=== PATIENT | male | born 1950 | race Two or more races ===

== ENCOUNTER 2020-03-19 14:52 | Inpatient (IN) | payer MEDICARE, MEDICAID ==
[~2020-03-19] VITALS: Ht 182.9 cm; Wt 71.7 kg
--- NOTE | 2020-03-19 15:03 | Emergency Room Report ---
History of Present Illness General Chief Complaint: Vomiting Source: Medical Record, EMS Present Illness HPI Patient is a 69-year-old male sent in from nursing facility [place] for increased vomiting and generalized weakness. Multiple episodes of emesis today. Reportedly nonbloody. No diarrhea. Prior history of chronic debilitation chronically indwelling Argueta catheter. CVA, malnutrition, hypertension, diabetes type 2, chronic kidney disease. Allergies: Coded Allergies: No Known Allergies (Unverified , 03/19/20) COVID-19 Screening Contact w/high risk pt: No Experienced COVID-19 symptoms?: Yes COVID-19 Testing performed NIB ADJUSTER: Yes COVID-19 Screening: Negative COVID-19 COVID-19 Testing Source: 03/03/20 Patient History Past Medical History: see triage record Reviewed Nursing Documentation: PMH: Agreed; PSxH: Agreed Nursing Documentation-PMH Past Medical History: No History, Except For Hx Diabetes: Yes - with CKD Review of Systems All Other Systems: limited - Review of systems: Review systems is limited by patient's being a poor historian Physical Exam Vital Signs Date Time Temp Pulse Resp B/P (MAP) Pulse Ox O2 Delivery O2 Flow Rate FiO2 03/19/20 14:53 98.8 123 24 122/76 (91) 98 Room Air General Appearance: non-toxic, lethargic, Chronically Ill Eyes: bilateral eye PERRL ENT: hearing grossly normal Neck: limited range of motion Respiratory: no respiratory distress, wheezing Cardiovascular #1: normal peripheral pulses, regular rate, rhythm, no edema Gastrointestinal: normal inspection, normal bowel sounds, non tender, soft Genitourinary: other - Argueta catheter with dark urine Musculoskeletal: back normal, other - Muscular atrophy Neurologic: alert, motor weakness, responsive, aphasia Skin: no rash Medical Decision Making Diagnostic Impression: Primary Impression: Sepsis Additional Impressions: Urinary tract infection Argueta catheter problem Hydronephrosis Suspected 2019-nCoV infection ER Course Patient presented for vomiting. Differential diagnosis include was not limited to urinary tract infection, sepsis, coronavirus infection, pneumonia, bowel obstruction among others. Because of complexity of patient's case laboratory tests and imaging studies were ordered. Labs Test 03/19/20 15:21 03/19/20 15:48 03/19/20 16:44 White Blood Count 31.2 K/UL (4.8-10.8) Red Blood Count 6.72 M/UL (4.70-6.10) Hemoglobin 18.9 G/DL (14.2-18.0) Hematocrit 56.1 % (42.0-52.0) Mean Corpuscular Volume 84 FL (80-99) Mean Corpuscular Hemoglobin 28.1 PG (27.0-31.0) Mean Corpuscular Hemoglobin Concent 33.7 G/DL (32.0-36.0) Red Cell Distribution Width 14.4 % (11.6-14.8) Platelet Count 370 K/UL (150-450) Mean Platelet Volume 7.4 FL (6.5-10.1) Neutrophils (%) (Auto) % (45.0-75.0) Lymphocytes (%) (Auto) % (20.0-45.0) Monocytes (%) (Auto) % (1.0-10.0) Eosinophils (%) (Auto) % (0.0-3.0) Basophils (%) (Auto) % (0.0-2.0) Differential Total Cells Counted 100 Neutrophils % (Manual) 81 % (45-75) Lymphocytes % (Manual) 5 % (20-45) Monocytes % (Manual) 8 % (1-10) Eosinophils % (Manual) 0 % (0-3) Basophils % (Manual) 0 % (0-2) Band Neutrophils 6 % (0-8) Platelet Estimate Adequate Platelet Morphology Normal Polychromasia 1+ Prothrombin Time 15.1 SEC (9.30-11.50) Prothromb Time International Ratio 1.4 (0.9-1.1) Activated Partial Thromboplast Time 32 SEC (23-33) Sodium Level 137 MMOL/L (136-145) Potassium Level 4.0 MMOL/L (3.5-5.1) Chloride Level 103 MMOL/L (98-107) Carbon Dioxide Level 26 MMOL/L (21-32) Anion Gap 8 mmol/L (5-15) Blood Urea Nitrogen 10 mg/dL (7-18) Creatinine 1.2 MG/DL (0.55-1.30) Estimat Glomerular Filtration Rate > 60 mL/min (>60) Glucose Level 85 MG/DL (74-106) Calcium Level 9.0 MG/DL (8.5-10.1) Total Bilirubin 0.6 MG/DL (0.2-1.0) Aspartate Amino Transf (AST/SGOT) 26 U/L (15-37) Alanine Aminotransferase (ALT/SGPT) 26 U/L (12-78) Alkaline Phosphatase 64 U/L (46-116) Troponin I 0.000 ng/mL (0.000-0.056) Total Protein 7.9 G/DL (6.4-8.2) Albumin 3.9 G/DL (3.4-5.0) Globulin 4.0 g/dL Albumin/Globulin Ratio 1.0 (1.0-2.7) Lipase 146 U/L (73-393) Urine Color Yellow Urine Appearance Turbid Urine pH 8 (4.5-8.0) Urine Specific [place] 1.010 (1.005-1.035) Urine Protein 4+ (NEGATIVE) Urine Glucose (UA) Negative (NEGATIVE) Urine Ketones 1+ (NEGATIVE) Urine Blood Negative (NEGATIVE) Urine Nitrite Positive (NEGATIVE) Urine Bilirubin Negative (NEGATIVE) Urine Urobilinogen Normal MG/DL (0.0-1.0) Urine Leukocyte Esterase 3+ (NEGATIVE) Urine RBC 2-4 /HPF (0 - 0) Urine WBC 10-15 /HPF (0 - 0) Urine Squamous Epithelial Cells None /LPF (NONE/OCC) Urine Triple Phosphate Crystals Few /LPF (NONE) Urine Bacteria Many /HPF (NONE) EKG Diagnostic Results Rate: tachycardiac Rhythm: other - Tachycardia ST Segments: no acute changes Last Vital Signs Date Time Temp Pulse Resp B/P (MAP) Pulse Ox O2 Delivery O2 Flow Rate FiO2 03/19/20 14:53 98.8 123 24 122/76 (91) 98 Room Air Status: unchanged Disposition: ADMITTED INPATIENT Condition: Stable Venkat Rodriguez MD Mar 19, 2020 15:03
[2020-03-19] MEDS ORDERED: MIRALAX17 G2 ORAL (15:04)
[2020-03-19] MEDS ORDERED: NAMENDA5 MG ORAL (15:04)
[2020-03-19] MEDS ORDERED: FLOMAX0.4 MG ORAL (15:04)
[2020-03-19] MEDS ORDERED: LEVETIRACETAM500 M1 ORAL (15:04)
[2020-03-19] MEDS ORDERED: MULTIVITAMINS1 EAC2 ORAL (15:04)
[2020-03-19] MEDS ORDERED: MEGESTROL400 MG/11 PO (15:04)
[2020-03-19] MEDS ORDERED: COLACE100 MG ORAL (15:04)
[2020-03-19] MEDS ORDERED: PROSCAR5 MG ORAL (15:04)
[2020-03-19] MEDS ORDERED: ATIVAN1 MG ORAL (15:04)
[2020-03-19] MEDS ORDERED: ACETAMINOPHEN325 M1 ORAL (15:04)
[2020-03-19 15:30] VITALS: BP 129/72
--- NOTE | 2020-03-19 15:30 | NUR ---
ED Nurse Note: Pt BIBA from [facility] for N&V since last night. Pt is alert and ox0, bedrest. Pt has leon upon arrival, patent and draining. IV established, blood sent to lab. Set up on monitor. Tachypnea. Seen by CRUZ.
--- NOTE | 2020-03-19 15:50 | NUR ---
ED Nurse Note: Pt taken to CT.
[2020-03-19 15:56] LABS: HEMATOCRIT 56.1 % (42.0-52.0); MEAN CORPUSCULAR VOLUME 84 FL (80-99); PLATELET COUNT 370 K/UL (150-450); RED BLOOD COUNT 6.72 M/UL (4.70-6.10); RED CELL DISTRIBUTION WIDTH 14.4 % (11.6-14.8); WHITE BLOOD COUNT 31.2 K/UL (4.8-10.8)
[2020-03-19 15:58] LABS: HEMOGLOBIN 18.9 G/DL (14.2-18.0)
[2020-03-19] MEDS ORDERED: Cefepime HCl 2 GM in NS 110 ML IV ONE (16:00)
[2020-03-19 16:11] LABS: INR 1.4 (0.9-1.1)
[2020-03-19 16:26] LABS: APPEARANCE,URINE TURBID; BILIRUBIN, URINE NEGATIVE (NEGATIVE); GLUCOSE, URINE (UA) NEGATIVE (NEGATIVE); KETONES,URINE 1+ (NEGATIVE); LEUKOCYTE ESTERASE ,URINE 3+ (NEGATIVE); NITRITE,URINE POSITIVE (NEGATIVE); PH,URINE 8 (4.5-8.0); PROTEIN,URINE 4+ (NEGATIVE); UROBILINOGEN,URINE NORMAL MG/DL (0.0-1.0)
[2020-03-19 16:27] LABS: COLOR,URINE YELLOW
[2020-03-19 16:27] LABS: ANION GAP 8 mmol/L (5-15); BLOOD UREA NITROGEN 10 mg/dL (7-18); CARBON DIOXIDE 26 MMOL/L (21-32); CHLORIDE 103 MMOL/L (98-107); CREATININE 1.2 MG/DL (0.55-1.30); SODIUM 137 MMOL/L (136-145)
[2020-03-19 16:31] LABS: ALANINE AMINOTRANSFERASE 26 U/L (12-78); ALBUMIN 3.9 G/DL (3.4-5.0); ALKALINE PHOSPHATASE 64 U/L (46-116); ASPARTATE AMINO TRANSFERASE 26 U/L (15-37); BILIRUBIN,TOTAL 0.6 MG/DL (0.2-1.0)
--- NOTE | 2020-03-19 16:34 | Diagnostic Imaging Report ---
EXAM: XR Chest, 1 View CLINICAL HISTORY: SOB TECHNIQUE: Frontal view of the chest. COMPARISON: None FINDINGS: Hardware: None. Lungs/pleura: Right basilar opacity may represent atelectasis. No other focal consolidation. No pleural effusion or pneumothorax. Heart/mediastinum: Atherosclerotic calcifications of the aorta. No cardiomegaly. Soft tissues: Unremarkable. Bones: No acute fracture. Upper abdomen: Normal. IMPRESSION: Right basilar opacity may represent atelectasis. No other focal consolidation.
--- NOTE | 2020-03-19 16:44 | Diagnostic Imaging Report ---
EXAM: CT Abdomen and Pelvis Without Intravenous Contrast CLINICAL HISTORY: ABD PAIN TECHNIQUE: Axial computed tomography images of the abdomen and pelvis without intravenous contrast. CTDI is 6.2 mGy and DLP is 350.5 mGy-cm. One or more of the following dose reduction techniques were used: automated exposure control, adjustment of the mA and/or kV according to patient size, use of iterative reconstruction technique. COMPARISON: None FINDINGS: Lung bases: Ground-glass opacity in the dependent right lower lobe may represent atelectasis, but infectious/inflammatory process is not excluded. Mild dependent atelectasis on the left. ABDOMEN: Liver: Unremarkable. Gallbladder and bile ducts: Lobulated gallbladder with mildly calcified paredes versus cholelithiasis. Gallbladder is underdistended. No ductal dilation. Pancreas: Unremarkable. No ductal dilation. Spleen: Unremarkable. No splenomegaly. Adrenals: Unremarkable. No mass. Kidneys and ureters: Severe bilateral hydronephrosis and moderate hydroureters. No obstructing stone identified. Possible infection. Nonspecific, left greater than right perinephric fat stranding. Stomach and bowel: Moderate to large amount of stool in the rectum with mild prominence of the rectal wall. This may represent fecal impaction, and stercoral inflammation. Moderate to large amount of stool in the colon may represent constipation. No bowel obstruction. No mucosal thickening. PELVIS: Appendix: No findings to suggest acute appendicitis. Bladder: Distended bladder with prominent bladder wall thickening, concerning for cystitis. Trace surrounding fluid. Please correlate with urinalysis. Argueta catheter balloon is noted within the prostate. No stones. Reproductive: Right hydrocele partially visualized. Calcifications in the prostate. ABDOMEN and PELVIS: Intraperitoneal space: Unremarkable. No free air. No significant fluid collection. Bones/joints: Degenerative changes of the spine. No acute fracture. No dislocation. Soft tissues: Small fat-containing umbilical hernia. Vasculature: Mild ectasia of the ascending aorta, measuring 4.1 cm in diameter. Atherosclerotic changes of the vasculature. No aortic aneurysm. Lymph nodes: Unremarkable. No enlarged lymph nodes. IMPRESSION: 1. Severe bilateral hydronephrosis and moderate hydroureters. No obstructing stone identified. Possible infection. Nonspecific, left greater than right perinephric fat stranding. 2. Distended bladder with prominent bladder wall thickening, concerning for cystitis. Trace surrounding fluid. Please correlate with urinalysis. 3. Argueta catheter balloon is noted within the prostate. 4. Moderate to large amount of stool in the rectum with mild prominence of the rectal wall. This may represent fecal impaction, and stercoral inflammation. 5. Moderate to large amount of stool in the colon may represent constipation. No bowel obstruction. 6. Ground-glass opacity in the dependent right lower lobe may represent atelectasis, but infectious/inflammatory process is not excluded. 7. Lobulated gallbladder with mildly calcified paredes versus cholelithiasis. Gallbladder is underdistended. 8. Right hydrocele partially visualized.
--- NOTE | 2020-03-19 16:50 | NUR ---
ED Nurse Note: ERMD notified that pt leaking from f/c he arrived with. Per ERMD order, change f/c. New f/c 16F placed 1700.
[2020-03-19 17:38] LABS: CREATINE KINASE 1252 U/L (26-308)
[2020-03-19 18:45] VITALS: BP 135/83
--- NOTE | 2020-03-19 18:50 | NUR ---
ED Nurse Note: Lactic reflux sent.
--- NOTE | 2020-03-19 19:12 | NUR ---
ED Nurse Note: Report received from SANGEETHA ALDRICH Repeat lactic sent
[2020-03-19] MEDS ORDERED: Albuterol/Ipratropium 3ml neb HHN PRN (19:45)
[2020-03-19] MEDS ORDERED: Miralax 17gm pkt ORAL PRN (19:45)
[2020-03-19] MEDS: Heparin 5000 units/ml inj SUBQ SCH (21:00)
[2020-03-19 21:33] LABS: APPEARANCE,URINE TURBID; BILIRUBIN, URINE NEGATIVE (NEGATIVE); COLOR,URINE BROWN; GLUCOSE, URINE (UA) NEGATIVE (NEGATIVE); KETONES,URINE NEGATIVE (NEGATIVE); LEUKOCYTE ESTERASE ,URINE 3+ (NEGATIVE); NITRITE,URINE NEGATIVE (NEGATIVE); PH,URINE 8 (4.5-8.0); PROTEIN,URINE 4+ (NEGATIVE); UROBILINOGEN,URINE NORMAL MG/DL (0.0-1.0)
--- NOTE | 2020-03-19 23:17 | NUR ---
ED Nurse Note: Report given to LISA ALDRICH
--- NOTE | 2020-03-19 23:50 | NUR ---
TRANSFER TO FLOOR: [facility] accompanied by RN. Belongings checked and given to RN. Patient transferred safely to bed and endorsed to RN
--- NOTE | 2020-03-19 23:55 | NUR ---
NURSE NOTES: Patient received from ELINOR Langford. Patient transferred to ER with no issues. Patient is A/O x 1. Patient is noted a leon, patent and draining, noted to have hematuria in his leon. Patient is coughing and attempts to vomit when he arrived to the floor. Patient is on room air with no signs of acute respiratory distress noted. Patient's skin is noted to be intact. Patient has 20 gauge IV on his left hand and a 20 gauge IV on his wrist, patent and flushed. Bed is in the lowest position and locked, call light within reach. Will continue to monitor.
[2020-03-20] VITALS: BP 132/86
[2020-03-20] MEDS ORDERED: Vancomycin 1 GM in D5W 275 ML IV SCH (00:30)
[2020-03-20] MEDS ORDERED: Vancomycin 1.5gm/300ml Premix IVPB SCH (02:00)
[2020-03-20 04:00] VITALS: BP 134/89
--- NOTE | 2020-03-20 07:20 | NUR ---
NURSE HAND-OFF REPORT: Important Events on Shift:[Hematuria noted on patient's leon. Heparin not given. Patient vomited once during shift] Patient Status: [Stable] Diet: [Regular diet] Pending Orders: [] Pending Results/Labs:[] Pending MD notification:[] Latest Vital Signs: Temperature 97.2 , Pulse 101 , B/P 134 /89 , Respiratory Rate 20 , O2 SAT 96 , Room Air, O2 Flow Rate . Vital Sign Comment: [] EKG Rhythm: Sinus Rhythm Rhythm change?: Y MD Notified?: N - MD Response: Latest Wilkerson Fall Score: 70 Fall Risk: High Risk Safety Measures: Call light , Bed Alarm Zone 1, Side Rails Side Rails x2, Bed position Low and Locked. Fall Precautions: Yellow Socks Yellow Gown Patient Fall Education Report given to [ELINOR Castañeda].
--- NOTE | 2020-03-20 07:30 | NUR ---
NURSE NOTES: Received patient in bed. Awake, nonverbal, opens eyes to voice. On room air, respirations unlabored. No signs of pain noted at this time. F/c in place, hematuria noted. Side rails up x2, bed low and locked, bed alarm on, call light within reach - unable to return demonstration, yellow gown on, yellow socks on. IV in right forearm, site intact.
[2020-03-20 08:00] VITALS: BP 135/90
[2020-03-20] MEDS: Tamsulosin 0.4mg cap ORAL SCH (08:20)
[2020-03-20] MEDS: Memantine 10mg tab ORAL SCH ×2 (08:21→17:52)
[2020-03-20] MEDS: Heparin 5000 units/ml inj SUBQ SCH (09:00)
--- NOTE | 2020-03-20 09:00 | NUR ---
NURSE NOTES: Subcut heparin held d/t hematuria.
--- NOTE | 2020-03-20 09:30 | NUR ---
CASE MANAGEMENT:REVIEW [facility]IBA [facility]; N/V AND WEAKNESS SI: SEPSIS. UTI. HYDRONEPHROSIS 98.7 123 24 122/76 98% ON RA WBC+31.2 H/H+18.9/56.1 IS: IV ZOFRAN IV PEPCID 1L NS BOLUS IV VANCOMYCIN IV FLAGYL IV CEFEPIME CT ABD/PELVIS TYPE & SCREEN : TO TELEMETRY DCP: RETURN TO SNF
--- NOTE | 2020-03-20 10:15 | History and Physical Report ---
DATE OF ADMISSION: 03/19/2020 DATE AND TIME SEEN: On 03/20/2020 at 9 a.m. CONSULTANTS: 1. Juancarlos Heredia MD 2. Matias Albert MD 3. Rd Ernst MD 4. Courtney Dotson MD 5. Vee Truong MD CHIEF COMPLAINT: Dehydration, UTI, sepsis, and bilateral hydronephrosis. BRIEF HISTORY: This is a 69-year-old male from [facility], who presented with increased lethargy, was slightly tachycardic, looks dehydrated, sent to [place], and diagnosed of UTI, sepsis, bilateral hydronephrosis, fecal impaction, and then right lung opacity, possible pneumonia and admitted to telemetry. Currently sleeping in bed, slight shortness of breath, no complaint. REVIEW OF SYSTEMS: Unavailable. PAST MEDICAL HISTORY: Weakness, CVA, left hemiplegia, malnutrition, hypertension, and diabetes. PAST SURGICAL HISTORY: Unknown. ALLERGIES: Denies. MEDICATIONS: Include vancomycin, cefepime, tamsulosin, ranitidine, finasteride, heparin, Lipitor, , temazepam, Zofran, and Tylenol. SOCIAL HISTORY: Unable to obtain secondary to the patient's lethargy. PHYSICAL EXAMINATION: GENERAL: Lethargic, sleeping in bed, not talking. VITAL SIGNS: Temperature is 97, pulse 101, respirations 20, blood pressure 134/89. CARDIOVASCULAR: No murmur. LUNGS: Poor air exchange. ABDOMEN: Bowel sounds distant. EXTREMITIES: No cyanosis, clubbing, or edema. NEUROLOGIC: The patient moves all extremities, slightly weak. LABORATORY AND DIAGNOSTIC DATA: Labs at this time show white count 31, hemoglobin and hematocrit 18/56, and platelets 370,000. BMP shows lactic acid 4.6, CK 1250, otherwise BMP is normal. INR is 1.4. Urinalysis showed 3+ leukocyte esterase. ASSESSMENT: UTI, sepsis, dehydration, bilateral hydronephrosis, fecal impaction, right lung opacity, possible pneumonia, weakness, CVA with left hemiplegia, diabetes, hypertension, and malnutrition. PLAN: Resume home medications. O2 and pulmonary treatment as needed. Antibiotics per Infectious Disease. Blood pressure and blood sugar control. Dietary followup. PT and OT. CBC and BMP in the morning. Gibson Berry D.O. DR: Deven JOB#: [id number] CC:
[2020-03-20] MEDS: Cefepime HCl 2 GM in D5W 110 ML IV SCH ×2 (11:02→21:54)
--- NOTE | 2020-03-20 11:51 | NUR ---
NURSE NOTES: New order for CBI obtained from Dr Dotson.
[2020-03-20 12:00] VITALS: BP 128/82
--- NOTE | 2020-03-20 12:15 | Consultation ---
DATE OF CONSULTATION: 03/20/2020 CHIEF COMPLAINT: Fecal impaction. HISTORY OF PRESENT ILLNESS: Most of history per chart. The patient is a 69[facility] patient who came to the hospital with altered mental status, tachycardia, dehydrated. The patient was found to have urinary tract infection, bilateral hydronephrosis, hematuria, fecal impaction, altered mental status, possible pneumonia. GI consult requested for evaluation of constipation and fecal impaction. PAST MEDICAL HISTORY: 1. History of CVA with left hemiparesis. 2. Malnutrition. 3. Hypertension. 4. Diabetes. PAST SURGICAL HISTORY: Unknown. ALLERGIES: Denies any allergies. MEDICATIONS: Please see medication reconciliation list. SOCIAL HISTORY: [facility] in a [facility]. No recent history of tobacco, alcohol, or drug abuse. REVIEW OF SYSTEMS: Limited. PHYSICAL EXAMINATION: VITAL SIGNS: Temperature 97.2, pulse 119, respirations 20, blood pressure is 134/89. HEENT: Normocephalic and atraumatic. Sclerae anicteric. NECK: Supple. No evidence of obvious lymphadenopathy. CARDIOVASCULAR: Tachy, regular rate. Plus S1-S2. LUNGS: Decreased breath sounds bilaterally and diffusely based on the supine exam. ABDOMEN: Soft, nontender. No rebound. No guarding. No peritoneal sign. EXTREMITIES: No cyanosis, no clubbing, no edema. LABORATORY DATA: White count 31,000, hemoglobin is 18, hematocrit 56, platelet count is 370. ASSESSMENT: The patient is a 69-year-old male with most probably urosepsis, hydronephrosis, hematuria, fecal impaction. PLAN: We are going to give him a dose of mineral oil enema. We are going to put him on Colace, MiraLAX, and lactulose and consider adding Linzess tomorrow if still having no bowel movement. The patient to be seen by speech therapist for swallow evaluation. The patient needs extensive hydration because he is very dehydrated. The patient most probably also needs Urology evaluation. Rd Ernst M.D. DR: Renetta JOB#: [id number] CC:
--- NOTE | 2020-03-20 12:48 | Infectious Diseases Prog Note ---
Subjective Allergies: Coded Allergies: No Known Allergies (Unverified , 03/19/20) ID note was dictated # ? Objective Last 24 Hour Vital Signs Date Time Temp Pulse Resp B/P (MAP) Pulse Ox O2 Delivery O2 Flow Rate FiO2 03/20/20 09:00 Room Air 03/20/20 08:00 119 03/20/20 04:00 100 03/20/20 04:00 97.2 101 20 134/89 (104) 96 03/20/20 00:13 Room Air 03/20/20 00:00 106 03/20/20 00:00 97.5 106 20 132/86 (101) 99 03/19/20 23:17 98.8 98 21 118/64 97 Room Air 97 03/19/20 18:45 98.8 106 24 135/83 97 Room Air 03/19/20 15:30 98.8 120 26 129/72 98 Room Air 03/19/20 15:30 120 26 Room Air 97 03/19/20 14:53 98.8 123 24 122/76 (91) 98 Room Air Height (Feet): 6 Height (Inches): 0.00 Weight (Pounds): 158 Microbiology Date/Time Source Procedure Growth Status 03/19/20 21:00 Nasopharynx SARS-CoV-2 RdRp Gene Assay - Final Complete 03/19/20 16:44 Blood Blood Culture - Preliminary Resulted 03/19/20 16:29 Blood Blood Culture - Preliminary Resulted 03/19/20 16:00 Rectum Received 03/19/20 15:48 Urine,Clean Catch Urine Culture - Preliminary Gram Negative Keaton Resulted 03/19/20 15:48 Urine,Clean Catch Urine Culture - Preliminary Gram Negative Keaton Resulted Laboratory Tests Test 03/19/20 15:17 03/19/20 15:21 03/19/20 15:48 03/19/20 16:44 Total Creatine Kinase 1252 U/L (26-308) H White Blood Count 31.2 K/UL (4.8-10.8) *H Red Blood Count 6.72 M/UL (4.70-6.10) H Hemoglobin 18.9 G/DL (14.2-18.0) *H Hematocrit 56.1 % (42.0-52.0) H Mean Corpuscular Volume 84 FL (80-99) Mean Corpuscular Hemoglobin 28.1 PG (27.0-31.0) Mean Corpuscular Hemoglobin Concent 33.7 G/DL (32.0-36.0) Red Cell Distribution Width 14.4 % (11.6-14.8) Platelet Count 370 K/UL (150-450) Mean Platelet Volume 7.4 FL (6.5-10.1) Neutrophils (%) (Auto) % (45.0-75.0) Lymphocytes (%) (Auto) % (20.0-45.0) Monocytes (%) (Auto) % (1.0-10.0) Eosinophils (%) (Auto) % (0.0-3.0) Basophils (%) (Auto) % (0.0-2.0) Differential Total Cells Counted 100 Neutrophils % (Manual) 81 % (45-75) H Lymphocytes % (Manual) 5 % (20-45) L Monocytes % (Manual) 8 % (1-10) Eosinophils % (Manual) 0 % (0-3) Basophils % (Manual) 0 % (0-2) Band Neutrophils 6 % (0-8) Platelet Estimate Adequate Platelet Morphology Normal Polychromasia 1+ Prothrombin Time 15.1 SEC (9.30-11.50) H Prothromb Time International Ratio 1.4 (0.9-1.1) H Activated Partial Thromboplast Time 32 SEC (23-33) Sodium Level 137 MMOL/L (136-145) Potassium Level 4.0 MMOL/L (3.5-5.1) Chloride Level 103 MMOL/L (98-107) Carbon Dioxide Level 26 MMOL/L (21-32) Anion Gap 8 mmol/L (5-15) Blood Urea Nitrogen 10 mg/dL (7-18) Creatinine 1.2 MG/DL (0.55-1.30) Estimat Glomerular Filtration Rate > 60 mL/min (>60) Glucose Level 85 MG/DL (74-106) Calcium Level 9.0 MG/DL (8.5-10.1) Total Bilirubin 0.6 MG/DL (0.2-1.0) Aspartate Amino Transf (AST/SGOT) 26 U/L (15-37) Alanine Aminotransferase (ALT/SGPT) 26 U/L (12-78) Alkaline Phosphatase 64 U/L (46-116) Troponin I 0.000 ng/mL (0.000-0.056) Total Protein 7.9 G/DL (6.4-8.2) Albumin 3.9 G/DL (3.4-5.0) Globulin 4.0 g/dL Albumin/Globulin Ratio 1.0 (1.0-2.7) Lipase 146 U/L (73-393) Urine Color Brown Urine Appearance Turbid Urine pH 8 (4.5-8.0) Urine Specific [place] 1.010 (1.005-1.035) Urine Protein 4+ (NEGATIVE) H Urine Glucose (UA) Negative (NEGATIVE) Urine Ketones Negative (NEGATIVE) Urine Blood Negative (NEGATIVE) Urine Nitrite Negative (NEGATIVE) Urine Bilirubin Negative (NEGATIVE) Urine Urobilinogen Normal MG/DL (0.0-1.0) Urine Leukocyte Esterase 3+ (NEGATIVE) H Urine RBC 2-4 /HPF (0 - 0) H Urine WBC 15-20 /HPF (0 - 0) H Urine Squamous Epithelial Cells None /LPF (NONE/OCC) Urine Triple Phosphate Crystals Few /LPF (NONE) H Urine Amorphous Sediment Many /LPF (NONE) H Urine Bacteria Many /HPF (NONE) H Lactic Acid Level 4.60 mmol/L (0.4-2.0) H Test 03/19/20 19:08 Lactic Acid Level 5.10 mmol/L (0.66-2.22) H Current Medications Medications (Trade) Dose Ordered Sig/Martine Route PRN Reason Start Time Stop Time Status Last Admin Dose Admin Acetaminophen (Tylenol) 650 mg Q4H PRN ORAL Temp >100.5 03/19/20 19:45 04/18/20 19:44 Albuterol/ Ipratropium (Albuterol/ Ipratropium) 3 ml Q4H PRN HHN Shortness of Breath 03/19/20 19:45 03/24/20 19:44 Cefepime HCl 2 gm/ Dextrose 110 ml @ 220 mls/hr EVERY 12 HOURS IV 03/20/20 09:00 03/27/20 08:59 03/20/20 11:02 Dextrose/ Electrolytes 1,000 ml @ 75 mls/hr [id number] IV 03/20/20 13:00 04/19/20 12:59 Docusate Sodium (Colace) 100 mg TWICE A DAY ORAL 03/20/20 18:00 04/19/20 17:59 Finasteride (Proscar) 5 mg DAILY ORAL 03/20/20 09:00 06/18/20 08:59 03/20/20 08:20 Heparin Sodium (Porcine) (Heparin 5000 units/ml) 5,000 units EVERY 12 HOURS SUBQ 03/19/20 21:00 05/03/20 20:59 Lactulose (Cephulac) 20 gm THREE TIMES A DAY ORAL 03/20/20 13:00 04/19/20 12:59 Levetiracetam (Keppra) 500 mg Q12HR ORAL 03/19/20 21:00 04/18/20 20:59 03/20/20 08:20 Memantine (Namenda) 5 mg TWICE A DAY ORAL 03/20/20 09:00 04/19/20 08:59 03/20/20 08:21 Ondansetron HCl (Zofran) 4 mg Q6H PRN IVP Nausea & Vomiting 03/19/20 19:45 04/18/20 19:44 Polyethylene Glycol (Miralax) 17 gm DAILYPRN PRN ORAL Constipation 03/19/20 19:45 04/18/20 19:44 Tamsulosin HCl (Flomax) 0.4 mg DAILY ORAL 03/20/20 09:00 04/19/20 08:59 03/20/20 08:20 Temazepam (Restoril) 15 mg HSPRN PRN ORAL Insomnia 03/19/20 19:45 03/26/20 19:44 Vancomycin HCl ([facility] pharmacy to dose) 1 ea DAILY PRN [facility] pharmacy to dose 03/20/20 01:45 04/19/20 01:44 Vancomycin HCl 1 gm/Dextrose 275 ml @ 183.708 mls/hr Q12H IVPB 03/20/20 14:00 03/25/20 13:59 Juancarlos Heredia MD Mar 20, 2020 12:48
[2020-03-20] MEDS ORDERED: D5 1/2NS w/KCL 10meq 1,000 ML IV SCH (13:00)
--- NOTE | 2020-03-20 13:00 | NUR ---
NURSE NOTES: Mineral oil enema given.
--- NOTE | 2020-03-20 13:00 | NUR ---
NURSE NOTES: CBI started, urine is bright red with small streaks.
[2020-03-20] MEDS: Lactulose 20gm/30ml UDC ORAL SCH ×2 (13:12→17:52)
[2020-03-20] MEDS ORDERED: Vancomycin 1gm in D5W 275ml IVPB SCH (14:00)
--- NOTE | 2020-03-20 14:00 | Consultation ---
History of Present Illness General Date patient seen: Mar 20, 2020 Chief Complaint: Vomiting Present Illness HPI 69-year-old male with hx of chronic debilitation chronically indwelling Argueta catheter., CVA, malnutrition, hypertension, diabetes type 2, chronic kidney disease, alf resident sent by ambulance with CC of vomiting and generalized weakness. Multiple episodes of emesis today. Initial evaluation revealed that Pt has urosepsis and bilateral hydronephrosis. He is admitted fo further management. Allergies: Coded Allergies: No Known Allergies (Unverified , 03/19/20) Medication History Scheduled Docusate Sodium* (Colace*), 100 MG ORAL DAILY, (Reported) Finasteride* (Proscar*), 5 MG ORAL DAILY, (Reported) Levetiracetam (Levetiracetam), 500 MG ORAL DAILY, (Reported) Lorazepam* (Ativan*), 1 MG ORAL THREE TIMES A DAY, (Reported) Memantine Hcl* (Namenda*), 5 MG ORAL TWICE A DAY, (Reported) Multivitamins* (Multivitamins*), 1 TAB ORAL DAILY, (Reported) Polyethylene Glycol 3350* (Miralax*), 17 GM ORAL DAILY, (Reported) Tamsulosin HCl (Flomax), 0.4 MG ORAL DAILY, (Reported) Scheduled PRN Acetaminophen* (Acetaminophen 325MG Tablet*), 650 MG ORAL Q4H PRN for Pain Scale (3-5), (Reported) Miscellaneous Medications Megestrol Acetate (Megestrol Acetate), 400 MG PO, (Reported) Patient History Healthcare decision maker Resuscitation status Advanced Directive on File Past Medical/Surgical History Past Medical/Surgical History: (1) BPH (benign prostatic hyperplasia) (2) Alzheimer's dementia (3) Seizure disorder Review of Systems All Other Systems: negative except mentioned in HPI Physical Exam General Appearance: cachetic, thin Lines, tubes and drains: peripheral HEENT: normocephalic, atraumatic Neck: non-tender, normal alignment Respiratory/Chest: chest wall non-tender, lungs clear, normal breath sounds Last 24 Hour Vital Signs Date Time Temp Pulse Resp B/P (MAP) Pulse Ox O2 Delivery O2 Flow Rate FiO2 03/20/20 12:00 97.9 106 18 128/82 (97) 96 03/20/20 09:00 Room Air 03/20/20 08:00 119 12/13/20 08:00 97.7 96 20 135/90 (105) 97 03/20/20 04:00 100 03/20/20 04:00 97.2 101 20 134/89 (104) 96 03/20/20 00:13 Room Air 03/20/20 00:00 106 03/20/20 00:00 97.5 106 20 132/86 (101) 99 03/19/20 23:17 98.8 98 21 118/64 97 Room Air 97 03/19/20 18:45 98.8 106 24 135/83 97 Room Air 03/19/20 15:30 98.8 120 26 129/72 98 Room Air 03/19/20 15:30 120 26 Room Air 97 03/19/20 14:53 98.8 123 24 122/76 (91) 98 Room Air Intake and Output 03/19/20 03/20/20 19:00 07:00 Output Total 50 ml 500 ml Balance -50 ml -500 ml Output Urine Total 50 ml 500 ml # Bowel Movements 2 Laboratory Tests Test 03/19/20 15:17 03/19/20 15:21 03/19/20 15:48 03/19/20 16:44 Total Creatine Kinase 1252 U/L (26-308) H White Blood Count 31.2 K/UL (4.8-10.8) *H Red Blood Count 6.72 M/UL (4.70-6.10) H Hemoglobin 18.9 G/DL (14.2-18.0) *H Hematocrit 56.1 % (42.0-52.0) H Mean Corpuscular Volume 84 FL (80-99) Mean Corpuscular Hemoglobin 28.1 PG (27.0-31.0) Mean Corpuscular Hemoglobin Concent 33.7 G/DL (32.0-36.0) Red Cell Distribution Width 14.4 % (11.6-14.8) Platelet Count 370 K/UL (150-450) Mean Platelet Volume 7.4 FL (6.5-10.1) Neutrophils (%) (Auto) % (45.0-75.0) Lymphocytes (%) (Auto) % (20.0-45.0) Monocytes (%) (Auto) % (1.0-10.0) Eosinophils (%) (Auto) % (0.0-3.0) Basophils (%) (Auto) % (0.0-2.0) Differential Total Cells Counted 100 Neutrophils % (Manual) 81 % (45-75) H Lymphocytes % (Manual) 5 % (20-45) L Monocytes % (Manual) 8 % (1-10) Eosinophils % (Manual) 0 % (0-3) Basophils % (Manual) 0 % (0-2) Band Neutrophils 6 % (0-8) Platelet Estimate Adequate Platelet Morphology Normal Polychromasia 1+ Prothrombin Time 15.1 SEC (9.30-11.50) H Prothromb Time International Ratio 1.4 (0.9-1.1) H Activated Partial Thromboplast Time 32 SEC (23-33) Sodium Level 137 MMOL/L (136-145) Potassium Level 4.0 MMOL/L (3.5-5.1) Chloride Level 103 MMOL/L (98-107) Carbon Dioxide Level 26 MMOL/L (21-32) Anion Gap 8 mmol/L (5-15) Blood Urea Nitrogen 10 mg/dL (7-18) Creatinine 1.2 MG/DL (0.55-1.30) Estimat Glomerular Filtration Rate > 60 mL/min (>60) Glucose Level 85 MG/DL (74-106) Calcium Level 9.0 MG/DL (8.5-10.1) Total Bilirubin 0.6 MG/DL (0.2-1.0) Aspartate Amino Transf (AST/SGOT) 26 U/L (15-37) Alanine Aminotransferase (ALT/SGPT) 26 U/L (12-78) Alkaline Phosphatase 64 U/L (46-116) Troponin I 0.000 ng/mL (0.000-0.056) Total Protein 7.9 G/DL (6.4-8.2) Albumin 3.9 G/DL (3.4-5.0) Globulin 4.0 g/dL Albumin/Globulin Ratio 1.0 (1.0-2.7) Lipase 146 U/L (73-393) Urine Color Brown Urine Appearance Turbid Urine pH 8 (4.5-8.0) Urine Specific [place] 1.010 (1.005-1.035) Urine Protein 4+ (NEGATIVE) H Urine Glucose (UA) Negative (NEGATIVE) Urine Ketones Negative (NEGATIVE) Urine Blood Negative (NEGATIVE) Urine Nitrite Negative (NEGATIVE) Urine Bilirubin Negative (NEGATIVE) Urine Urobilinogen Normal MG/DL (0.0-1.0) Urine Leukocyte Esterase 3+ (NEGATIVE) H Urine RBC 2-4 /HPF (0 - 0) H Urine WBC 15-20 /HPF (0 - 0) H Urine Squamous Epithelial Cells None /LPF (NONE/OCC) Urine Triple Phosphate Crystals Few /LPF (NONE) H Urine Amorphous Sediment Many /LPF (NONE) H Urine Bacteria Many /HPF (NONE) H Lactic Acid Level 4.60 mmol/L (0.4-2.0) H Test 03/19/20 19:08 Lactic Acid Level 5.10 mmol/L (0.66-2.22) H Microbiology Date/Time Source Procedure Growth Status 03/19/20 21:00 Nasopharynx SARS-CoV-2 RdRp Gene Assay - Final Complete 03/19/20 16:44 Blood Blood Culture - Preliminary Resulted 03/19/20 16:29 Blood Blood Culture - Preliminary Resulted 03/19/20 16:00 Rectum Received 03/19/20 15:48 Urine,Clean Catch Urine Culture - Preliminary Gram Negative Keaton Resulted 03/19/20 15:48 Urine,Clean Catch Urine Culture - Preliminary Gram Negative Keaton Resulted Height (Feet): 6 Height (Inches): 0.00 Weight (Pounds): 158 Medications Current Medications Medications (Trade) Dose Ordered Sig/Martine Route PRN Reason Start Time Stop Time Status Last Admin Dose Admin Acetaminophen (Tylenol) 650 mg Q4H PRN ORAL Temp >100.5 03/19/20 19:45 04/18/20 19:44 Albuterol/ Ipratropium (Albuterol/ Ipratropium) 3 ml Q4H PRN HHN Shortness of Breath 03/19/20 19:45 03/24/20 19:44 Cefepime HCl 2 gm/ Dextrose 110 ml @ 220 mls/hr EVERY 12 HOURS IV 03/20/20 09:00 03/27/20 08:59 03/20/20 11:02 Dextrose/ Electrolytes 1,000 ml @ 75 mls/hr [id number] IV 03/20/20 13:00 04/19/20 12:59 Docusate Sodium (Colace) 100 mg TWICE A DAY ORAL 03/20/20 18:00 04/19/20 17:59 Finasteride (Proscar) 5 mg DAILY ORAL 03/20/20 09:00 06/18/20 08:59 03/20/20 08:20 Heparin Sodium (Porcine) (Heparin 5000 units/ml) 5,000 units EVERY 12 HOURS SUBQ 03/19/20 21:00 05/03/20 20:59 Lactulose (Cephulac) 20 gm THREE TIMES A DAY ORAL 03/20/20 13:00 04/19/20 12:59 03/20/20 13:12 Levetiracetam (Keppra) 500 mg Q12HR ORAL 03/19/20 21:00 04/18/20 20:59 03/20/20 08:20 Memantine (Namenda) 5 mg TWICE A DAY ORAL 03/20/20 09:00 04/19/20 08:59 03/20/20 08:21 Ondansetron HCl (Zofran) 4 mg Q6H PRN IVP Nausea & Vomiting 03/19/20 19:45 04/18/20 19:44 Polyethylene Glycol (Miralax) 17 gm DAILYPRN PRN ORAL Constipation 03/19/20 19:45 04/18/20 19:44 Tamsulosin HCl (Flomax) 0.4 mg DAILY ORAL 03/20/20 09:00 04/19/20 08:59 03/20/20 08:20 Temazepam (Restoril) 15 mg HSPRN PRN ORAL Insomnia 03/19/20 19:45 03/26/20 19:44 Assessment/Plan Problem List: (1) Sepsis ICD Codes: A41.9 - Sepsis, unspecified organism SNOMED: 85525070 (2) Hydronephrosis ICD Codes: N13.30 - Unspecified hydronephrosis SNOMED: 10370886 (3) Suspected 2019-nCoV infection ICD Codes: Z20.828 - Contact with and (suspected) exposure to other viral communicable diseases SNOMED: 984730165 (4) BPH (benign prostatic hyperplasia) ICD Codes: N40.0 - Benign prostatic hyperplasia without lower urinary tract symptoms SNOMED: 308525907 (5) Alzheimer's dementia ICD Codes: G30.9 - Alzheimer's disease, unspecified; F02.80 - Dementia in other diseases classified elsewhere without behavioral disturbance SNOMED: 57922139 (6) Seizure disorder ICD Codes: G40.909 - Epilepsy, unspecified, not intractable, without status epilepticus SNOMED: 152244681 Assessment/Plan: iv fluids iv abx domingo culture Urology evaluation Irrigation of the Argueta resume alf meds dvt prophylaxis. Courtney Dotson MD Mar 20, 2020 14:00
--- NOTE | 2020-03-20 15:00 | Consultation ---
DATE OF CONSULTATION: 03/20/2020 INFECTIOUS DISEASES CONSULTATION CONSULTING PHYSICIAN: Juancarlos Heredia MD REFERRING PHYSICIAN: Gibson Berry DO REASON FOR CONSULTATION: Evaluation of the patient for UTI, sepsis, and antibiotic management. HISTORY OF PRESENT ILLNESS: The patient is a 69-year-old male from [facility], who was brought to this medical center for lethargy. The patient was admitted with the impression of UTI, sepsis, and bilateral hydronephrosis. The patient's blood and urine cultures are growing gram-negative rods. An Infectious Disease consultation has been requested for further evaluation of the patient's antibiotic management. REVIEW OF SYSTEMS: The patient is a poor historian. PAST MEDICAL HISTORY: 1. CVA with left hemiplegia. 2. Malnutrition. 3. Hypertension. 4. Diabetes. 5. History of seizure disorder. 6. History of BPH. ALLERGIES: No known drug allergies. SOCIAL HISTORY: The patient lives in a prison. FAMILY HISTORY: Not contributing. MEDICATIONS: On IV vancomycin and cefepime. PHYSICAL EXAMINATION: VITAL SIGNS: Temperature 97.5, blood pressure 134/89, pulse 100, and respiratory rate 18. HEENT: Mild pale conjunctivae. No icterus. NECK: No lymphadenopathy. CHEST: Bilateral expansion. ABDOMEN: Soft, nontender. GENITOURINARY: Argueta catheter in place. EXTREMITIES: Muscle wasting. No edema. NEUROLOGIC: Awake, nonverbal. LABORATORY AND DIAGNOSTIC DATA: White blood cells 31, hemoglobin 18, platelets 370,000. UA, 15-20 white blood cells. BUN 10, creatinine 1.2. ALT, AST, and alkaline phosphatase unremarkable. CK total 1252. SARS rapid screening test is negative. Blood culture, 2 out of 2 sets growing gram-negative rods. Urine culture is growing gram-negative rods. CT of the abdomen, severe bilateral hydronephrosis, moderate hydroureter, distended bladder suggestive of cystitis, and ground-glass opacity in the right lower lobe. ASSESSMENT: The patient is a 69-year-old male with multiple medical problems as listed above, who has. 1. Sepsis. 2. Leukocytosis. 3. Afebrile. 4. Gram-negative rods bacteremia. 5. UTI/pyelonephritis in the setting of obstruction - CT showed evidence of bilateral hydronephrosis. PLAN: 1. We will start the patient on IV cefepime day 1. 2. Discontinue IV vancomycin. 3. Monitor CBC. 4. BMP. 5. Monitor cultures. 6. Recommend Urology evaluation. 7. Based on the patient's clinical course and laboratories, we will do further recommendations. Thank you for this consultation. We will follow the patient with you. Juancarlos Heredia M.D. DR: MARQUES JOB#: [id number] CC:
[2020-03-20 16:00] VITALS: BP 130/85
--- NOTE | 2020-03-20 16:22 | NUR ---
PT Note PT eval completed. Patient was lethargic and non-verbal during eval, had difficulty following instructions. Patient has muscle weakness; unable to sit or stand. Patient would benefit from Pt services to increase his muscle strength to improve his functional mobility to [facility]. Addendum: 03/20/20 at 1623 by WINNIE COREA PT Amended: Links added.
[2020-03-20] MEDS ORDERED: Varibar Honey 250ml MC PRN (17:15)
[2020-03-20] MEDS ORDERED: Varibar Pudding 230ml MC PRN (17:15)
[2020-03-20] MEDS ORDERED: Varibar Nectar 240ml MC PRN (17:15)
[2020-03-20] MEDS ORDERED: Varibar Thin Liquid powder 148gm MC PRN (17:15)
[2020-03-20] MEDS: Docusate 100mg cap ORAL SCH (17:52)
--- NOTE | 2020-03-20 18:21 | Consultation ---
Consult Note Consult Note I am asked to evaluate the patient at the request of Dr. Berry for fluid and electrolyte management Patient is a 69-year-old male sent in from nursing facility [place] [facility] for increased vomiting and generalized weakness. Multiple episodes of emesis today. Reportedly nonbloody. No diarrhea. Prior history of chronic debilitation chronically indwelling Argueta catheter. CVA, malnutrition, hypertension, diabetes type 2, chronic kidney disease. Allergies: No Known Allergies (Unverified , 03/19/20) COVID-19 Screening Contact w/high risk pt: No Experienced COVID-19 symptoms?: Yes COVID-19 Testing performed [employer] USED [employer] LOT: Yes COVID-19 Screening: Negative COVID-19 COVID-19 Testing Source: 03/03/20 Patient History Past Medical History: see triage record Reviewed Nursing Documentation: PMH: Agreed; PSxH: Agreed Past Medical History: No History, Except For Hx Diabetes: Yes - with CKD Vital Signs Date Time Temp Pulse Resp B/P (MAP) Pulse Ox O2 Delivery O2 Flow Rate FiO2 03/19/20 14:53 98.8 123 24 122/76 (91) 98 Room Air PHYSICAL EXAMINATION: VITAL SIGNS: Temperature 97.5, blood pressure 134/89, pulse 100, and respiratory rate 18. HEENT: Mild pale conjunctivae. No icterus. NECK: No lymphadenopathy. CHEST: Bilateral expansion. ABDOMEN: Soft, nontender. GENITOURINARY: Argueta catheter in place. EXTREMITIES: Muscle wasting. No edema. NEUROLOGIC: Awake, nonverbal. LABORATORY AND DIAGNOSTIC DATA: White blood cells 31, hemoglobin 18, platelets 370,000. UA, 15-20 white blood cells. BUN 10, creatinine 1.2. ALT, AST, and alkaline phosphatase unremarkable. CK total 1252. SARS rapid screening test is negative. Blood culture, 2 out of 2 sets growing gram-negative rods. Urine culture is growing gram-negative rods. CT of the abdomen, severe bilateral hydronephrosis, moderate hydroureter, distended bladder suggestive of cystitis, and ground-glass opacity in the right lower lobe. . Assessment/Plan Impression: Sepsis Rhabdo, high CPK UTI Hydronephrosis/Argueta catheter problem Suspected Covid 19 infection Plan: Hydrate Antibiotics Monitor CPK Monitor electrolytes and monitor renal parameters Avoid nephrotoxic's Per orders Matias Albert MD Mar 20, 2020 18:21
[2020-03-20] MEDS: D5NS 1,000 ML IV SCH (18:43)
--- NOTE | 2020-03-20 19:04 | NUR ---
NURSE HAND-OFF REPORT: Important Events on Shift:[CBI, 3way f/c, enema, lactulose, IVF] Patient Status: [FULL CODE] Diet: [MS chopped] Pending Orders: [] Pending Results/Labs:[] Pending MD notification:[] Latest Vital Signs: Temperature 97.5 , Pulse 109 , B/P 130 /85 , Respiratory Rate 20 , O2 SAT 97 , Room Air, O2 Flow Rate . Vital Sign Comment: [] EKG Rhythm: Sinus Tachycardia Rhythm change?: N MD Notified?: N - MD Response: Latest Wilkerson Fall Score: 50 Fall Risk: High Risk Safety Measures: Call light Within Reach, Bed Alarm Zone 1, Side Rails Side Rails x2, Bed position Low and Locked. Fall Precautions: Yellow Socks Yellow Gown Report given to [Chandler RN].
--- NOTE | 2020-03-20 19:25 | NUR ---
NURSE NOTES: Patient report given by Garry ALDRICH. Patient in bed alert and oriented x0 asleep. No SOB or distress. Call light in reach. Bed at lowest position locked with side rails up. Bed alarm activated. Patient has blood in leon catheter drainage bag and connected to continuous bladder irrigation. Heparin stopped per protocol for active bleeding. Will continue with plan of care.
[2020-03-20 20:00] VITALS: BP 150/90
[2020-03-21] VITALS: BP 146/88
[2020-03-21 04:00] VITALS: BP 150/85
--- NOTE | 2020-03-21 07:20 | NUR ---
NURSE HAND-OFF REPORT: Important Events on Shift:Heparin Stopped due to hematuria. Bladder irrigation done. Patient Status: Stable alert oriented x0 Diet: Regular Pending Orders: [] Pending Results/Labs:[] Pending MD notification:[] Latest Vital Signs: Temperature 98.5 , Pulse 113 , B/P 150 /85 , Respiratory Rate 22 , O2 SAT 93 , Room Air, O2 Flow Rate . Vital Sign Comment: [] EKG Rhythm: Sinus Tachycardia Rhythm change?: N MD Notified?: N - MD Response: Latest Wilkerson Fall Score: 50 Fall Risk: High Risk Safety Measures: Call light Within Reach, Bed Alarm Zone 1, Side Rails Side Rails x2, Bed position Low and Locked. Fall Precautions: Yellow Socks Yellow Gown Report given to
--- NOTE | 2020-03-21 07:22 | NUR ---
NURSE NOTES: pt is asleep and arousable to touch. respiration is even and unlabored with O2 @2l/min via NC. HOB elevated. no facial grimacing for pain noted. no episodes of coughing noted at this time. call light is within reach.
--- NOTE | 2020-03-21 07:54 | Infectious Diseases Prog Note ---
Assessment/Plan 69yo M with: Afebrile Sepsis Leukocytosis GNR bacteremia UTI/pyelo in setting of obstruction - CT w/ BL hydronephrosis 03/19 BCx +GNR UCx +P.mirabilis (S-CTX) CT A/P: 1. Severe bilateral hydronephrosis and moderate hydroureters. No obstructing stone identified. Possible infection. Nonspecific, left greater than right perinephric fat stranding. 2. Distended bladder with prominent bladder wall thickening, concerning for cystitis. Trace surrounding fluid. Please correlate with urinalysis. 3. Argueta catheter balloon is noted within the prostate. 4. Moderate to large amount of stool in the rectum with mild prominence of the rectal wall. This may represent fecal impaction, and stercoral inflammation. 5. Moderate to large amount of stool in the colon may represent constipation. No bowel obstruction. 6. Ground-glass opacity in the dependent right lower lobe may represent atelectasis, but infectious/inflammatory process is not excluded. 7. Lobulated gallbladder with mildly calcified paredes versus cholelithiasis. Gallbladder is underdistended. 8. Right hydrocele partially visualized. Cr 1.2 --> 1.7 COVID rapid test neg 03/19 MRSA nares neg Plan: Cont cefepime #2 F/u BCx +GNRs, narrow abx as able Appreciate Urology input on BL hydro Trend WBC, Cr Monitor CBC/CMP Monitor temp curve, hemodynamics Monitor resp status D/w RN Thank you for this consult. [facility] will continue to follow. Subjective Allergies: Coded Allergies: No Known Allergies (Unverified , 03/19/20) AF NAD WBC improved to 20 Cr up to 1.7 Satting 90% on 1L NC Objective Last 24 Hour Vital Signs Date Time Temp Pulse Resp B/P (MAP) Pulse Ox O2 Delivery O2 Flow Rate FiO2 03/21/20 04:00 98.5 115 22 150/85 (106) 93 03/21/20 04:00 113 03/21/20 00:00 115 03/21/20 00:00 98.3 107 19 146/88 (107) 93 03/20/20 21:00 Room Air 03/20/20 20:00 98.1 111 18 150/90 (110) 97 03/20/20 20:00 109 03/20/20 16:00 97.5 110 20 130/85 (100) 97 03/20/20 16:00 109 03/20/20 12:00 97.9 106 18 128/82 (97) 96 03/20/20 12:00 107 03/20/20 09:00 Room Air 03/20/20 08:00 119 03/20/20 08:00 97.7 96 20 135/90 (105) 97 Height (Feet): 6 Height (Inches): 0.00 Weight (Pounds): 158 Gen: NAD in bed HEENT: NCAT CV: RRR Pulm: CTAB Abd: Soft, NTND Ext: No c/c/e Neuro: Awake Microbiology Date/Time Source Procedure Growth Status 03/19/20 21:00 Nasopharynx SARS-CoV-2 RdRp Gene Assay - Final Complete 03/19/20 16:44 Blood Blood Culture - Preliminary Gram Negative Keaton Resulted 03/19/20 16:29 Blood Blood Culture - Preliminary Gram Negative Keaton Resulted 03/19/20 16:00 Rectum Received 03/19/20 16:00 Nasal Nares MRSA Culture - Final NO METHICILLIN RESISTANT STAPH AUREUS... Complete 03/19/20 15:48 Urine,Clean Catch Urine Culture - Final Proteus Mirabilis Complete 03/19/20 15:48 Urine,Clean Catch Urine Culture - Final Proteus Mirabilis Complete Current Medications Medications (Trade) Dose Ordered Sig/Martine Route PRN Reason Start Time Stop Time Status Last Admin Dose Admin Acetaminophen (Tylenol) 650 mg Q4H PRN ORAL Temp >100.5 03/19/20 19:45 04/18/20 19:44 Albuterol/ Ipratropium (Albuterol/ Ipratropium) 3 ml Q4H PRN HHN Shortness of Breath 03/19/20 19:45 03/24/20 19:44 Barium Sulfate (Varibar Honey) 250 ml NOW PRN MC RAD 03/20/20 17:15 03/23/20 17:04 Barium Sulfate (Varibar Ronda) 240 ml NOW PRN MC RAD 03/20/20 17:15 03/23/20 17:04 Barium Sulfate (Varibar Pudding) 230 ml NOW PRN MC RAD 03/20/20 17:15 03/23/20 17:04 Barium Sulfate (Varibar Thin Liquid powder) 148 gm NOW PRN MC RAD 03/20/20 17:15 03/23/20 17:04 Cefepime HCl 2 gm/ Dextrose 110 ml @ 220 mls/hr EVERY 12 HOURS IV 03/20/20 09:00 03/27/20 08:59 03/20/20 21:54 Dextrose/Sodium Chloride 1,000 ml @ 75 mls/hr [id number] IV 03/20/20 18:30 04/19/20 18:29 03/20/20 18:43 Docusate Sodium (Colace) 100 mg TWICE A DAY ORAL 03/20/20 18:00 04/19/20 17:59 03/20/20 17:52 Finasteride (Proscar) 5 mg DAILY ORAL 03/20/20 09:00 06/18/20 08:59 03/20/20 08:20 Lactulose (Cephulac) 20 gm THREE TIMES A DAY ORAL 03/20/20 13:00 04/19/20 12:59 03/20/20 17:52 Levetiracetam (Keppra) 500 mg Q12HR ORAL 03/19/20 21:00 04/18/20 20:59 03/20/20 21:53 Memantine (Namenda) 5 mg TWICE A DAY ORAL 03/20/20 09:00 04/19/20 08:59 03/20/20 17:52 Ondansetron HCl (Zofran) 4 mg Q6H PRN IVP Nausea & Vomiting 03/19/20 19:45 04/18/20 19:44 Polyethylene Glycol (Miralax) 17 gm DAILYPRN PRN ORAL Constipation 03/19/20 19:45 04/18/20 19:44 Tamsulosin HCl (Flomax) 0.4 mg DAILY ORAL 03/20/20 09:00 04/19/20 08:59 03/20/20 08:20 Temazepam (Restoril) 15 mg HSPRN PRN ORAL Insomnia 03/19/20 19:45 03/26/20 19:44 Edwina Romero M.D. Mar 21, 2020 07:54
[2020-03-21 08:00] VITALS: BP 156/96
[2020-03-21 08:29] LABS: HEMOGLOBIN 14.9 G/DL (14.2-18.0); MEAN CORPUSCULAR VOLUME 80 FL (80-99); PLATELET COUNT 261 K/UL (150-450); RED BLOOD COUNT 5.25 M/UL (4.70-6.10); RED CELL DISTRIBUTION WIDTH 15.4 % (11.6-14.8); WHITE BLOOD COUNT 20.7 K/UL (4.8-10.8)
--- NOTE | 2020-03-21 08:35 | General Progress Note ---
Subjective ROS Limited/Unobtainable: Yes Allergies: Coded Allergies: No Known Allergies (Unverified , 03/19/20) Objective Last 24 Hour Vital Signs Date Time Temp Pulse Resp B/P (MAP) Pulse Ox O2 Delivery O2 Flow Rate FiO2 03/21/20 04:00 98.5 115 22 150/85 (106) 93 03/21/20 04:00 113 03/21/20 00:00 115 03/21/20 00:00 98.3 107 19 146/88 (107) 93 03/20/20 21:00 Room Air 03/20/20 20:00 98.1 111 18 150/90 (110) 97 03/20/20 20:00 109 03/20/20 16:00 97.5 110 20 130/85 (100) 97 03/20/20 16:00 109 03/20/20 12:00 97.9 106 18 128/82 (97) 96 03/20/20 12:00 107 03/20/20 09:00 Room Air Intake and Output 03/20/20 03/21/20 19:00 07:00 Intake Total 300 ml Output Total 1200 ml 3000 ml Balance -900 ml -3000 ml Intake IV Total 300 ml Output Urine Total 1200 ml 3000 ml # Bowel Movements 2 1 Laboratory Tests 03/21/20 05:47: White Blood Count 20.7H, Red Blood Count 5.25, Hemoglobin 14.9, Hematocrit 42.0, Mean Corpuscular Volume 80, Mean Corpuscular Hemoglobin 28.3, Mean Corpuscular Hemoglobin Concent 35.4, Red Cell Distribution Width 15.4H, Platelet Count 261, Mean Platelet Volume 8.2, Neutrophils (%) (Auto) , Lymphocytes (%) (Auto) , Monocytes (%) (Auto) , Eosinophils (%) (Auto) , Basophils (%) (Auto) , Sodium Level [Pending], Potassium Level [Pending], Chloride Level [Pending], Carbon Dioxide Level [Pending], Blood Urea Nitrogen [Pending], Creatinine [Pending], Estimat Glomerular Filtration Rate [Pending], Glucose Level [Pending], Hemoglobin A1c [Pending], Lactic Acid Level [Pending], Uric Acid [Pending], Calcium Level [Pending], Phosphorus Level [Pending], Magnesium Level [Pending], Total Bilirubin [Pending], Gamma Glutamyl Transpeptidase [Pending], Aspartate Amino Transf (AST/SGOT) [Pending], Alanine Aminotransferase (ALT/SGPT) [Pen ding], Alkaline Phosphatase [Pending], Total Creatine Kinase [Pending], C- Reactive Protein, Quantitative [Pending], Pro-B-Type Natriuretic Peptide [Pending], Total Protein [Pending], Albumin [Pending], Globulin [Pending], Carcinoembryonic Antigen [Pending], Free Thyroxine [Pending] Height (Feet): 6 Height (Inches): 0.00 Weight (Pounds): 158 General Appearance: no apparent distress EENT: normal ENT inspection Neck: supple Cardiovascular: normal rate Respiratory/Chest: decreased breath sounds Abdomen: normal bowel sounds, non tender, soft Extremities: non-tender Assessment/Plan Assessment/Plan: 1. History of CVA with left hemiparesis. 2. Malnutrition. 3. Hypertension. 4. Diabetes. 5. stool impaction on bowel regimen few BMS fu labs abx per ID will fu Rd Ernst MD Mar 21, 2020 08:35
--- NOTE | 2020-03-21 08:58 | NUR ---
CASE MANAGEMENT:REVIEW 03/21/20 SI: SEPSIS. UTI 98.5 115 22 150/85 93% ON RA WBC+20.7 IS: IV CEFEPIME Q12 IVF@75/HR : TELEMETRY STATUS DCP: RETURN TO [facility]
[2020-03-21 09:07] LABS: ALBUMIN 2.3 G/DL (3.4-5.0); ALBUMIN/GLOBULIN RATIO 0.5 (1.0-2.7); BILIRUBIN,TOTAL 0.5 MG/DL (0.2-1.0); CREATININE 1.7 MG/DL (0.55-1.30); POTASSIUM 3.7 MMOL/L (3.5-5.1)
[2020-03-21 09:11] LABS: CREATINE KINASE 115 U/L (26-308)
--- NOTE | 2020-03-21 09:16 | General Progress Note ---
Subjective Constitutional: Reports: weakness Allergies: Coded Allergies: No Known Allergies (Unverified , 03/19/20) All Systems: reviewed and negative except above Subjective o2nc sleepy in bed Objective Last 24 Hour Vital Signs Date Time Temp Pulse Resp B/P (MAP) Pulse Ox O2 Delivery O2 Flow Rate FiO2 03/21/20 04:00 98.5 115 22 150/85 (106) 93 03/21/20 04:00 113 03/21/20 00:00 115 03/21/20 00:00 98.3 107 19 146/88 (107) 93 03/20/20 21:00 Room Air 03/20/20 20:00 98.1 111 18 150/90 (110) 97 03/20/20 20:00 109 03/20/20 16:00 97.5 110 20 130/85 (100) 97 03/20/20 16:00 109 03/20/20 12:00 97.9 106 18 128/82 (97) 96 03/20/20 12:00 107 Intake and Output 03/20/20 03/21/20 19:02 07:02 Intake Total 300 ml Output Total 1200 ml 3000 ml Balance -900 ml -3000 ml Intake IV Total 300 ml Output Urine Total 1200 ml 3000 ml # Bowel Movements 2 1 Laboratory Tests 03/21/20 05:47: White Blood Count 20.7H, Red Blood Count 5.25, Hemoglobin 14.9, Hematocrit 42.0, Mean Corpuscular Volume 80, Mean Corpuscular Hemoglobin 28.3, Mean Corpuscular Hemoglobin Concent 35.4, Red Cell Distribution Width 15.4H, Platelet Count 261, Mean Platelet Volume 8.2, Neutrophils (%) (Auto) , Lymphocytes (%) (Auto) , Monocytes (%) (Auto) , Eosinophils (%) (Auto) , Basophils (%) (Auto) , Neutrophils % (Manual) [Pending], Lymphocytes % (Manual) [Pending], Platelet Estimate [Pending], Platelet Morphology [Pending], Sodium Level [Pending], Potassium Level [Pending], Chloride Level [Pending], Carbon Dioxide Level [Pending], Blood Urea Nitrogen [Pending], Creatinine [Pending], Estimat Glomerular Filtration Rate [Pending], Glucose Level [Pending], Hemoglobin A1c 5.4, Lactic Acid Level [Pending], Uric Acid [Pending], Calcium Level [Pending], Phosphorus Level [Pending], Magnesium Level [Pending], Total Bilirubin [Pending], Gamma Glutamyl Transpeptidase [Pending], Aspartate Amino Transf (AST/SGOT) [Pending], Alanine Aminotransferase (ALT/SGPT) [Pending], Alkaline Phosphatase [Pending], Total Creatine Kinase [Pending], C-Reactive Protein, Quantitative [Pending], Pro-B-Type Natriuretic Peptide [Pending], Total Protein [Pending], Albumin [Pending], Globulin [Pending], Carcinoembryonic Antigen [Pending], Free Thyroxine [Pending] Height (Feet): 6 Height (Inches): 0.00 Weight (Pounds): 158 General Appearance: lethargic EENT: normal ENT inspection Neck: normal alignment Cardiovascular: normal peripheral pulses, normal rate, regular rhythm Respiratory/Chest: chest wall non-tender, lungs clear, normal breath sounds Abdomen: normal bowel sounds, non tender, soft Extremities: normal inspection Edema: no edema noted Arm (L), no edema noted Arm (R), no edema noted Leg (L), no edema noted Leg (R), no edema noted Pedal (L), no edema noted Pedal (R), no edema noted Generalized Neurologic: motor weakness Skin: normal pigmentation, warm/dry Assessment/Plan Problem List: (1) CVA (cerebral vascular accident) ICD Codes: I63.9 - Cerebral infarction, unspecified SNOMED: 359357982 (2) HTN (hypertension) ICD Codes: I10 - Essential (primary) hypertension SNOMED: 34617943 (3) Diabetes ICD Codes: E11.9 - Type 2 diabetes mellitus without complications SNOMED: 89938169 (4) Malnutrition ICD Codes: E46 - Unspecified protein-calorie malnutrition SNOMED: 46617359 (5) Urinary tract infection ICD Codes: N39.0 - Urinary tract infection, site not specified SNOMED: 13513832 (6) Hydronephrosis ICD Codes: N13.30 - Unspecified hydronephrosis SNOMED: 73221879 (7) Sepsis ICD Codes: A41.9 - Sepsis, unspecified organism SNOMED: 56987799 (8) Argueta catheter problem ICD Codes: T83.9XXA - Unspecified complication of genitourinary prosthetic device, implant and graft, initial encounter SNOMED: 377706024 Status: unchanged Assessment/Plan: o2 pulm tx abx pt diet cbc bmp am Gibson Berry DO Mar 21, 2020 09:16
[2020-03-21] MEDS: Lactulose 20gm/30ml UDC ORAL SCH ×3 (10:27→18:00)
[2020-03-21] MEDS: Tamsulosin 0.4mg cap ORAL SCH (10:27)
[2020-03-21] MEDS: Memantine 10mg tab ORAL SCH ×2 (10:28→18:00)
[2020-03-21] MEDS: Cefepime HCl 2 GM in D5W 110 ML IV SCH ×2 (10:28→21:14)
[2020-03-21] MEDS: Docusate 100mg cap ORAL SCH ×2 (10:28→18:00)
[2020-03-21] MEDS: D5NS 1,000 ML IV SCH (10:30)
[2020-03-21 12:00] VITALS: BP 150/96
[2020-03-21 16:00] VITALS: BP 155/85
--- NOTE | 2020-03-21 17:25 | Pulmonology Progress Note ---
Subjective ROS Limited/Unobtainable: Yes Constitutional: Reports: no symptoms HEENT: Repors: no symptoms Allergies: Coded Allergies: No Known Allergies (Unverified , 03/19/20) All Systems: reviewed and negative except above Objective Last 24 Hour Vital Signs Date Time Temp Pulse Resp B/P (MAP) Pulse Ox O2 Delivery O2 Flow Rate FiO2 03/21/20 16:00 98.9 113 20 155/85 (108) 92 03/21/20 12:00 98.1 115 20 150/96 (114) 92 03/21/20 12:00 113 03/21/20 09:00 Room Air 03/21/20 08:00 117 03/21/20 08:00 98.8 114 20 156/96 (116) 93 03/21/20 04:00 98.5 115 22 150/85 (106) 93 03/21/20 04:00 113 03/21/20 00:00 115 03/21/20 00:00 98.3 107 19 146/88 (107) 93 03/20/20 21:00 Room Air 03/20/20 20:00 98.1 111 18 150/90 (110) 97 03/20/20 20:00 109 Intake and Output 03/20/20 03/21/20 19:00 07:00 Intake Total 300 ml Output Total 1200 ml 3000 ml Balance -900 ml -3000 ml Intake IV Total 300 ml Output Urine Total 1200 ml 3000 ml # Bowel Movements 2 1 General Appearance: cachetic HEENT: normocephalic, atraumatic Respiratory: chest wall non-tender, lungs clear Cardiovascular: normal peripheral pulses, normal rate Abdomen: normal bowel sounds, soft, non tender Genitourinary: normal external genitalia Extremities: no cyanosis Skin: no rash Neurologic: 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 Complete 03/19/20 16:00 Nasal Nares MRSA Culture - Final NO METHICILLIN RESISTANT STAPH AUREUS... Complete 03/19/20 15:48 Urine,Clean Catch Urine Culture - Final Proteus Mirabilis Complete 03/19/20 15:48 Urine,Clean Catch Urine Culture - Final Proteus Mirabilis Complete Laboratory Tests 03/21/20 05:47: White Blood Count 20.7H, Red Blood Count 5.25, Hemoglobin 14.9, Hematocrit 42.0, Mean Corpuscular Volume 80, Mean Corpuscular Hemoglobin 28.3, Mean Corpuscular Hemoglobin Concent 35.4, Red Cell Distribution Width 15.4H, Platelet Count 261, Mean Platelet Volume 8.2, Neutrophils (%) (Auto) , Lymphocytes (%) (Auto) , Monocytes (%) (Auto) , Eosinophils (%) (Auto) , Basophils (%) (Auto) , Diff erential Total Cells Counted 100, Neutrophils % (Manual) 91H, Lymphocytes % (Manual) 2L, Monocytes % (Manual) 2, Eosinophils % (Manual) 0, Basophils % (Manual) 0, Band Neutrophils 5, Platelet Estimate Adequate, Platelet Morphology Normal, Anisocytosis 1+, Sodium Level 150H, Potassium Level 3.7, Chloride Level 115H, Carbon Dioxide Level 22, Anion Gap 13, Blood Urea Nitrogen 41H, Creatinine 1.7H, Estimat Glomerular Filtration Rate 40.4, Glucose Level 122H, Hemoglobin A1c 5.4, Lactic Acid Level 1.30, Uric Acid 5.0, Calcium Level 9.0, Phosphorus Level 3.0, Magnesium Level 2.3, Total Bilirubin 0.5, Gamma Glutamyl Trans peptidase 34, Aspartate Amino Transf (AST/SGOT) 12L, Alanine Aminotransferase (ALT/SGPT) 17, Alkaline Phosphatase 75, Total Creatine Kinase 115, C-Reactive Protein, Quantitative 44.8H, Pro-B-Type Natriuretic Peptide [Pending], Total Protein 6.8, Albumin 2.3L, Globulin 4.5, Albumin/Globulin Ratio 0.5L, Carcinoembryonic Antigen [Pending], Free Thyroxine 1.39 Current Medications Medications (Trade) Dose Ordered Sig/Martine Route PRN Reason Start Time Stop Time Status Last Admin Dose Admin Acetaminophen (Tylenol) 650 mg Q4H PRN ORAL Temp >100.5 03/19/20 19:45 04/18/20 19:44 Albuterol/ Ipratropium (Albuterol/ Ipratropium) 3 ml Q4H PRN HHN Shortness of Breath 03/19/20 19:45 03/24/20 19:44 Barium Sulfate (Varibar Honey) 250 ml NOW PRN RAD 03/20/20 17:15 03/23/20 17:04 Barium Sulfate (Varibar [place]) 240 ml NOW PRN RAD 03/20/20 17:15 03/23/20 17:04 Barium Sulfate (Varibar Pudding) 230 ml NOW PRN RAD 03/20/20 17:15 03/23/20 17:04 Barium Sulfate (Varibar Thin Liquid powder) 148 gm NOW PRN RAD 03/20/20 17:15 03/23/20 17:04 Cefepime HCl 2 gm/ Dextrose 110 ml @ 220 mls/hr EVERY 12 HOURS IV 03/20/20 09:00 03/27/20 08:59 03/21/20 10:28 Dextrose 1,000 ml @ 75 mls/hr [id number] IV 03/21/20 11:45 04/20/20 11:44 03/21/20 14:51 Docusate Sodium (Colace) 100 mg TWICE A DAY ORAL 03/20/20 18:00 04/19/20 17:59 03/21/20 10:28 Finasteride (Proscar) 5 mg DAILY ORAL 03/20/20 09:00 06/18/20 08:59 03/21/20 10:28 Lactulose (Cephulac) 20 gm THREE TIMES A DAY ORAL 03/20/20 13:00 04/19/20 12:59 03/21/20 15:09 Levetiracetam (Keppra) 500 mg Q12HR ORAL 03/19/20 21:00 04/18/20 20:59 03/21/20 10:28 Memantine (Namenda) 5 mg TWICE A DAY ORAL 03/20/20 09:00 04/19/20 08:59 03/21/20 10:28 Ondansetron HCl (Zofran) 4 mg Q6H PRN IVP Nausea & Vomiting 03/19/20 19:45 04/18/20 19:44 Polyethylene Glycol (Miralax) 17 gm DAILYPRN PRN ORAL Constipation 03/19/20 19:45 04/18/20 19:44 Tamsulosin HCl (Flomax) 0.4 mg DAILY ORAL 03/20/20 09:00 04/19/20 08:59 03/21/20 10:27 Temazepam (Restoril) 15 mg HSPRN PRN ORAL Insomnia 03/19/20 19:45 03/26/20 19:44 Assessment/Plan Problems: (1) Sepsis (2) Hydronephrosis (3) Suspected 2019-nCoV infection (4) BPH (benign prostatic hyperplasia) (5) Alzheimer's dementia (6) Seizure disorder Assessment/Plan wbc lower renal f/u iv fluids iv abx domingo culture Urology evaluation Irrigation of the Argueta resume mcfp meds dvt prophylaxis. Courtney Dotson MD Mar 21, 2020 17:25
--- NOTE | 2020-03-21 17:35 | Nephrology Progress Note ---
Assessment/Plan Problem List: (1) URIEL (acute kidney injury) (2) Hydronephrosis (3) Sepsis Assessment Sepsis Rhabdo UTI Hydronephrosis/Argueta catheter problem Suspected Covid 19 infection Plan Recheck labs in a.m. Argueta catheter already ordered Hydrate Antibiotics Monitor CPK Avoid nephrotoxic's Per orders Subjective ROS Limited/Unobtainable: No Objective Objective Last 24 Hour Vital Signs Date Time Temp Pulse Resp B/P (MAP) Pulse Ox O2 Delivery O2 Flow Rate FiO2 03/21/20 16:00 98.9 113 20 155/85 (108) 92 03/21/20 12:00 98.1 115 20 150/96 (114) 92 03/21/20 12:00 113 03/21/20 09:00 Room Air 03/21/20 08:00 117 03/21/20 08:00 98.8 114 20 156/96 (116) 93 03/21/20 04:00 98.5 115 22 150/85 (106) 93 03/21/20 04:00 113 03/21/20 00:00 115 03/21/20 00:00 98.3 107 19 146/88 (107) 93 03/20/20 21:00 Room Air 03/20/20 20:00 98.1 111 18 150/90 (110) 97 03/20/20 20:00 109 Intake and Output 03/20/20 03/21/20 18:59 06:59 Intake Total 300 ml Output Total 1200 ml 3000 ml Balance -900 ml -3000 ml Intake IV Total 300 ml Output Urine Total 1200 ml 3000 ml # Bowel Movements 2 1 Laboratory Tests 03/21/20 05:47: White Blood Count 20.7H, Red Blood Count 5.25, Hemoglobin 14.9, Hematocrit 42.0, Mean Corpuscular Volume 80, Mean Corpuscular Hemoglobin 28.3, Mean Corpuscular Hemoglobin Concent 35.4, Red Cell Distribution Width 15.4H, Platelet Count 261, Mean Platelet Volume 8.2, Neutrophils (%) (Auto) , Lymphocytes (%) (Auto) , Mon ocytes (%) (Auto) , Eosinophils (%) (Auto) , Basophils (%) (Auto) , Differential Total Cells Counted 100, Neutrophils % (Manual) 91H, Lymphocytes % (Manual) 2L, Monocytes % (Manual) 2, Eosinophils % (Manual) 0, Basophils % (Manual) 0, Band Neutrophils 5, Platelet Estimate Adequate, Platelet Morphology Normal, Anisocytosis 1+, Sodium Level 150H, Potassium Level 3.7, Chloride Level 115H, Carbon Dioxide Level 22, Anion Gap 13, Blood Urea Nitrogen 41H, Creatinine 1.7H, Estimat Glomerular Filtration Rate 40.4, Glucose Level 122H, Hemoglobin A1c 5.4, Lactic Acid Level 1.30, Uric Acid 5.0, Calcium Level 9.0, Phosphorus Level 3.0, Magnesium Level 2.3, Total Bilirubin 0.5, Gamma Glutamyl Transpeptidase 34, Aspartate Amino Transf (AST/SGOT) 12L, Alanine Aminotransferase (ALT/SGPT) 17, Alkaline Phosphatase 75, Total Creatine Kinase 115, C-Reactive Protein, Quantitative 44.8H, Pro-B-Type Natriuretic Peptide [Pending], Total Protein 6.8, Albumin 2.3L, Globulin 4.5, Albumin/Globulin Ratio 0.5L, Carcinoembryonic Antigen [Pending], Free Thyroxine 1.39 Height (Feet): 6 Height (Inches): 0.00 Weight (Pounds): 158 Cardiovascular: tachycardia Respiratory/Chest: decreased breath sounds Abdomen: soft Matias Albert MD Mar 21, 2020 17:34
--- NOTE | 2020-03-21 18:23 | NUR ---
NURSE NOTES: All evening medications held. noted pt very sleepy and coughing up phlegm.
--- NOTE | 2020-03-21 19:06 | NUR ---
NURSE NOTES: Received report from ELINOR De Leon. Pt is A/O x o and obtunded. On room air, respirations unlabored. No SOB or acute distress noted. No signs of pain noted at this time. Argueta catheter in place with flushing occurring and hematuria noted. Side rails up x2, bed low and locked, bed alarm on, call light within reach yet unable to understand how to educate. Will continue plan of care.
--- NOTE | 2020-03-21 19:10 | NUR ---
Speech Pathology Note (Bedside Dysphagia Evaluation) Brief note: Mr. Aguilar is a 69year old male admitted from SNF on 03/19/2020 for chief complaint of Nausea and vomiting. He was fond to be leukocytosis 31.2k, CT A/P was remarkable for bilateral hydronephrosis with bladder wall thickening consistent with possible UTI. The right lower lobe of lung is concerning for aspiration pneumonia. Digestive tract is concerning for stool and fecal impaction without obstruction. Remarkable labs: creatine 1.7 from 1.2, Leukocytosis 20.7k from 31.2, Findings: I went bedside around 18:55. He was noted to be obtunded. His way was congested. His HR was 125, SPO2 is 84~86 on 3 liter. I suctioned via right nostril to the level of likely proximal trachea. Secretion was removed his air way became more clear. SPo2 improved 90%, Tachycardia remained 130's. NO PO was given at this time. Interpretation: 1. Aspiration of his own secretion 2. Obtunded 3. Hypoxemia likely due to aspiration Plan: 1.2. NPO for now may need NG for suction 3. Suction a needed. Sharif Mohamud
--- NOTE | 2020-03-21 19:23 | NUR ---
HAND-OFF: Report given to HA.
[2020-03-21 20:00] VITALS: BP 159/78
[2020-03-21] MEDS ORDERED: LORazepam 1mg tab ORAL PRN (23:00)
[2020-03-22] VITALS: BP 135/74
--- NOTE | 2020-03-22 02:15 | Consultation ---
DATE OF CONSULTATION: 03/21/2020 CONSULTING PHYSICIAN: Vee Truong MD HISTORY OF PRESENT ILLNESS: This is a 69-year-old male patient. This is a patient who came into [facility] with multiple medical problems including diabetes, malnutrition, hypertension, CVA, urinary tract infection, hydronephrosis. The main reason why he came in was dehydration, UTI, bilateral hydronephrosis, but psychiatric consultation requested because the patient is lethargic, confused. Cognition has declined below his baseline and he seems to have altered mental status. The patient appears to be very confused, disorganized, making nonsensical statements. PAST MEDICAL HISTORY: He has CVA, left-sided hemiplegia, hypertension, diabetes, urinary tract infection, sepsis. ALLERGIES: No known drug allergies. PSYCHOTROPIC MEDICATIONS ON ADMISSION: Patient is on a psychotropic medication regimen consisting of Namenda 5 mg twice a day. PAIN ASSESSMENT: 06/15 pain. DEVELOPMENTAL PROBLEMS: Denies. FAMILY PSYCHIATRIC HISTORY: Denies. SOCIAL HISTORY: Patient is currently living in [facility]. Financially supported by [facility] and Medicare. No known legal problems. FAMILY INTERACTIONS AND RELATIONSHIPS: Poor. Appears he does not talk with family. PSYCHIATRIC HISTORY: Major depressive disorder, severe recurrent with psychotic features. STRENGTHS: He has a place to live and has friends who . WEAKNESSES: Impulsive, minimal support system. MENTAL STATUS EXAMINATION: A 69-year-old male. Appearance is disheveled. Attitude . Affect guarded and restricted. Intellect poor because he does not know current events, does not know last four presidents. Mood, depressed. Motor activity, psychomotor agitation. Attention span is poor because he cannot do serial sevens or spell world backwards. Orientation x2. He is oriented to person and place, not to time or situation. Speech is pressured, nonsensical. Thought process, disorganized and illogical. Thought content, no auditory hallucinations and paranoid delusions. Perception is poor because he does not understand proverbs and only has concrete thinking. Insight is poor because he does not recognize having a psych disorder. Judgment is poor because he cannot make his own medical decisions. DIAGNOSES: 1. Major depressive disorder, severe, recurrent with psychotic features. 2. There is no secondary. 3. Medical weakness, status post CVA, left-sided hemiplegia, malnutrition, hypertension, diabetes, hydronephrosis. 4. Psychosocial stressors, financial. 5. Functional impairment, severe. PLAN: Treat the patient with Namenda 5 mg twice a day. Twenty minutes of insight-oriented psychotherapy provided to the patient to help him understand physical and psychiatric condition, so that he has better impulse control, less anxiety, depression. Patient will continue to be followed by Psychiatry throughout hospital course. Chart is reviewed. Discussed with staff. The patient is seen and assessed at bedside. Vee Truong M.D. DR: JOHN JOB#: [id number] CC:
--- NOTE | 2020-03-22 02:30 | Consultation ---
DATE OF CONSULTATION: 03/21/2020 PSYCHOTHERAPY CONSULTATION AND PROGRESS NOTE CONSULTING PHYSICIAN: Alexis Lozoya PsyD. TREATING ATTENDING: Gibson Berry DO HISTORY OF PRESENT ILLNESS: The patient is a 69-year-old male patient. The patient is from [facility], brought into the hospital as he was tachycardic, dehydration, possible sepsis. Patient has been confused, disorganized, and psychotherapeutic services. I assessed this patient. Patient has been lethargic. Patient has been confused, disorganized. Patient denies any suicidal or homicidal thoughts of ideation. No auditory or visual hallucinations. Also, poor historian as he is confused, disorganized, mental status. Also with nursing staff. The patient has been lethargic as well since his admission. PAST MEDICAL HISTORY: Includes a history of weakness, CVA, malnutrition, hypertension, diabetes. ALLERGIES: He has no known drug allergies. SUBSTANCE ABUSE HISTORY: There is no indication of alcohol use, illicit substance use. PSYCHIATRIC HISTORY: Patient has no significant psychiatric history listed at this time. SOCIAL HISTORY: Patient is a 69-year-old male patient from [facility]. Financially sustained by [employer]. MENTAL STATUS EXAMINATION: Alert, oriented to person. Mood is dysphoric. Affect blunted. Thought process is disorganized. Thought content, confused. The patient has poor attention and concentration. Poor insight, judgment, impulse control. I ASSESSED THE PATIENT AND PROVIDED THE PATIENT WITH: 1. Reality orientation. Orientation of patient to person, place, time, and situation. 2. Review of records as patient is a poor historian at this time. Attempted to provide the patient with supportive psychotherapy encouraging positive thought process and depression with positive communication skills, confused, disorganized, and helpless. STRENGTHS: . WEAKNESS: The patient remains confused, disorganized, altered mental status. DIAGNOSES: 1. Rule out major depressive disorder, single episode, without psychotic features. 2. Malnutrition, weakness, CVA, hypertension, diabetes. 3. Psychosocial stressors, moderate. PLAN OF TREATMENT: To maintain medication compliance, positive coping skills when possible. This clinician has reviewed the patient's chart. Discussed treatment with treatment team. Psychotherapy service 45 minutes. . Alexis Lozoya PsyD. DR: MARIANA JOB#: [id number] CC:
[2020-03-22 04:00] VITALS: BP 152/91
[2020-03-22 06:49] LABS: HEMATOCRIT 45.5 % (42.0-52.0); HEMOGLOBIN 15.6 G/DL (14.2-18.0); MEAN CORPUSCULAR VOLUME 82 FL (80-99); PLATELET COUNT 238 K/UL (150-450); RED BLOOD COUNT 5.55 M/UL (4.70-6.10); WHITE BLOOD COUNT 14.1 K/UL (4.8-10.8)
--- NOTE | 2020-03-22 07:09 | Psychiatry Consultation ---
Psychiatry Consultation Psychiatry Consultation Chief Complaint: Vomiting History of Present Illness: 69-year-old male patient with dehydration sepsis and tachycardia is got altered mental status confusion is got declining cognition below his baseline as well as attending is requested daily psychiatric consultation to try to clear up some of his confusion and altered mental status Mental status examination: 69-year-old male who is appearance disheveled his attitude irritable agitated affect guarded restricted intellect poor mood depressed anxious motor activity psychomotor retardation attention span is poor because he cannot do serial sevens is poor backwards orientation x2 Orientation x1 to person but not time place situation speech nonsensical thought process disorganized and logical and insight is poor because of his recognize having a psych disorder judgment is poor because he cannot make his own medical decisions Allergies: Coded Allergies: No Known Allergies (Unverified , 03/19/20) Medication History Scheduled Docusate Sodium* (Colace*), 100 MG ORAL DAILY, (Reported) Finasteride* (Proscar*), 5 MG ORAL DAILY, (Reported) Levetiracetam (Levetiracetam), 500 MG ORAL DAILY, (Reported) Lorazepam* (Ativan*), 1 MG ORAL THREE TIMES A DAY, (Reported) Memantine Hcl* (Namenda*), 5 MG ORAL TWICE A DAY, (Reported) Multivitamins* (Multivitamins*), 1 TAB ORAL DAILY, (Reported) Polyethylene Glycol 3350* (Miralax*), 17 GM ORAL DAILY, (Reported) Tamsulosin HCl (Flomax), 0.4 MG ORAL DAILY, (Reported) Scheduled PRN Acetaminophen* (Acetaminophen 325MG Tablet*), 650 MG ORAL Q4H PRN for Pain Scale (3-5), (Reported) Miscellaneous Medications Megestrol Acetate (Megestrol Acetate), 400 MG PO, (Reported) Objective Data Height (Feet): 6 Height (Inches): 0.00 Weight (Pounds): 158 Assessment/Plan Assessment/Plan: Treat this patient with Namenda 5 mg twice a day and Ativan 1 every 6 hours as needed anxiety agitation 20 minutes of insight oriented psychotherapy will work with this patient to help him understand his physical and psychiatric condition so that he has less anxiety depression better impulse control Diagnosis Burson I: Major depressive disorder mild recurrent with psychotic features rule out dementia with psychosis Vee Truong MD Mar 22, 2020 07:09
--- NOTE | 2020-03-22 07:13 | Infectious Diseases Prog Note ---
Assessment/Plan 69yo M with: Afebrile Sepsis Leukocytosis GNR bacteremia UTI/pyelo in setting of obstruction - CT w/ BL hydronephrosis 03/19 BCx +P.mirabilis (domingo-S) UCx +P.mirabilis (S-CTX) CT A/P: 1. Severe bilateral hydronephrosis and moderate hydroureters. No obstructing stone identified. Possible infection. Nonspecific, left greater than right perinephric fat stranding. 2. Distended bladder with prominent bladder wall thickening, concerning for cystitis. Trace surrounding fluid. Please correlate with urinalysis. 3. Argueta catheter balloon is noted within the prostate. 4. Moderate to large amount of stool in the rectum with mild prominence of the rectal wall. This may represent fecal impaction, and stercoral inflammation. 5. Moderate to large amount of stool in the colon may represent constipation. No bowel obstruction. 6. Ground-glass opacity in the dependent right lower lobe may represent atelectasis, but infectious/inflammatory process is not excluded. 7. Lobulated gallbladder with mildly calcified paredes versus cholelithiasis. Gallbladder is underdistended. 8. Right hydrocele partially visualized. Cr 1.2 --> 1.7 COVID rapid test neg 03/19 MRSA nares neg Plan: Stop cefepime #2 Start CTX 2g IV daily for urosepsis, #1 Appreciate Urology input on BL hydro Repeat renal US to eval for interval change in hydro - if persistent could explain ongoing fevers Trend WBC, Cr Monitor CBC/CMP Monitor temp curve, hemodynamics Monitor resp status D/w RN Thank you for this consult. [facility] will continue to follow. Subjective Allergies: Coded Allergies: No Known Allergies (Unverified , 03/19/20) Tmax 100.7 NAD WBC improved to 14 Cr 1.4, improving on NC NGT in place Non-responsive Objective Last 24 Hour Vital Signs Date Time Temp Pulse Resp B/P (MAP) Pulse Ox O2 Delivery O2 Flow Rate FiO2 03/22/20 04:00 97.5 109 22 152/91 (111) 93 03/22/20 04:00 113 03/22/20 00:00 126 03/22/20 00:00 100.7 94 22 135/74 (94) 92 03/21/20 21:00 Room Air 03/21/20 20:00 99.3 124 24 159/78 (105) 92 03/21/20 20:00 133 03/21/20 16:00 119 03/21/20 16:00 98.9 113 20 155/85 (108) 92 03/21/20 12:00 98.1 115 20 150/96 (114) 92 03/21/20 12:00 113 03/21/20 09:00 Room Air 03/21/20 08:00 117 03/21/20 08:00 98.8 114 20 156/96 (116) 93 Height (Feet): 6 Height (Inches): 0.00 Weight (Pounds): 158 Gen: NAD in bed on NC, NGT in place HEENT: NCAT CV: RRR Pulm: CTAB Abd: Soft, NTND Ext: No c/c/e Neuro: Awake but not interactive Microbiology Date/Time Source Procedure Growth Status 03/19/20 21:00 Nasopharynx SARS-CoV-2 RdRp Gene Assay - Final Complete 03/19/20 16:44 Blood Blood Culture - Final Proteus Mirabilis Complete 03/19/20 16:29 Blood Blood Culture - Final Proteus Mirabilis Complete 03/19/20 16:00 Rectum VRE Culture - Final NO VANCOMYCIN RESISTANT ENTEROCOCCUS ... Complete 03/19/20 16:00 Nasal Nares MRSA Culture - Final NO METHICILLIN RESISTANT STAPH AUREUS... Complete 03/19/20 15:48 Urine,Clean Catch Urine Culture - Final Proteus Mirabilis Complete 03/19/20 15:48 Urine,Clean Catch Urine Culture - Final Proteus Mirabilis Complete Laboratory Tests Test 03/22/20 05:00 White Blood Count 14.1 K/UL (4.8-10.8) H Red Blood Count 5.55 M/UL (4.70-6.10) Hemoglobin 15.6 G/DL (14.2-18.0) Hematocrit 45.5 % (42.0-52.0) Mean Corpuscular Volume 82 FL (80-99) Mean Corpuscular Hemoglobin 28.2 PG (27.0-31.0) Mean Corpuscular Hemoglobin Concent 34.4 G/DL (32.0-36.0) Red Cell Distribution Width 15.0 % (11.6-14.8) H Platelet Count 238 K/UL (150-450) Mean Platelet Volume 8.2 FL (6.5-10.1) Neutrophils (%) (Auto) % (45.0-75.0) Lymphocytes (%) (Auto) % (20.0-45.0) Monocytes (%) (Auto) % (1.0-10.0) Eosinophils (%) (Auto) % (0.0-3.0) Basophils (%) (Auto) % (0.0-2.0) Neutrophils % (Manual) Pending Lymphocytes % (Manual) Pending Platelet Estimate Pending Platelet Morphology Pending Sodium Level Pending Potassium Level Pending Chloride Level Pending Carbon Dioxide Level Pending Blood Urea Nitrogen Pending Creatinine Pending Estimat Glomerular Filtration Rate Pending Glucose Level Pending Calcium Level Pending Phosphorus Level Pending Magnesium Level Pending Total Bilirubin Pending Aspartate Amino Transf (AST/SGOT) Pending Alanine Aminotransferase (ALT/SGPT) Pending Alkaline Phosphatase Pending Total Creatine Kinase Pending Total Protein Pending Albumin Pending Globulin Pending Current Medications Medications (Trade) Dose Ordered Sig/Martine Route PRN Reason Start Time Stop Time Status Last Admin Dose Admin Acetaminophen (Tylenol) 650 mg Q4H PRN ORAL Temp >100.5 03/19/20 19:45 04/18/20 19:44 Albuterol/ Ipratropium (Albuterol/ Ipratropium) 3 ml Q4H PRN HHN Shortness of Breath 03/19/20 19:45 03/24/20 19:44 Barium Sulfate (Varibar Honey) 250 ml NOW PRN RAD 03/20/20 17:15 03/23/20 17:04 Barium Sulfate (Varibar [place]) 240 ml NOW PRN RAD 03/20/20 17:15 03/23/20 17:04 Barium Sulfate (Varibar Pudding) 230 ml NOW PRN RAD 03/20/20 17:15 03/23/20 17:04 Barium Sulfate (Varibar Thin Liquid powder) 148 gm NOW PRN RAD 03/20/20 17:15 03/23/20 17:04 Cefepime HCl 2 gm/ Dextrose 110 ml @ 220 mls/hr EVERY 12 HOURS IV 03/20/20 09:00 03/27/20 08:59 12/14/20 21:14 Dextrose 1,000 ml @ 75 mls/hr [id number] IV 03/21/20 11:45 04/20/20 11:44 03/22/20 00:05 Docusate Sodium (Colace) 100 mg TWICE A DAY ORAL 03/20/20 18:00 04/19/20 17:59 03/21/20 10:28 Finasteride (Proscar) 5 mg DAILY ORAL 03/20/20 09:00 06/18/20 08:59 03/21/20 10:28 Lactulose (Cephulac) 20 gm THREE TIMES A DAY ORAL 03/20/20 13:00 04/19/20 12:59 03/21/20 15:09 Levetiracetam (Keppra) 500 mg Q12HR ORAL 03/19/20 21:00 04/18/20 20:59 03/21/20 21:14 Lorazepam (Ativan) 1 mg Q6H PRN ORAL For Anxiety 03/21/20 23:00 03/28/20 22:59 Memantine (Namenda) 5 mg TWICE A DAY ORAL 03/20/20 09:00 04/19/20 08:59 03/21/20 10:28 Ondansetron HCl (Zofran) 4 mg Q6H PRN IVP Nausea & Vomiting 03/19/20 19:45 04/18/20 19:44 Polyethylene Glycol (Miralax) 17 gm DAILYPRN PRN ORAL Constipation 03/19/20 19:45 04/18/20 19:44 Tamsulosin HCl (Flomax) 0.4 mg DAILY ORAL 03/20/20 09:00 04/19/20 08:59 03/21/20 10:27 Temazepam (Restoril) 15 mg HSPRN PRN ORAL Insomnia 03/19/20 19:45 03/26/20 19:44 Edwina Romero M.D. Mar 22, 2020 07:13
[2020-03-22 07:28] LABS: CREATINE KINASE 39 U/L (26-308); PHOSPHORUS 2.5 MG/DL (2.5-4.9)
[2020-03-22 07:36] LABS: ALBUMIN 2.2 G/DL (3.4-5.0); ALBUMIN/GLOBULIN RATIO 0.6 (1.0-2.7); BILIRUBIN,TOTAL 0.7 MG/DL (0.2-1.0); CALCIUM 8.4 MG/DL (8.5-10.1); CREATININE 1.4 MG/DL (0.55-1.30); POTASSIUM 3.7 MMOL/L (3.5-5.1)
--- NOTE | 2020-03-22 07:51 | NUR ---
NURSE NOTES: Received report from ELINOR Michael. Pt is A/O x 0 and obtunded. On room air, respirations even and unlabored. No s/s pf SOB or acute distress noted at this time. No s/s of pain noted at this time. [address] way le[address] catheter in place with flushing occurring and hematuria noted, light pink yellow. Side rails up x3, bed low and locked, bed alarm on, call light within reach. Pt unable to verbalize understanding. IV on L wrist 20g running fluids at 75, asymptomatic and intact. R Hand 20g SL, asymptomatic and intact. Endorsed that ST recommended Pt to be NPO, following up w/ Dr Berry. Will continue plan of care. Addendum: 03/22/20 at 0853 by Fernanda Olvera RN RN Recieved report from HA ALDRICH
[2020-03-22 08:00] VITALS: BP 153/100
[2020-03-22] MEDS: cefTRIAXone 2 GM in D5W 55 ML IVPB SCH (08:44)
--- NOTE | 2020-03-22 08:52 | NUR ---
NURSE NOTES: Dr Ernst bedside, notified of Pt new NPO order, pt unable to swallow per ST evaul and Pt small bowel movement. acknowledged. no new orders at this time.
[2020-03-22] MEDS: Tamsulosin 0.4mg cap ORAL SCH (09:00)
[2020-03-22] MEDS: Lactulose 20gm/30ml UDC ORAL SCH ×3 (09:00→18:15)
[2020-03-22] MEDS: Memantine 10mg tab ORAL SCH ×2 (09:00→18:15)
--- NOTE | 2020-03-22 09:10 | NUR ---
PT DISCHARGE NOTE Patient unable to participate with bed mobility tasks, unable to initiate movements or follow commands. Patient not appropriate candidate for skilled inpatient PT intervention. Patient to be discharged from PT; PT can be resumed per MD order if patient's cognitive status improves. Fernanda ALDRICH notified. Addendum: 03/22/20 at 1044 by NEHEMIAS SWARTZ PT Amended: Links added.
--- NOTE | 2020-03-22 09:18 | General Progress Note ---
Subjective ROS Limited/Unobtainable: No Allergies: Coded Allergies: No Known Allergies (Unverified , 03/19/20) Objective Last 24 Hour Vital Signs Date Time Temp Pulse Resp B/P (MAP) Pulse Ox O2 Delivery O2 Flow Rate FiO2 03/22/20 04:00 97.5 109 22 152/91 (111) 93 03/22/20 04:00 113 03/22/20 00:00 126 03/22/20 00:00 100.7 94 22 135/74 (94) 92 03/21/20 21:00 Room Air 03/21/20 20:00 99.3 124 24 159/78 (105) 92 03/21/20 20:00 133 03/21/20 16:00 119 03/21/20 16:00 98.9 113 20 155/85 (108) 92 03/21/20 12:00 98.1 115 20 150/96 (114) 92 03/21/20 12:00 113 Intake and Output 03/21/20 03/22/20 19:00 07:00 Output Total 1200 ml 800 ml Balance -1200 ml -800 ml Output Urine Total 1200 ml 800 ml # Bowel Movements 1 1 Laboratory Tests 03/22/20 05:00: White Blood Count 14.1H, Red Blood Count 5.55, Hemoglobin 15.6, Hematocrit 45.5, Mean Corpuscular Volume 82, Mean Corpuscular Hemoglobin 28.2, Mean Corpuscular Hemoglobin Concent 34.4, Red Cell Distribution Width 15.0H, Platelet Count 238, Mean Platelet Volume 8.2, Neutrophils (%) (Auto) , Lymphocytes (%) (Auto) , Monocytes (%) (Auto) , Eosinophils (%) (Auto) , Basophils (%) (Auto) , Differential Total Cells Counted 100, Neutrophils % (Manual) 90H, Lymphocytes % (Manual) 3L, Monocytes % (Manual) 7, Eosinophils % (Manual) 0, Basophils % (Manual) 0, Band Neutrophils 0, Platelet Estimate Adequate, Platelet Morphology Normal, Red Blood Cell Morphology Normal, Sodium Level 156H, Potassium Level 3.7, Chloride Level 121H, Carbon Dioxide Level 22, Anion Gap 13, Blood Urea Nitrogen 37H, Creatinine 1.4H, Estimat Glomerular Filtration Rate 50.5, Glucose Level 139H, Calcium Level 8.4L, Phosphorus Level 2.5, Magnesium Level 2.1, Total Bilirubin 0.7, Aspartate Amino Transf (AST/SGOT) 31, Alanine Aminotransferase (ALT/SGPT) 38, Alkaline Phosphatase 70, Total Creatine Kinase 39, Total Protein 6.0L, Albumin 2.2L, Globulin 3.8, Albumin/Globulin Ratio 0.6L Height (Feet): 6 Height (Inches): 0.00 Weight (Pounds): 158 General Appearance: lethargic EENT: normal ENT inspection Neck: supple Cardiovascular: tachycardia Respiratory/Chest: decreased breath sounds Abdomen: hypoactive bowel sounds Extremities: non-tender Assessment/Plan Status: unchanged Assessment/Plan: 1. History of CVA with left hemiparesis. 2. Malnutrition. 3. Hypertension. 4. Diabetes. 5. stool impaction 6. Covid + on bowel regimen few BMS fu labs abx per ID failed swallow fariba NGT and NGTF will fu Rd Ernst MD Mar 22, 2020 09:18
[2020-03-22] MEDS: Docusate 100mg cap ORAL SCH ×2 (09:38→18:00)
[2020-03-22] MEDS ORDERED: NOVOLIN R100 UNIT/1 SUBQ (11:12)
--- NOTE | 2020-03-22 11:13 | Pulmonology Progress Note ---
Subjective ROS Limited/Unobtainable: No Constitutional: Reports: no symptoms HEENT: Repors: no symptoms Allergies: Coded Allergies: No Known Allergies (Unverified , 03/19/20) All Systems: reviewed and negative except above Objective Last 24 Hour Vital Signs Date Time Temp Pulse Resp B/P (MAP) Pulse Ox O2 Delivery O2 Flow Rate FiO2 03/22/20 09:00 Room Air 03/22/20 08:00 97.5 109 22 153/100 (117) 97 03/22/20 08:00 106 03/22/20 04:00 97.5 109 22 152/91 (111) 93 03/22/20 04:00 113 03/22/20 00:00 126 03/22/20 00:00 100.7 94 22 135/74 (94) 92 03/21/20 21:00 Room Air 03/21/20 20:00 99.3 124 24 159/78 (105) 92 03/21/20 20:00 133 03/21/20 16:00 119 03/21/20 16:00 98.9 113 20 155/85 (108) 92 03/21/20 12:00 98.1 115 20 150/96 (114) 92 03/21/20 12:00 113 Intake and Output 03/21/20 03/22/20 19:00 07:00 Output Total 1200 ml 800 ml Balance -1200 ml -800 ml Output Urine Total 1200 ml 800 ml # Bowel Movements 1 1 General Appearance: cachetic HEENT: normocephalic, atraumatic Respiratory: chest wall non-tender, lungs clear Cardiovascular: normal peripheral pulses, normal rate Abdomen: normal bowel sounds, soft, non tender Genitourinary: normal external genitalia Extremities: no cyanosis Skin: no rash 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 Complete 03/19/20 16:00 Rectum VRE Culture - Final NO VANCOMYCIN RESISTANT ENTEROCOCCUS ... Complete 03/19/20 16:00 Nasal Nares MRSA Culture - Final NO METHICILLIN RESISTANT STAPH AUREUS... Complete 03/19/20 15:48 Urine,Clean Catch Urine Culture - Final Proteus Mirabilis Complete 03/19/20 15:48 Urine,Clean Catch Urine Culture - Final Proteus Mirabilis Complete 03/19/20 15:21 Nasopharynx Coronavirus COVID-19 PCR (AKIN) - Final Complete Laboratory Tests 03/22/20 05:00: White Blood Count 14.1H, Red Blood Count 5.55, Hemoglobin 15.6, Hematocrit 45.5, Mean Corpuscular Volume 82, Mean Corpuscular Hemoglobin 28.2, Mean Corpuscular Hemoglobin Concent 34.4, Red Cell Distribution Width 15.0H, Platelet Count 238, Mean Platelet Volume 8.2, Neutrophils (%) (Auto) , Lymphocytes (%) (Auto) , Monocytes (%) (Auto) , Eosinophils (%) (Auto) , Basophils (%) (Auto) , Differential Total Cells Counted 100, Neutrophils % (Manual) 90H, Lymphocytes % (Manual) 3L, Monocytes % (Manual) 7, Eosinophils % (Manual) 0, Basophils % (Manual) 0, Band Neutrophils 0, Platelet Estimate Adequate, Platelet Morphology Normal, Red Blood Cell Morphology Normal, Sodium Level 156H, Potassium Level 3.7, Chloride Level 121H, Carbon Dioxide Level 22, Anion Gap 13, Blood Urea Nitrogen 37H, Creatinine 1.4H, Estimat Glomerular Filtration Rate 50.5, Glucose Level 139H, Calcium Level 8.4L, Phosphorus Level 2.5, Magnesium Level 2.1, Total Bilirubin 0.7, Aspartate Amino Transf (AST/SGOT) 31, Alanine Aminotransferase (ALT/SGPT) 38, Alkaline Phosphatase 70, Total Creatine Kinase 39, Total Protein 6.0L, Albumin 2.2L, Globulin 3.8, Albumin/Globulin Ratio 0.6L Current Medications Medications (Trade) Dose Ordered Sig/Martine Route PRN Reason Start Time Stop Time Status Last Admin Dose Admin Acetaminophen (Tylenol) 650 mg Q4H PRN ORAL Temp >100.5 03/19/20 19:45 04/18/20 19:44 Albuterol/ Ipratropium (Albuterol/ Ipratropium) 3 ml Q4H PRN HHN Shortness of Breath 03/19/20 19:45 03/24/20 19:44 Barium Sulfate (Varibar Honey) 250 ml NOW PRN RAD 03/20/20 17:15 03/23/20 17:04 Barium Sulfate (Varibar [place]) 240 ml NOW PRN RAD 03/20/20 17:15 03/23/20 17:04 Barium Sulfate (Varibar Pudding) 230 ml NOW PRN RAD 03/20/20 17:15 03/23/20 17:04 Barium Sulfate (Varibar Thin Liquid powder) 148 gm NOW PRN RAD 03/20/20 17:15 03/23/20 17:04 Ceftriaxone Sodium 2 gm/ Dextrose 55 ml @ 110 mls/hr Q24H IVPB 03/22/20 09:00 03/29/20 08:59 03/22/20 08:44 Dextrose 1,000 ml @ 100 mls/hr Q10H IV 03/21/20 11:45 04/20/20 11:44 03/22/20 00:05 Docusate Sodium (Colace) 100 mg TWICE A DAY ORAL 03/20/20 18:00 04/19/20 17:59 03/21/20 10:28 Finasteride (Proscar) 5 mg DAILY ORAL 03/20/20 09:00 06/18/20 08:59 03/21/20 10:28 Lactulose (Cephulac) 20 gm THREE TIMES A DAY ORAL 03/20/20 13:00 04/19/20 12:59 03/21/20 15:09 Levetiracetam (Keppra) 500 mg Q12HR ORAL 03/19/20 21:00 04/18/20 20:59 03/21/20 21:14 Lorazepam (Ativan) 1 mg Q6H PRN ORAL For Anxiety 03/21/20 23:00 03/28/20 22:59 Memantine (Namenda) 5 mg TWICE A DAY ORAL 03/20/20 09:00 04/19/20 08:59 03/21/20 10:28 Ondansetron HCl (Zofran) 4 mg Q6H PRN IVP Nausea & Vomiting 03/19/20 19:45 04/18/20 19:44 Polyethylene Glycol (Miralax) 17 gm DAILYPRN PRN ORAL Constipation 03/19/20 19:45 04/18/20 19:44 Tamsulosin HCl (Flomax) 0.4 mg DAILY ORAL 03/20/20 09:00 04/19/20 08:59 03/21/20 10:27 Temazepam (Restoril) 15 mg HSPRN PRN ORAL Insomnia 03/19/20 19:45 03/26/20 19:44 Assessment/Plan Problems: (1) Sepsis (2) Hydronephrosis (3) Suspected 2019-nCoV infection (4) BPH (benign prostatic hyperplasia) (5) Alzheimer's dementia (6) Seizure disorder Assessment/Plan low grade fever wbc lower renal f/u, bun/creatinine less today iv fluids iv abx domingo culture hematuria resolved Irrigation of the Argueta resume senior care meds dvt prophylaxis. Courteny Dotson MD Mar 22, 2020 11:13
[2020-03-22 12:00] VITALS: BP 157/105
--- NOTE | 2020-03-22 12:55 | Nephrology Progress Note ---
Assessment/Plan Problem List: (1) URIEL (acute kidney injury) (2) Hydronephrosis (3) Sepsis (4) Alzheimer's dementia (5) Seizure disorder Assessment Sepsis Rhabdo UTI Hydronephrosis/Argueta catheter problem Suspected Covid 19 infection Plan March 22: Labs checked. Serum creatinine 1.4. Serum sodium 157. Continues to be on D5W. Continue to monitor renal parameters and electrolytes. Previously: Recheck labs in a.m. Argueta catheter already ordered Hydrate Antibiotics Monitor CPK Avoid nephrotoxic's Per orders Subjective ROS Limited/Unobtainable: No Constitutional: Reports: malaise Objective Objective Last 24 Hour Vital Signs Date Time Temp Pulse Resp B/P (MAP) Pulse Ox O2 Delivery O2 Flow Rate FiO2 03/22/20 09:00 Room Air 03/22/20 08:00 97.5 109 22 153/100 (117) 97 03/22/20 08:00 106 03/22/20 04:00 97.5 109 22 152/91 (111) 93 03/22/20 04:00 113 03/22/20 00:00 126 03/22/20 00:00 100.7 94 22 135/74 (94) 92 03/21/20 21:00 Room Air 03/21/20 20:00 99.3 124 24 159/78 (105) 92 03/21/20 20:00 133 03/21/20 16:00 119 03/21/20 16:00 98.9 113 20 155/85 (108) 92 Intake and Output 03/21/20 03/22/20 19:00 07:00 Output Total 1200 ml 800 ml Balance -1200 ml -800 ml Output Urine Total 1200 ml 800 ml # Bowel Movements 1 1 Laboratory Tests 03/22/20 05:00: White Blood Count 14.1H, Red Blood Count 5.55, Hemoglobin 15.6, Hematocrit 45.5, Mean Corpuscular Volume 82, Mean Corpuscular Hemoglobin 28.2, Mean Corpuscular Hemoglobin Concent 34.4, Red Cell Distribution Width 15.0H, Platelet Count 238, Mean Platelet Volume 8.2, Neutrophils (%) (Auto) , Lymphocytes (%) (Auto) , Monocytes (%) (Auto) , Eosinophils (%) (Auto) , Basophils (%) (Auto) , Differential Total Cells Counted 100, Neutrophils % (Manual) 90H, Lymphocytes % (Manual) 3L, Monocytes % (Manual) 7, Eosinophils % (Manual) 0, Basophils % (Manual) 0, Band Neutrophils 0, Platelet Estimate Adequate, Platelet Morphology Normal, Red Blood Cell Morphology Normal, Sodium Level 156H, Potassium Level 3.7, Chloride Level 121H, Carbon Dioxide Level 22, Anion Gap 13, Blood Urea Nitrogen 37H, Creatinine 1.4H, Estimat Glomerular Filtration Rate 50.5, Glucose Level 139H, Calcium Level 8.4L, Phosphorus Level 2.5, Magnesium Level 2.1, Total Bilirubin 0.7, Aspartate Amino Transf (AST/SGOT) 31, Alanine Aminotransferase (ALT/SGPT) 38, Alkaline Phosphatase 70, Total Creatine Kinase 39, Total Protein 6.0L, Albumin 2.2L, Globulin 3.8, Albumin/Globulin Ratio 0.6L Height (Feet): 6 Height (Inches): 0.00 Weight (Pounds): 158 General Appearance: no apparent distress Cardiovascular: tachycardia Respiratory/Chest: decreased breath sounds Objective No change Matias Albert MD Mar 22, 2020 12:55
--- NOTE | 2020-03-22 13:18 | NUR ---
NURSE NOTES: Awaiting KUQ results to use NG tube. Pt is NPO unable to swallow per and ST pruitt. Meds non admin at this time.
--- NOTE | 2020-03-22 14:27 | NUR ---
NURSE NOTES: Dr Stafford called and he said NGT is okay for use.
--- NOTE | 2020-03-22 14:33 | Diagnostic Imaging Report ---
Indication: Post nasogastric tube placement Technique: Supine view of the upper abdomen Comparison: none Findings: There is a nasogastric tube, tip projected at the level of the gastric antrum in good position. Bowel gas pattern is unremarkable Impression: Satisfactory nasogastric tube placement. Patient's nurse notified at the time of interpretation
[2020-03-22 16:00] VITALS: BP 160/109
--- NOTE | 2020-03-22 16:00 | NUR ---
NURSE NOTES: NG tube inserted, taped at 69.
--- NOTE | 2020-03-22 16:18 | Diagnostic Imaging Report ---
Indication: Abnormal renal function tests, abnormal recent CT scan Technique: Grayscale and duplex images of the kidneys, retroperitoneum, and bladder were obtained. Comparison: No comparison sonograms. Reference made to CT scan dated 03/19/2020 Findings: Right kidney measures 9.9 cm in length. Left kidney measures 11.4 cm in length. Both kidneys demonstrate normal echogenicity. There is mild hydronephrosis bilaterally. Although comparison between the 2 modalities is difficult, this is definitely less severe than what was demonstrated on the prior CT scan. A small right renal cyst is noted. The bladder is heavily trabeculated, contains a Argueta catheter. Considerable fluid is seen within the bladder despite Argueta catheter; however technologist, patient is undergoing active irrigation. The calculated volume is 255 mL. No focal abnormality. Normal inferior vena cava. Incidentally noted is a stone filled gallbladder. Normal caliber common bile duct Impression: Bilateral mild hydronephrosis, much less severe than demonstrated on prior CT scan of 03/19/2020 255 mL bladder volume, despite the presence of a Argueta catheter Right upper pole renal cyst Cholelithiasis incidentally noted.
--- NOTE | 2020-03-22 17:24 | NUR ---
NURSE NOTES: Attempted to page Dr Estrada for consult per Dr Austin. is already added on case, voice mail box was full, unable to leave message.
--- NOTE | 2020-03-22 17:26 | NUR ---
NURSE NOTES: per Dr Romero, ok to remove isolation
--- NOTE | 2020-03-22 17:34 | NUR ---
NURSE HAND-OFF REPORT: Important Events on Shift: NG tube inserted in place, verified by KUB// isolation removed for PUI covid// Patient Status: fc, stable Diet: vital AF 1.2 60 cc cont Pending Orders: Pending Results/Labs: Pending MD notification: awaiting to be seen by Dr Sean hoing hydronephorsis Latest Vital Signs: Temperature 98.6 , Pulse 109 , B/P 160 /109 , Respiratory Rate 25 , O2 SAT 95 , Room Air, O2 Flow Rate . Vital Sign Comment: EKG Rhythm: Sinus Tachycardia Rhythm change?: N MD Notified?: N - MD Response: Latest Wilkerson Fall Score: 50 Fall Risk: High Risk Safety Measures: Call light Within Reach, Bed Alarm Zone 1, Side Rails Side Rails x3, Bed position Low and Locked. Fall Precautions: Yellow Socks Yellow Gown Report to be given. Addendum: 03/22/20 at 1951 by Fernanda Olvera RN RN report given to Brendan ALDRICH. Pt is stable.
--- NOTE | 2020-03-22 18:12 | NUR ---
NURSE NOTES: Docusate nonadmin, in enteric coating cannot be administered via gtube, to contact Md to change to liquid form.
--- NOTE | 2020-03-22 19:15 | NUR ---
NURSE NOTES: Received patient from ELINOR Michael. AAOx0-1, unable to communicate needs. On 2lpm oxygen per nasal cannula, saturating >94%. IV sites intact and flushed; IVF running at a prescribed rate. NGT placement verified by abd xray, feeding held prior due to residual >100ml. Will recheck during the shift for residual for continuation of NGT feeding. Bladder irrigation on going. Pt on 3 way leon catheter. Patent and draining; urine with pinkish tinged. Bed in lowest position, brakes engaged and bed alarm on. Bed rails raised x3. Will continue to monitor.
[2020-03-22 20:00] VITALS: BP 129/90
--- NOTE | 2020-03-22 20:50 | General Progress Note ---
Subjective ROS Limited/Unobtainable: Yes Allergies: Coded Allergies: No Known Allergies (Unverified , 03/19/20) Objective Last 24 Hour Vital Signs Date Time Temp Pulse Resp B/P (MAP) Pulse Ox O2 Delivery O2 Flow Rate FiO2 03/22/20 16:00 98.6 109 25 160/109 (126) 95 03/22/20 16:00 108 03/22/20 12:00 98.4 107 26 157/105 (122) 97 03/22/20 12:00 108 03/22/20 09:00 Room Air 03/22/20 08:00 97.5 109 22 153/100 (117) 97 03/22/20 08:00 106 03/22/20 04:00 97.5 109 22 152/91 (111) 93 03/22/20 04:00 113 03/22/20 00:00 126 03/22/20 00:00 100.7 94 22 135/74 (94) 92 03/21/20 21:00 Room Air Intake and Output 03/21/20 03/22/20 19:00 07:00 Output Total 1200 ml 800 ml Balance -1200 ml -800 ml Output Urine Total 1200 ml 800 ml # Bowel Movements 1 1 Laboratory Tests 03/22/20 05:00: White Blood Count 14.1H, Red Blood Count 5.55, Hemoglobin 15.6, Hematocrit 45.5, Mean Corpuscular Volume 82, Mean Corpuscular Hemoglobin 28.2, Mean Corpuscular Hemoglobin Concent 34.4, Red Cell Distribution Width 15.0H, Platelet Count 238, Mean Platelet Volume 8.2, Neutrophils (%) (Auto) , Lymphocytes (%) (Auto) , Monocytes (%) (Auto) , Eosinophils (%) (Auto) , Basophils (%) (Auto) , Differential Total Cells Counted 100, Neutrophils % (Manual) 90H, Lymphocytes % (Manual) 3L, Monocytes % (Manual) 7, Eosinophils % (Manual) 0, Basophils % (Manual) 0, Band Neutrophils 0, Platelet Estimate Adequate, Platelet Morphology Normal, Red Blood Cell Morphology Normal, Sodium Level 156H, Potassium Level 3.7, Chloride Level 121H, Carbon Dioxide Level 22, Anion Gap 13, Blood Urea Nitrogen 37H, Creatinine 1.4H, Estimat Glomerular Filtration Rate 50.5, Glucose Level 139H, Calcium Level 8.4L, Phosphorus Level 2.5, Magnesium Level 2.1, Total Bilirubin 0.7, Aspartate Amino Transf (AST/SGOT) 31, Alanine Aminotransferase (ALT/SGPT) 38, Alkaline Phosphatase 70, Total Creatine Kinase 39, Total Protein 6.0L, Albumin 2.2L, Globulin 3.8, Albumin/Globulin Ratio 0.6L Height (Feet): 6 Height (Inches): 0.00 Weight (Pounds): 158 Assessment/Plan Problem List: (1) HTN (hypertension) ICD Codes: I10 - Essential (primary) hypertension SNOMED: 90776886 (2) Diabetes ICD Codes: E11.9 - Type 2 diabetes mellitus without complications SNOMED: 06948418 (3) CVA (cerebral vascular accident) ICD Codes: I63.9 - Cerebral infarction, unspecified SNOMED: 554953139 (4) Urinary tract infection ICD Codes: N39.0 - Urinary tract infection, site not specified SNOMED: 90758778 (5) Hydronephrosis ICD Codes: N13.30 - Unspecified hydronephrosis SNOMED: 98364661 (6) Sepsis ICD Codes: A41.9 - Sepsis, unspecified organism SNOMED: 21878097 (7) BPH (benign prostatic hyperplasia) ICD Codes: N40.0 - Benign prostatic hyperplasia without lower urinary tract symptoms SNOMED: 232116715 (8) Alzheimer's dementia ICD Codes: G30.9 - Alzheimer's disease, unspecified; F02.80 - Dementia in other diseases classified elsewhere without behavioral disturbance SNOMED: 30520915 (9) Seizure disorder ICD Codes: G40.909 - Epilepsy, unspecified, not intractable, without status epilepticus SNOMED: 132459581 Status: progressing, unchanged Assessment/Plan: alzheimer bph consulted dr pinzon for hydronephrosis uti cva dm dehydration tachycardia sepsis htn Gino Austin MD Mar 22, 2020 20:50
[2020-03-22] MEDS ORDERED: Tubing IV Secondary IV ONE (22:30)
[2020-03-23] VITALS (17 sets, daily range): BP systolic 103–149; BP diastolic 76–102
--- NOTE | 2020-03-23 01:48 | NUR ---
NURSE NOTES: NGT feeding running at 35ml/hr. No residual at this time. Will continue to monitor. Goal: 60ml/hr
--- NOTE | 2020-03-23 03:44 | NUR ---
NURSE NOTES: Patient was desaturating in the 80s on 6lpm nasal cannula. RT deep suctioned patient and placed nonrebreather 15lpm. spO2 increased to 92%. Will continue to monitor.
--- NOTE | 2020-03-23 07:26 | NUR ---
NURSE NOTES: Received report from ELINOR Dennis. Pt is A/O x 0 and obtunded. Pt shows SOB and acute distress. pt on nonrebreather @ 15L with oxygenation of 93% after deep suctioning. Dr Dotson contacted. No pain noted at this time. 3 way Argueta catheter in place with continuous flushing occurring and hematuria noted, light pink yellow. Side rails up x3, bed low and locked, bed alarm on, call light within reach. Pt unable to verbalize understanding. IV on L wrist 20g running fluids D5W at 75, asymptomatic and intact. R Hand 20g SL, asymptomatic and intact. NGT in place and running 35cc/hr and checked for residual with 100cc noted. Feeding turned off. Will contact Dr. Ernst.
--- NOTE | 2020-03-23 07:34 | NUR ---
NURSE HAND-OFF REPORT: Important Events on Shift:[Patient placed on nonrebreather 15L due to episodes of desaturation. ] Patient Status: [FC] Diet: [Tube feeding: Vital AF @35; goal 60] Pending Orders: [] Pending Results/Labs:[] Pending MD notification:[] Latest Vital Signs: Temperature 100.4 , Pulse 120 , B/P 146 /95 , Respiratory Rate 24 , O2 SAT 94 , Nasal Cannula, O2 Flow Rate 2.0 . Vital Sign Comment: [] EKG Rhythm: Sinus Tachycardia Rhythm change?: N MD Notified?: N - MD Response: Latest Wilkerson Fall Score: 50 Fall Risk: High Risk Safety Measures: Call light Within Reach, Bed Alarm Zone 1, Side Rails Side Rails x3, Bed position Low and Locked. Fall Precautions: Yellow Socks Yellow Gown Report given to [ELINOR Reid].
--- NOTE | 2020-03-23 07:42 | NUR ---
NURSE NOTES: NGT turned off noted to have 100cc of residual. Tachypneic with use of accessory muscles with oxygenation of 91%. Contacted Dr. Dotson for STAT ABG. Dr. Dotson ordered also a STAT CXR.
--- NOTE | 2020-03-23 07:47 | Psychiatry Consultation ---
Psychiatry Consultation Psychiatry Consultation Chief Complaint: Vomiting History of Present Illness: 69-year-old male patient with sepsis dehydration and altered mental status causing him to have a decline in cognition below his baseline as well as attending is requesting daily psychiatric consultation still confused disorganized psychomotor agitation so we will continue to be followed by psychiatry to clear his disorganized thought process Mental status examination: 69-year-old male appearance disheveled affect guarded and restricted intellect poor because he has no current events does not last for presence mood depressed anxious motor activity psychomotor agitation attention was poor orientation x2 speech is pressured thought processes organized logical Insight and judgment poor Allergies: Coded Allergies: No Known Allergies (Unverified , 03/19/20) Medication History Scheduled Docusate Sodium* (Colace*), 100 MG ORAL DAILY, (Reported) Finasteride* (Proscar*), 5 MG ORAL DAILY, (Reported) Insulin Regular, Human* (Novolin R*), Unknown Dose SUBQ .SLIDING SCALE, (Reported) Levetiracetam (Levetiracetam), 500 MG ORAL DAILY, (Reported) Lorazepam* (Ativan*), 1 MG ORAL EVERY 6 HOURS, (Reported) Memantine Hcl* (Namenda*), 5 MG ORAL TWICE A DAY, (Reported) Multivitamins* (Multivitamins*), 1 TAB ORAL DAILY, (Reported) Polyethylene Glycol 3350* (Miralax*), 17 GM ORAL DAILY, (Reported) Tamsulosin HCl (Flomax), 0.4 MG ORAL DAILY, (Reported) Scheduled PRN Acetaminophen* (Acetaminophen 325MG Tablet*), 650 MG ORAL Q4H PRN for Mild Pain (Pain Scale 1-3), (Reported) Miscellaneous Medications Megestrol Acetate (Megestrol Acetate), 400 MG PO, (Reported) Objective Data Height (Feet): 6 Height (Inches): 0.00 Weight (Pounds): 158 Assessment/Plan Assessment/Plan: Treat this patient with Namenda 5 mg twice a day and Ativan 1 every 6 hours as needed anxiety agitation 20 minutes of insight oriented psychotherapy will work with this patient to help him understand his physical and psychiatric condition so that he has less anxiety depression better impulse control Diagnosis [place] I: 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
--- NOTE | 2020-03-23 07:58 | Infectious Diseases Prog Note ---
Assessment/Plan 69yo M with: Afebrile Sepsis Leukocytosis GNR bacteremia 2/2 P.mirabilis UTI/pyelo in setting of obstruction - CT w/ BL hydronephrosis >> improved on repeat US Acute resp failure, s/p transfer to ICU for BiPAP 03/23 03/19 BCx +P.mirabilis (domingo-S) UCx +P.mirabilis (S-CTX) CT A/P: 1. Severe bilateral hydronephrosis and moderate hydroureters. No obstructing stone identified. Possible infection. Nonspecific, left greater than right perinephric fat stranding. 2. Distended bladder with prominent bladder wall thickening, concerning for cystitis. Trace surrounding fluid. Please correlate with urinalysis. 3. Argueta catheter balloon is noted within the prostate. 4. Moderate to large amount of stool in the rectum with mild prominence of the rectal wall. This may represent fecal impaction, and stercoral inflammation. 5. Moderate to large amount of stool in the colon may represent constipation. No bowel obstruction. 6. Ground-glass opacity in the dependent right lower lobe may represent atelectasis, but infectious/inflammatory process is not excluded. 7. Lobulated gallbladder with mildly calcified paredes versus cholelithiasis. Gallbladder is underdistended. 8. Right hydrocele partially visualized. 03/22 Renal US: Bilateral mild hydronephrosis, much less severe than demonstrated on prior CT scan of 03/19/202003/23 BCx ordered CXR ordered Resp cx ordered Cr 1.2 --> 1.7 COVID rapid test neg 03/19, PCR neg 03/19 MRSA nares neg Plan: Stop CTX 2g IV daily for urosepsis, #1 Broaden to meropenem given resp decompensation #1 Repeat BCx, CXR given ongoing fevers Resp cx given resp decompensation Appreciate Urology input on BL hydro Trend WBC, Cr 03/23 SP CTX #1 03/22 SP cefepime #2 Monitor CBC/CMP Monitor temp curve, hemodynamics Monitor resp status D/w RN Thank you for this consult. [facility] will continue to follow. Subjective Allergies: Coded Allergies: No Known Allergies (Unverified , 03/19/20) Tmax 101.8 NAD on 2L NC --> resp decompensation, now on BiPAP in ICU WBC 15.4 Cr improving to 1.3 Objective Last 24 Hour Vital Signs Date Time Temp Pulse Resp B/P (MAP) Pulse Ox O2 Delivery O2 Flow Rate FiO2 03/23/20 04:20 100.4 03/23/20 04:00 120 03/23/20 04:00 101.8 120 24 146/95 (112) 94 03/23/20 00:00 98.6 109 24 149/99 (116) 93 03/23/20 00:00 111 03/22/20 21:00 Nasal Cannula 2.0 03/22/20 20:00 109 03/22/20 20:00 98.6 102 24 129/90 (103) 94 03/22/20 16:00 98.6 109 25 160/109 (126) 95 03/22/20 16:00 108 03/22/20 12:00 98.4 107 26 157/105 (122) 97 03/22/20 12:00 108 03/22/20 09:00 Room Air 03/22/20 08:00 97.5 109 22 153/100 (117) 97 03/22/20 08:00 106 Height (Feet): 6 Height (Inches): 0.00 Weight (Pounds): 158 Gen: NAD in bed, BiPAP mask in lace HEENT: NCAT CV: RRR Pulm: CTAB on biPAP Abd: Soft, NTND Ext: No c/c/e Neuro: Awake but not interactive Current Medications Medications (Trade) Dose Ordered Sig/Martine Route PRN Reason Start Time Stop Time Status Last Admin Dose Admin Acetaminophen (Tylenol) 650 mg Q4H PRN ORAL Temp >100.5 03/19/20 19:45 04/18/20 19:44 03/23/20 03:50 Albuterol/ Ipratropium (Albuterol/ Ipratropium) 3 ml Q4H PRN HHN Shortness of Breath 03/19/20 19:45 03/24/20 19:44 Barium Sulfate (Varibar Honey) 250 ml NOW PRN MC RAD 03/20/20 17:15 03/23/20 17:04 Barium Sulfate (Varibar [place]) 240 ml NOW PRN MC RAD 03/20/20 17:15 03/23/20 17:04 Barium Sulfate (Varibar Pudding) 230 ml NOW PRN MC RAD 03/20/20 17:15 03/23/20 17:04 Barium Sulfate (Varibar Thin Liquid powder) 148 gm NOW PRN RAD 03/20/20 17:15 03/23/20 17:04 Ceftriaxone Sodium 2 gm/ Dextrose 55 ml @ 110 mls/hr Q24H IVPB 03/22/20 09:00 03/29/20 08:59 03/22/20 08:44 Dextrose 1,000 ml @ 100 mls/hr Q10H IV 03/21/20 11:45 04/20/20 11:44 03/22/20 23:16 Docusate Sodium (Colace) 100 mg TWICE A DAY ORAL 03/20/20 18:00 04/19/20 17:59 03/21/20 10:28 Finasteride (Proscar) 5 mg DAILY ORAL 03/20/20 09:00 06/18/20 08:59 03/21/20 10:28 Lactulose (Cephulac) 20 gm THREE TIMES A DAY ORAL 03/20/20 13:00 04/19/20 12:59 03/22/20 18:15 Levetiracetam (Keppra) 500 mg Q12HR ORAL 03/19/20 21:00 04/18/20 20:59 03/22/20 20:36 Lorazepam (Ativan) 1 mg Q6H PRN ORAL For Anxiety 03/21/20 23:00 03/28/20 22:59 Memantine (Namenda) 5 mg TWICE A DAY ORAL 03/20/20 09:00 04/19/20 08:59 03/22/20 18:15 Ondansetron HCl (Zofran) 4 mg Q6H PRN IVP Nausea & Vomiting 03/19/20 19:45 04/18/20 19:44 Polyethylene Glycol (Miralax) 17 gm DAILYPRN PRN ORAL Constipation 03/19/20 19:45 04/18/20 19:44 Tamsulosin HCl (Flomax) 0.4 mg DAILY ORAL 03/20/20 09:00 04/19/20 08:59 03/21/20 10:27 Temazepam (Restoril) 15 mg HSPRN PRN ORAL Insomnia 03/19/20 19:45 03/26/20 19:44 Edwina Romero M.D. Mar 23, 2020 07:58
--- NOTE | 2020-03-23 08:16 | NUR ---
NURSE NOTES: ABG results relayed to Dr. Dotson and ordered transfer to ICU and Bipap 25/08. Charge notified.
--- NOTE | 2020-03-23 08:45 | Consultation ---
DATE OF CONSULTATION: 03/23/2020 CONSULTING PHYSICIAN: Aidan Estrada MD REASON FOR CONSULTATION: Bilateral hydronephrosis. HISTORY OF PRESENT ILLNESS: Patient is a 69-year-old male from convalescent home, was brought to the hospital with tachycardia, dehydration, and sepsis. I was consulted due to new findings of bilateral hydronephrosis on the CAT scan and the ultrasound. PAST MEDICAL HISTORY: Significant for history of weakness, CVA, malnutrition, hypertension, diabetes. ALLERGIES: No known allergies. REVIEW OF SYMPTOMS: I was not been able to complete because patient is noncommunicative and confused and with face mask oxygen. PHYSICAL EXAMINATION: His abdomen is not distended. Bladder is not distended. Argueta catheter is in place. Scrotal exam is normal. Prostate exam was deferred. LABORATORY DATA: Reviewed showing initial white count of 35,000, which is currently down to 14,000. Creatinine was 1.4. X-rays were also reviewed. CT scan showed bilateral hydronephrosis with no evidence of stones or obstruction and severely distended bladder. ASSESSMENT: Patient has most likely chronic retention with obstructive uropathy and bilateral hydronephrosis. However, his creatinine is within a reasonable level 1.4. He was also probably septic, so I would recommend to keep the Argueta catheter. If patient will continue to be bedridden and will require chronic drainage, would be advisable in the near future. Thank you for the consult. I will follow this patient with you. Aidan Estrada M.D. DR: MARQUES JOB#: [id number] CC:
--- NOTE | 2020-03-23 08:48 | NUR ---
RD ASSESSMENT & RECOMMENDATIONS SEE CARE ACTIVITY FOR COMPLETE ASSESSMENT DAILY ESTIMATED NEEDS: Needs based on Pulmonary, sepsis/ 65.2kg 25-30 kcals/kg 6948-9374 total kcals 1-2 g protein/kg 65-130 g total protein 25-30 mL/kg 2768-0918 total fluid mLs NUTRITION DIAGNOSIS: Swallowing difficulty R/T dysphagia, respiratory status as evidenced by DRY PLASTERER HELPER recommends NPO, s/p NGT insertion, on NGT feeds, now w/ an order for BIPAP. CURRENT TF:Vital AF 1.2 @ goal of 60ml/hr x 24 hrs ENTERAL NUTRITION RECOMMENDATIONS: If medically appropriate -> Glucerna 1.2 @ goal of 60ml/hr x 24 hrs to provide 1440ml, 1728kcal, 86g prot, 1159ml free water TF RATE PER MD WHILE ON BIPAP * Rec Glucerna 1.2, elemental TF of Vital is not indicated, h/o DM * If medically appropriate to feed, initiate Glucerna 1.2 @ 20ml/hr x 6hrs, advance 10ml q 4-6 hrs as tolerated to goal rate * HOB over 30 degrees/ water flush per MD ADDITIONAL RECOMMENDATIONS: * Calibrated bedscale wt Ht per SNF=5'8" * Monitor respiratory status, ability to feed: BIPAP ordered 03/23 * Monitor BGs w/ TF, need for hypoglycemics: h/o DM * Monitor lytes, replete as needed
--- NOTE | 2020-03-23 08:57 | NUR ---
RADIOLOGY DEPT., CHEST X-RAY DONE.-P.DYE
[2020-03-23] MEDS: Docusate 100mg cap ORAL SCH (09:00)
[2020-03-23 09:02] LABS: HEMATOCRIT 46.4 % (42.0-52.0); HEMOGLOBIN 15.5 G/DL (14.2-18.0); MEAN CORPUSCULAR VOLUME 84 FL (80-99); PLATELET COUNT 241 K/UL (150-450); RED CELL DISTRIBUTION WIDTH 14.9 % (11.6-14.8); WHITE BLOOD COUNT 15.4 K/UL (4.8-10.8)
--- NOTE | 2020-03-23 09:09 | NUR ---
Chart reviewed. Singe off from speech service at this time.
[2020-03-23 09:19] LABS: ALBUMIN 1.9 G/DL (3.4-5.0); ALBUMIN/GLOBULIN RATIO 0.4 (1.0-2.7); BILIRUBIN,TOTAL 0.7 MG/DL (0.2-1.0); CREATININE 1.3 MG/DL (0.55-1.30); PHOSPHORUS 2.2 MG/DL (2.5-4.9); POTASSIUM 3.1 MMOL/L (3.5-5.1)
--- NOTE | 2020-03-23 09:40 | NUR ---
NURSE NOTES: Pt transferred to ICU and report given to ELINOR Hubbard. Belongings list gone over and leon irrigation explained. Tele boxed removed.
--- NOTE | 2020-03-23 09:45 | NUR ---
NURSE NOTES: Pt and report received from ELINOR Reid. Pt transferred from [facility] for respiratory distress. Pt received on 15L non rebreather. Pt placed on BiPAP 12/, 100%. O2sat reads 98% on developmental education instructor, however pt remains tachypneic. ST HR 120-130's on developmental education instructor. Pt has an NGT; currently NPO d/t being on a BiPAP. Pt has a Argueta Catheter, 16F, 3 way to continuous irrigation for hematuria. Urine appears light pink. PIV Lt hand #20g and Lt wrist #20g. Running D5W @ 100mL/hr. Bed locked and in lowest position. Call light within reach. Will resume plan of care.
--- NOTE | 2020-03-23 09:49 | NUR ---
CASE MANAGEMENT:REVIEW 03/23/20 SI: SEPSIS. BACTEREMIA. UTI 101.8 120 24 146/95 94% ON 2L WBC+16.4 IS: IV CEFEPIME Q12 IVF@100/HR : TELEMETRY STATUS DCP: RETURN TO [place]
--- NOTE | 2020-03-23 09:54 | General Progress Note ---
Subjective ROS Limited/Unobtainable: No Allergies: Coded Allergies: No Known Allergies (Unverified , 03/19/20) Objective Last 24 Hour Vital Signs Date Time Temp Pulse Resp B/P (MAP) Pulse Ox O2 Delivery O2 Flow Rate FiO2 03/23/20 04:20 100.4 03/23/20 04:00 120 03/23/20 04:00 101.8 120 24 146/95 (112) 94 03/23/20 00:00 98.6 109 24 149/99 (116) 93 03/23/20 00:00 111 03/22/20 21:00 Nasal Cannula 2.0 03/22/20 20:00 109 03/22/20 20:00 98.6 102 24 129/90 (103) 94 03/22/20 16:00 98.6 109 25 160/109 (126) 95 03/22/20 16:00 108 03/22/20 12:00 98.4 107 26 157/105 (122) 97 03/22/20 12:00 108 Intake and Output 03/22/20 03/23/20 18:59 06:59 Intake Total 120 ml 35 ml Output Total 5300 ml 1600 ml Balance -5180 ml -1565 ml Intake Free Water 60 ml Tube Feeding 60 ml 35 ml Output Urine Total 5300 ml 1600 ml # Voids 2 Laboratory Tests 03/23/20 07:51: Arterial Blood pH 7.520H, Arterial Blood Partial Pressure CO2 27.8L, Arterial Blood Partial Pressure O2 56.2L, Arterial Blood HCO3 22.2, Arterial Blood Oxygen Saturation 91.6L, Arterial Blood Base Excess 0.8, Ronni Test Positive 03/23/20 08:05: White Blood Count 15.4H, Red Blood Count 5.50, Hemoglobin 15.5, Hematocrit 46.4, Mean Corpuscular Volume 84, Mean Corpuscular Hemoglobin 28.2, Mean Corpuscular Hemoglobin Concent 33.4, Red Cell Distribution Width 14.9H, Platelet Count 241, Mean Platelet Volume 8.4, Neutrophils (%) (Auto) , Lymphocytes (%) (Auto) , Monocytes (%) (Auto) , Eosinophils (%) (Auto) , Basophils (%) (Auto) , Neutrophils % (Manual) [Pending], Lymphocytes % (Manual) [Pending], Platelet Estimate [Pending], Platelet Morphology [Pending], Erythrocyte Sedimentation Rate [Pending], Sodium Level 154H, Potassium Level 3.1L, Chloride Level 120H, Carbon Dioxide Level 25, Anion Gap 9, Blood Urea Nitrogen 31H, Creatinine 1.3, Estimat Glomerular Filtration Rate 55.1, Glucose Level 148H, Calcium Level 9.0, Phosphorus Level 2.2L, Magnesium Level 1.9, Total Bilirubin 0.7, Aspartate Amino Transf (AST/SGOT) 64H, Alanine Aminotransferase (ALT/SGPT) 79H, Alkaline Phosphatase 71, C-Reactive Protein, Quantitative 28.8H, Total Protein 6.8, A lbumin 1.9L, Globulin 4.9, Albumin/Globulin Ratio 0.4L Height (Feet): 6 Height (Inches): 0.00 Weight (Pounds): 158 General Appearance: lethargic EENT: PERRL/EOMI Neck: supple Cardiovascular: normal rate Respiratory/Chest: decreased breath sounds Abdomen: hypoactive bowel sounds Extremities: non-tender Assessment/Plan Status: progressing, unchanged Assessment/Plan: 1. History of CVA with left hemiparesis. 2. Malnutrition. 3. Hypertension. 4. Diabetes. 5. stool impaction on bowel regimen fu labs abx per ID failed swallow fariba transfered to icu and he is on BIPAP NGTF on hold will Rd Tirado MD Mar 23, 2020 09:54
[2020-03-23] MEDS: cefTRIAXone 2 GM in D5W 55 ML IVPB SCH (10:13)
[2020-03-23] MEDS: Lactulose 20gm/30ml UDC ORAL SCH ×3 (10:13→17:47)
[2020-03-23] MEDS: Tamsulosin 0.4mg cap ORAL SCH (10:14)
[2020-03-23] MEDS: Memantine 10mg tab ORAL SCH ×2 (10:14→17:48)
--- NOTE | 2020-03-23 10:40 | NUR ---
NURSE NOTES: Temp 102.2. Pt given Tylenol 650MG and ice packs applied.
--- NOTE | 2020-03-23 11:10 | Pulmonolgy Critical Care Note ---
Critical Care - Asmt/Plan Problems: (1) Acute respiratory failure (2) Seizure disorder (3) Alzheimer's dementia (4) BPH (benign prostatic hyperplasia) (5) URIEL (acute kidney injury) (6) CVA (cerebral vascular accident) (7) Diabetes Respiratory: monitor respiratory rate, adjust FIO2, CXR Cardiac: continue to monitor HR/BP Renal: F/U I&O, keep IV fluid, check electrolytes Infectious Disease: check cultures Gastrointestinal: continue feedings/current rate Endocrine: monitor blood sugar Neurologic: PRN Ativan, PRN Morphine Prophylaxis: Protonix Time Spent (Minutes): 40 Notes Reviewed: parachute line tier, cardio, renal Discussed with: nurses, consultants, case technicianoperation manager - Objective Last 24 Hour Vital Signs Date Time Temp Pulse Resp B/P (MAP) Pulse Ox O2 Delivery O2 Flow Rate FiO2 03/23/20 10:47 134 20 99 Bi-Pap 100 03/23/20 09:30 134 20 99 100 03/23/20 09:00 Nasal Cannula 2.0 03/23/20 08:00 95 Non-Rebreather 15.0 100 03/23/20 08:00 100.9 128 34 139/85 (103) 92 03/23/20 08:00 126 03/23/20 04:20 100.4 03/23/20 04:00 120 03/23/20 04:00 101.8 120 24 146/95 (112) 94 03/23/20 00:00 98.6 109 24 149/99 (116) 93 03/23/20 00:00 111 03/22/20 21:00 Nasal Cannula 2.0 03/22/20 20:00 109 03/22/20 20:00 98.6 102 24 129/90 (103) 94 03/22/20 16:00 98.6 109 25 160/109 (126) 95 03/22/20 16:00 108 03/22/20 12:00 98.4 107 26 157/105 (122) 97 03/22/20 12:00 108 Status: sedated Condition: grave HEENT: atraumatic Lungs: clear Heart: HR/BP stable Abdomen: soft, non-tender Extremities: no C/C/E Accucheck: 144 Critical Care - Subjective Interval Events: pt transferred to ICU b/o acute onset of desaturation. FI02: 100 Sputum Amount: Moderate Tube Feeding Amount: 35 I&O: Intake and Output 03/22/20 03/23/20 19:00 07:00 Intake Total 120 ml 35 ml Output Total 5300 ml 1600 ml Balance -5180 ml -1565 ml Intake Free Water 60 ml Tube Feeding 60 ml 35 ml Output Urine Total 5300 ml 1600 ml # Voids 2 CXR: patchy bilateral infiltrate. Labs: Laboratory Tests Test 03/23/20 07:51 03/23/20 08:05 Arterial Blood pH 7.520 (7.350-7.450) Arterial Blood Partial Pressure CO2 27.8 mmHg (35.0-45.0) L Arterial Blood Partial Pressure O2 56.2 mmHg (75.0-100.0) L Arterial Blood HCO3 22.2 mmol/L (22.0-26.0) Arterial Blood Oxygen Saturation 91.6 % (95-100) L Arterial Blood Base Excess 0.8 (-2-2) Ronni Test Positive White Blood Count 15.4 K/UL (4.8-10.8) H Red Blood Count 5.50 M/UL (4.70-6.10) Hemoglobin 15.5 G/DL (14.2-18.0) Hematocrit 46.4 % (42.0-52.0) Mean Corpuscular Volume 84 FL (80-99) Mean Corpuscular Hemoglobin 28.2 PG (27.0-31.0) Mean Corpuscular Hemoglobin Concent 33.4 G/DL (32.0-36.0) Red Cell Distribution Width 14.9 % (11.6-14.8) H Platelet Count 241 K/UL (150-450) Mean Platelet Volume 8.4 FL (6.5-10.1) Neutrophils (%) (Auto) % (45.0-75.0) Lymphocytes (%) (Auto) % (20.0-45.0) Monocytes (%) (Auto) % (1.0-10.0) Eosinophils (%) (Auto) % (0.0-3.0) Basophils (%) (Auto) % (0.0-2.0) Neutrophils % (Manual) Pending Lymphocytes % (Manual) Pending Platelet Estimate Pending Platelet Morphology Pending Erythrocyte Sedimentation Rate 43 MM/HR (0-20) H Sodium Level 154 MMOL/L (136-145) H Potassium Level 3.1 MMOL/L (3.5-5.1) L Chloride Level 120 MMOL/L (98-107) H Carbon Dioxide Level 25 MMOL/L (21-32) Anion Gap 9 mmol/L (5-15) Blood Urea Nitrogen 31 mg/dL (7-18) H Creatinine 1.3 MG/DL (0.55-1.30) Estimat Glomerular Filtration Rate 55.1 mL/min (>60) Glucose Level 148 MG/DL (74-106) H Calcium Level 9.0 MG/DL (8.5-10.1) Phosphorus Level 2.2 MG/DL (2.5-4.9) L Magnesium Level 1.9 MG/DL (1.8-2.4) Total Bilirubin 0.7 MG/DL (0.2-1.0) Aspartate Amino Transf (AST/SGOT) 64 U/L (15-37) H Alanine Aminotransferase (ALT/SGPT) 79 U/L (12-78) H Alkaline Phosphatase 71 U/L (46-116) C-Reactive Protein, Quantitative 28.8 mg/dL (0.00-0.90) H Total Protein 6.8 G/DL (6.4-8.2) Albumin 1.9 G/DL (3.4-5.0) L Globulin 4.9 g/dL Albumin/Globulin Ratio 0.4 (1.0-2.7) L Courtney Dotson MD Mar 23, 2020 11:10
--- NOTE | 2020-03-23 11:25 | NUR ---
NURSE NOTES: Dr Dotson at bedside assessing pt. Updated him on pt's current condition. RT did ABG.
[2020-03-23] MEDS ORDERED: Potassium Phosphate 20 MM in NS 275 ML IV SCH (11:30)
[2020-03-23] MEDS: Meropenem 1 GM in NS 55 ML IVPB SCH ×2 (13:05→21:33)
--- NOTE | 2020-03-23 13:25 | NUR ---
NURSE NOTES: Urine collected for UA and urine culture, as ordered, and sent down to the lab.
--- NOTE | 2020-03-23 13:59 | Diagnostic Imaging Report ---
Indication: Shortness of breath Technique: One view of the chest Comparison: 03/19/2020 Findings: Interim development of bilateral infiltrates in a peripheral peribronchovascular distribution. The heart size is normal. The aorta is tortuous. Interim nasogastric tube placement, tip projected at the level gastric antrum in good position. Impression: Interim development of bilateral infiltrates, likely pneumonia and quite likely viral, since prior study 03/19/2020
--- NOTE | 2020-03-23 14:20 | NUR ---
NURSE NOTES: RT deep suctioned and collected sputum for sputum culture and sent to lab.
--- NOTE | 2020-03-23 14:38 | Diagnostic Imaging Report ---
Indication: Bilateral lower extremity edema Technique: Grayscale and duplex images of the bilateral lower extremity veins Comparison: None Findings: Bilaterally, grayscale and duplex images demonstrate no evidence of intraluminal thrombus. Normal phasic Doppler waveforms, demonstrating normal augmentation response and no evidence of valvular insufficiency. Greater saphenous vein(s) and tibial veins are patent. Normal compressibility. Impression: Negative for evidence of lower extremity deep venous thrombosis bilaterally
--- NOTE | 2020-03-23 15:51 | Nephrology Progress Note ---
Assessment/Plan Problem List: (1) URIEL (acute kidney injury) (2) Hydronephrosis (3) Sepsis (4) Alzheimer's dementia (5) Seizure disorder Assessment Sepsis Rhabdo UTI Hydronephrosis/Argueta catheter problem Suspected Covid 19 infection Plan March 23: Lab checked. Abnormal electrolytes noted and addressed. D5W 1000 cc IV ordered. Continue to monitor renal parameters. Continue per pulmonary and other consultants. March 22: Labs checked. Serum creatinine 1.4. Serum sodium 157. Continues to be on D5W. Continue to monitor renal parameters and electrolytes. Previously: Recheck labs in a.m. Argueta catheter already ordered Hydrate Antibiotics Monitor CPK Avoid nephrotoxic's Per orders Subjective ROS Limited/Unobtainable: Yes Objective Objective Last 24 Hour Vital Signs Date Time Temp Pulse Resp B/P (MAP) Pulse Ox O2 Delivery O2 Flow Rate FiO2 03/23/20 15:00 108 22 103/81 (88) 100 03/23/20 14:00 108 20 107/84 (92) 99 03/23/20 14:00 70 03/23/20 13:00 114 22 136/90 (105) 95 03/23/20 12:00 85 03/23/20 12:00 113 03/23/20 12:00 Bi-pap 03/23/20 12:00 99.6 131 23 113/76 (88) 03/23/20 11:28 125 21 97 85 03/23/20 11:00 122 23 136/90 (105) 92 03/23/20 11:00 129 20 136/90 (105) 99 03/23/20 10:50 101.8 03/23/20 10:47 134 20 99 Bi-Pap 100 03/23/20 10:00 102.2 134 31 140/102 (115) 99 03/23/20 09:30 134 20 99 100 03/23/20 09:00 Nasal Cannula 2.0 03/23/20 08:00 95 Non-Rebreather 15.0 100 03/23/20 08:00 100.9 128 34 139/85 (103) 92 03/23/20 08:00 126 03/23/20 04:20 100.4 03/23/20 04:00 120 03/23/20 04:00 101.8 120 24 146/95 (112) 94 03/23/20 00:00 98.6 109 24 149/99 (116) 93 03/23/20 00:00 111 03/22/20 21:00 Nasal Cannula 2.0 03/22/20 20:00 109 03/22/20 20:00 98.6 102 24 129/90 (103) 94 03/22/20 16:00 98.6 109 25 160/109 (126) 95 03/22/20 16:00 108 Intake and Output 03/22/20 03/23/20 19:00 07:00 Intake Total 120 ml 35 ml Output Total 5300 ml 1600 ml Balance -5180 ml -1565 ml Intake Free Water 60 ml Tube Feeding 60 ml 35 ml Output Urine Total 5300 ml 1600 ml # Voids 2 Laboratory Tests 03/23/20 07:51: Arterial Blood pH 7.520H, Arterial Blood Partial Pressure CO2 27.8L, Arterial Blood Partial Pressure O2 56.2L, Arterial Blood HCO3 22.2, Arterial Blood Oxygen Saturation 91.6L, Arterial Blood Base Excess 0.8, Ronni Test Positive 03/23/20 08:05: White Blood Count 15.4H, Red Blood Count 5.50, Hemoglobin 15.5, Hematocrit 46.4, Mean Corpuscular Volume 84, Mean Corpuscular Hemoglobin 28.2, Mean Corpuscular Hemoglobin Concent 33.4, Red Cell Distribution Width 14.9H, Platelet Count 241, Mean Platelet Volume 8.4, Neutrophils (%) (Auto) , Lymphocytes (%) (Auto) , Monocytes (%) (Auto) , Eosinophils (%) (Auto) , Basophils (%) (Auto) , Differential Total Cells Counted 100, Neutrophils % (Manual) 88H, Lymphocytes % (Manual) 9L, Monocytes % (Manual) 3, Eosinophils % (Manual) 0, Basophils % (Manual) 0, Band Neutrophils 0, Platelet Estimate Adequate, Platelet Morphology Normal, Anisocytosis 1+, Erythrocyte Sedimentation Rate 43H, Sodium Level 154H, Potassium Level 3.1L, Chloride Level 120H, Carbon Dioxide Level 25, Anion Gap 9, Blood Urea Nitrogen 31H, Creatinine 1.3, Estimat Glomerular Filtration Rate 5 5.1, Glucose Level 148H, Calcium Level 9.0, Phosphorus Level 2.2L, Magnesium Level 1.9, Total Bilirubin 0.7, Aspartate Amino Transf (AST/SGOT) 64H, Alanine Aminotransferase (ALT/SGPT) 79H, Alkaline Phosphatase 71, C-Reactive Protein, Quantitative 28.8H, Total Protein 6.8, Albumin 1.9L, Globulin 4.9, Albumin/Globulin Ratio 0.4L 03/23/20 11:38: Arterial Blood pH 7.442, Arterial Blood Partial Pressure CO2 31.2L, Arterial Blood Partial Pressure O2 152.0H, Arterial Blood HCO3 20.8L, Arterial Blood Oxygen Saturation 98.7, Arterial Blood Base Excess -2.1L, Ronni Test Positive 03/23/20 13:25: Urine Color [Pending], Urine Appearance [Pending], Urine pH [Pending], Urine Specific [place] [Pending], Urine Protein [Pending], Urine Glucose (UA) [Pending], Urine Ketones [Pending], Urine Blood [Pending], Urine Nitrite [Pending], Urine Bilirubin [Pending], Urine Urobilinogen [Pending], Urine Leukocyte Esterase [Pending], Urine RBC [Pending], Urine WBC [Pending], Urine Squamous Epithelial Cells [Pending], Urine Bacteria [Pending] Height (Feet): 6 Height (Inches): 0.00 Weight (Pounds): 158 General Appearance: mild distress EENT: other - On BiPAP Cardiovascular: tachycardia Respiratory/Chest: decreased breath sounds Abdomen: distended Objective No change Matias Albert MD Mar 23, 2020 15:51
--- NOTE | 2020-03-23 16:00 | NUR ---
NURSE NOTES: Pt cleaned after having a moderate brown formed BM. Pt turned and repositioned for comfort. Pt remains on BiPAP 20/5, 70%. O2sat 97% on cafeteria monitor. No distress noted.
[2020-03-23] MEDS: Docusate 100mg/10ml Liq NG SCH (17:47)
--- NOTE | 2020-03-23 18:00 | NUR ---
NURSE NOTES: Argueta on continuous irrigation. Output including irrigation for the shift is 1,500. Pt remains on BiPAP 20/5, 70%. No distress noted at this time.
--- NOTE | 2020-03-23 19:05 | NUR ---
NURSE NOTES: Received patient from ELINOR Hubbard. Will continue plan of care.
[2020-03-23] MEDS ORDERED: D5NS 1000ml IV ONE (19:29)
[2020-03-23] MEDS ORDERED: NS Irrig 3000ml IRRIG ONE (19:29)
--- NOTE | 2020-03-23 20:00 | NUR ---
NURSE NOTES: Patient is awake; non-verbal, not alert and not responsive to voice. On BiPAP 20/5 @ 70%. O2sat:97%. NPO status at the moment but NGT in place for med administration. 3-way irrigation urinary catheter in place and on continuous irrigation to keep urine output light pink. Urine output currently yellow and will monitor. IV sites: left hand 20g, right hand 20g and right wrist 20g running D5W @ 100ml/hr. Safety measures in place; bed low, locked and alarm is on. Will continue plan of care.
--- NOTE | 2020-03-23 21:34 | General Progress Note ---
Subjective ROS Limited/Unobtainable: Yes Allergies: Coded Allergies: No Known Allergies (Unverified , 03/19/20) Objective Last 24 Hour Vital Signs Date Time Temp Pulse Resp B/P (MAP) Pulse Ox O2 Delivery O2 Flow Rate FiO2 03/23/20 20:00 Bi-pap 03/23/20 20:00 70 03/23/20 19:20 121 21 98 70 03/23/20 19:00 116 35 127/89 (102) 98 03/23/20 18:00 115 24 117/89 (98) 100 03/23/20 17:00 113 21 114/79 (91) 100 03/23/20 16:00 Bi-pap 03/23/20 16:00 116 03/23/20 16:00 Bi-pap 03/23/20 16:00 112 19 123/88 (100) 100 03/23/20 15:27 111 22 100 70 03/23/20 15:00 97.5 108 22 103/81 (88) 100 03/23/20 14:00 108 20 107/84 (92) 99 03/23/20 14:00 70 03/23/20 13:00 114 22 136/90 (105) 95 03/23/20 12:00 85 03/23/20 12:00 113 03/23/20 12:00 Bi-pap 03/23/20 12:00 99.6 131 23 113/76 (88) 03/23/20 11:28 125 21 97 85 03/23/20 11:00 122 23 136/90 (105) 92 03/23/20 11:00 129 20 136/90 (105) 99 03/23/20 10:50 101.8 03/23/20 10:47 134 20 99 Bi-Pap 100 03/23/20 10:00 102.2 134 31 140/102 (115) 99 03/23/20 09:30 134 20 99 100 03/23/20 09:00 Nasal Cannula 2.0 03/23/20 08:00 95 Non-Rebreather 15.0 100 03/23/20 08:00 100.9 128 34 139/85 (103) 92 03/23/20 08:00 126 03/23/20 04:20 100.4 03/23/20 04:00 120 03/23/20 04:00 101.8 120 24 146/95 (112) 94 03/23/20 00:00 98.6 109 24 149/99 (116) 93 03/23/20 00:00 111 Intake and Output 03/22/20 03/23/20 19:00 07:00 Intake Total 120 ml 35 ml Output Total 5300 ml 1600 ml Balance -5180 ml -1565 ml Intake Free Water 60 ml Tube Feeding 60 ml 35 ml Output Urine Total 5300 ml 1600 ml # Voids 2 Laboratory Tests 03/23/20 07:51: Arterial Blood pH 7.520H, Arterial Blood Partial Pressure CO2 27.8L, Arterial Blood Partial Pressure O2 56.2L, Arterial Blood HCO3 22.2, Arterial Blood Oxygen Saturation 91.6L, Arterial Blood Base Excess 0.8, Ronni Test Positive 03/23/20 08:05: White Blood Count 15.4H, Red Blood Count 5.50, Hemoglobin 15.5, Hematocrit 46.4, Mean Corpuscular Volume 84, Mean Corpuscular Hemoglobin 28.2, Mean Corpuscular Hemoglobin Concent 33.4, Red Cell Distribution Width 14.9H, Platelet Count 241, Mean Platelet Volume 8.4, Neutrophils (%) (Auto) , Lymphocytes (%) (Auto) , Monocytes (%) (Auto) , Eosinophils (%) (Auto) , Basophils (%) (Auto) , Differential Total Cells Counted 100, Neutrophils % (Manual) 88H, Lymphocytes % (Manual) 9L, Monocytes % (Manual) 3, Eosinophils % (Manual) 0, Basophils % (Manual) 0, Band Neutrophils 0, Platelet Estimate Adequate, Platelet Morphology Normal, Anisocytosis 1+, Erythrocyte Sedimentation Rate 43H, Sodium Level 154H, Potassium Level 3.1L, Chloride Level 120H, Carbon Dioxide Level 25, Anion Gap 9, Blood Urea Nitrogen 31H, Creatinine 1.3, Estimat Glomerular Filtration Rate 55.1, Glucose Level 148H, Calcium Level 9.0, Phosphorus Level 2.2L, Magnesium Level 1.9, Total Bilirubin 0.7, Aspartate Amino Transf (AST/SGOT) 64H, Alanine Aminotransferase (ALT/SGPT) 79H, Alkaline Phosphatase 71, C-Reactive Protein, Quantitative 28.8H, Total Protein 6.8, Albumin 1.9L, Globulin 4.9, Albumin/Globulin Ratio 0.4L 03/23/20 11:38: Arterial Blood pH 7.442, Arterial Blood Partial Pressure CO2 31.2L, Arterial Blood Partial Pressure O2 152.0H, Arterial Blood HCO3 20.8L, Arterial Blood Oxygen Saturation 98.7, Arterial Blood Base Excess -2.1L, Ronni Test Positive 03/23/20 13:25: Urine Color [Pending], Urine Appearance [Pending], Urine pH [Pending], Urine Specific [place] [Pending], Urine Protein [Pending], Urine Glucose (UA) [Pending], Urine Ketones [Pending], Urine Blood [Pending], Urine Nitrite [Pending], Urine Bilirubin [Pending], Urine Urobilinogen [Pending], Urine Leukocyte Esterase [Pending], Urine RBC [Pending], Urine WBC [Pending], Urine Squamous Epithelial Cells [Pending], Urine Bacteria [Pending] Height (Feet): 6 Height (Inches): 0.00 Weight (Pounds): 158 Assessment/Plan Problem List: (1) HTN (hypertension) ICD Codes: I10 - Essential (primary) hypertension SNOMED: 36452813 (2) Diabetes ICD Codes: E11.9 - Type 2 diabetes mellitus without complications SNOMED: 59611640 (3) CVA (cerebral vascular accident) ICD Codes: I63.9 - Cerebral infarction, unspecified SNOMED: 490254866 (4) Urinary tract infection ICD Codes: N39.0 - Urinary tract infection, site not specified SNOMED: 72997179 (5) Hydronephrosis ICD Codes: N13.30 - Unspecified hydronephrosis SNOMED: 61241783 (6) Sepsis ICD Codes: A41.9 - Sepsis, unspecified organism SNOMED: 24542999 (7) BPH (benign prostatic hyperplasia) ICD Codes: N40.0 - Benign prostatic hyperplasia without lower urinary tract symptoms SNOMED: 582628413 (8) Alzheimer's dementia ICD Codes: G30.9 - Alzheimer's disease, unspecified; F02.80 - Dementia in other diseases classified elsewhere without behavioral disturbance SNOMED: 18628312 (9) Seizure disorder ICD Codes: G40.909 - Epilepsy, unspecified, not intractable, without status epilepticus SNOMED: 224711185 Status: progressing, unchanged Assessment/Plan: consulted dr pinzon for hydronephrosis uti cva dm dehydration improving check sugar abx per id afebrile Gino Austin MD Mar 23, 2020 21:34
--- NOTE | 2020-03-23 22:00 | NUR ---
NURSE NOTES: Argueta irrigation continues, urine output is yellow. Remains on BiPAP; O2sat:97%; shows no signs of distress. Side rail padded for safety since patient is on scheduled Keppra medication.
[2020-03-24] VITALS (24 sets, daily range): BP systolic 102–147; BP diastolic 78–110
--- NOTE | 2020-03-24 | NUR ---
NURSE NOTES: Patient is doing well on BiPAP. O2sat:97%. Patient is resting and is alert, opened eyes and tracked when assessed. Afebrile.
--- NOTE | 2020-03-24 02:00 | NUR ---
NURSE NOTES: Bed bath given, linens changed, turned and repositioned.
--- NOTE | 2020-03-24 04:00 | NUR ---
NURSE NOTES: Blood drawn peripherally and sent to lab for AM results.
[2020-03-24 05:24] LABS: HEMATOCRIT 42.9 % (42.0-52.0); HEMOGLOBIN 14.7 G/DL (14.2-18.0); MEAN CORPUSCULAR VOLUME 83 FL (80-99); PLATELET COUNT 218 K/UL (150-450); RED CELL DISTRIBUTION WIDTH 15.1 % (11.6-14.8); WHITE BLOOD COUNT 13.4 K/UL (4.8-10.8)
[2020-03-24] MEDS: Meropenem 1 GM in NS 55 ML IVPB SCH ×3 (05:31→20:25)
--- NOTE | 2020-03-24 05:39 | NUR ---
NURSE NOTES: Temperature noted to be 102.5 (ax). Tylenol 650mg via NGT given, cooling measures also initiated. HR 136 ST, 125/54. Remains on continuous BIPAP . Spo2 staying above 96%, slightly tachypneic in the 30s. Will continue to monitor.
[2020-03-24 05:48] LABS: ALBUMIN 1.8 G/DL (3.4-5.0); ALBUMIN/GLOBULIN RATIO 0.4 (1.0-2.7); BILIRUBIN,TOTAL 0.6 MG/DL (0.2-1.0); CALCIUM 8.6 MG/DL (8.5-10.1); CREATININE 1.4 MG/DL (0.55-1.30); POTASSIUM 3.1 MMOL/L (3.5-5.1)
[2020-03-24 05:53] LABS: PHOSPHORUS 2.4 MG/DL (2.5-4.9)
--- NOTE | 2020-03-24 06:00 | NUR ---
NURSE NOTES: Patient HR started to increase; does not look like he is pain or distress. Temp taken via axillary and resulted 102.5F. Tylenol given and cooling measures placed. Will monitor. Continuous leon cath irrigation of NS intake of 700ml, total output in drainage bag as of 0600 is 1500ml.
--- NOTE | 2020-03-24 07:29 | NUR ---
NURSE HAND-OFF REPORT: Latest Vital Signs: Temperature 99.3 , Pulse 126 , B/P 112 /78 , Respiratory Rate 25 , O2 SAT 95 , Bi-pap, O2 Flow Rate 2.0 . Vital Sign Comment: Stable EKG Rhythm: Sinus Tachycardia Rhythm change?: N MD Notified?: N - MD Response: Latest Wilkerson Fall Score: 50 Fall Risk: High Risk Safety Measures: Call light Within Reach, Bed Alarm Zone 1, Side Rails Side Rails x3, Bed position Low and Locked. Fall Precautions: Yellow Socks Yellow Gown Report given to .
--- NOTE | 2020-03-24 07:30 | NUR ---
NURSE NOTES: Pt received from ELINOR Eason. Pt is obtunded, observed opening eyes spontanouesly, grimaces when orally suctioned, unable to follow simple commands, extremities are flaccid, gag reflex is hypoactive, bilat pupils equal and round 3mm with sluggish rxn to light. 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 No edema noted. Afebrile with ice packs on. cap refill less than 2 sec. Pt is on BIPAP 20/5 FiO2 70%. Lung tuttle diminished upon auscultation. Pt is NPO except meds and ice chips. Abdomen is round, soft, and non-tender w/ active bowel sounds to all quadrants. 3 way F/C noted draining light aleksandra urine with continuous irrigation on. Skin is intact. Pt has a RH 20g, RW 20g, and LH 20g IVs running D5W at 100 cc/hr. Bed in lowest position, alarm on, side rails up x 3, call light within reach. Will continue to monitor.
--- NOTE | 2020-03-24 08:00 | NUR ---
NURSE NOTES: Pt repositioned. PO care provided. SCDs applied to BLE per order. recent venous duplex study noted negative.
--- NOTE | 2020-03-24 08:18 | Infectious Diseases Prog Note ---
Assessment/Plan 69yo M with: Afebrile Sepsis Leukocytosis GNR bacteremia 2/2 P.mirabilis UTI/pyelo in setting of obstruction - CT w/ BL hydronephrosis >> improved on repeat US Acute resp failure, s/p transfer to ICU for BiPAP 03/23 03/19 BCx +P.mirabilis (domingo-S) UCx +P.mirabilis (S-CTX) CT A/P: 1. Severe bilateral hydronephrosis and moderate hydroureters. No obstructing stone identified. Possible infection. Nonspecific, left greater than right perinephric fat stranding. 2. Distended bladder with prominent bladder wall thickening, concerning for cystitis. Trace surrounding fluid. Please correlate with urinalysis. 3. Argueta catheter balloon is noted within the prostate. 4. Moderate to large amount of stool in the rectum with mild prominence of the rectal wall. This may represent fecal impaction, and stercoral inflammation. 5. Moderate to large amount of stool in the colon may represent constipation. No bowel obstruction. 6. Ground-glass opacity in the dependent right lower lobe may represent atelectasis, but infectious/inflammatory process is not excluded. 7. Lobulated gallbladder with mildly calcified paredes versus cholelithiasis. Gallbladder is underdistended. 8. Right hydrocele partially visualized. 03/22 Renal US: Bilateral mild hydronephrosis, much less severe than demonstrated on prior CT scan of 03/19/202003/23 BCx ordered CXR: Interim development of bilateral infiltrates, likely pneumonia and quite likely viral, since prior study 03/19/2020 Resp cx ordered Cr 1.2 --> 1.7 COVID rapid test neg 03/19, PCR neg 03/19 MRSA nares neg Plan: Cont meropenem #2 given resp decompensation Check COVID PCR given CXR findings F/u 03/23 BCx, resp cx, UCx Appreciate Urology input on BL hydro Trend WBC, Cr 03/23 SP CTX #1 03/22 SP cefepime #2 Monitor CBC/CMP Monitor temp curve, hemodynamics Monitor resp status D/w RN Thank you for this consult. [facility] will continue to follow. Subjective Allergies: Coded Allergies: No Known Allergies (Unverified , 03/19/20) Tmax 101.2 Intubated in ICU WBC improving to 13 CXR w/ ?viral pna Objective Last 24 Hour Vital Signs Date Time Temp Pulse Resp B/P (MAP) Pulse Ox O2 Delivery O2 Flow Rate FiO2 03/24/20 07:00 126 25 112/78 (89) 95 03/24/20 06:50 99.3 03/24/20 06:09 101.2 03/24/20 06:00 101.2 133 22 119/82 (94) 96 03/24/20 05:00 102.5 138 27 125/84 (98) 95 03/24/20 04:00 99.8 135 26 113/87 (96) 95 03/24/20 04:00 Bi-pap 03/24/20 04:00 70 03/24/20 03:41 132 03/24/20 03:20 129 21 96 70 03/24/20 03:00 129 26 126/85 (99) 95 03/24/20 02:00 128 22 102/86 (91) 95 03/24/20 01:00 127 24 130/88 (102) 96 03/24/20 00:00 Bi-pap 03/24/20 00:00 98.6 125 25 132/90 (104) 97 03/23/20 23:17 123 03/23/20 23:15 121 19 98 70 03/23/20 23:00 121 25 135/98 (110) 96 03/23/20 22:00 120 23 122/91 (101) 98 03/23/20 21:00 119 23 135/88 (104) 98 03/23/20 20:00 99.4 120 25 134/79 (97) 97 03/23/20 20:00 Bi-pap 03/23/20 20:00 70 03/23/20 19:30 117 03/23/20 19:20 121 21 98 70 03/23/20 19:00 116 35 127/89 (102) 98 03/23/20 18:00 115 24 117/89 (98) 100 03/23/20 17:00 113 21 114/79 (91) 100 03/23/20 16:00 Bi-pap 03/23/20 16:00 116 03/23/20 16:00 Bi-pap 03/23/20 16:00 112 19 123/88 (100) 100 03/23/20 15:27 111 22 100 70 03/23/20 15:00 97.5 108 22 103/81 (88) 100 03/23/20 14:00 108 20 107/84 (92) 99 03/23/20 14:00 70 03/23/20 13:00 114 22 136/90 (105) 95 03/23/20 12:00 85 03/23/20 12:00 113 03/23/20 12:00 Bi-pap 03/23/20 12:00 99.6 131 23 113/76 (88) 03/23/20 11:28 125 21 97 85 03/23/20 11:00 122 23 136/90 (105) 92 03/23/20 11:00 129 20 136/90 (105) 99 03/23/20 10:50 101.8 03/23/20 10:47 134 20 99 Bi-Pap 100 03/23/20 10:00 102.2 134 31 140/102 (115) 99 03/23/20 09:30 134 20 99 100 03/23/20 09:00 Nasal Cannula 2.0 Height (Feet): 6 Height (Inches): 0.00 Weight (Pounds): 158 Gen: NAD in bed, BiPAP mask HEENT: NCAT CV: RRR Pulm: BL chest rise on BiPAP Abd: Non-distended Ext: No c/c/e Neuro: Awake but not interactive Laboratory Tests Test 03/23/20 11:38 03/23/20 13:25 03/24/20 04:00 Arterial Blood pH 7.442 (7.350-7.450) Arterial Blood Partial Pressure CO2 31.2 mmHg (35.0-45.0) L Arterial Blood Partial Pressure O2 152.0 mmHg (75.0-100.0) H Arterial Blood HCO3 20.8 mmol/L (22.0-26.0) L Arterial Blood Oxygen Saturation 98.7 % (95-100) Arterial Blood Base Excess -2.1 (-2-2) L Ronni Test Positive Urine Color Pending Urine Appearance Pending Urine pH Pending Urine Specific [place] Pending Urine Protein Pending Urine Glucose (UA) Pending Urine Ketones Pending Urine Blood Pending Urine Nitrite Pending Urine Bilirubin Pending Urine Urobilinogen Pending Urine Leukocyte Esterase Pending Urine RBC Pending Urine WBC Pending Urine Squamous Epithelial Cells Pending Urine Bacteria Pending White Blood Count 13.4 K/UL (4.8-10.8) H Red Blood Count 5.20 M/UL (4.70-6.10) Hemoglobin 14.7 G/DL (14.2-18.0) Hematocrit 42.9 % (42.0-52.0) Mean Corpuscular Volume 83 FL (80-99) Mean Corpuscular Hemoglobin 28.3 PG (27.0-31.0) Mean Corpuscular Hemoglobin Concent 34.2 G/DL (32.0-36.0) Red Cell Distribution Width 15.1 % (11.6-14.8) H Platelet Count 218 K/UL (150-450) Mean Platelet Volume 7.6 FL (6.5-10.1) Neutrophils (%) (Auto) % (45.0-75.0) Lymphocytes (%) (Auto) % (20.0-45.0) Monocytes (%) (Auto) % (1.0-10.0) Eosinophils (%) (Auto) % (0.0-3.0) Basophils (%) (Auto) % (0.0-2.0) Neutrophils % (Manual) Pending Lymphocytes % (Manual) Pending Platelet Estimate Pending Platelet Morphology Pending Sodium Level 150 MMOL/L (136-145) H Potassium Level 3.1 MMOL/L (3.5-5.1) L Chloride Level 117 MMOL/L (98-107) H Carbon Dioxide Level 25 MMOL/L (21-32) Anion Gap 8 mmol/L (5-15) Blood Urea Nitrogen 33 mg/dL (7-18) H Creatinine 1.4 MG/DL (0.55-1.30) H Estimat Glomerular Filtration Rate 50.5 mL/min (>60) Glucose Level 111 MG/DL (74-106) H Calcium Level 8.6 MG/DL (8.5-10.1) Phosphorus Level 2.4 MG/DL (2.5-4.9) L Magnesium Level 1.9 MG/DL (1.8-2.4) Total Bilirubin 0.6 MG/DL (0.2-1.0) Aspartate Amino Transf (AST/SGOT) 45 U/L (15-37) H Alanine Aminotransferase (ALT/SGPT) 79 U/L (12-78) H Alkaline Phosphatase 90 U/L (46-116) C-Reactive Protein, Quantitative 24.8 mg/dL (0.00-0.90) H Pro-B-Type Natriuretic Peptide Pending Total Protein 6.6 G/DL (6.4-8.2) Albumin 1.8 G/DL (3.4-5.0) L Globulin 4.8 g/dL Albumin/Globulin Ratio 0.4 (1.0-2.7) L Current Medications Medications (Trade) Dose Ordered Sig/Martine Route PRN Reason Start Time Stop Time Status Last Admin Dose Admin Acetaminophen (Tylenol) 650 mg Q4H PRN NG Temp >100.5 03/24/20 08:30 04/18/20 19:44 Albuterol/ Ipratropium (Albuterol/ Ipratropium) 3 ml Q4H PRN HHN Shortness of Breath 03/19/20 19:45 03/24/20 19:44 Dextrose 1,000 ml @ 100 mls/hr Q10H IV 03/21/20 11:45 04/20/20 11:44 03/24/20 05:31 Docusate Sodium (Colace) 100 mg TWICE A DAY NG 03/23/20 18:00 04/22/20 17:59 03/23/20 17:47 Finasteride (Proscar) 5 mg DAILY ORAL 03/20/20 09:00 06/18/20 08:59 03/23/20 10:14 Lactulose (Cephulac) 20 gm THREE TIMES A DAY ORAL 03/20/20 13:00 04/19/20 12:59 03/23/20 17:47 Lansoprazole (Prevacid) 30 mg DAILY GT 03/24/20 09:00 04/23/20 08:59 Levetiracetam 100 ml @ 400 mls/hr Q12HR IVPB 03/24/20 09:00 06/22/20 08:59 UNV Lorazepam (Ativan) 1 mg Q6H PRN ORAL For Anxiety 03/21/20 23:00 03/28/20 22:59 Memantine (Namenda) 5 mg TWICE A DAY ORAL 03/20/20 09:00 04/19/20 08:59 03/23/20 17:48 Meropenem 1 gm/ Sodium Chloride 55 ml @ 110 mls/hr Q8HR IVPB 03/23/20 14:00 03/28/20 13:59 03/24/20 05:31 Ondansetron HCl (Zofran) 4 mg Q6H PRN IVP Nausea & Vomiting 03/19/20 19:45 04/18/20 19:44 Polyethylene Glycol (Miralax) 17 gm DAILYPRN PRN ORAL Constipation 03/19/20 19:45 04/18/20 19:44 Tamsulosin HCl (Flomax) 0.4 mg DAILY ORAL 03/20/20 09:00 04/19/20 08:59 03/23/20 10:14 Temazepam (Restoril) 15 mg HSPRN PRN ORAL Insomnia 03/19/20 19:45 03/26/20 19:44 Edwina Romero M.D. Mar 24, 2020 08:18
[2020-03-24] MEDS ORDERED: LORazepam 1mg tab NG PRN (08:30)
[2020-03-24] MEDS ORDERED: Miralax 17gm pkt NG PRN (08:30)
[2020-03-24] MEDS ORDERED: Acetaminophen 650mg/20.3ml NG PRN (08:30)
[2020-03-24] MEDS: Memantine 10mg tab NG SCH ×2 (08:55→17:03)
[2020-03-24] MEDS: Tamsulosin 0.4mg cap ORAL SCH (08:55)
[2020-03-24] MEDS: Docusate 100mg/10ml Liq NG SCH ×2 (08:55→17:03)
[2020-03-24] MEDS: Lactulose 20gm/30ml UDC NG SCH ×3 (08:55→17:03)
[2020-03-24] MEDS: levETIRAcetam 500mg/NS100ml 100 ML IVPB SCH ×2 (09:00→20:33)
--- NOTE | 2020-03-24 09:00 | NUR ---
NURSE NOTES: covid swab collected and sent down to lab for processing.
--- NOTE | 2020-03-24 09:59 | NUR ---
NURSE NOTES: Pt seen by Dr Dotson.
--- NOTE | 2020-03-24 10:01 | Psychiatry Consultation ---
Psychiatry Consultation Psychiatry Consultation Chief Complaint: Vomiting Allergies: Coded Allergies: No Known Allergies (Unverified , 03/19/20) Past Psychiatric History: General 69-year-old male patient he does have some confusion to monitor mental status declining cognition below his baseline worsened by the stress of his medical illness mood lability advised attending physician is requested daily psychiatric consultation of stabilize his mood Mental status semination: 69-year-old male appearance is disheveled at irritable agitated affect constricted intellect poor mood depressed anxious motor activity psychomotor agitation attention span is poor orientation x2 speech is nonsensical thought process disorganized logical insight judgment poor Medication History Scheduled Docusate Sodium* (Colace*), 100 MG ORAL DAILY, (Reported) Finasteride* (Proscar*), 5 MG ORAL DAILY, (Reported) Insulin Regular, Human* (Novolin R*), Unknown Dose SUBQ .SLIDING SCALE, (Reported) Levetiracetam (Levetiracetam), 500 MG ORAL DAILY, (Reported) Lorazepam* (Ativan*), 1 MG ORAL EVERY 6 HOURS, (Reported) Memantine Hcl* (Namenda*), 5 MG ORAL TWICE A DAY, (Reported) Multivitamins* (Multivitamins*), 1 TAB ORAL DAILY, (Reported) Polyethylene Glycol 3350* (Miralax*), 17 GM ORAL DAILY, (Reported) Tamsulosin HCl (Flomax), 0.4 MG ORAL DAILY, (Reported) Scheduled PRN Acetaminophen* (Acetaminophen 325MG Tablet*), 650 MG ORAL Q4H PRN for Mild Pain (Pain Scale 1-3), (Reported) Miscellaneous Medications Megestrol Acetate (Megestrol Acetate), 400 MG PO, (Reported) Objective Data Height (Feet): 6 Height (Inches): 0.00 Weight (Pounds): 158 Assessment/Plan Assessment/Plan: Treat this patient with Namenda 5 mg twice a day and Ativan 1 every 6 hours as needed anxiety agitation 20 minutes of insight oriented psychotherapy will work with this patient to help him understand his physical and psychiatric condition so that he has less anxiety depression better impulse control Diagnosis Duncan I: 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
--- NOTE | 2020-03-24 10:10 | Pulmonolgy Critical Care Note ---
Critical Care - Asmt/Plan Problems: (1) Acute respiratory failure (2) Seizure disorder (3) Alzheimer's dementia (4) BPH (benign prostatic hyperplasia) (5) URIEL (acute kidney injury) (6) CVA (cerebral vascular accident) (7) Diabetes Assessment/Plan: Pt needs CTA to rule out PE. He doesn't have any body to sign his consents. He is not capable of signing the consents either. 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 Discussed with: nurses, consultants, community case managermanager location - Objective Last 24 Hour Vital Signs Date Time Temp Pulse Resp B/P (MAP) Pulse Ox O2 Delivery O2 Flow Rate FiO2 03/24/20 09:05 119 19 98 70 03/24/20 09:00 115 23 118/82 (94) 99 03/24/20 08:00 70 03/24/20 08:00 98.4 119 25 125/83 (97) 98 03/24/20 07:05 118 18 98 70 03/24/20 07:00 126 25 112/78 (89) 95 03/24/20 06:50 99.3 03/24/20 06:09 101.2 03/24/20 06:00 101.2 133 22 119/82 (94) 96 03/24/20 05:00 102.5 138 27 125/84 (98) 95 03/24/20 04:00 99.8 135 26 113/87 (96) 95 03/24/20 04:00 Bi-pap 03/24/20 04:00 70 03/24/20 03:41 132 03/24/20 03:20 129 21 96 70 03/24/20 03:00 129 26 126/85 (99) 95 03/24/20 02:00 128 22 102/86 (91) 95 03/24/20 01:00 127 24 130/88 (102) 96 03/24/20 00:00 Bi-pap 03/24/20 00:00 98.6 125 25 132/90 (104) 97 03/23/20 23:17 123 03/23/20 23:15 121 19 98 70 03/23/20 23:00 121 25 135/98 (110) 96 03/23/20 22:00 120 23 122/91 (101) 98 03/23/20 21:00 119 23 135/88 (104) 98 03/23/20 20:00 99.4 120 25 134/79 (97) 97 03/23/20 20:00 Bi-pap 03/23/20 20:00 70 03/23/20 19:30 117 03/23/20 19:20 121 21 98 70 03/23/20 19:00 116 35 127/89 (102) 98 03/23/20 18:00 115 24 117/89 (98) 100 03/23/20 17:00 113 21 114/79 (91) 100 03/23/20 16:00 Bi-pap 03/23/20 16:00 116 03/23/20 16:00 Bi-pap 03/23/20 16:00 112 19 123/88 (100) 100 03/23/20 15:27 111 22 100 70 03/23/20 15:00 97.5 108 22 103/81 (88) 100 03/23/20 14:00 108 20 107/84 (92) 99 03/23/20 14:00 70 03/23/20 13:00 114 22 136/90 (105) 95 03/23/20 12:00 85 03/23/20 12:00 113 03/23/20 12:00 Bi-pap 03/23/20 12:00 99.6 131 23 113/76 (88) 03/23/20 11:28 125 21 97 85 03/23/20 11:00 122 23 136/90 (105) 92 03/23/20 11:00 129 20 136/90 (105) 99 03/23/20 10:50 101.8 03/23/20 10:47 134 20 99 Bi-Pap 100 Status: awake Condition: critical HEENT: atraumatic Neck: full ROM Heart: HR/BP stable Abdomen: soft, feeding tube Extremities: no C/C/E Micro: Microbiology Date/Time Source Procedure Growth Status 03/23/20 14:10 Sputum Induced Gram Stain Pending Resulted 03/23/20 14:10 Sputum Induced Sputum Culture - Preliminary NORMAL UPPER RESPIRATORY REX AT 24 ... Resulted Accucheck: 144 Critical Care - Subjective ROS Limited/Unobtainable: Yes Interval Events: still on BIPAP Condition: critical EKG Rhythm: Sinus Rhythm FI02: 70 Vent Support Mode: BiLevel Sputum Amount: Moderate Tube Feeding Amount: 35 I&O: Intake and Output 03/23/20 03/24/20 18:59 06:59 Intake Total 830 ml 1858.33 ml Output Total 1575 ml 1500 ml Balance -745 ml 358.33 ml IV Total 830 ml 1158.33 ml Other 700 ml Output Urine Total 1575 ml 1500 ml # Bowel Movements 2 2 CXR: pending for today Labs: Laboratory Tests Test 03/23/20 11:38 03/23/20 13:25 03/24/20 04:00 Arterial Blood pH 7.442 (7.350-7.450) Arterial Blood Partial Pressure CO2 31.2 mmHg (35.0-45.0) L Arterial Blood Partial Pressure O2 152.0 mmHg (75.0-100.0) H Arterial Blood HCO3 20.8 mmol/L (22.0-26.0) L Arterial Blood Oxygen Saturation 98.7 % (95-100) Arterial Blood Base Excess -2.1 (-2-2) L Ronni Test Positive Urine Color Pending Urine Appearance Pending Urine pH Pending Urine Specific [place] Pending Urine Protein Pending Urine Glucose (UA) Pending Urine Ketones Pending Urine Blood Pending Urine Nitrite Pending Urine Bilirubin Pending Urine Urobilinogen Pending Urine Leukocyte Esterase Pending Urine RBC Pending Urine WBC Pending Urine Squamous Epithelial Cells Pending Urine Bacteria Pending White Blood Count 13.4 K/UL (4.8-10.8) H Red Blood Count 5.20 M/UL (4.70-6.10) Hemoglobin 14.7 G/DL (14.2-18.0) Hematocrit 42.9 % (42.0-52.0) Mean Corpuscular Volume 83 FL (80-99) Mean Corpuscular Hemoglobin 28.3 PG (27.0-31.0) Mean Corpuscular Hemoglobin Concent 34.2 G/DL (32.0-36.0) Red Cell Distribution Width 15.1 % (11.6-14.8) H Platelet Count 218 K/UL (150-450) Mean Platelet Volume 7.6 FL (6.5-10.1) Neutrophils (%) (Auto) % (45.0-75.0) Lymphocytes (%) (Auto) % (20.0-45.0) Monocytes (%) (Auto) % (1.0-10.0) Eosinophils (%) (Auto) % (0.0-3.0) Basophils (%) (Auto) % (0.0-2.0) Differential Total Cells Counted 100 Neutrophils % (Manual) 82 % (45-75) H Lymphocytes % (Manual) 18 % (20-45) L Monocytes % (Manual) 0 % (1-10) L Eosinophils % (Manual) 0 % (0-3) Basophils % (Manual) 0 % (0-2) Band Neutrophils 0 % (0-8) Platelet Estimate Adequate Platelet Morphology Normal Red Blood Cell Morphology Normal Sodium Level 150 MMOL/L (136-145) H Potassium Level 3.1 MMOL/L (3.5-5.1) L Chloride Level 117 MMOL/L (98-107) H Carbon Dioxide Level 25 MMOL/L (21-32) Anion Gap 8 mmol/L (5-15) Blood Urea Nitrogen 33 mg/dL (7-18) H Creatinine 1.4 MG/DL (0.55-1.30) H Estimat Glomerular Filtration Rate 50.5 mL/min (>60) Glucose Level 111 MG/DL (74-106) H Calcium Level 8.6 MG/DL (8.5-10.1) Phosphorus Level 2.4 MG/DL (2.5-4.9) L Magnesium Level 1.9 MG/DL (1.8-2.4) Total Bilirubin 0.6 MG/DL (0.2-1.0) Aspartate Amino Transf (AST/SGOT) 45 U/L (15-37) H Alanine Aminotransferase (ALT/SGPT) 79 U/L (12-78) H Alkaline Phosphatase 90 U/L (46-116) C-Reactive Protein, Quantitative 24.8 mg/dL (0.00-0.90) H Pro-B-Type Natriuretic Peptide Pending Total Protein 6.6 G/DL (6.4-8.2) Albumin 1.8 G/DL (3.4-5.0) L Globulin 4.8 g/dL Albumin/Globulin Ratio 0.4 (1.0-2.7) L Courtney Dotson MD Mar 24, 2020 10:10
[2020-03-24] MEDS ORDERED: Potassium Phosphate 20 MM in NS 275 ML IV ONE (10:30)
--- NOTE | 2020-03-24 10:49 | NUR ---
NURSE NOTES: Pt seen by Dr Albert.
--- NOTE | 2020-03-24 11:46 | NUR ---
NURSE NOTES: Pt seen by Dr Romero.
[2020-03-24] MEDS ORDERED: Potassium Phosphate 15mm/250ml 250 ML IVPB SCH (12:00)
--- NOTE | 2020-03-24 12:00 | NUR ---
NURSE NOTES: Pt repositioned. Remains afebrile with ice packs on. No distress noted.
--- NOTE | 2020-03-24 13:36 | General Progress Note ---
Subjective ROS Limited/Unobtainable: No Allergies: Coded Allergies: No Known Allergies (Unverified , 03/19/20) Objective Last 24 Hour Vital Signs Date Time Temp Pulse Resp B/P (MAP) Pulse Ox O2 Delivery O2 Flow Rate FiO2 03/24/20 13:00 117 40 106/86 (93) 03/24/20 12:00 98.6 115 22 127/89 (102) 03/24/20 12:00 Bi-pap 03/24/20 12:00 114 03/24/20 11:00 115 22 141/93 (109) 99 03/24/20 10:31 111 19 99 50 03/24/20 10:18 50 03/24/20 10:00 110 20 117/90 (99) 98 03/24/20 09:05 119 19 98 70 03/24/20 09:00 115 23 118/82 (94) 99 03/24/20 08:00 Bi-pap 03/24/20 08:00 119 03/24/20 08:00 70 03/24/20 08:00 98.4 119 25 125/83 (97) 98 03/24/20 07:05 118 18 98 70 03/24/20 07:00 126 25 112/78 (89) 95 03/24/20 06:50 99.3 03/24/20 06:09 101.2 03/24/20 06:00 101.2 133 22 119/82 (94) 96 03/24/20 05:00 102.5 138 27 125/84 (98) 95 03/24/20 04:00 99.8 135 26 113/87 (96) 95 03/24/20 04:00 Bi-pap 03/24/20 04:00 70 03/24/20 03:41 132 03/24/20 03:20 129 21 96 70 03/24/20 03:00 129 26 126/85 (99) 95 03/24/20 02:00 128 22 102/86 (91) 95 03/24/20 01:00 127 24 130/88 (102) 96 03/24/20 00:00 Bi-pap 03/24/20 00:00 98.6 125 25 132/90 (104) 97 03/23/20 23:17 123 03/23/20 23:15 121 19 98 70 03/23/20 23:00 121 25 135/98 (110) 96 03/23/20 22:00 120 23 122/91 (101) 98 03/23/20 21:00 119 23 135/88 (104) 98 03/23/20 20:00 99.4 120 25 134/79 (97) 97 03/23/20 20:00 Bi-pap 03/23/20 20:00 70 03/23/20 19:30 117 03/23/20 19:20 121 21 98 70 03/23/20 19:00 116 35 127/89 (102) 98 03/23/20 18:00 115 24 117/89 (98) 100 03/23/20 17:00 113 21 114/79 (91) 100 03/23/20 16:00 Bi-pap 03/23/20 16:00 116 03/23/20 16:00 Bi-pap 03/23/20 16:00 112 19 123/88 (100) 100 03/23/20 15:27 111 22 100 70 03/23/20 15:00 97.5 108 22 103/81 (88) 100 03/23/20 14:00 108 20 107/84 (92) 99 03/23/20 14:00 70 Intake and Output 03/23/20 03/24/20 19:00 07:00 Intake Total 928.33 ml 1860 ml Output Total 1575 ml 1700 ml Balance -646.67 ml 160 ml IV Total 928.33 ml 1160 ml Other 700 ml Output Urine Total 1575 ml 1700 ml # Bowel Movements 2 2 Laboratory Tests 03/24/20 04:00: White Blood Count 13.4H, Red Blood Count 5.20, Hemoglobin 14.7, Hematocrit 42.9, Mean Corpuscular Volume 83, Mean Corpuscular Hemoglobin 28.3, Mean Corpuscular Hemoglobin Concent 34.2, Red Cell Distribution Width 15.1H, Platelet Count 218, Mean Platelet Volume 7.6, Neutrophils (%) (Auto) , Lymphocytes (%) (Auto) , Monocytes (%) (Auto) , Eosinophils (%) (Auto) , Basophils (%) (Auto) , Differential Total Cells Counted 100, Neutrophils % (Manual) 82H, Lymphocytes % (Manual) 18L, Monocytes % (Manual) 0L, Eosinophils % (Manual) 0, Basophils % (Manual) 0, Band Neutrophils 0, Platelet Estimate Adequate, Platelet Morphology Normal, Red Blood Cell Morphology Normal, Sodium Level 150H, Potassium Level 3.1L, Chloride Level 117H, Carbon Dioxide Level 25, Anion Gap 8, Blood Urea Nitrogen 33H, Creatinine 1.4H, Estimat Glomerular Filtration Rate 50.5, Glucose Level 111H, Calcium Level 8.6, Phosphorus Level 2.4L, Magnesium Level 1.9, Total Bilirubin 0.6, Aspartate Amino Transf (AST/SGOT) 45H, Alanine Aminotransferase (ALT/SGPT) 79H, Alkaline Phosphatase 90, C-Reactive Protein, Quantitative 24.8H, Pro-B-Type Natriuretic Peptide [Pending], Total Protein 6.6, Albumin 1.8L, Globulin 4.8, Albumin/Globulin Ratio 0.4L Height (Feet): 6 Height (Inches): 0.00 Weight (Pounds): 158 General Appearance: no apparent distress EENT: normal ENT inspection Neck: supple Cardiovascular: normal rate Respiratory/Chest: decreased breath sounds Abdomen: normal bowel sounds, non tender, soft Extremities: non-tender Assessment/Plan Status: progressing, unchanged Assessment/Plan: 1. History of CVA with left hemiparesis. 2. Malnutrition. 3. Hypertension. 4. Diabetes. 5. stool impaction on bowel regimen fu labs abx per ID transfered to icu and he is on BIPAP NGTF on hold check ammonia level will Rd Tirado MD Mar 24, 2020 13:36
[2020-03-24] MEDS: Potassium Phosphate 15mm/250ml 250 ML IVPB SCH ×2 (13:40→17:03)
--- NOTE | 2020-03-24 14:00 | NUR ---
NURSE NOTES: Pt seen by Dr Ernst. Repositioned.
--- NOTE | 2020-03-24 14:27 | Diagnostic Imaging Report ---
Indication: Dyspnea Technique: One view of the chest Comparison: 03/23/2020 Findings: Bilateral infiltrates have slightly increased in extent, allowing for differences in exposure technique. There is increasing obscuration of left hemidiaphragm. Nasogastric tube remains in place. The heart size is normal. Impression: Slightly increased bilateral infiltrates
--- NOTE | 2020-03-24 14:51 | Nephrology Progress Note ---
Assessment/Plan Problem List: (1) URIEL (acute kidney injury) (2) Hydronephrosis (3) Sepsis (4) Alzheimer's dementia (5) Seizure disorder Assessment Sepsis Rhabdo UTI Hydronephrosis/Argueta catheter problem Suspected Covid 19 infection Plan March:: Labs reviewed. Sodium 150. Potassium low. Serum creatinine 1.4. Abnormal electrolytes addressed. Continue to monitor renal parameters and electrolytes. Continue per pulmonary for pulmonary support. March 23: Lab checked. Abnormal electrolytes noted and addressed. D5W 1000 cc IV ordered. Continue to monitor renal parameters. Continue per pulmonary and other consultants. March 22: Labs checked. Serum creatinine 1.4. Serum sodium 157. Continues to be on D5W. Continue to monitor renal parameters and electrolytes. Previously: Recheck labs in a.m. Argueta catheter already ordered Hydrate Antibiotics Monitor CPK Avoid nephrotoxic's Per orders Subjective ROS Limited/Unobtainable: Yes Objective Objective Last 24 Hour Vital Signs Date Time Temp Pulse Resp B/P (MAP) Pulse Ox O2 Delivery O2 Flow Rate FiO2 03/24/20 14:00 118 40 127/90 (102) 99 03/24/20 13:00 117 40 106/86 (93) 03/24/20 12:00 98.6 115 22 127/89 (102) 03/24/20 12:00 Bi-pap 03/24/20 12:00 114 03/24/20 11:00 115 22 141/93 (109) 99 03/24/20 10:31 111 19 99 50 03/24/20 10:18 50 03/24/20 10:00 110 20 117/90 (99) 98 03/24/20 09:05 119 19 98 70 03/24/20 09:00 115 23 118/82 (94) 99 03/24/20 08:00 Bi-pap 03/24/20 08:00 119 03/24/20 08:00 70 03/24/20 08:00 98.4 119 25 125/83 (97) 98 03/24/20 07:05 118 18 98 70 03/24/20 07:00 126 25 112/78 (89) 95 03/24/20 06:50 99.3 03/24/20 06:09 101.2 03/24/20 06:00 101.2 133 22 119/82 (94) 96 03/24/20 05:00 102.5 138 27 125/84 (98) 95 03/24/20 04:00 99.8 135 26 113/87 (96) 95 03/24/20 04:00 Bi-pap 03/24/20 04:00 70 03/24/20 03:41 132 03/24/20 03:20 129 21 96 70 03/24/20 03:00 129 26 126/85 (99) 95 03/24/20 02:00 128 22 102/86 (91) 95 03/24/20 01:00 127 24 130/88 (102) 96 03/24/20 00:00 Bi-pap 03/24/20 00:00 98.6 125 25 132/90 (104) 97 03/23/20 23:17 123 03/23/20 23:15 121 19 98 70 03/23/20 23:00 121 25 135/98 (110) 96 03/23/20 22:00 120 23 122/91 (101) 98 03/23/20 21:00 119 23 135/88 (104) 98 03/23/20 20:00 99.4 120 25 134/79 (97) 97 03/23/20 20:00 Bi-pap 03/23/20 20:00 70 03/23/20 19:30 117 03/23/20 19:20 121 21 98 70 03/23/20 19:00 116 35 127/89 (102) 98 03/23/20 18:00 115 24 117/89 (98) 100 03/23/20 17:00 113 21 114/79 (91) 100 03/23/20 16:00 Bi-pap 03/23/20 16:00 116 03/23/20 16:00 Bi-pap 03/23/20 16:00 112 19 123/88 (100) 100 03/23/20 15:27 111 22 100 70 03/23/20 15:00 97.5 108 22 103/81 (88) 100 Intake and Output 03/23/20 03/24/20 19:00 07:00 Intake Total 928.33 ml 1860 ml Output Total 1575 ml 1700 ml Balance -646.67 ml 160 ml IV Total 928.33 ml 1160 ml Other 700 ml Output Urine Total 1575 ml 1700 ml # Bowel Movements 2 2 Current Medications Medications (Trade) Dose Ordered Sig/Martine Route PRN Reason Start Time Stop Time Status Last Admin Dose Admin Acetaminophen (Tylenol) 650 mg Q4H PRN NG Temp >100.5 03/24/20 08:30 04/18/20 19:44 Albuterol/ Ipratropium (Albuterol/ Ipratropium) 3 ml Q4H PRN HHN Shortness of Breath 03/19/20 19:45 03/24/20 19:44 Dextrose 1,000 ml @ 100 mls/hr Q10H IV 03/21/20 11:45 04/20/20 11:44 03/24/20 14:16 Docusate Sodium (Colace) 100 mg TWICE A DAY NG 03/23/20 18:00 04/22/20 17:59 03/24/20 08:55 Finasteride (Proscar) 5 mg DAILY ORAL 03/20/20 09:00 06/18/20 08:59 03/24/20 08:55 Lactulose (Cephulac) 20 gm THREE TIMES A DAY NG 03/24/20 09:00 04/19/20 12:59 03/24/20 12:19 Lansoprazole (Prevacid) 30 mg DAILY NG 03/24/20 09:00 04/23/20 08:59 03/24/20 08:55 Levetiracetam 100 ml @ 400 mls/hr Q12HR IVPB 03/24/20 10:00 06/22/20 09:59 03/24/20 09:00 Lorazepam (Ativan) 1 mg Q6H PRN NG For Anxiety 03/24/20 08:30 03/28/20 22:59 Memantine (Namenda) 5 mg TWICE A DAY NG 03/24/20 09:00 04/19/20 08:59 03/24/20 08:55 Meropenem 1 gm/ Sodium Chloride 55 ml @ 110 mls/hr Q8HR IVPB 03/23/20 14:00 03/28/20 13:59 03/24/20 13:11 Ondansetron HCl (Zofran) 4 mg Q6H PRN IVP Nausea & Vomiting 03/19/20 19:45 04/18/20 19:44 Polyethylene Glycol (Miralax) 17 gm DAILYPRN PRN NG Constipation 03/24/20 08:30 04/18/20 19:44 Potassium Phosphate 250 ml @ 83.333 mls/ hr Q3H IVPB 03/24/20 14:00 03/24/20 19:59 03/24/20 13:40 Tamsulosin HCl (Flomax) 0.4 mg DAILY ORAL 03/20/20 09:00 04/19/20 08:59 03/24/20 08:55 Temazepam (Restoril) 15 mg HSPRN PRN NG Insomnia 03/24/20 08:30 03/26/20 19:44 Laboratory Tests 03/24/20 04:00: White Blood Count 13.4H, Red Blood Count 5.20, Hemoglobin 14.7, Hematocrit 42.9, Mean Corpuscular Volume 83, Mean Corpuscular Hemoglobin 28.3, Mean Corpuscular Hemoglobin Concent 34.2, Red Cell Distribution Width 15.1H, Platelet Count 218, Mean Platelet Volume 7.6, Neutrophils (%) (Auto) , Lymphocytes (%) (Auto) , Monocytes (%) (Auto) , Eosinophils (%) (Auto) , Basophils (%) (Auto) , Differential Total Cells Counted 100, Neutrophils % (Manual) 82H, Lymphocytes % (Manual) 18L, Monocytes % (Manual) 0L, Eosinophils % (Manual) 0, Basophils % (Manual) 0, Band Neutrophils 0, Platelet Estimate Adequate, Platelet Morphology Normal, Red Blood Cell Morphology Normal, Sodium Level 150H, Potassium Level 3.1L, Chloride Level 117H, Carbon Dioxide Level 25, Anion Gap 8, Blood Urea Nitrogen 33H, Creatinine 1.4H, Estimat Glomerular Filtration Rate 50.5, Glucose Level 111H, Calcium Level 8.6, Phosphorus Level 2.4L, Magnesium Level 1.9, Total Bilirubin 0.6, Aspartate Amino Transf (AST/SGOT) 45H, Alanine Aminotransferase (ALT/SGPT) 79H, Alkaline Phosphatase 90, C-Reactive Protein, Quantitative 24.8H, Pro-B-Type Natriuretic Peptide [Pending], Total Protein 6.6, Albumin 1.8L, Globulin 4.8, Albumin/Globulin Ratio 0.4L Height (Feet): 6 Height (Inches): 0.00 Weight (Pounds): 158 General Appearance: mild distress EENT: other - On BiPAP Cardiovascular: tachycardia Respiratory/Chest: decreased breath sounds Abdomen: distended Objective No change Matias Albert MD Mar 24, 2020 14:51
--- NOTE | 2020-03-24 16:00 | NUR ---
NURSE NOTES: Pt repositioned. PO care provided. Afebrile with cooling measures on. No distress noted.
--- NOTE | 2020-03-24 18:00 | NUR ---
NURSE NOTES: Pt repositioned. No distress ntoed.
--- NOTE | 2020-03-24 18:49 | NUR ---
NURSE HAND-OFF REPORT: Latest Vital Signs: Temperature 98.4 , Pulse 123 , B/P 123 /82 , Respiratory Rate 22 , O2 SAT 99 , Bi-pap, FiO2 50 % . EKG Rhythm: Sinus Tachycardia Rhythm change?: N MD Notified?: n/a Response: n/a Latest Wilkerson Fall Score: 50 Fall Risk: High Risk Safety Measures: Call light Within Reach, Bed Alarm Zone 1, Side Rails Side Rails x3, Bed position Low and Locked. Fall Precautions: Yellow Socks Yellow Gown Report given to ELINOR Eason. Addendum: 03/24/20 at 185 by Stacy Talbert RN Amendment: correct time 1852
--- NOTE | 2020-03-24 19:00 | NUR ---
NURSE NOTES: Received patient from ELINOR Kumar. Will continue plan of care.
--- NOTE | 2020-03-24 20:00 | NUR ---
NURSE NOTES: Patient is awake; non-verbal, not alert and not responsive to voice. On BiPAP 20/5 @ 50%. O2sat:96%. NPO status at the moment but NGT in place for med administration. 3-way irrigation urinary catheter in place and on continuous irrigation to keep urine output light pink. Urine output currently light aleksandra and will monitor. IV sites: left hand 20g, right hand 20g and right wrist 20g running D5W @ 100ml/hr. Safety measures in place; bed low, locked and alarm is on. Will continue plan of care.
--- NOTE | 2020-03-24 21:25 | General Progress Note ---
Subjective ROS Limited/Unobtainable: Yes Allergies: Coded Allergies: No Known Allergies (Unverified , 03/19/20) Objective Last 24 Hour Vital Signs Date Time Temp Pulse Resp B/P (MAP) Pulse Ox O2 Delivery O2 Flow Rate FiO2 03/24/20 20:00 98.8 116 23 114/83 (93) 97 03/24/20 20:00 Bi-pap 03/24/20 20:00 50 03/24/20 19:51 117 23 99 50 03/24/20 19:00 120 26 126/83 (97) 95 03/24/20 18:00 123 22 123/82 (96) 99 03/24/20 17:00 118 23 128/91 (103) 99 03/24/20 17:00 121 21 128/91 (103) 99 03/24/20 16:00 115 03/24/20 16:00 98.4 117 22 126/83 (97) 99 03/24/20 16:00 50 03/24/20 16:00 Bi-pap 03/24/20 15:05 115 24 98 50 03/24/20 15:00 115 22 112/78 (89) 99 03/24/20 14:00 118 40 127/90 (102) 99 03/24/20 13:05 117 23 97 50 03/24/20 13:00 117 40 106/86 (93) 99 03/24/20 12:00 98.6 115 22 127/89 (102) 98 03/24/20 12:00 50 03/24/20 12:00 Bi-pap 03/24/20 12:00 114 03/24/20 11:00 115 22 141/93 (109) 99 03/24/20 10:31 111 19 99 50 03/24/20 10:18 50 03/24/20 10:00 110 20 117/90 (99) 98 03/24/20 09:05 119 19 98 70 03/24/20 09:00 115 23 118/82 (94) 99 03/24/20 08:00 Bi-pap 03/24/20 08:00 119 03/24/20 08:00 70 03/24/20 08:00 98.4 119 25 125/83 (97) 98 03/24/20 07:05 118 18 98 70 03/24/20 07:00 126 25 112/78 (89) 95 03/24/20 06:50 99.3 03/24/20 06:09 101.2 03/24/20 06:00 101.2 133 22 119/82 (94) 96 03/24/20 05:00 102.5 138 27 125/84 (98) 95 03/24/20 04:00 99.8 135 26 113/87 (96) 95 03/24/20 04:00 Bi-pap 03/24/20 04:00 70 03/24/20 03:41 132 03/24/20 03:20 129 21 96 70 03/24/20 03:00 129 26 126/85 (99) 95 03/24/20 02:00 128 22 102/86 (91) 95 03/24/20 01:00 127 24 130/88 (102) 96 03/24/20 00:00 Bi-pap 03/24/20 00:00 98.6 125 25 132/90 (104) 97 03/23/20 23:17 123 03/23/20 23:15 121 19 98 70 03/23/20 23:00 121 25 135/98 (110) 96 03/23/20 22:00 120 23 122/91 (101) 98 Intake and Output 03/23/20 03/24/20 19:00 07:00 Intake Total 928.33 ml 1860 ml Output Total 1575 ml 1700 ml Balance -646.67 ml 160 ml IV Total 928.33 ml 1160 ml Other 700 ml Output Urine Total 1575 ml 1700 ml # Bowel Movements 2 2 Laboratory Tests 03/24/20 04:00: White Blood Count 13.4H, Red Blood Count 5.20, Hemoglobin 14.7, Hematocrit 42.9, Mean Corpuscular Volume 83, Mean Corpuscular Hemoglobin 28.3, Mean Corpuscular Hemoglobin Concent 34.2, Red Cell Distribution Width 15.1H, Platelet Count 218, Mean Platelet Volume 7.6, Neutrophils (%) (Auto) , Lymphocytes (%) (Auto) , Monocytes (%) (Auto) , Eosinophils (%) (Auto) , Basophils (%) (Auto) , Differential Total Cells Counted 100, Neutrophils % (Manual) 82H, Lymphocytes % (Manual) 18L, Monocytes % (Manual) 0L, Eosinophils % (Manual) 0, Basophils % (Manual) 0, Band Neutrophils 0, Platelet Estimate Adequate, Platelet Morphology Normal, Red Blood Cell Morphology Normal, Sodium Level 150H, Potassium Level 3.1L, Chloride Level 117H, Carbon Dioxide Level 25, Anion Gap 8, Blood Urea Nitrogen 33H, Creatinine 1.4H, Estimat Glomerular Filtration Rate 50.5, Glucose Level 111H, Calcium Level 8.6, Phosphorus Level 2.4L, Magnesium Level 1.9, Total Bilirubin 0.6, Aspartate Amino Transf (AST/SGOT) 45H, Alanine Aminotransferase (ALT/SGPT) 79H, Alkaline Phosphatase 90, C-Reactive Protein, Quantitative 24.8H, Pro-B-Type Natriuretic Peptide [Pending], Total Protein 6.6, Albumin 1.8L, Globulin 4.8, Albumin/Globulin Ratio 0.4L Height (Feet): 6 Height (Inches): 0.00 Weight (Pounds): 158 Assessment/Plan Problem List: (1) HTN (hypertension) ICD Codes: I10 - Essential (primary) hypertension SNOMED: 59103688 (2) Diabetes ICD Codes: E11.9 - Type 2 diabetes mellitus without complications SNOMED: 61799699 (3) CVA (cerebral vascular accident) ICD Codes: I63.9 - Cerebral infarction, unspecified SNOMED: 129596621 (4) Urinary tract infection ICD Codes: N39.0 - Urinary tract infection, site not specified SNOMED: 04370243 (5) Hydronephrosis ICD Codes: N13.30 - Unspecified hydronephrosis SNOMED: 37648506 (6) Sepsis ICD Codes: A41.9 - Sepsis, unspecified organism SNOMED: 92776096 (7) BPH (benign prostatic hyperplasia) ICD Codes: N40.0 - Benign prostatic hyperplasia without lower urinary tract symptoms SNOMED: 590199535 (8) Alzheimer's dementia ICD Codes: G30.9 - Alzheimer's disease, unspecified; F02.80 - Dementia in other diseases classified elsewhere without behavioral disturbance SNOMED: 95257769 (9) Seizure disorder ICD Codes: G40.909 - Epilepsy, unspecified, not intractable, without status epilepticus SNOMED: 723934294 Status: progressing, unchanged Assessment/Plan: azotemia improving uti abx per id check sugar cva dm Gino Austin MD Mar 24, 2020 21:24
--- NOTE | 2020-03-24 22:00 | NUR ---
NURSE NOTES: Patient desat to the mid 80s. FiO2 bumped to 100%.
[2020-03-25] VITALS (25 sets, daily range): BP systolic 90–139; BP diastolic 67–96
--- NOTE | 2020-03-25 02:00 | NUR ---
NURSE NOTES: Bed bath given, linens changed, turned and repositioned.
--- NOTE | 2020-03-25 04:00 | NUR ---
NURSE NOTES: Patient became very tachypneic and tachycardic. ABG done, RT recommendation for BiPAP setting changed. Patient febrile to 101.2F. Tylenol given and ice packs placed.
[2020-03-25 05:39] LABS: HEMATOCRIT 43.6 % (42.0-52.0); HEMOGLOBIN 14.7 G/DL (14.2-18.0); MEAN CORPUSCULAR VOLUME 84 FL (80-99); PLATELET COUNT 218 K/UL (150-450); RED CELL DISTRIBUTION WIDTH 14.8 % (11.6-14.8); WHITE BLOOD COUNT 16.9 K/UL (4.8-10.8)
[2020-03-25 05:44] LABS: INR 1.4 (0.9-1.1)
[2020-03-25] MEDS: Meropenem 1 GM in NS 55 ML IVPB SCH ×3 (05:57→22:31)
--- NOTE | 2020-03-25 06:00 | NUR ---
NURSE NOTES: Temp now 99.8F axillary. Cooling measures replaced. Continuous leon irrigation intake of 1100ml. Total output in urine collection bag 2000ml.
[2020-03-25 06:06] LABS: ALBUMIN 1.7 G/DL (3.4-5.0); ALBUMIN/GLOBULIN RATIO 0.4 (1.0-2.7); BILIRUBIN,TOTAL 0.5 MG/DL (0.2-1.0); CALCIUM 8.3 MG/DL (8.5-10.1); CREATININE 1.4 MG/DL (0.55-1.30); PHOSPHORUS 3.2 MG/DL (2.5-4.9); POTASSIUM 3.9 MMOL/L (3.5-5.1)
--- NOTE | 2020-03-25 07:31 | NUR ---
NURSE HAND-OFF REPORT: Latest Vital Signs: Temperature 99.8 , Pulse 105 , B/P 90 /70 , Respiratory Rate 24 , O2 SAT 99 , Bi-pap, O2 Flow Rate 2.0 . Vital Sign Comment: Endorsed that BP and HR has dropped significantly and to closely monitor. EKG Rhythm: Sinus Tachycardia Rhythm change?: N Notified?: N - MD Response: Latest Wilkerson Fall Score: 50 Fall Risk: High Risk Safety Measures: Call light Within Reach, Bed Alarm Zone 1, Side Rails Side Rails x3, Bed position Low and Locked. Fall Precautions: Yellow Socks Yellow Gown Report given to .
--- NOTE | 2020-03-25 08:00 | NUR ---
NURSE NOTES: Pt was assessed after receiving change of shift report from Yumi ALDRICH. Pt is obtunded, opens eyes spontaneously, however does not track with eyes and does not follow commands, withdraws to pain. Maintained on Bipap with settings 20/10, PS15, FIO2 100%, O2Sat 100%. Bilateral rhonchi/rales with diminished lungs sounds. NSR on desk monitor, HR90, with weak peripheral pulses. Peripheral IV access noted on right hand #20G, left hand #20G, and right wrist #20G, patent/intact. IV fluid D2W is infusing at 100ml/hour. Temp 98.7F axillary, extremities cool to touch. NGT patent/intact, clamped with NPO diet. Argueta catheter present and being irrigated with sterile water, output of clear/yellow urine. Skin is intact. HOB at 30 degreed. Bed locked, in lowest position, three side rails up. Will continue to monitor pt and follow plan of care per MD orders and protocols.
--- NOTE | 2020-03-25 08:22 | Psychiatry Consultation ---
Psychiatry Consultation Psychiatry Consultation Chief Complaint: Vomiting History of Present Illness: 69-year-old male with dehydration sepsis and tachycardia but is got altered mental status confusion and agitation worsened by the stress of his medical illness and mood lability has worsened because of the stress of his medical illness as well as attending is requested daily psychiatric consultation Mental status semination: 69-year-old male whose appearance is disheveled his attitude irritable agitated and his affect labile intellect poor because he has no current events does not last for presents mood depressed anxious motor activity psychomotor station change [facility] CAT scan 2075 power backwards orientation x2 which is oriented to person place not time situation speech low volume nonsensical thought process disorganized logical insight judgment is poor Allergies: Coded Allergies: No Known Allergies (Unverified , 03/19/20) Medication History Scheduled Docusate Sodium* (Colace*), 100 MG ORAL DAILY, (Reported) Finasteride* (Proscar*), 5 MG ORAL DAILY, (Reported) Insulin Regular, Human* (Novolin R*), Unknown Dose SUBQ .SLIDING SCALE, (Reported) Levetiracetam (Levetiracetam), 500 MG ORAL DAILY, (Reported) Lorazepam* (Ativan*), 1 MG ORAL EVERY 6 HOURS, (Reported) Memantine Hcl* (Namenda*), 5 MG ORAL TWICE A DAY, (Reported) Multivitamins* (Multivitamins*), 1 TAB ORAL DAILY, (Reported) Polyethylene Glycol 3350* (Miralax*), 17 GM ORAL DAILY, (Reported) Tamsulosin HCl (Flomax), 0.4 MG ORAL DAILY, (Reported) Scheduled PRN Acetaminophen* (Acetaminophen 325MG Tablet*), 650 MG ORAL Q4H PRN for Mild Pain (Pain Scale 1-3), (Reported) Miscellaneous Medications Megestrol Acetate (Megestrol Acetate), 400 MG PO, (Reported) Objective Data Height (Feet): 6 Height (Inches): 0.00 Weight (Pounds): 158 Assessment/Plan Assessment/Plan: Treat this patient with Namenda 5 mg twice a day and Ativan 1 every 6 hours as needed anxiety agitation 20 minutes of insight oriented psychotherapy will work with this patient to help him understand his physical and psychiatric condition so that he has less anxiety depression better impulse control Diagnosis [place] I: 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
--- NOTE | 2020-03-25 08:49 | Infectious Diseases Prog Note ---
Assessment/Plan 69yo M with: Afebrile Sepsis Leukocytosis GNR bacteremia 2/2 P.mirabilis UTI/pyelo in setting of obstruction - CT w/ BL hydronephrosis >> improved on repeat US Acute resp failure, s/p transfer to ICU for BiPAP 03/23 03/19 BCx +P.mirabilis (domingo-S) UCx +P.mirabilis (S-CTX) CT A/P: 1. Severe bilateral hydronephrosis and moderate hydroureters. No obstructing stone identified. Possible infection. Nonspecific, left greater than right perinephric fat stranding. 2. Distended bladder with prominent bladder wall thickening, concerning for cystitis. Trace surrounding fluid. Please correlate with urinalysis. 3. Argueta catheter balloon is noted within the prostate. 4. Moderate to large amount of stool in the rectum with mild prominence of the rectal wall. This may represent fecal impaction, and stercoral inflammation. 5. Moderate to large amount of stool in the colon may represent constipation. No bowel obstruction. 6. Ground-glass opacity in the dependent right lower lobe may represent atelectasis, but infectious/inflammatory process is not excluded. 7. Lobulated gallbladder with mildly calcified paredes versus cholelithiasis. Gallbladder is underdistended. 8. Right hydrocele partially visualized. 03/22 Renal US: Bilateral mild hydronephrosis, much less severe than demonstrated on prior CT scan of 03/19/202003/23 BCx NTD UCx NTD Resp cx NTD CXR: Interim development of bilateral infiltrates, likely pneumonia and quite likely viral, since prior study 03/19/202003/24 CXR: Slightly increased bilateral infiltrates Cr 1.2 --> 1.7 --> 1.4 COVID rapid test neg 03/19, PCR neg 03/19 MRSA nares neg Plan: Cont meropenem #3 given resp decompensation F/u 03/24 COVID PCR given CXR findings F/u 03/23 BCx, resp cx, UCx - NTD Appreciate Urology input on BL hydro Trend WBC, Cr 03/23 SP CTX #1 03/22 SP cefepime #2 Monitor CBC/CMP Monitor temp curve, hemodynamics Monitor resp status D/w RN Thank you for this consult. [facility] will continue to follow. Subjective Allergies: Coded Allergies: No Known Allergies (Unverified , 03/19/20) Tmax 101.2 Intubated in ICU WBC slightly up to 16 Objective Last 24 Hour Vital Signs Date Time Temp Pulse Resp B/P (MAP) Pulse Ox O2 Delivery O2 Flow Rate FiO2 03/25/20 07:00 105 24 90/70 (77) 99 03/25/20 06:03 110 27 103/73 (83) 98 03/25/20 06:00 99.8 114 23 100/75 (83) 98 03/25/20 05:00 125 24 108/81 (90) 98 03/25/20 04:00 136 03/25/20 04:00 101.2 136 29 126/93 (104) 98 03/25/20 04:00 Bi-pap 03/25/20 04:00 100 03/25/20 03:55 100.0 03/25/20 03:50 140 29 96 100 03/25/20 03:00 139 29 135/96 (109) 98 03/25/20 02:00 135 27 128/91 (103) 85 03/25/20 01:00 132 26 135/91 (106) 92 03/25/20 00:00 127 25 139/87 (104) 98 03/25/20 00:00 Bi-pap 03/24/20 23:57 128 24 98 100 03/24/20 23:11 125 03/24/20 23:00 122 23 147/110 (122) 100 03/24/20 22:29 100 03/24/20 22:00 118 24 133/91 (105) 90 03/24/20 21:00 116 22 133/82 (99) 96 03/24/20 20:00 98.8 116 23 114/83 (93) 97 03/24/20 20:00 Bi-pap 03/24/20 20:00 50 03/24/20 19:52 117 03/24/20 19:51 117 23 99 50 03/24/20 19:00 120 26 126/83 (97) 95 03/24/20 18:00 123 22 123/82 (96) 99 03/24/20 17:00 118 23 128/91 (103) 99 03/24/20 17:00 121 21 128/91 (103) 99 03/24/20 16:00 115 03/24/20 16:00 98.4 117 22 126/83 (97) 99 03/24/20 16:00 50 03/24/20 16:00 Bi-pap 03/24/20 15:05 115 24 98 50 03/24/20 15:00 115 22 112/78 (89) 99 03/24/20 14:00 118 40 127/90 (102) 99 03/24/20 13:05 117 23 97 50 03/24/20 13:00 117 40 106/86 (93) 99 03/24/20 12:00 98.6 115 22 127/89 (102) 98 03/24/20 12:00 50 03/24/20 12:00 Bi-pap 03/24/20 12:00 114 03/24/20 11:00 115 22 141/93 (109) 99 03/24/20 10:31 111 19 99 50 03/24/20 10:18 50 03/24/20 10:00 110 20 117/90 (99) 98 03/24/20 09:05 119 19 98 70 03/24/20 09:00 115 23 118/82 (94) 99 Height (Feet): 6 Height (Inches): 0.00 Weight (Pounds): 158 Gen: NAD in bed, BiPAP mask HEENT: NCAT CV: RRR Pulm: BL chest rise on BiPAP Abd: Non-distended Ext: No c/c/e Neuro: Awake but not interactive Microbiology Date/Time Source Procedure Growth Status 03/23/20 14:10 Sputum Induced Gram Stain - Final Complete 03/23/20 14:10 Sputum Induced Sputum Culture - Final NORMAL UPPER RESPIRATORY REX PRESENT Complete 03/23/20 13:25 Urine,Clean Catch Urine Culture - Preliminary NO GROWTH AFTER 24 HOURS Resulted 03/23/20 10:35 Blood Blood Culture - Preliminary NO GROWTH AFTER 24 HOURS Resulted 03/23/20 10:25 Blood Blood Culture - Preliminary NO GROWTH AFTER 24 HOURS Resulted Laboratory Tests Test 03/24/20 22:15 03/25/20 02:20 03/25/20 03:00 Arterial Blood pH 7.454 (7.350-7.450) 7.483 (7.350-7.450) Arterial Blood Partial Pressure CO2 33.3 mmHg (35.0-45.0) L 32.9 mmHg (35.0-45.0) L Arterial Blood Partial Pressure O2 99.7 mmHg (75.0-100.0) 70.8 mmHg (75.0-100.0) L Arterial Blood HCO3 22.8 mmol/L (22.0-26.0) 24.1 mmol/L (22.0-26.0) Arterial Blood Oxygen Saturation 97.4 % (95-100) 94.7 % (95-100) L Arterial Blood Base Excess -0.3 (-2-2) 1.4 (-2-2) Ronni Test Positive Positive White Blood Count 16.9 K/UL (4.8-10.8) H Red Blood Count 5.20 M/UL (4.70-6.10) Hemoglobin 14.7 G/DL (14.2-18.0) Hematocrit 43.6 % (42.0-52.0) Mean Corpuscular Volume 84 FL (80-99) Mean Corpuscular Hemoglobin 28.3 PG (27.0-31.0) Mean Corpuscular Hemoglobin Concent 33.8 G/DL (32.0-36.0) Red Cell Distribution Width 14.8 % (11.6-14.8) Platelet Count 218 K/UL (150-450) Mean Platelet Volume 8.4 FL (6.5-10.1) Neutrophils (%) (Auto) % (45.0-75.0) Lymphocytes (%) (Auto) % (20.0-45.0) Monocytes (%) (Auto) % (1.0-10.0) Eosinophils (%) (Auto) % (0.0-3.0) Basophils (%) (Auto) % (0.0-2.0) Neutrophils % (Manual) Pending Lymphocytes % (Manual) Pending Platelet Estimate Pending Platelet Morphology Pending Erythrocyte Sedimentation Rate 47 MM/HR (0-20) H Prothrombin Time 14.8 SEC (9.30-11.50) H Prothromb Time International Ratio 1.4 (0.9-1.1) H Activated Partial Thromboplast Time 31 SEC (23-33) Sodium Level 149 MMOL/L (136-145) H Potassium Level 3.9 MMOL/L (3.5-5.1) Chloride Level 114 MMOL/L (98-107) H Carbon Dioxide Level 25 MMOL/L (21-32) Anion Gap 10 mmol/L (5-15) Blood Urea Nitrogen 30 mg/dL (7-18) H Creatinine 1.4 MG/DL (0.55-1.30) H Estimat Glomerular Filtration Rate 50.5 mL/min (>60) Glucose Level 131 MG/DL (74-106) H Calcium Level 8.3 MG/DL (8.5-10.1) L Phosphorus Level 3.2 MG/DL (2.5-4.9) Magnesium Level 1.8 MG/DL (1.8-2.4) Total Bilirubin 0.5 MG/DL (0.2-1.0) Aspartate Amino Transf (AST/SGOT) 59 U/L (15-37) H Alanine Aminotransferase (ALT/SGPT) 60 U/L (12-78) Alkaline Phosphatase 68 U/L (46-116) Ammonia 44 umol/L (11-32) H C-Reactive Protein, Quantitative 22.1 mg/dL (0.00-0.90) H Total Protein 6.4 G/DL (6.4-8.2) Albumin 1.7 G/DL (3.4-5.0) L Globulin 4.7 g/dL Albumin/Globulin Ratio 0.4 (1.0-2.7) L Current Medications Medications (Trade) Dose Ordered Sig/Martine Route PRN Reason Start Time Stop Time Status Last Admin Dose Admin Acetaminophen (Tylenol) 650 mg Q4H PRN NG Temp >100.5 03/24/20 08:30 04/18/20 19:44 03/25/20 03:25 Dextrose 1,000 ml @ 100 mls/hr Q10H IV 03/21/20 11:45 04/20/20 11:44 03/25/20 01:26 Docusate Sodium (Colace) 100 mg TWICE A DAY NG 03/23/20 18:00 04/22/20 17:59 03/24/20 17:03 Finasteride (Proscar) 5 mg DAILY ORAL 03/20/20 09:00 06/18/20 08:59 03/24/20 08:55 Lactulose (Cephulac) 20 gm THREE TIMES A DAY NG 03/24/20 09:00 04/19/20 12:59 03/24/20 17:03 Lansoprazole (Prevacid) 30 mg DAILY NG 03/24/20 09:00 04/23/20 08:59 03/24/20 08:55 Levetiracetam 100 ml @ 400 mls/hr Q12HR IVPB 03/24/20 10:00 06/22/20 09:59 03/24/20 20:33 Lorazepam (Ativan) 1 mg Q6H PRN NG For Anxiety 03/24/20 08:30 03/28/20 22:59 Memantine (Namenda) 5 mg TWICE A DAY NG 03/24/20 09:00 04/19/20 08:59 03/24/20 17:03 Meropenem 1 gm/ Sodium Chloride 55 ml @ 110 mls/hr Q8HR IVPB 03/23/20 14:00 03/28/20 13:59 03/25/20 05:57 Ondansetron HCl (Zofran) 4 mg Q6H PRN IVP Nausea & Vomiting 03/19/20 19:45 04/18/20 19:44 Polyethylene Glycol (Miralax) 17 gm DAILYPRN PRN NG Constipation 03/24/20 08:30 04/18/20 19:44 Tamsulosin HCl (Flomax) 0.4 mg DAILY ORAL 03/20/20 09:00 04/19/20 08:59 03/24/20 08:55 Temazepam (Restoril) 15 mg HSPRN PRN NG Insomnia 03/24/20 08:30 03/26/20 19:44 Edwina Romero M.D. Mar 25, 2020 08:49
[2020-03-25] MEDS: Lactulose 20gm/30ml UDC NG SCH ×2 (09:30→18:06)
[2020-03-25] MEDS: Docusate 100mg/10ml Liq NG SCH ×2 (09:30→18:06)
[2020-03-25] MEDS: Tamsulosin 0.4mg cap ORAL SCH (09:30)
[2020-03-25] MEDS: Memantine 10mg tab NG SCH ×2 (09:30→18:06)
[2020-03-25] MEDS: levETIRAcetam 500mg/NS100ml 100 ML IVPB SCH ×2 (09:31→20:17)
--- NOTE | 2020-03-25 10:00 | NUR ---
NURSE NOTES: Argueta irrigation bag was replaced with new sterile water bag. AM meds were administered. Pt was repositioned for comfort. Repeat ABGs being done while on Bipap settings 20/10, PS15, FIO2 100, O2Sat displaying 100% at this time; RT now at bedside.
--- NOTE | 2020-03-25 10:50 | Pulmonolgy Critical Care Note ---
Critical Care - Asmt/Plan Problems: (1) Acute encephalopathy (2) Acute respiratory failure (3) Seizure disorder (4) Alzheimer's dementia (5) BPH (benign prostatic hyperplasia) (6) URIEL (acute kidney injury) (7) CVA (cerebral vascular accident) (8) Diabetes Assessment/Plan: Respiratory: monitor respiratory rate, adjust FIO2, CXR, ABG Cardiac: continue to monitor HR/BP Renal: F/U I&O Infectious Disease: check cultures Gastrointestinal: start feedings Endocrine: monitor blood sugar - start glucerna Hematologic: monitor H/H, transfuse if hgb<8.5 Neurologic: PRN Ativan Affect: PRN ativan Prophylaxis: Protonix Disposition: keep in ICU Time Spent (Minutes): 40 Notes Reviewed: technical instructor, cardio, renal Discussed with: nurses, consultants, skilled nursing case managerit support manager - Objective Last 24 Hour Vital Signs Date Time Temp Pulse Resp B/P (MAP) Pulse Ox O2 Delivery O2 Flow Rate FiO2 03/25/20 07:52 100 24 100 100 03/25/20 07:00 105 24 90/70 (77) 99 03/25/20 06:03 110 27 103/73 (83) 98 03/25/20 06:00 99.8 114 23 100/75 (83) 98 03/25/20 05:00 125 24 108/81 (90) 98 03/25/20 04:00 136 03/25/20 04:00 101.2 136 29 126/93 (104) 98 03/25/20 04:00 Bi-pap 03/25/20 04:00 100 03/25/20 03:55 100.0 03/25/20 03:50 140 29 96 100 03/25/20 03:00 139 29 135/96 (109) 98 03/25/20 02:00 135 27 128/91 (103) 85 03/25/20 01:00 132 26 135/91 (106) 92 03/25/20 00:00 127 25 139/87 (104) 98 03/25/20 00:00 Bi-pap 03/24/20 23:57 128 24 98 100 03/24/20 23:11 125 03/24/20 23:00 122 23 147/110 (122) 100 03/24/20 22:29 100 03/24/20 22:00 118 24 133/91 (105) 90 03/24/20 21:00 116 22 133/82 (99) 96 03/24/20 20:00 98.8 116 23 114/83 (93) 97 03/24/20 20:00 Bi-pap 03/24/20 20:00 50 03/24/20 19:52 117 03/24/20 19:51 117 23 99 50 03/24/20 19:00 120 26 126/83 (97) 95 03/24/20 18:00 123 22 123/82 (96) 99 03/24/20 17:00 118 23 128/91 (103) 99 03/24/20 17:00 121 21 128/91 (103) 99 03/24/20 16:00 115 03/24/20 16:00 98.4 117 22 126/83 (97) 99 03/24/20 16:00 50 03/24/20 16:00 Bi-pap 03/24/20 15:05 115 24 98 50 03/24/20 15:00 115 22 112/78 (89) 99 03/24/20 14:00 118 40 127/90 (102) 99 03/24/20 13:05 117 23 97 50 03/24/20 13:00 117 40 106/86 (93) 99 03/24/20 12:00 98.6 115 22 127/89 (102) 98 03/24/20 12:00 50 03/24/20 12:00 Bi-pap 03/24/20 12:00 114 03/24/20 11:00 115 22 141/93 (109) 99 Status: sedated Condition: critical HEENT: atraumatic, normocephalic Neck: full ROM Lungs: rales, rhonchi Heart: HR/BP stable Abdomen: soft, active bowel sounds Micro: Microbiology Date/Time Source Procedure Growth Status 03/23/20 14:10 Sputum Induced Gram Stain - Final Complete 03/23/20 14:10 Sputum Induced Sputum Culture - Final NORMAL UPPER RESPIRATORY REX PRESENT Complete 03/23/20 13:25 Urine,Clean Catch Urine Culture - Preliminary NO GROWTH AFTER 24 HOURS Resulted 03/23/20 10:35 Blood Blood Culture - Preliminary NO GROWTH AFTER 24 HOURS Resulted 03/23/20 10:25 Blood Blood Culture - Preliminary NO GROWTH AFTER 24 HOURS Resulted Accucheck: 144 Critical Care - Subjective ROS Limited/Unobtainable: Yes Condition: critical EKG Rhythm: Sinus Rhythm FI02: 100 Vent Support Mode: BiLevel Sputum Amount: None Tube Feeding Amount: 35 I&O: Intake and Output 03/24/20 03/25/20 19:00 07:00 Intake Total 3360.49153 ml 2410 ml Output Total 2500 ml 2010 ml Balance 860.19733 ml 400 ml IV Total 1860.98367 ml 1310 ml Other 1500 ml 1100 ml Output Urine Total 2500 ml 2010 ml # Bowel Movements 2 CXR: Slightly increased bilateral infiltrates Labs: Laboratory Tests Test 03/24/20 22:15 03/25/20 02:20 03/25/20 03:00 03/25/20 09:42 Arterial Blood pH 7.454 (7.350-7.450) 7.483 (7.350-7.450) 7.499 (7.350-7.450) Arterial Blood Partial Pressure CO2 33.3 mmHg (35.0-45.0) L 32.9 mmHg (35.0-45.0) L 26.6 mmHg (35.0-45.0) L Arterial Blood Partial Pressure O2 99.7 mmHg (75.0-100.0) 70.8 mmHg (75.0-100.0) L 107.5 mmHg (75.0-100.0) H Arterial Blood HCO3 22.8 mmol/L (22.0-26.0) 24.1 mmol/L (22.0-26.0) 20.2 mmol/L (22.0-26.0) L Arterial Blood Oxygen Saturation 97.4 % (95-100) 94.7 % (95-100) L 97.7 % (95-100) Arterial Blood Base Excess -0.3 (-2-2) 1.4 (-2-2) -1.4 (-2-2) Ronni Test Positive Positive Positive White Blood Count 16.9 K/UL (4.8-10.8) H Red Blood Count 5.20 M/UL (4.70-6.10) Hemoglobin 14.7 G/DL (14.2-18.0) Hematocrit 43.6 % (42.0-52.0) Mean Corpuscular Volume 84 FL (80-99) Mean Corpuscular Hemoglobin 28.3 PG (27.0-31.0) Mean Corpuscular Hemoglobin Concent 33.8 G/DL (32.0-36.0) Red Cell Distribution Width 14.8 % (11.6-14.8) Platelet Count 218 K/UL (150-450) Mean Platelet Volume 8.4 FL (6.5-10.1) Neutrophils (%) (Auto) % (45.0-75.0) Lymphocytes (%) (Auto) % (20.0-45.0) Monocytes (%) (Auto) % (1.0-10.0) Eosinophils (%) (Auto) % (0.0-3.0) Basophils (%) (Auto) % (0.0-2.0) Differential Total Cells Counted 100 Neutrophils % (Manual) 94 % (45-75) H Lymphocytes % (Manual) 5 % (20-45) L Monocytes % (Manual) 1 % (1-10) Eosinophils % (Manual) 0 % (0-3) Basophils % (Manual) 0 % (0-2) Band Neutrophils 0 % (0-8) Platelet Estimate Adequate Platelet Morphology Normal Anisocytosis 1+ Erythrocyte Sedimentation Rate 47 MM/HR (0-20) H Prothrombin Time 14.8 SEC (9.30-11.50) H Prothromb Time International Ratio 1.4 (0.9-1.1) H Activated Partial Thromboplast Time 31 SEC (23-33) Sodium Level 149 MMOL/L (136-145) H Potassium Level 3.9 MMOL/L (3.5-5.1) Chloride Level 114 MMOL/L (98-107) H Carbon Dioxide Level 25 MMOL/L (21-32) Anion Gap 10 mmol/L (5-15) Blood Urea Nitrogen 30 mg/dL (7-18) H Creatinine 1.4 MG/DL (0.55-1.30) H Estimat Glomerular Filtration Rate 50.5 mL/min (>60) Glucose Level 131 MG/DL (74-106) H Calcium Level 8.3 MG/DL (8.5-10.1) L Phosphorus Level 3.2 MG/DL (2.5-4.9) Magnesium Level 1.8 MG/DL (1.8-2.4) Total Bilirubin 0.5 MG/DL (0.2-1.0) Aspartate Amino Transf (AST/SGOT) 59 U/L (15-37) H Alanine Aminotransferase (ALT/SGPT) 60 U/L (12-78) Alkaline Phosphatase 68 U/L (46-116) Ammonia 44 umol/L (11-32) H C-Reactive Protein, Quantitative 22.1 mg/dL (0.00-0.90) H Total Protein 6.4 G/DL (6.4-8.2) Albumin 1.7 G/DL (3.4-5.0) L Globulin 4.7 g/dL Albumin/Globulin Ratio 0.4 (1.0-2.7) L Courtney Dotson MD Mar 25, 2020 10:50
--- NOTE | 2020-03-25 10:52 | NUR ---
VALIDATION ANALYST NOTE PT is from [facility]. Pt is currently on bipap, not alert and oriented. This SW is unable to obtain information from pt. SW confirmed w/ Sandy Castañeda from [place] [phone] that there is no emergency contact and he is self-responsible. There is a copy of POLST- full code signed by pt. Bioethics as needed.
--- NOTE | 2020-03-25 11:30 | NUR ---
NURSE NOTES: Pt was seen by Dr. Dotson. Order was received to discontinue bladder/leon irrigation. Order was also received to start NGT feeding per nutrition recommendation. Order placed for Glucerna 1.2 to start at 20ml/hr initially for at least 6 hours, then slowly titrate rate up to goal of 60 as tolerated by pt. Repeat ABGs drawn around 0900 this morning were reviewed, with PO2 now improved, no additional orders at this time.
--- NOTE | 2020-03-25 12:00 | Nephrology Progress Note ---
Assessment/Plan Problem List: (1) URIEL (acute kidney injury) (2) Hydronephrosis (3) Sepsis (4) Alzheimer's dementia (5) Seizure disorder Assessment Sepsis Rhabdo UTI Hydronephrosis/Argueta catheter problem Suspected Covid 19 infection Plan March 25: Lab reviewed. Renal parameters and electrolytes stable and gradually improving. Remains on BiPAP. Continue per consultants. March:: Labs reviewed. Sodium 150. Potassium low. Serum creatinine 1.4. Abnormal electrolytes addressed. Continue to monitor renal parameters and electrolytes. Continue per pulmonary for pulmonary support. March 23: Lab checked. Abnormal electrolytes noted and addressed. D5W 1000 cc IV ordered. Continue to monitor renal parameters. Continue per pulmonary and other consultants. March 22: Labs checked. Serum creatinine 1.4. Serum sodium 157. Continues to be on D5W. Continue to monitor renal parameters and electrolytes. Previously: Recheck labs in a.m. Argueta catheter already ordered Hydrate Antibiotics Monitor CPK Avoid nephrotoxic's Per orders Subjective ROS Limited/Unobtainable: Yes Objective Objective Last 24 Hour Vital Signs Date Time Temp Pulse Resp B/P (MAP) Pulse Ox O2 Delivery O2 Flow Rate FiO2 03/25/20 11:00 100 24 103/86 (92) 100 03/25/20 10:00 98 26 111/78 (89) 98 03/25/20 09:00 100 32 101/74 (83) 98 03/25/20 08:00 101 03/25/20 08:00 100 03/25/20 08:00 98.7 101 21 105/82 (90) 100 03/25/20 08:00 Bi-pap 03/25/20 07:52 100 24 100 100 03/25/20 07:00 105 24 90/70 (77) 99 03/25/20 06:03 110 27 103/73 (83) 98 03/25/20 06:00 99.8 114 23 100/75 (83) 98 03/25/20 05:00 125 24 108/81 (90) 98 03/25/20 04:00 136 03/25/20 04:00 101.2 136 29 126/93 (104) 98 03/25/20 04:00 Bi-pap 03/25/20 04:00 100 03/25/20 03:55 100.0 03/25/20 03:50 140 29 96 100 03/25/20 03:00 139 29 135/96 (109) 98 03/25/20 02:00 135 27 128/91 (103) 85 03/25/20 01:00 132 26 135/91 (106) 92 03/25/20 00:00 127 25 139/87 (104) 98 03/25/20 00:00 Bi-pap 03/24/20 23:57 128 24 98 100 03/24/20 23:11 125 03/24/20 23:00 122 23 147/110 (122) 100 03/24/20 22:29 100 03/24/20 22:00 118 24 133/91 (105) 90 03/24/20 21:00 116 22 133/82 (99) 96 03/24/20 20:00 98.8 116 23 114/83 (93) 97 03/24/20 20:00 Bi-pap 03/24/20 20:00 50 03/24/20 19:52 117 03/24/20 19:51 117 23 99 50 03/24/20 19:00 120 26 126/83 (97) 95 03/24/20 18:00 123 22 123/82 (96) 99 03/24/20 17:00 118 23 128/91 (103) 99 03/24/20 17:00 121 21 128/91 (103) 99 03/24/20 16:00 115 03/24/20 16:00 98.4 117 22 126/83 (97) 99 03/24/20 16:00 50 03/24/20 16:00 Bi-pap 03/24/20 15:05 115 24 98 50 03/24/20 15:00 115 22 112/78 (89) 99 03/24/20 14:00 118 40 127/90 (102) 99 03/24/20 13:05 117 23 97 50 03/24/20 13:00 117 40 106/86 (93) 99 03/24/20 12:00 98.6 115 22 127/89 (102) 98 03/24/20 12:00 50 03/24/20 12:00 Bi-pap 03/24/20 12:00 114 Intake and Output 03/24/20 03/25/20 19:00 07:00 Intake Total 3360.86150 ml 2460 ml Output Total 2500 ml 2010 ml Balance 860.31625 ml 450 ml IV Total 1860.31574 ml 1310 ml Other 1500 ml 1150 ml Output Urine Total 2500 ml 2010 ml # Bowel Movements 2 Laboratory Tests 03/24/20 22:15: Arterial Blood pH 7.454H, Arterial Blood Partial Pressure CO2 33.3L, Arterial Blood Partial Pressure O2 99.7, Arterial Blood HCO3 22.8, Arterial Blood Oxygen Saturation 97.4, Arterial Blood Base Excess -0.3, Ronni Test Positive 03/25/20 02:20: Arterial Blood pH 7.483H, Arterial Blood Partial Pressure CO2 32.9L, Arterial Blood Partial Pressure O2 70.8L, Arterial Blood HCO3 24.1, Arterial Blood Oxygen Saturation 94.7L, Arterial Blood Base Excess 1.4, Ronni Test Positive 03/25/20 03:00: White Blood Count 16.9H, Red Blood Count 5.20, Hemoglobin 14.7, Hematocrit 43.6, Mean Corpuscular Volume 84, Mean Corpuscular Hemoglobin 28.3, Mean Corpuscular Hemoglobin Concent 33.8, Red Cell Distribution Width 14.8, Platelet Count 218, Mean Platelet Volume 8.4, Neutrophils (%) (Auto) , Lymphocytes (%) (Auto) , Monocytes (%) (Auto) , Eosinophils (%) (Auto) , Basophils (%) (Auto) , Differential Total Cells Counted 100, Neutrophils % (Manual) 94H, Lymphocytes % (Manual) 5L, Monocytes % (Manual) 1, Eosinophils % (Manual) 0, Basophils % (Manual) 0, Band Neutrophils 0, Platelet Estimate Adequate, Platelet Morphology Normal, Anisocytosis 1+, Erythrocyte Sedimentation Rate 47H, Prothrombin Time 14.8H, Prothromb Time International Ratio 1.4H, Activated Partial Thromboplast Time 31, Sodium Level 149H, Potassium Level 3.9, Chloride Level 114H, Carbon Dioxide Level 25, Anion Gap 10, Blood Urea Nitrogen 30H, Creatinine 1.4H, Estimat Glomerular Filtration Rate 50.5, Glucose Level 131H, Calcium Level 8.3L, Phosphorus Level 3.2, Magnesium Level 1.8, Total Bilirubin 0.5, Aspartate Amino Transf (AST/SGOT) 59H, Alanine Aminotransferase (ALT/SGPT) 60, Alkaline Phosphatase 68, Ammonia 44H, C-Reactive Protein, Quantitative 22.1H, Total Protein 6.4, Albumin 1.7L, Globulin 4.7, Albumin/Globulin Ratio 0.4L 03/25/20 09:42: Arterial Blood pH 7.499H, Arterial Blood Partial Pressure CO2 26.6L, Arterial Blood Partial Pressure O2 107.5H, Arterial Blood HCO3 20.2L, Arterial Blood Oxygen Saturation 97.7, Arterial Blood Base Excess -1.4, Ronni Test Positive Height (Feet): 6 Height (Inches): 0.00 Weight (Pounds): 158 General Appearance: mild distress EENT: other - Patient on BiPAP Cardiovascular: tachycardia Respiratory/Chest: decreased breath sounds Abdomen: distended Objective No change Matias Albert MD Mar 25, 2020 12:00
--- NOTE | 2020-03-25 12:29 | General Progress Note ---
Subjective ROS Limited/Unobtainable: No Allergies: Coded Allergies: No Known Allergies (Unverified , 03/19/20) Objective Last 24 Hour Vital Signs Date Time Temp Pulse Resp B/P (MAP) Pulse Ox O2 Delivery O2 Flow Rate FiO2 03/25/20 12:00 102 03/25/20 11:03 100 25 100 100 03/25/20 11:00 100 24 103/86 (92) 100 03/25/20 10:00 98 26 111/78 (89) 98 03/25/20 09:00 100 32 101/74 (83) 98 03/25/20 08:00 101 03/25/20 08:00 100 03/25/20 08:00 98.7 101 21 105/82 (90) 100 03/25/20 08:00 Bi-pap 03/25/20 07:52 100 24 100 100 03/25/20 07:00 105 24 90/70 (77) 99 03/25/20 06:03 110 27 103/73 (83) 98 03/25/20 06:00 99.8 114 23 100/75 (83) 98 03/25/20 05:00 125 24 108/81 (90) 98 03/25/20 04:00 136 03/25/20 04:00 101.2 136 29 126/93 (104) 98 03/25/20 04:00 Bi-pap 03/25/20 04:00 100 03/25/20 03:55 100.0 03/25/20 03:50 140 29 96 100 03/25/20 03:00 139 29 135/96 (109) 98 03/25/20 02:00 135 27 128/91 (103) 85 03/25/20 01:00 132 26 135/91 (106) 92 03/25/20 00:00 127 25 139/87 (104) 98 03/25/20 00:00 Bi-pap 03/24/20 23:57 128 24 98 100 03/24/20 23:11 125 03/24/20 23:00 122 23 147/110 (122) 100 03/24/20 22:29 100 03/24/20 22:00 118 24 133/91 (105) 90 03/24/20 21:00 116 22 133/82 (99) 96 03/24/20 20:00 98.8 116 23 114/83 (93) 97 03/24/20 20:00 Bi-pap 03/24/20 20:00 50 03/24/20 19:52 117 03/24/20 19:51 117 23 99 50 03/24/20 19:00 120 26 126/83 (97) 95 03/24/20 18:00 123 22 123/82 (96) 99 03/24/20 17:00 118 23 128/91 (103) 99 03/24/20 17:00 121 21 128/91 (103) 99 03/24/20 16:00 115 03/24/20 16:00 98.4 117 22 126/83 (97) 99 03/24/20 16:00 50 03/24/20 16:00 Bi-pap 03/24/20 15:05 115 24 98 50 03/24/20 15:00 115 22 112/78 (89) 99 03/24/20 14:00 118 40 127/90 (102) 99 03/24/20 13:05 117 23 97 50 03/24/20 13:00 117 40 106/86 (93) 99 Intake and Output 03/24/20 03/25/20 19:00 07:00 Intake Total 3360.47241 ml 2460 ml Output Total 2500 ml 2010 ml Balance 860.84602 ml 450 ml IV Total 1860.89987 ml 1310 ml Other 1500 ml 1150 ml Output Urine Total 2500 ml 2010 ml # Bowel Movements 2 Laboratory Tests 03/24/20 22:15: Arterial Blood pH 7.454H, Arterial Blood Partial Pressure CO2 33.3L, Arterial Blood Partial Pressure O2 99.7, Arterial Blood HCO3 22.8, Arterial Blood Oxygen Saturation 97.4, Arterial Blood Base Excess -0.3, Ronni Test Positive 03/25/20 02:20: Arterial Blood pH 7.483H, Arterial Blood Partial Pressure CO2 32.9L, Arterial Blood Partial Pressure O2 70.8L, Arterial Blood HCO3 24.1, Arterial Blood Oxygen Saturation 94.7L, Arterial Blood Base Excess 1.4, Ronni Test Positive 03/25/20 03:00: White Blood Count 16.9H, Red Blood Count 5.20, Hemoglobin 14.7, Hematocrit 43.6, Mean Corpuscular Volume 84, Mean Corpuscular Hemoglobin 28.3, Mean Corpuscular Hemoglobin Concent 33.8, Red Cell Distribution Width 14.8, Platelet Count 218, Mean Platelet Volume 8.4, Neutrophils (%) (Auto) , Lymphocytes (%) (Auto) , Monocytes (%) (Auto) , Eosinophils (%) (Auto) , Basophils (%) (Auto) , Differential Total Cells Counted 100, Neutrophils % (Manual) 94H, Lymphocytes % (Manual) 5L, Monocytes % (Manual) 1, Eosinophils % (Manual) 0, Basophils % (Manual) 0, Band Neutrophils 0, Platelet Estimate Adequate, Platelet Morphology Normal, Anisocytosis 1+, Erythrocyte Sedimentation Rate 47H, Prothrombin Time 14.8H, Prothromb Time International Ratio 1.4H, Activated Partial Thromboplast Time 31, Sodium Level 149H, Potassium Level 3.9, Chloride Level 114H, Carbon Dioxide Level 25, Anion Gap 10, Blood Urea Nitrogen 30H, Creatinine 1.4H, Estimat Glomerular Filtration Rate 50.5, Glucose Level 131H, Calcium Level 8.3L, Phosphorus Level 3.2, Magnesium Level 1.8, Total Bilirubin 0.5, Aspartate Amino Transf (AST/SGOT) 59H, Alanine Aminotransferase (ALT/SGPT) 60, Alkaline Phosphatase 68, Ammonia 44H, C-Reactive Protein, Quantitative 22.1H, Total Protein 6.4, Albumin 1.7L, Globulin 4.7, Albumin/Globulin Ratio 0.4L 03/25/20 09:42: Arterial Blood pH 7.499H, Arterial Blood Partial Pressure CO2 26.6L, Arterial Blood Partial Pressure O2 107.5H, Arterial Blood HCO3 20.2L, Arterial Blood Oxygen Saturation 97.7, Arterial Blood Base Excess -1.4, Ronni Test Positive Height (Feet): 6 Height (Inches): 0.00 Weight (Pounds): 158 General Appearance: no apparent distress EENT: normal ENT inspection Neck: supple Cardiovascular: normal rate Respiratory/Chest: decreased breath sounds Abdomen: normal bowel sounds, non tender, soft Extremities: non-tender Assessment/Plan Status: progressing, unchanged Assessment/Plan: 1. History of CVA with left hemiparesis. 2. Malnutrition. 3. Hypertension. 4. Diabetes. 5. stool impaction on bowel regimen fu labs abx per ID on BIPAP NGTF will Rd Tirado MD Mar 25, 2020 12:29
--- NOTE | 2020-03-25 12:29 | NUR ---
NURSE NOTES: Spoke with Dr. Ernst over the phone. Order was received to change Rx frequency for Lactulose to BID.
--- NOTE | 2020-03-25 14:00 | NUR ---
NURSE NOTES: VS remain stable. Tolerating NGT feeding, zero residual. Repositioned for comfort. Pt was seen by Dr. Romero. updated on pt's current status, including temp 101.2F from architectural technologist. No new orders were receiving at this time. Argueta continues to drain clear/yellow urine while irrigation is now dc'd.
[2020-03-25] MEDS ORDERED: Tubing IV Secondary IV ONE (15:51)
[2020-03-25] MEDS ORDERED: NS 275ml ONE (15:51)
--- NOTE | 2020-03-25 16:04 | NUR ---
CASE MANAGEMENT:REVIEW 03/25/20 SI: COVID (+) SEPSIS. BACTEREMIA. UTI 101.2 110 20 106/70 100% ON BIPAP W/100% FIO2 WBC+16.9 NA+149 BUN+30 CR+1.4 IS: IV CEFEPIME Q12 IV MEROPENEM Q8HRS IVF@100/HR IV KEPPRA Q12 LACTULOSE NG BID : TELEMETRY STATUS DCP: RETURN TO [facility]
--- NOTE | 2020-03-25 16:30 | NUR ---
NURSE NOTES: Pt had BM x1, small/formed/soft/brown. Bed-bath given, gown/bed linens were changed. Pt was repositioned for comfort, with bilateral extremities elevated on pillows. Oral care was done. VS stable; pt remains afebrile.
--- NOTE | 2020-03-25 18:00 | NUR ---
NURSE NOTES: Pt is tolerating NGT feeding at rate of 20ml/hour with zero residual, however maintained same rate due to pt being on continuous Bipap. HOB maintained at 30degrees. Pt was repositioned for comfort.
--- NOTE | 2020-03-25 19:30 | NUR ---
NURSE HAND-OFF REPORT: Latest Vital Signs: Temperature 98.2F axillary , Pulse 115 , B/P 107 /83 , Respiratory Rate 21 , O2 SAT 98 , Bi-pap with settings 20/10, FIO2 100%. EKG Rhythm: Sinus Tachycardia Rhythm change?: N MD Notified?: N - MD Response: Latest Wilkerson Fall Score: 50 Fall Risk: High Risk Safety Measures: Call light Within Reach, Bed Alarm Zone 1, Side Rails Side Rails x3, Bed position Low and Locked. Fall Precautions: Yellow Socks Yellow Gown Report given to Ella ALDRICH. Endorsed plan of care.
--- NOTE | 2020-03-25 19:30 | NUR ---
NURSE NOTES: Received report from ELINOR Jackson. Pt is resting on the bed and obtunded. Able to open the eyes spontaneously but no follow comment. On monitoring manager with ST. On BIPAP 20/10 PS 15 and SaO2 100% and SaO2 98-99% noted. Keep HOB position. Pt has NGT and checked placement. On running with Glucerna 1.2 @ 20cc/hr and no residual noted. IV site intact and no sign of infiltration noted. On running with D5W @ 100cc/hr. Pt has leon cath and patent and drainage well. noted light aleksandra color urine and d/c'd Leon irrigation. Changed position. Noted BT: 98.9F. Placed fall precaution. On proper isolation for COVID-19. Will continue to care plan.
[2020-03-25] MEDS ORDERED: Acetaminophen 650mg/20.3ml NG PRN (21:15)
--- NOTE | 2020-03-25 21:35 | General Progress Note ---
Subjective ROS Limited/Unobtainable: Yes Allergies: Coded Allergies: No Known Allergies (Unverified , 03/19/20) Objective Last 24 Hour Vital Signs Date Time Temp Pulse Resp B/P (MAP) Pulse Ox O2 Delivery O2 Flow Rate FiO2 03/25/20 20:00 100 03/25/20 20:00 Bi-pap 03/25/20 20:00 98.9 128 22 109/71 (84) 99 03/25/20 19:19 115 21 98 100 03/25/20 19:00 118 20 107/83 (91) 98 03/25/20 18:00 106 20 106/76 (86) 98 03/25/20 17:00 108 21 103/79 (87) 100 03/25/20 16:00 98.2 104 29 111/78 (89) 98 03/25/20 16:00 100 03/25/20 16:00 Bi-pap 03/25/20 16:00 101 03/25/20 15:45 104 29 100 100 03/25/20 15:00 101 20 107/81 (90) 99 03/25/20 14:00 99 25 105/81 (89) 98 03/25/20 13:00 99 23 105/81 (89) 100 03/25/20 12:00 98.7 100 20 106/70 (82) 100 03/25/20 12:00 100 03/25/20 12:00 Bi-pap 03/25/20 12:00 102 03/25/20 11:03 100 25 100 100 03/25/20 11:00 100 24 103/86 (92) 100 03/25/20 10:00 98 26 111/78 (89) 98 03/25/20 09:00 100 32 101/74 (83) 98 03/25/20 08:00 101 03/25/20 08:00 100 03/25/20 08:00 98.7 101 21 105/82 (90) 100 03/25/20 08:00 Bi-pap 03/25/20 07:52 100 24 100 100 03/25/20 07:00 105 24 90/70 (77) 99 03/25/20 06:03 110 27 103/73 (83) 98 03/25/20 06:00 99.8 114 23 100/75 (83) 98 03/25/20 05:00 125 24 108/81 (90) 98 03/25/20 04:00 136 03/25/20 04:00 101.2 136 29 126/93 (104) 98 03/25/20 04:00 Bi-pap 03/25/20 04:00 100 03/25/20 03:55 100.0 03/25/20 03:50 140 29 96 100 03/25/20 03:00 139 29 135/96 (109) 98 03/25/20 02:00 135 27 128/91 (103) 85 03/25/20 01:00 132 26 135/91 (106) 92 03/25/20 00:00 127 25 139/87 (104) 98 03/25/20 00:00 Bi-pap 03/24/20 23:57 128 24 98 100 03/24/20 23:11 125 03/24/20 23:00 122 23 147/110 (122) 100 03/24/20 22:29 100 03/24/20 22:00 118 24 133/91 (105) 90 Intake and Output0 03/24/20 03/25/20 18:59 06:59 Intake Total 3360.01398 ml 2410 ml Output Total 2700 ml 2000 ml Balance 660.05288 ml 410 ml IV Total 1860.32251 ml 1310 ml Other 1500 ml 1100 ml Output Urine Total 2700 ml 2000 ml # Bowel Movements 2 Laboratory Tests 03/24/20 22:15: Arterial Blood pH 7.454H, Arterial Blood Partial Pressure CO2 33.3L, Arterial Blood Partial Pressure O2 99.7, Arterial Blood HCO3 22.8, Arterial Blood Oxygen Saturation 97.4, Arterial Blood Base Excess -0.3, Ronni Test Positive 03/25/20 02:20: Arterial Blood pH 7.483H, Arterial Blood Partial Pressure CO2 32.9L, Arterial Blood Partial Pressure O2 70.8L, Arterial Blood HCO3 24.1, Arterial Blood Oxygen Saturation 94.7L, Arterial Blood Base Excess 1.4, Ronni Test Positive 03/25/20 03:00: White Blood Count 16.9H, Red Blood Count 5.20, Hemoglobin 14.7, Hematocrit 43.6, Mean Corpuscular Volume 84, Mean Corpuscular Hemoglobin 28.3, Mean Corpuscular Hemoglobin Concent 33.8, Red Cell Distribution Width 14.8, Platelet Count 218, Mean Platelet Volume 8.4, Neutrophils (%) (Auto) , Lymphocytes (%) (Auto) , Monocytes (%) (Auto) , Eosinophils (%) (Auto) , Basophils (%) (Auto) , Differential Total Cells Counted 100, Neutrophils % (Manual) 94H, Lymphocytes % (Manual) 5L, Monocytes % (Manual) 1, Eosinophils % (Manual) 0, Basophils % (Manual) 0, Band Neutrophils 0, Platelet Estimate Adequate, Platelet Morphology Normal, Anisocytosis 1+, Erythrocyte Sedimentation Rate 47H, Prothrombin Time 14.8H, Prothromb Time International Ratio 1.4H, Activated Partial Thromboplast Time 31, Sodium Level 149H, Potassium Level 3.9, Chloride Level 114H, Carbon Dioxide Level 25, Anion Gap 10, Blood Urea Nitrogen 30H, Creatinine 1.4H, Estimat Glomerular Filtration Rate 50.5, Glucose Level 131H, Calcium Level 8.3L, Phosphorus Level 3.2, Magnesium Level 1.8, Total Bilirubin 0.5, Aspartate Amino Transf (AST/SGOT) 59H, Alanine Aminotransferase (ALT/SGPT) 60, Alkaline Phosphatase 68, Ammonia 44H, C-Reactive Protein, Quantitative 22.1H, Total Protein 6.4, Albumin 1.7L, Globulin 4.7, Albumin/Globulin Ratio 0.4L 03/25/20 09:42: Arterial Blood pH 7.499H, Arterial Blood Partial Pressure CO2 26.6L, Arterial Blood Partial Pressure O2 107.5H, Arterial Blood HCO3 20.2L, Arterial Blood Oxygen Saturation 97.7, Arterial Blood Base Excess -1.4, Ronni Test Positive Height (Feet): 6 Height (Inches): 0.00 Weight (Pounds): 158 Assessment/Plan Problem List: (1) HTN (hypertension) ICD Codes: I10 - Essential (primary) hypertension SNOMED: 47577439 (2) Diabetes ICD Codes: E11.9 - Type 2 diabetes mellitus without complications SNOMED: 21082828 (3) CVA (cerebral vascular accident) ICD Codes: I63.9 - Cerebral infarction, unspecified SNOMED: 250212173 (4) Urinary tract infection ICD Codes: N39.0 - Urinary tract infection, site not specified SNOMED: 05721261 (5) Hydronephrosis ICD Codes: N13.30 - Unspecified hydronephrosis SNOMED: 17642501 (6) Sepsis ICD Codes: A41.9 - Sepsis, unspecified organism SNOMED: 29404251 (7) BPH (benign prostatic hyperplasia) ICD Codes: N40.0 - Benign prostatic hyperplasia without lower urinary tract symptoms SNOMED: 662968939 (8) Alzheimer's dementia ICD Codes: G30.9 - Alzheimer's disease, unspecified; F02.80 - Dementia in other diseases classified elsewhere without behavioral disturbance SNOMED: 41480412 (9) Seizure disorder ICD Codes: G40.909 - Epilepsy, unspecified, not intractable, without status epilepticus SNOMED: 519619271 Status: progressing, unchanged Assessment/Plan: azotemia improving uti abx per id cva dm check sugar\ reviewed chart and labs and meds sepsis Gino Austin MD Mar 25, 2020 21:35
--- NOTE | 2020-03-25 22:00 | NUR ---
NURSE NOTES: Pt is sleeping on the bed and SaO2 98-100% with current BiPAP setting. Changed position. Keep cooling measure. Tolerated well with Current NGT feeding. Still noted ST on potline monitor. Place fall precaution. Will continue to monitor .
[2020-03-26] VITALS (21 sets, daily range): BP systolic 92–132; BP diastolic 59–93
--- NOTE | 2020-03-26 | NUR ---
NURSE NOTES: Pt is sleeping on the bed. SaO2 99-100% with current BiPAP and FAiO2 100%. On cardiac cath lab radiology technologist with SR. Tolerated well with current NGT feeding. No fever. Changed position. Will continue to monitor any change of condition.
--- NOTE | 2020-03-26 02:00 | NUR ---
NURSE NOTES: SaO2 99-100% with BiPAP. Tolerated well NGT feeding. Turn and reposition. Will continue to monitor any change of condition.
--- NOTE | 2020-03-26 04:00 | NUR ---
NURSE NOTES: Morning care was done. Noted small amount soft BM. Cleaned Pt and applied lotion and cream. SaO2 99-100% with current BiPAP setting. Noted BT: 99.1F. Keep cooling measure. On net application support specialist with ST. Placed fall precaution. Will continue to monitor any change of condition.
[2020-03-26] MEDS: Meropenem 1 GM in NS 55 ML IVPB SCH ×3 (05:31→22:15)
--- NOTE | 2020-03-26 06:00 | NUR ---
NURSE NOTES: SaO2 99-100% with BIPAP FiO2 100%. Changed position. On running with D5W @ 100cc/hr. On shelter monitor with ST and BP is stable. Will continue to monitor.
[2020-03-26 06:13] LABS: MEAN CORPUSCULAR VOLUME 82 FL (80-99); PLATELET COUNT 163 K/UL (150-450); RED BLOOD COUNT 4.61 M/UL (4.70-6.10); RED CELL DISTRIBUTION WIDTH 14.5 % (11.6-14.8); WHITE BLOOD COUNT 17.8 K/UL (4.8-10.8)
[2020-03-26 06:46] LABS: ALANINE AMINOTRANSFERASE 53 U/L (12-78); ALBUMIN 1.4 G/DL (3.4-5.0); ALBUMIN/GLOBULIN RATIO 0.3 (1.0-2.7); ALKALINE PHOSPHATASE 53 U/L (46-116); ANION GAP 8 mmol/L (5-15); ASPARTATE AMINO TRANSFERASE 61 U/L (15-37); BILIRUBIN,TOTAL 0.5 MG/DL (0.2-1.0); BLOOD UREA NITROGEN 30 mg/dL (7-18); CARBON DIOXIDE 25 MMOL/L (21-32); CHLORIDE 114 MMOL/L (98-107); CREATININE 1.1 MG/DL (0.55-1.30); PHOSPHORUS 2.1 MG/DL (2.5-4.9); POTASSIUM 3.6 MMOL/L (3.5-5.1); SODIUM 147 MMOL/L (136-145)
--- NOTE | 2020-03-26 07:19 | NUR ---
NURSE HAND-OFF REPORT: Latest Vital Signs: Temperature 99.1 , Pulse 109 , B/P 110 /80 , Respiratory Rate 29 , O2 SAT 100 , Bi-pap, O2 Flow Rate 2.0 . Vital Sign Comment: EKG Rhythm: Sinus Tachycardia Rhythm change?: N Latest Wilkerson Fall Score: 50 Fall Risk: High Risk Safety Measures: Call light Within Reach, Bed Alarm Zone 1, Side Rails Side Rails x3, Bed position Low and Locked. Fall Precautions: Yellow Socks Yellow Gown Report given to ELINOR Castañeda. Pt is sleeping on the bed and SaO2 99-100% with BIPAP.
--- NOTE | 2020-03-26 07:32 | NUR ---
NURSE NOTES: Received report from Ella ALDRICH.
--- NOTE | 2020-03-26 07:33 | NUR ---
RD ASSESSMENT & RECOMMENDATIONS SEE CARE ACTIVITY FOR COMPLETE ASSESSMENT DAILY ESTIMATED NEEDS: Needs based on Pulmonary, sepsis/ 65.2kg 25-30 kcals/kg 0404-0309 total kcals 1-2 g protein/kg 65-130 g total protein 25-30 mL/kg 0757-9147 total fluid mLs NUTRITION DIAGNOSIS: Swallowing difficulty R/T dysphagia, respiratory status as evidenced by TEST ANALYST recommends NPO, s/p NGT insertion, pt currently on continuous BIPAP, on low rate of NGT feeding. CURRENT TF:Glucerna 1.2 @ goal of 60ml/hr x 24 hrs ENTERAL NUTRITION RECOMMENDATIONS: If medically appropriate -> Glucerna 1.2 @ goal of 60ml/hr x 24 hrs to provide 1440ml, 1728kcal, 86g prot, 1159ml free water at goal TF RATE PER MD WHILE ON BIPAP: If trophic feeding is allowed while on BIPAP, change TF to Glucerna 1.5 to provide more kcal/prot * Once off BIPAP, advance 10ml q 4-6 hrs as tolerated to goal rate * HOB over 30 degrees/ water flush per MD ADDITIONAL RECOMMENDATIONS: * Calibrated bedscale wt Ht per SNF=5'8" * Monitor respiratory status, ability to feed: BIPAP ordered 03/23 : TF rate per MD while on BIPAP * Monitor lytes, replete as needed * Monitor BGs w/ TF, need for hypoglycemics: h/o DM
--- NOTE | 2020-03-26 07:45 | Pulmonolgy Critical Care Note ---
Critical Care - Asmt/Plan Assessment/Plan: ASSESSMENT Acute respiratory failure requiring BiPAP Sepsis with Proteus bacteremia 2/2 UTI UTI/pyelo due to obstructive uropathy with bilateral hydronephrosis COVID PNA Acute renal failure -> resolved Encephalopathy History of CVA Seizure disorder BPH Alzheimer dementia PLAN OF CARE ICU isolation BiPAP; titrate settings ABG noted change setting to 20/8 and titrate FiO2 to keep sat above 92% f/up with ABG and CXR pulmonary toilet COVID-19 by PCR 03/24+ started steroids 03/26 consider remdesivir per ID trend inflammatory markers a/coag Venous duplex BLE negative aspiration precaution URIEL resolved abx as per ID repeated BCX, UCX, SCX all NGT IVF monitor renal parameters ,electrolytes correct electrolytes as needed ,avoid nephrotoxic all imaging noted keep Argueta as per urologist recs continue Proscar and Flomax GI prophylaxis supportive care case discussed and evaluated by supervising physician Critical Care - Objective Last 24 Hour Vital Signs Date Time Temp Pulse Resp B/P (MAP) Pulse Ox O2 Delivery O2 Flow Rate FiO2 03/26/20 07:00 109 29 110/80 (90) 100 03/26/20 06:00 111 22 123/80 (94) 100 03/26/20 05:00 114 21 124/78 (93) 100 03/26/20 04:00 112 03/26/20 04:00 99.1 110 21 132/93 (106) 100 03/26/20 04:00 Bi-pap 03/26/20 04:00 100 03/26/20 03:00 112 22 115/74 (88) 100 03/26/20 02:50 101 19 100 100 03/26/20 02:00 109 21 98/75 (83) 99 03/26/20 01:00 107 20 112/70 (84) 100 03/26/20 00:00 Bi-pap 03/26/20 00:00 120 03/26/20 00:00 98.9 110 19 107/68 (81) 100 03/26/20 00:00 100 03/25/20 23:17 121 22 100 100 03/25/20 23:00 123 21 99/67 (78) 100 03/25/20 22:00 133 26 115/78 (90) 100 03/25/20 21:00 132 24 118/76 (90) 100 03/25/20 20:00 127 03/25/20 20:00 100 03/25/20 20:00 Bi-pap 03/25/20 20:00 98.9 128 22 109/71 (84) 99 03/25/20 19:19 115 21 98 100 03/25/20 19:00 118 20 107/83 (91) 98 03/25/20 18:00 106 20 106/76 (86) 98 03/25/20 17:00 108 21 103/79 (87) 100 03/25/20 16:00 98.2 104 29 111/78 (89) 98 03/25/20 16:00 100 03/25/20 16:00 Bi-pap 03/25/20 16:00 101 03/25/20 15:45 104 29 100 100 03/25/20 15:00 101 20 107/81 (90) 99 03/25/20 14:00 99 25 105/81 (89) 98 03/25/20 13:00 99 23 105/81 (89) 100 03/25/20 12:00 98.7 100 20 106/70 (82) 100 03/25/20 12:00 100 03/25/20 12:00 Bi-pap 03/25/20 12:00 102 03/25/20 11:03 100 25 100 100 03/25/20 11:00 100 24 103/86 (92) 100 03/25/20 10:00 98 26 111/78 (89) 98 03/25/20 09:00 100 32 101/74 (83) 98 03/25/20 08:00 101 03/25/20 08:00 100 03/25/20 08:00 98.7 101 21 105/82 (90) 100 03/25/20 08:00 Bi-pap 03/25/20 07:52 100 24 100 100 Status: other - on BiPAP 20/10 FiO2 100% Condition: critical HEENT: atraumatic, other - BiPAP mask on Lungs: rhonchi - few scattered Heart: other - tachy-ST on monitro Abdomen: soft, non-tender, active bowel sounds Extremities: no C/C/E Micro: Microbiology Date/Time Source Procedure Growth Status 03/24/20 09:00 Nasopharynx Coronavirus COVID-19 PCR (AKIN) - Final Complete 03/23/20 14:10 Sputum Induced Gram Stain - Final Complete 03/23/20 14:10 Sputum Induced Sputum Culture - Final NORMAL UPPER RESPIRATORY REX PRESENT Complete 03/23/20 13:25 Urine,Clean Catch Urine Culture - Final NO GROWTH AFTER 48 HOURS Complete 03/23/20 10:35 Blood Blood Culture - Preliminary NO GROWTH AFTER 48 HOURS Resulted 03/23/20 10:25 Blood Blood Culture - Preliminary NO GROWTH AFTER 48 HOURS Resulted Accucheck: 144 Critical Care - Subjective ROS Limited/Unobtainable: Yes Interval Events: afebrile currently, but fevers 03/25 COVID 19 by PCR from 03/24 came back positive leukocytosis with trend up remains on BiPAP 25/01 tachycardic ABG noted last CXR with slightly increased BL infiltrates creat down to normal Condition: critical IV Access: peripheral FI02: 100 Vent Support Mode: BiLevel Sputum Amount: None Fluids: D5W at 100 Tube Feeding Amount: 20 I&O: Intake and Output 03/25/20 03/26/20 19:00 07:00 Intake Total 2135 ml 1557 ml Output Total 510 ml 750 ml Balance 1625 ml 807 ml Intake Free Water 90 ml IV Total 1685 ml 1317 ml Tube Feeding 160 ml 240 ml Other 200 ml Output Urine Total 510 ml 750 ml # Bowel Movements 2 2 CXR: CXR 03/24 Slightly increased bilateral infiltrates Gillian Miller NP Mar 26, 2020 07:45
--- NOTE | 2020-03-26 08:00 | Infectious Diseases Prog Note ---
Assessment/Plan 69yo M with: COVID positive Afebrile Sepsis Leukocytosis GNR bacteremia 2/2 P.mirabilis UTI/pyelo in setting of obstruction - CT w/ BL hydronephrosis >> improved on repeat US Acute resp failure, s/p transfer to ICU for BiPAP 03/23 COVID pna, severe 03/19 BCx +P.mirabilis (domingo-S) UCx +P.mirabilis (S-CTX) CT A/P: 1. Severe bilateral hydronephrosis and moderate hydroureters. No obstructing stone identified. Possible infection. Nonspecific, left greater than right perinephric fat stranding. 2. Distended bladder with prominent bladder wall thickening, concerning for cystitis. Trace surrounding fluid. Please correlate with urinalysis. 3. Argueta catheter balloon is noted within the prostate. 4. Moderate to large amount of stool in the rectum with mild prominence of the rectal wall. This may represent fecal impaction, and stercoral inflammation. 5. Moderate to large amount of stool in the colon may represent constipation. No bowel obstruction. 6. Ground-glass opacity in the dependent right lower lobe may represent atelectasis, but infectious/infl ammatory process is not excluded. 7. Lobulated gallbladder with mildly calcified paredes versus cholelithiasis. Gallbladder is underdistended. 8. Right hydrocele partially visualized. 03/22 Renal US: Bilateral mild hydronephrosis, much less severe than demonstrated on prior CT scan of 03/19/202003/23 BCx NTD UCx NTD Resp cx NTD CXR: Interim development of bilateral infiltrates, likely pneumonia and quite likely viral, since prior study 03/19/202003/24 CXR: Slightly increased bilateral infiltrates Cr 1.2 --> 1.7 --> 1.4 COVID rapid test neg 03/19, PCR neg 03/19 --> PCR positive 03/24 MRSA nares neg Plan: Start dexamethasone 6mg daily given COVID positive, #1 Start remdesivir #1 given COVID positive Cont meropenem #4 given resp decompensation F/u 03/23 BCx, resp cx, UCx - NTD Appreciate Urology input on BL hydro Trend WBC, Cr 03/23 SP CTX #1 03/22 SP cefepime #2 Monitor CBC/CMP Monitor temp curve, hemodynamics Monitor resp status D/w RN and pharmacy Thank you for this consult. [facility] will continue to follow. Subjective Allergies: Coded Allergies: No Known Allergies (Unverified , 03/19/20) AF Intubated in ICU WBC up to 17.8 COVID PCR positive Objective Last 24 Hour Vital Signs Date Time Temp Pulse Resp B/P (MAP) Pulse Ox O2 Delivery O2 Flow Rate FiO2 03/26/20 07:00 109 29 110/80 (90) 100 03/26/20 06:00 111 22 123/80 (94) 100 03/26/20 05:00 114 21 124/78 (93) 100 03/26/20 04:00 112 03/26/20 04:00 99.1 110 21 132/93 (106) 100 03/26/20 04:00 Bi-pap 03/26/20 04:00 100 03/26/20 03:00 112 22 115/74 (88) 100 03/26/20 02:50 101 19 100 100 03/26/20 02:00 109 21 98/75 (83) 99 03/26/20 01:00 107 20 112/70 (84) 100 03/26/20 00:00 Bi-pap 03/26/20 00:00 120 03/26/20 00:00 98.9 110 19 107/68 (81) 100 03/26/20 00:00 100 03/25/20 23:17 121 22 100 100 03/25/20 23:00 123 21 99/67 (78) 100 03/25/20 22:00 133 26 115/78 (90) 100 03/25/20 21:00 132 24 118/76 (90) 100 03/25/20 20:00 127 03/25/20 20:00 100 03/25/20 20:00 Bi-pap 03/25/20 20:00 98.9 128 22 109/71 (84) 99 03/25/20 19:19 115 21 98 100 03/25/20 19:00 118 20 107/83 (91) 98 03/25/20 18:00 106 20 106/76 (86) 98 03/25/20 17:00 108 21 103/79 (87) 100 03/25/20 16:00 98.2 104 29 111/78 (89) 98 03/25/20 16:00 100 03/25/20 16:00 Bi-pap 03/25/20 16:00 101 03/25/20 15:45 104 29 100 100 03/25/20 15:00 101 20 107/81 (90) 99 03/25/20 14:00 99 25 105/81 (89) 98 03/25/20 13:00 99 23 105/81 (89) 100 03/25/20 12:00 98.7 100 20 106/70 (82) 100 03/25/20 12:00 100 03/25/20 12:00 Bi-pap 03/25/20 12:00 102 03/25/20 11:03 100 25 100 100 03/25/20 11:00 100 24 103/86 (92) 100 03/25/20 10:00 98 26 111/78 (89) 98 03/25/20 09:00 100 32 101/74 (83) 98 03/25/20 08:00 101 03/25/20 08:00 100 03/25/20 08:00 98.7 101 21 105/82 (90) 100 03/25/20 08:00 Bi-pap Height (Feet): 6 Height (Inches): 0.00 Weight (Pounds): 158 Gen: NAD in bed, BiPAP mask HEENT: NCAT CV: RRR Pulm: BL chest rise on BiPAP Abd: Non-distended Ext: No c/c/e Neuro: Awake but not interactive Microbiology Date/Time Source Procedure Growth Status 03/24/20 09:00 Nasopharynx Coronavirus COVID-19 PCR (AKIN) - Final Complete 03/23/20 14:10 Sputum Induced Gram Stain - Final Complete 03/23/20 14:10 Sputum Induced Sputum Culture - Final NORMAL UPPER RESPIRATORY REX PRESENT Complete 03/23/20 13:25 Urine,Clean Catch Urine Culture - Final NO GROWTH AFTER 48 HOURS Complete 03/23/20 10:35 Blood Blood Culture - Preliminary NO GROWTH AFTER 48 HOURS Resulted 03/23/20 10:25 Blood Blood Culture - Preliminary NO GROWTH AFTER 48 HOURS Resulted Laboratory Tests Test 03/25/20 09:42 03/26/20 05:00 Arterial Blood pH 7.499 (7.350-7.450) Arterial Blood Partial Pressure CO2 26.6 mmHg (35.0-45.0) L Arterial Blood Partial Pressure O2 107.5 mmHg (75.0-100.0) H Arterial Blood HCO3 20.2 mmol/L (22.0-26.0) L Arterial Blood Oxygen Saturation 97.7 % (95-100) Arterial Blood Base Excess -1.4 (-2-2) Ronni Test Positive White Blood Count 17.8 K/UL (4.8-10.8) H Red Blood Count 4.61 M/UL (4.70-6.10) L Hemoglobin 13.0 G/DL (14.2-18.0) L Hematocrit 38.0 % (42.0-52.0) L Mean Corpuscular Volume 82 FL (80-99) Mean Corpuscular Hemoglobin 28.2 PG (27.0-31.0) Mean Corpuscular Hemoglobin Concent 34.2 G/DL (32.0-36.0) Red Cell Distribution Width 14.5 % (11.6-14.8) Platelet Count 163 K/UL (150-450) Mean Platelet Volume 8.7 FL (6.5-10.1) Neutrophils (%) (Auto) % (45.0-75.0) Lymphocytes (%) (Auto) % (20.0-45.0) Monocytes (%) (Auto) % (1.0-10.0) Eosinophils (%) (Auto) % (0.0-3.0) Basophils (%) (Auto) % (0.0-2.0) Neutrophils % (Manual) Pending Lymphocytes % (Manual) Pending Platelet Estimate Pending Platelet Morphology Pending Sodium Level 147 MMOL/L (136-145) H Potassium Level 3.6 MMOL/L (3.5-5.1) Chloride Level 114 MMOL/L (98-107) H Carbon Dioxide Level 25 MMOL/L (21-32) Anion Gap 8 mmol/L (5-15) Blood Urea Nitrogen 30 mg/dL (7-18) H Creatinine 1.1 MG/DL (0.55-1.30) Estimat Glomerular Filtration Rate > 60 mL/min (>60) Glucose Level 134 MG/DL (74-106) H Calcium Level 8.0 MG/DL (8.5-10.1) L Phosphorus Level 2.1 MG/DL (2.5-4.9) L Magnesium Level 1.8 MG/DL (1.8-2.4) Total Bilirubin 0.5 MG/DL (0.2-1.0) Aspartate Amino Transf (AST/SGOT) 61 U/L (15-37) H Alanine Aminotransferase (ALT/SGPT) 53 U/L (12-78) Alkaline Phosphatase 53 U/L (46-116) Total Protein 5.7 G/DL (6.4-8.2) L Albumin 1.4 G/DL (3.4-5.0) L Globulin 4.3 g/dL Albumin/Globulin Ratio 0.3 (1.0-2.7) L Current Medications Medications (Trade) Dose Ordered Sig/Martine Route PRN Reason Start Time Stop Time Status Last Admin Dose Admin Acetaminophen (Tylenol) 650 mg Q4H PRN NG Temp >100.5 03/24/20 08:30 04/18/20 19:44 03/25/20 03:25 Acetaminophen (Tylenol) 650 mg Q6H PRN NG Mild Pain (Pain Scale 1-3) 03/25/20 21:15 04/24/20 21:14 Dextrose 1,000 ml @ 100 mls/hr Q10H IV 03/21/20 11:45 04/20/20 11:44 03/26/20 06:38 Docusate Sodium (Colace) 100 mg TWICE A DAY NG 03/23/20 18:00 04/22/20 17:59 03/25/20 18:06 Finasteride (Proscar) 5 mg DAILY ORAL 03/20/20 09:00 06/18/20 08:59 03/25/20 09:30 Lactulose (Cephulac) 20 gm BID NG 03/25/20 18:00 04/19/20 12:59 03/25/20 18:06 Lansoprazole (Prevacid) 30 mg DAILY NG 03/24/20 09:00 04/23/20 08:59 03/25/20 09:30 Levetiracetam 100 ml @ 400 mls/hr Q12HR IVPB 03/24/20 10:00 06/22/20 09:59 03/25/20 20:17 Lorazepam (Ativan) 1 mg Q6H PRN NG For Anxiety 03/24/20 08:30 03/28/20 22:59 Memantine (Namenda) 5 mg TWICE A DAY NG 12/17/20 09:00 04/19/20 08:59 03/25/20 18:06 Meropenem 1 gm/ Sodium Chloride 55 ml @ 110 mls/hr Q8HR IVPB 03/23/20 14:00 03/28/20 13:59 03/26/20 05:31 Ondansetron HCl (Zofran) 4 mg Q6H PRN IVP Nausea & Vomiting 03/19/20 19:45 04/18/20 19:44 Polyethylene Glycol (Miralax) 17 gm DAILYPRN PRN NG Constipation 03/24/20 08:30 04/18/20 19:44 Tamsulosin HCl (Flomax) 0.4 mg DAILY ORAL 03/20/20 09:00 04/19/20 08:59 03/25/20 09:30 Temazepam (Restoril) 15 mg HSPRN PRN NG Insomnia 03/24/20 08:30 03/26/20 19:44 Edwina Romero M.D. Mar 26, 2020 08:00
[2020-03-26] MEDS: Memantine 10mg tab NG SCH ×2 (08:31→18:47)
[2020-03-26] MEDS: Tamsulosin 0.4mg cap ORAL SCH (08:31)
[2020-03-26] MEDS: Lactulose 20gm/30ml UDC NG SCH ×2 (08:31→18:00)
[2020-03-26] MEDS: dexAMETHasone 10mg/ml Inj IV SCH (08:31)
[2020-03-26] MEDS: Docusate 100mg/10ml Liq NG SCH ×2 (08:31→18:00)
[2020-03-26] MEDS: levETIRAcetam 500mg/NS100ml 100 ML IVPB SCH ×2 (08:32→22:15)
--- NOTE | 2020-03-26 08:40 | NUR ---
NURSE NOTES: Pt. in bed, obtunded. No sign of distress. Now on NRB 100% at 15L. from Bipap. Tolerating well. O2 sat at 99%. No grimacing noted. HOB elevated at all times. On NGT feeding Glucerna 1.2 aat 20cc/hr. F/C in placed patent/intact draining aleksandra colored urine. IV at right hand, left hand, right wrist all #20g. in placed patent/intact. Bed in low position, locked. Call light within reach. Will cont. to monitor.
--- NOTE | 2020-03-26 09:30 | NUR ---
NURSE NOTES: Seen by Dr. Albert with new order of Phos. IV.
--- NOTE | 2020-03-26 09:52 | Diagnostic Imaging Report ---
EXAM: XR Chest, 1 View CLINICAL HISTORY: DYSPNEA TECHNIQUE: Frontal view of the chest. COMPARISON: Chest radiograph March 25, 2020. FINDINGS/IMPRESSION: Enteric feeding tube terminates in the stomach EKG leads overlie the patient. Airspace consolidation within the right mid and lower lung tuttle and left lower lung field. These are similar in appearance to previous study from March 25, 2020. No pleural effusion or pneumothorax. Cardiomegaly. Calcified aorta.
--- NOTE | 2020-03-26 10:41 | NUR ---
RADIOLOGY DEPT., CHEST X-RAY DONE.-P.DYE
[2020-03-26] MEDS ORDERED: Loading Dose:Remdesivir 200mg/NS 210ml IV SCH ×2 (11:00)
[2020-03-26] MEDS ORDERED: Potassium Phosphate 20 MM in NS 275 ML IV ONE (11:00)
--- NOTE | 2020-03-26 11:31 | Psychiatry Consultation ---
Psychiatry Consultation Psychiatry Consultation Chief Complaint: Vomiting History of Present Illness: Is got altered mental status confusion disorganized thought process and psychomotor agitation with a decline in cognition below his baseline as well as attending has requested daily psychiatric consultation preventing further decline in his cognition and declining cognition for the fact closer to his baseline Mental status semination: 69-year-old male appearance disheveled attitude irritable agitated affect guarded restricted intellect poor mood depressed anxious moderately psychomotor agitation poor attention span is poor orientation x2 speech is nonsensical thought process disorganized and illogical Insight and judgment was poor Allergies: Coded Allergies: No Known Allergies (Unverified , 03/19/20) Medication History Scheduled Docusate Sodium* (Colace*), 100 MG ORAL DAILY, (Reported) Finasteride* (Proscar*), 5 MG ORAL DAILY, (Reported) Insulin Regular, Human* (Novolin R*), Unknown Dose SUBQ .SLIDING SCALE, (Reported) Levetiracetam (Levetiracetam), 500 MG ORAL DAILY, (Reported) Lorazepam* (Ativan*), 1 MG ORAL EVERY 6 HOURS, (Reported) Memantine Hcl* (Namenda*), 5 MG ORAL TWICE A DAY, (Reported) Multivitamins* (Multivitamins*), 1 TAB ORAL DAILY, (Reported) Polyethylene Glycol 3350* (Miralax*), 17 GM ORAL DAILY, (Reported) Tamsulosin HCl (Flomax), 0.4 MG ORAL DAILY, (Reported) Scheduled PRN Acetaminophen* (Acetaminophen 325MG Tablet*), 650 MG ORAL Q4H PRN for Mild Pain (Pain Scale 1-3), (Reported) Miscellaneous Medications Megestrol Acetate (Megestrol Acetate), 400 MG PO, (Reported) Objective Data Height (Feet): 6 Height (Inches): 0.00 Weight (Pounds): 158 Assessment/Plan Assessment/Plan: Treat this patient with Namenda 5 mg twice a day and Ativan 1 every 6 hours as needed anxiety agitation 20 minutes of insight oriented psychotherapy will work with this patient to help him understand his physical and psychiatric condition so that he has less anxiety depression better impulse control Diagnosis [place] I: 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
--- NOTE | 2020-03-26 11:49 | NUR ---
NURSE NOTES: Seen by Dr. Romero and updated her with pt. status.
--- NOTE | 2020-03-26 12:18 | Nephrology Progress Note ---
Assessment/Plan Problem List: (1) URIEL (acute kidney injury) (2) Hydronephrosis (3) Sepsis (4) Alzheimer's dementia (5) Seizure disorder Assessment Sepsis Rhabdo UTI Hydronephrosis/Argueta catheter problem Suspected Covid 19 infection Plan March 26: Labs reviewed. Abnormal electrolytes and chemistries addressed. Patient continues on BiPAP. Continue per consultants. March 25: Lab reviewed. Renal parameters and electrolytes stable and gradually improving. Remains on BiPAP. Continue per consultants. March:: Labs reviewed. Sodium 150. Potassium low. Serum creatinine 1.4. Abnormal electrolytes addressed. Continue to monitor renal parameters and electrolytes. Continue per pulmonary for pulmonary support. March 23: Lab checked. Abnormal electrolytes noted and addressed. D5W 1000 cc IV ordered. Continue to monitor renal parameters. Continue per pulmonary and other consultants. March 22: Labs checked. Serum creatinine 1.4. Serum sodium 157. Continues to be on D5W. Continue to monitor renal parameters and electrolytes. Previously: Recheck labs in a.m. Argueta catheter already ordered Hydrate Antibiotics Monitor CPK Avoid nephrotoxic's Per orders Subjective ROS Limited/Unobtainable: Yes Objective Objective Last 24 Hour Vital Signs Date Time Temp Pulse Resp B/P (MAP) Pulse Ox O2 Delivery O2 Flow Rate FiO2 03/26/20 11:00 103 17 107/69 (82) 96 03/26/20 10:00 104 20 117/69 (85) 98 03/26/20 09:00 108 20 119/65 (83) 93 03/26/20 08:01 112 03/26/20 08:00 97.1 110 25 118/86 (97) 100 03/26/20 08:00 Bi-pap 03/26/20 08:00 100 03/26/20 07:00 109 29 110/80 (90) 100 03/26/20 06:00 111 22 123/80 (94) 100 03/26/20 05:00 114 21 124/78 (93) 100 03/26/20 04:00 112 03/26/20 04:00 99.1 110 21 132/93 (106) 100 03/26/20 04:00 Bi-pap 03/26/20 04:00 100 03/26/20 03:00 112 22 115/74 (88) 100 03/26/20 02:50 101 19 100 100 03/26/20 02:00 109 21 98/75 (83) 99 03/26/20 01:00 107 20 112/70 (84) 100 03/26/20 00:00 Bi-pap 03/26/20 00:00 120 03/26/20 00:00 98.9 110 19 107/68 (81) 100 03/26/20 00:00 100 03/25/20 23:17 121 22 100 100 03/25/20 23:00 123 21 99/67 (78) 100 03/25/20 22:00 133 26 115/78 (90) 100 03/25/20 21:00 132 24 118/76 (90) 100 03/25/20 20:00 127 03/25/20 20:00 100 03/25/20 20:00 Bi-pap 03/25/20 20:00 98.9 128 22 109/71 (84) 99 03/25/20 19:19 115 21 98 100 03/25/20 19:00 118 20 107/83 (91) 98 03/25/20 18:00 106 20 106/76 (86) 98 03/25/20 17:00 108 21 103/79 (87) 100 03/25/20 16:00 98.2 104 29 111/78 (89) 98 03/25/20 16:00 100 03/25/20 16:00 Bi-pap 03/25/20 16:00 101 03/25/20 15:45 104 29 100 100 03/25/20 15:00 101 20 107/81 (90) 99 03/25/20 14:00 99 25 105/81 (89) 98 03/25/20 13:00 99 23 105/81 (89) 100 Intake and Output 03/25/20 03/26/20 19:00 07:00 Intake Total 2135 ml 1557 ml Output Total 510 ml 750 ml Balance 1625 ml 807 ml Intake Free Water 90 ml IV Total 1685 ml 1317 ml Tube Feeding 160 ml 240 ml Other 200 ml Output Urine Total 510 ml 750 ml # Bowel Movements 2 2 Laboratory Tests 03/26/20 05:00: White Blood Count 17.8H, Red Blood Count 4.61L, Hemoglobin 13.0L, Hematocrit 38.0L, Mean Corpuscular Volume 82, Mean Corpuscular Hemoglobin 28.2, Mean Corpuscular Hemoglobin Concent 34.2, Red Cell Distribution Width 14.5, Platelet Count 163, Mean Platelet Volume 8.7, Neutrophils (%) (Auto) , Lymphocytes (%) (Auto) , Monocytes (%) (Auto) , Eosinophils (%) (Auto) , Basophils (%) (Auto) , Differential Total Cells Counted 100, Neutrophils % (Manual) 92H, Lymphocytes % (Manual) 8L, Monocytes % (Manual) 0L, Eosinophils % (Manual) 0, Basophils % (Manual) 0, Band Neutrophils 0, Platelet Estimate Adequate, Platelet Morphology Normal, Anisocytosis 1+, Sodium Level 147H, Potassium Level 3.6, Chloride Level 114H, Carbon Dioxide Level 25, Anion Gap 8, Blood Urea Nitrogen 30H, Creatinine 1.1, Estimat Glomerular Filtration Rate > 60, Glucose Level 134H, Calcium Level 8.0L, Phosphorus Level 2.1L, Magnesium Level 1.8, Total Bilirubin 0.5, Aspartate Amino Transf (AST/SGOT) 61H, Alanine Aminotransferase (ALT/SGPT) 53, Alkaline Phosphatase 53, Total Protein 5.7L, Albumin 1.4L, Globulin 4.3, Albumin/Globulin Ratio 0.3L 03/26/20 08:18: Arterial Blood pH 7.536H, Arterial Blood Partial Pressure CO2 26.2L, Arterial Blood Partial Pressure O2 153.2H, Arterial Blood HCO3 21.7L, Arterial Blood Oxygen Saturation 98.8, Arterial Blood Base Excess 0.4, Ronni Test Positive Height (Feet): 6 Height (Inches): 0.00 Weight (Pounds): 158 General Appearance: mild distress EENT: other - On BiPAP Cardiovascular: tachycardia Respiratory/Chest: decreased breath sounds Abdomen: distended Objective No change Matias Albert MD Mar 26, 2020 12:18
--- NOTE | 2020-03-26 13:15 | NUR ---
NURSE NOTES: Afebrile. Kept clean and dry. Turned and repositioned.
--- NOTE | 2020-03-26 14:43 | General Progress Note ---
Subjective Allergies: Coded Allergies: No Known Allergies (Unverified , 03/19/20) All Systems: reviewed and negative except above Subjective Seen in ICU now on face mask d/w RN TF at lower rate, due to resp status Objective Last 24 Hour Vital Signs Date Time Temp Pulse Resp B/P (MAP) Pulse Ox O2 Delivery O2 Flow Rate FiO2 03/26/20 13:00 98.6 94 20 116/73 (87) 98 03/26/20 12:00 96 16 113/73 (86) 91 03/26/20 12:00 Bi-pap 03/26/20 12:00 94 03/26/20 12:00 15.0 100 03/26/20 11:00 103 17 107/69 (82) 96 03/26/20 10:00 104 20 117/69 (85) 98 03/26/20 09:00 108 20 119/65 (83) 93 03/26/20 08:01 112 03/26/20 08:00 97.1 110 25 118/86 (97) 100 03/26/20 08:00 Bi-pap 03/26/20 08:00 100 03/26/20 07:00 109 29 110/80 (90) 100 03/26/20 06:00 111 22 123/80 (94) 100 03/26/20 05:00 114 21 124/78 (93) 100 03/26/20 04:00 112 03/26/20 04:00 99.1 110 21 132/93 (106) 100 03/26/20 04:00 Bi-pap 03/26/20 04:00 100 03/26/20 03:00 112 22 115/74 (88) 100 03/26/20 02:50 101 19 100 100 03/26/20 02:00 109 21 98/75 (83) 99 03/26/20 01:00 107 20 112/70 (84) 100 03/26/20 00:00 Bi-pap 03/26/20 00:00 120 03/26/20 00:00 98.9 110 19 107/68 (81) 100 03/26/20 00:00 100 03/25/20 23:17 121 22 100 100 03/25/20 23:00 123 21 99/67 (78) 100 03/25/20 22:00 133 26 115/78 (90) 100 03/25/20 21:00 132 24 118/76 (90) 100 03/25/20 20:00 127 03/25/20 20:00 100 03/25/20 20:00 Bi-pap 03/25/20 20:00 98.9 128 22 109/71 (84) 99 03/25/20 19:19 115 21 98 100 03/25/20 19:00 118 20 107/83 (91) 98 03/25/20 18:00 106 20 106/76 (86) 98 03/25/20 17:00 108 21 103/79 (87) 100 03/25/20 16:00 98.2 104 29 111/78 (89) 98 03/25/20 16:00 100 03/25/20 16:00 Bi-pap 03/25/20 16:00 101 03/25/20 15:45 104 29 100 100 03/25/20 15:00 101 20 107/81 (90) 99 Intake and Output 03/25/20 03/26/20 19:00 07:00 Intake Total 2135 ml 1557 ml Output Total 510 ml 750 ml Balance 1625 ml 807 ml Intake Free Water 90 ml IV Total 1685 ml 1317 ml Tube Feeding 160 ml 240 ml Other 200 ml Output Urine Total 510 ml 750 ml # Bowel Movements 2 2 Laboratory Tests 03/26/20 05:00: White Blood Count 17.8H, Red Blood Count 4.61L, Hemoglobin 13.0L, Hematocrit 38.0L, Mean Corpuscular Volume 82, Mean Corpuscular Hemoglobin 28.2, Mean Corpuscular Hemoglobin Concent 34.2, Red Cell Distribution Width 14.5, Platelet Count 163, Mean Platelet Volume 8.7, Neutrophils (%) (Auto) , Lymphocytes (%) (Auto) , Monocytes (%) (Auto) , Eosinophils (%) (Auto) , Basophils (%) (Auto) , Differential Total Cells Counted 100, Neutrophils % (Manual) 92H, Lymphocytes % (Manual) 8L, Monocytes % (Manual) 0L, Eosinophils % (Manual) 0, Basophils % (Manual) 0, Band Neutrophils 0, Platelet Estimate Adequate, Platelet Morphology Normal, Anisocytosis 1+, Sodium Level 147H, Potassium Level 3.6, Chloride Level 114H, Carbon Dioxide Level 25, Anion Gap 8, Blood Urea Nitrogen 30H, Creatinine 1.1, Estimat Glomerular Filtration Rate > 60, Glucose Level 134H, Calcium Level 8.0L, Phosphorus Level 2.1L, Magnesium Level 1.8, Total Bilirubin 0.5, Aspartate Amino Transf (AST/SGOT) 61H, Alanine Aminotransferase (ALT/SGPT) 53, Alkaline Ph osphatase 53, Total Protein 5.7L, Albumin 1.4L, Globulin 4.3, Albumin/Globulin Ratio 0.3L 03/26/20 08:18: Arterial Blood pH 7.536H, Arterial Blood Partial Pressure CO2 26.2L, Arterial Blood Partial Pressure O2 153.2H, Arterial Blood HCO3 21.7L, Arterial Blood Oxygen Saturation 98.8, Arterial Blood Base Excess 0.4, Ronni Test Positive Height (Feet): 6 Height (Inches): 0.00 Weight (Pounds): 158 Objective WDWN WM HEENT (+) Face mask mild tachypnia on NGT feeds RR abd not distended Assessment/Plan Status: progressing, unchanged Assessment/Plan: Assessment/Plan Status: progressing, unchanged Assessment/Plan: 1. History of CVA with left hemiparesis. 2. Malnutrition. 3. Hypertension. 4. Diabetes. 5. stool impaction Recommendations on bowel regimen fu labs abx per ID on BIPAP NGTF will fu Ronnell Goss MD Mar 26, 2020 14:43
--- NOTE | 2020-03-26 15:05 | NUR ---
NURSE NOTES: No sign of distress. Cont. on NRB at 100% with 15L. Tolerating well. O2 sat 98%.
--- NOTE | 2020-03-26 16:40 | NUR ---
NURSE NOTES: Turned and repositioned Q2 and as needed. Remain stable.
--- NOTE | 2020-03-26 19:10 | NUR ---
NURSE HAND-OFF REPORT: Pt. will be transfering to SDU. Latest Vital Signs: Temperature 98.1 , Pulse 106 , B/P 115 /73 , Respiratory Rate 20 , O2 SAT 92 , Bi-pap, O2 Flow Rate 15.0 . Vital Sign Comment: EKG Rhythm: Sinus Tachycardia Rhythm change?: N MD Notified?: N - MD Response: Latest Wilkerson Fall Score: 50 Fall Risk: High Risk Safety Measures: Call light Within Reach, Bed Alarm Zone 1, Side Rails Side Rails x3, Bed position Low and Locked. Fall Precautions: Yellow Socks Yellow Gown Report given to Catherine ALDRICH.
--- NOTE | 2020-03-26 19:20 | NUR ---
NURSE NOTES: Report received from ELINOR Beasley. Patient is alert and oriented x 0, obtunded. 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 With NGT on right nares running glucerna 1.2 @ 20cc/hour. IV site is on left hand g-20 running D5W @ 100cc/hour that is patent and intact. On fall and aspiration precaution. Safety measures are place, bed in lowest and locked position, side rails up x 2, call light button and bedsdie table within reach, instructed to call for any assistance needed. Will continue plan of care.
--- NOTE | 2020-03-26 19:50 | NUR ---
NURSE NOTES: Patient is sating 85-88%, mouth breather. Informed Dr. Dotson and received an order for ABG. Will carry out.
--- NOTE | 2020-03-26 21:08 | General Progress Note ---
Subjective ROS Limited/Unobtainable: Yes Allergies: Coded Allergies: No Known Allergies (Unverified , 03/19/20) Objective Last 24 Hour Vital Signs Date Time Temp Pulse Resp B/P (MAP) Pulse Ox O2 Delivery O2 Flow Rate FiO2 03/26/20 19:52 111 35 81 100 03/26/20 19:36 94 100 03/26/20 19:00 106 20 115/73 (87) 92 03/26/20 18:00 105 21 108/62 (77) 98 03/26/20 17:00 98.1 104 20 92/59 (70) 99 03/26/20 16:00 15.0 100 03/26/20 16:00 99 22 101/66 (78) 98 03/26/20 16:00 Bi-pap 03/26/20 15:39 105 03/26/20 15:00 97 19 97/77 (84) 99 03/26/20 14:00 96 19 94/67 (76) 94 03/26/20 13:00 98.6 94 20 116/73 (87) 98 03/26/20 12:00 96 16 113/73 (86) 91 03/26/20 12:00 Bi-pap 03/26/20 12:00 94 03/26/20 12:00 15.0 100 03/26/20 11:00 103 17 107/69 (82) 96 03/26/20 10:00 104 20 117/69 (85) 98 03/26/20 09:00 108 20 119/65 (83) 93 03/26/20 08:33 100 100 03/26/20 08:01 112 03/26/20 08:00 97.1 110 25 118/86 (97) 100 03/26/20 08:00 Bi-pap 03/26/20 08:00 100 03/26/20 07:15 108 32 100 100 03/26/20 07:00 109 29 110/80 (90) 100 03/26/20 06:00 111 22 123/80 (94) 100 03/26/20 05:00 114 21 124/78 (93) 100 03/26/20 04:00 112 03/26/20 04:00 99.1 110 21 132/93 (106) 100 03/26/20 04:00 Bi-pap 12/19/20 04:00 100 03/26/20 03:00 112 22 115/74 (88) 100 03/26/20 02:50 101 19 100 100 03/26/20 02:00 109 21 98/75 (83) 99 03/26/20 01:00 107 20 112/70 (84) 100 03/26/20 00:00 Bi-pap 03/26/20 00:00 120 03/26/20 00:00 98.9 110 19 107/68 (81) 100 03/26/20 00:00 100 03/25/20 23:17 121 22 100 100 03/25/20 23:00 123 21 99/67 (78) 100 03/25/20 22:00 133 26 115/78 (90) 100 Intake and Output 03/25/20 03/26/20 19:00 07:00 Intake Total 2135 ml 1557 ml Output Total 510 ml 750 ml Balance 1625 ml 807 ml Intake Free Water 90 ml IV Total 1685 ml 1317 ml Tube Feeding 160 ml 240 ml Other 200 ml Output Urine Total 510 ml 750 ml # Bowel Movements 2 2 Laboratory Tests 03/26/20 05:00: White Blood Count 17.8H, Red Blood Count 4.61L, Hemoglobin 13.0L, Hematocrit 38.0L, Mean Corpuscular Volume 82, Mean Corpuscular Hemoglobin 28.2, Mean Corpu scular Hemoglobin Concent 34.2, Red Cell Distribution Width 14.5, Platelet Count 163, Mean Platelet Volume 8.7, Neutrophils (%) (Auto) , Lymphocytes (%) (Auto) , Monocytes (%) (Auto) , Eosinophils (%) (Auto) , Basophils (%) (Auto) , Differential Total Cells Counted 100, Neutrophils % (Manual) 92H, Lymphocytes % (Manual) 8L, Monocytes % (Manual) 0L, Eosinophils % (Manual) 0, Basophils % (Manual) 0, Band Neutrophils 0, Platelet Estimate Adequate, Platelet Morphology Normal, Anisocytosis 1+, Sodium Level 147H, Potassium Level 3.6, Chloride Level 114H, Carbon Dioxide Level 25, Anion Gap 8, Blood Urea Nitrogen 30H, Creatinine 1.1, Estimat Glomerular Filtration Rate > 60, Glucose Level 134H, Calcium Level 8.0L, Phosphorus Level 2.1L, Magnesium Level 1.8, Total Bilirubin 0.5, Aspartate Amino Transf (AST/SGOT) 61H, Alanine Aminotransferase (ALT/SGPT) 53, Alkaline Phosphatase 53, Total Protein 5.7L, Albumin 1.4L, Globulin 4.3, Albumin/Globulin Ratio 0.3L 03/26/20 08:18: Arterial Blood pH 7.536H, Arterial Blood Partial Pressure CO2 26.2L, Arterial Blood Partial Pressure O2 153.2H, Arterial Blood HCO3 21.7L, Arterial Blood Oxygen Saturation 98.8, Arterial Blood Base Excess 0.4, Ronni Test Positive 03/26/20 20:10: Arterial Blood pH 7.556*H, Arterial Blood Partial Pressure CO2 27.0L, Arterial Blood Partial Pressure O2 47.1*L, Arterial Blood HCO3 23.4, Arterial Blood Oxyg en Saturation 86.1*L, Arterial Blood Base Excess 2.4H, Ronni Test Positive Height (Feet): 6 Height (Inches): 0.00 Weight (Pounds): 158 Assessment/Plan Problem List: (1) HTN (hypertension) ICD Codes: I10 - Essential (primary) hypertension SNOMED: 55947645 (2) Diabetes ICD Codes: E11.9 - Type 2 diabetes mellitus without complications SNOMED: 97319797 (3) CVA (cerebral vascular accident) ICD Codes: I63.9 - Cerebral infarction, unspecified SNOMED: 785623338 (4) Urinary tract infection ICD Codes: N39.0 - Urinary tract infection, site not specified SNOMED: 79288906 (5) Hydronephrosis ICD Codes: N13.30 - Unspecified hydronephrosis SNOMED: 72465732 (6) Sepsis ICD Codes: A41.9 - Sepsis, unspecified organism SNOMED: 50047793 (7) BPH (benign prostatic hyperplasia) ICD Codes: N40.0 - Benign prostatic hyperplasia without lower urinary tract symptoms SNOMED: 186533864 (8) Alzheimer's dementia ICD Codes: G30.9 - Alzheimer's disease, unspecified; F02.80 - Dementia in other diseases classified elsewhere without behavioral disturbance SNOMED: 11135314 (9) Seizure disorder ICD Codes: G40.909 - Epilepsy, unspecified, not intractable, without status epilepticus SNOMED: 514432271 Status: progressing, unchanged Assessment/Plan: azotemia improving uti abx per id cva dm check sugar\ reviewed chart and labs and meds sepsis sepsis afebrile resp insuff BPH vitals stable no acute events Gino Austin MD Mar 26, 2020 21:08
[2020-03-27] VITALS: BP 121/80
[2020-03-27 04:00] VITALS: BP 115/77
[2020-03-27] MEDS: Meropenem 1 GM in NS 55 ML IVPB SCH ×3 (05:56→21:35)
[2020-03-27 06:05] LABS: HEMATOCRIT 45.1 % (42.0-52.0); MEAN CORPUSCULAR VOLUME 85 FL (80-99); PLATELET COUNT 142 K/UL (150-450); RED BLOOD COUNT 5.29 M/UL (4.70-6.10); RED CELL DISTRIBUTION WIDTH 15.2 % (11.6-14.8)
[2020-03-27 06:24] LABS: WHITE BLOOD COUNT 27.3 K/UL (4.8-10.8)
[2020-03-27 06:57] LABS: ALANINE AMINOTRANSFERASE 45 U/L (12-78); ALBUMIN 1.5 G/DL (3.4-5.0); ALBUMIN/GLOBULIN RATIO 0.4 (1.0-2.7); ALKALINE PHOSPHATASE 61 U/L (46-116); ANION GAP 12 mmol/L (5-15); ASPARTATE AMINO TRANSFERASE 61 U/L (15-37); BILIRUBIN,DIRECT 0.2 MG/DL (0.0-0.3); BILIRUBIN,TOTAL 0.6 MG/DL (0.2-1.0); BLOOD UREA NITROGEN 30 mg/dL (7-18); CARBON DIOXIDE 23 MMOL/L (21-32); CHLORIDE 113 MMOL/L (98-107); CREATININE 1.1 MG/DL (0.55-1.30); POTASSIUM 4.4 MMOL/L (3.5-5.1); SODIUM 148 MMOL/L (136-145)
--- NOTE | 2020-03-27 07:28 | NUR ---
NURSE HAND-OFF REPORT: Important Events on Shift: Patient was desating 88-90%, RR 30'S on non-rebreather. Patient put on BIPAP FI02 @ 100 25/03. Patient Status: Patient has been saturating well after the BIPAP on, plan of care endorsed. Diet: Glucerna 1.2 @ 200cc/hour. Pending Orders: none Pending Results/Labs:AM lab result Pending MD notification:none Latest Vital Signs: Temperature 98.1 , Pulse 111 , B/P 115 /77 , Respiratory Rate 23 , O2 SAT 94 , Bi-pap, O2 Flow Rate 100.0 . Vital Sign Comment: stable EKG Rhythm: Sinus Tachycardia Rhythm change?: N MD Notified?: N - MD Response: Latest Wilkerson Fall Score: 70 Fall Risk: High Risk Safety Measures: Call light Within Reach, Bed Alarm Zone 1, Side Rails Side Rails x3, Bed position Low and Locked. Fall Precautions: Yellow Socks Yellow Gown Report given to ELINOR Meyers.
--- NOTE | 2020-03-27 07:30 | NUR ---
NURSE NOTES: Received report from ELINOR Alexander
[2020-03-27 08:00] VITALS: BP 118/73
[2020-03-27] MEDS: Lactulose 20gm/30ml UDC NG SCH ×2 (08:30→18:04)
[2020-03-27] MEDS: Memantine 10mg tab NG SCH ×2 (08:30→18:04)
[2020-03-27] MEDS: Docusate 100mg/10ml Liq NG SCH ×2 (08:30→18:04)
[2020-03-27] MEDS: Tamsulosin 0.4mg cap ORAL SCH (08:31)
[2020-03-27] MEDS: dexAMETHasone 10mg/ml Inj IV SCH (08:32)
[2020-03-27] MEDS: levETIRAcetam 500mg/NS100ml 100 ML IVPB SCH ×2 (08:34→21:32)
--- NOTE | 2020-03-27 09:00 | NUR ---
NURSE NOTES: Patient is on bed, no signs of distress and grimacing noted. Patient is on BiPap with settings 18/12, PS 15, FiO2 100%, tolerating well. Patient is on NGT feeding (70 cm) Glucerna 1.2 running 20 mL/hr, patient is tolerating well. Patient has a Argueta catheter, F16, patent, intact, draining tea colored urine. Patient has a R Wrist 20 g running D5w at 100cc/hr and a R hand 20 g, patent, intact, saline locked, L h 20 g patent, intact, saline locked. patient will continue to be monitored.
--- NOTE | 2020-03-27 09:00 | Pulmonolgy Critical Care Note ---
Critical Care - Asmt/Plan Assessment/Plan: ASSESSMENT Acute respiratory failure requiring BiPAP Sepsis with Proteus bacteremia 2/2 UTI UTI/pyelo due to obstructive uropathy with bilateral hydronephrosis COVID PNA Acute renal failure -> resolved Encephalopathy History of CVA Seizure disorder BPH Alzheimer dementia PLAN OF CARE PARAG isolation BiPAP on 25/03 with FiO2 100% noted, hypoxia- change back to 20/10, titrate Fio2 to keep sat >90% f/up with ABG and CXR CXR 03/26 Airspace consolidation within the right mid and lower lung tuttle and left lower lung field CT chest pending pulmonary toilet COVID-19 by PCR 03/24+ started steroids 03/26 and remdesivir trend inflammatory markers : last CROP , will fup in am a/coag Venous duplex BLE negative aspiration precaution URIEL resolved abx as per ID repeated BCX, UCX, SCX all NGT IVF monitor renal parameters ,electrolytes correct electrolytes as needed ,avoid nephrotoxic all imaging noted keep Argueta as per urologist recs continue Proscar and Flomax GI prophylaxis supportive care case discussed and evaluated by supervising physician Critical Care - Objective Last 24 Hour Vital Signs Date Time Temp Pulse Resp B/P (MAP) Pulse Ox O2 Delivery O2 Flow Rate FiO2 03/27/20 04:00 108 03/27/20 04:00 100 03/27/20 04:00 Bi-pap 100.0 03/27/20 04:00 111 23 115/77 (90) 94 03/27/20 03:23 107 48 96 100 03/27/20 00:00 115 03/27/20 00:00 Bi-pap 100.0 03/27/20 00:00 117 25 121/80 (94) 92 03/26/20 22:31 111 35 93 100 03/26/20 20:00 121 27 109/85 (93) 93 03/26/20 20:00 Bi-pap 100.0 03/26/20 20:00 100 03/26/20 19:52 111 35 81 100 03/26/20 19:49 114 03/26/20 19:36 94 100 03/26/20 19:00 106 20 115/73 (87) 92 03/26/20 18:00 105 21 108/62 (77) 98 03/26/20 17:00 98.1 104 20 92/59 (70) 99 03/26/20 16:00 15.0 100 03/26/20 16:00 99 22 101/66 (78) 98 03/26/20 16:00 Bi-pap 03/26/20 15:39 105 03/26/20 15:00 97 19 97/77 (84) 99 03/26/20 14:00 96 19 94/67 (76) 94 03/26/20 13:00 98.6 94 20 116/73 (87) 98 03/26/20 12:00 96 16 113/73 (86) 91 03/26/20 12:00 Bi-pap 03/26/20 12:00 94 03/26/20 12:00 15.0 100 03/26/20 11:00 103 17 107/69 (82) 96 03/26/20 10:00 104 20 117/69 (85) 98 03/26/20 09:00 108 20 119/65 (83) 93 Objective: Status: BiPAP 20/10 FiO2 100% Condition: serious HEENT: atraumatic, BiPAP mask on Lungs: few scattered rhonchi Heart: tachy-ST on monitor Abdomen: soft, non-tender, active bowel sounds Extremities: no C/C/E Micro: Microbiology Date/Time Source Procedure Growth Status 03/24/20 09:00 Nasopharynx Coronavirus COVID-19 PCR ([facility]) - Final Complete Accucheck: 144 Critical Care - Subjective ROS Limited/Unobtainable: Yes Interval Events: transferred to SDU BiPAP settings changed to 18/12 given hypoxemia with previous ABG ABG this am noted, remains on 100% FiO2 leukocytosis with trend up no fevers creat stable Condition: critical IV Access: peripheral EKG Rhythm: Sinus Tachycardia FI02: 100 Vent Support Mode: BiLevel Sputum Amount: None Fluids: D5W at 100 Tube Feeding Amount: 20 I&O: Intake and Output 03/26/20 03/27/20 19:00 07:00 Intake Total 1590 ml 900 ml Output Total 1740 ml Balance -150 ml 900 ml Intake Free Water 250 ml IV Total 1100 ml 900 ml Tube Feeding 240 ml Output Urine Total 1740 ml # Bowel Movements 1 CXR: 03/26 Airspace consolidation within the right mid and lower lung tuttle and left lower lung field. Gillian Miller [employer] Mar 27, 2020 09:00
--- NOTE | 2020-03-27 09:22 | Psychiatry Consultation ---
Psychiatry Consultation Psychiatry Consultation Chief Complaint: Vomiting History of Present Illness: 69-year-old male patient he is he has sepsis confusion dehydration mood lability declining cognition below his baseline he has altered mental status as well as attending is requested daily psychiatric consultation he has cognition which has declined below his baseline Mental status examination: This is a 69-year-old male who is appearance disheveled his attitude irritable agitated affect is guarded restricted intellect poor mood depressed anxious moderately psychomotor agitation attention span is poor orientation x2 speech is pressured nonsensical thought process disorganized logical insight judgment is poor Allergies: Coded Allergies: No Known Allergies (Unverified , 03/19/20) Medication History Scheduled Docusate Sodium* (Colace*), 100 MG ORAL DAILY, (Reported) Finasteride* (Proscar*), 5 MG ORAL DAILY, (Reported) Insulin Regular, Human* (Novolin R*), Unknown Dose SUBQ .SLIDING SCALE, (Reported) Levetiracetam (Levetiracetam), 500 MG ORAL DAILY, (Reported) Lorazepam* (Ativan*), 1 MG ORAL EVERY 6 HOURS, (Reported) Memantine Hcl* (Namenda*), 5 MG ORAL TWICE A DAY, (Reported) Multivitamins* (Multivitamins*), 1 TAB ORAL DAILY, (Reported) Polyethylene Glycol 3350* (Miralax*), 17 GM ORAL DAILY, (Reported) Tamsulosin HCl (Flomax), 0.4 MG ORAL DAILY, (Reported) Scheduled PRN Acetaminophen* (Acetaminophen 325MG Tablet*), 650 MG ORAL Q4H PRN for Mild Pain (Pain Scale 1-3), (Reported) Miscellaneous Medications Megestrol Acetate (Megestrol Acetate), 400 MG PO, (Reported) Objective Data Height (Feet): 6 Height (Inches): 0.00 Weight (Pounds): 158 Assessment/Plan Assessment/Plan: Treat this patient with Namenda 5 mg twice a day and Ativan 1 every 6 hours as needed anxiety agitation 20 minutes of insight oriented psychotherapy will work with this patient to help him understand his physical and psychiatric condition so that he has less anxiety depression better impulse control Diagnosis [place] I: 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
[2020-03-27] MEDS: Maintenance Dose:Remdesivir 100mg/NS 230ml x 4 Doses IV SCH ×2 (10:21)
[2020-03-27 12:00] VITALS: BP 114/70
--- NOTE | 2020-03-27 12:24 | NUR ---
NURSE NOTES: Asked Gillian Miller (QUARTER FOLDER) regarding the feeding. She said keep the feeding at 20 mL/hr for now.
[2020-03-27] MEDS ORDERED: NS 275ml ONE ×2 (15:10→15:12)
[2020-03-27] MEDS ORDERED: Sterile Water Irrig 2000ml IRRIG ONE (15:10)
[2020-03-27] MEDS ORDERED: Tubing IV Secondary IV ONE ×2 (15:10→15:12)
[2020-03-27] MEDS ORDERED: NS Irrig 3000ml IRRIG ONE (15:12)
--- NOTE | 2020-03-27 15:23 | General Progress Note ---
Subjective Allergies: Coded Allergies: No Known Allergies (Unverified , 03/19/20) Subjective now in step down unit d/w RN TF at lower rate, due to resp status Objective Last 24 Hour Vital Signs Date Time Temp Pulse Resp B/P (MAP) Pulse Ox O2 Delivery O2 Flow Rate FiO2 03/27/20 12:10 88 03/27/20 12:00 Bi-pap 100.0 03/27/20 12:00 97.3 90 25 114/70 (85) 97 03/27/20 12:00 100 03/27/20 11:09 90 38 96 100 03/27/20 08:00 96.5 97 44 118/73 (88) 94 03/27/20 08:00 Bi-pap 100.0 03/27/20 08:00 100 03/27/20 08:00 105 03/27/20 07:14 105 46 96 100 03/27/20 04:00 108 03/27/20 04:00 100 03/27/20 04:00 Bi-pap 100.0 03/27/20 04:00 111 23 115/77 (90) 94 03/27/20 03:23 107 48 96 100 03/27/20 00:00 115 03/27/20 00:00 Bi-pap 100.0 03/27/20 00:00 117 25 121/80 (94) 92 03/26/20 22:31 111 35 93 100 03/26/20 20:00 121 27 109/85 (93) 93 03/26/20 20:00 Bi-pap 100.0 03/26/20 20:00 100 03/26/20 19:52 111 35 81 100 03/26/20 19:49 114 03/26/20 19:36 94 100 03/26/20 19:00 106 20 115/73 (87) 92 03/26/20 18:00 105 21 108/62 (77) 98 03/26/20 17:00 98.1 104 20 92/59 (70) 99 03/26/20 16:00 15.0 100 03/26/20 16:00 99 22 101/66 (78) 98 03/26/20 16:00 Bi-pap 03/26/20 15:39 105 Intake and Output 03/26/20 03/27/20 19:00 07:00 Intake Total 1590 ml 900 ml Output Total 1740 ml Balance -150 ml 900 ml Intake Free Water 250 ml IV Total 1100 ml 900 ml Tube Feeding 240 ml Output Urine Total 1740 ml # Bowel Movements 1 Laboratory Tests 03/26/20 20:10: Arterial Blood pH 7.556*H, Arterial Blood Partial Pressure CO2 27.0L, Arterial Blood Partial Pressure O2 47.1*L, Arterial Blood HCO3 23.4, Arterial Blood Oxygen Saturation 86.1*L, Arterial Blood Base Excess 2.4H, Ronni Test Positive 03/27/20 03:57: White Blood Count 27.3#*H, Red Blood Count 5.29, Hemoglobin 15.0, Hematocrit 45.1, Mean Corpuscular Volume 85, Mean Corpuscular Hemoglobin 28.4, Mean Corpuscular Hemoglobin Concent 33.4, Red Cell Distribution Width 15.2H, Platelet Count 142L, Mean Platelet Volume 8.7, Neutrophils (%) (Auto) , Lymphocytes (%) (Auto) , Monocytes (%) (Auto) , Eosinophils (%) (Auto) , Basophils (%) (Auto) , Differential Total Cells Counted 100, Neutrophils % (Manual) 96H, Lymphocytes % (Manual) 3L, Monocytes % (Manual) 1, Eosinophils % (Manual) 0, Basophils % (Manual) 0, Band Neutrophils 0, Platelet Estimate DecreasedL, Platelet Morphol ogy Normal, Anisocytosis 1+, Sodium Level 148H, Potassium Level 4.4, Chloride Level 113H, Carbon Dioxide Level 23, Anion Gap 12, Blood Urea Nitrogen 30H, Creatinine 1.1, Estimat Glomerular Filtration Rate > 60, Glucose Level 122H, Calcium Level 8.0L, Total Bilirubin 0.6, Direct Bilirubin 0.2, Aspartate Amino Transf (AST/SGOT) 61H, Alanine Aminotransferase (ALT/SGPT) 45, Alkaline Phos phatase 61, Total Protein 5.4L, Albumin 1.5L, Globulin 3.9, Albumin/Globulin Ratio 0.4L 03/27/20 08:20: Arterial Blood pH 7.558*H, Arterial Blood Partial Pressure CO2 26.8L, Arterial Blood Partial Pressure O2 58.3L, Arterial Blood HCO3 23.3, Arterial Blood Oxygen Saturation 92.7L, Arterial Blood Base Excess 2.4H, Ronni Test Positive Height (Feet): 6 Height (Inches): 0.00 Weight (Pounds): 158 Objective WDWN WM HEENT (+) Face mask mild tachypnia on NGT feeds RR abd not distended Assessment/Plan Status: progressing, unchanged Assessment/Plan: Assessment/Plan Status: progressing, unchanged Assessment/Plan: 1. History of CVA with left hemiparesis. 2. Malnutrition. 3. Hypertension. 4. Diabetes. 5. stool impaction Recommendations on bowel regimen fu labs abx per ID on BIPAP NGTF will fu Ronnell Goss MD Mar 27, 2020 15:23
--- NOTE | 2020-03-27 15:55 | Nephrology Progress Note ---
Assessment/Plan Problem List: (1) URIEL (acute kidney injury) (2) Hydronephrosis (3) Sepsis (4) Alzheimer's dementia (5) Seizure disorder Assessment Sepsis Rhabdo UTI Hydronephrosis/Argueta catheter problem Suspected Covid 19 infection Plan March 27: Labs reviewed. White blood cells over 27,000. Renal parameters stable. On BiPAP. Continue per consultants. March 26: Labs reviewed. Abnormal electrolytes and chemistries addressed. Patient continues on BiPAP. Continue per consultants. March 25: Lab reviewed. Renal parameters and electrolytes stable and gradually improving. Remains on BiPAP. Continue per consultants. March:: Labs reviewed. Sodium 150. Potassium low. Serum creatinine 1.4. Abnormal electrolytes addressed. Continue to monitor renal parameters and electrolytes. Continue per pulmonary for pulmonary support. March 23: Lab checked. Abnormal electrolytes noted and addressed. D5W 1000 cc IV ordered. Continue to monitor renal parameters. Continue per pulmonary and other consultants. March 22: Labs checked. Serum creatinine 1.4. Serum sodium 157. Continues to be on D5W. Continue to monitor renal parameters and electrolytes. Previously: Recheck labs in a.m. Argueta catheter already ordered Hydrate Antibiotics Monitor CPK Avoid nephrotoxic's Per orders Subjective ROS Limited/Unobtainable: Yes Objective Objective Last 24 Hour Vital Signs Date Time Temp Pulse Resp B/P (MAP) Pulse Ox O2 Delivery O2 Flow Rate FiO2 03/27/20 12:10 88 03/27/20 12:00 Bi-pap 100.0 03/27/20 12:00 97.3 90 25 114/70 (85) 97 03/27/20 12:00 100 03/27/20 11:09 90 38 96 100 03/27/20 08:00 96.5 97 44 118/73 (88) 94 03/27/20 08:00 Bi-pap 100.0 03/27/20 08:00 100 03/27/20 08:00 105 03/27/20 07:14 105 46 96 100 03/27/20 04:00 108 03/27/20 04:00 100 03/27/20 04:00 Bi-pap 100.0 03/27/20 04:00 111 23 115/77 (90) 94 03/27/20 03:23 107 48 96 100 03/27/20 00:00 115 03/27/20 00:00 Bi-pap 100.0 03/27/20 00:00 117 25 121/80 (94) 92 03/26/20 22:31 111 35 93 100 03/26/20 20:00 121 27 109/85 (93) 93 03/26/20 20:00 Bi-pap 100.0 03/26/20 20:00 100 03/26/20 19:52 111 35 81 100 03/26/20 19:49 114 03/26/20 19:36 94 100 03/26/20 19:00 106 20 115/73 (87) 92 03/26/20 18:00 105 21 108/62 (77) 98 03/26/20 17:00 98.1 104 20 92/59 (70) 99 03/26/20 16:00 15.0 100 03/26/20 16:00 99 22 101/66 (78) 98 03/26/20 16:00 Bi-pap Intake and Output 03/26/20 03/27/20 18:59 06:59 Intake Total 1526 ml 1020 ml Output Total 1750 ml 40 ml Balance -224 ml 980 ml Intake Free Water 250 ml IV Total 1036 ml 1000 ml Tube Feeding 240 ml 20 ml Output Urine Total 1750 ml 40 ml # Bowel Movements 1 Laboratory Tests 03/26/20 20:10: Arterial Blood pH 7.556*H, Arterial Blood Partial Pressure CO2 27.0L, Arterial Blood Partial Pressure O2 47.1*L, Arterial Blood HCO3 23.4, Arterial Blood Oxygen Saturation 86.1*L, Arterial Blood Base Excess 2.4H, Ronni Test Positive 03/27/20 03:57: White Blood Count 27.3#*H, Red Blood Count 5.29, Hemoglobin 15.0, Hematocrit 45.1, Mean Corpuscular Volume 85, Mean Corpuscular Hemoglobin 28.4, Mean Corpuscular Hemoglobin Concent 33.4, Red Cell Distribution Width 15.2H, Platelet Count 142L, Mean Platelet Volume 8.7, Neutrophils (%) (Auto) , Lymphocytes (%) (Auto) , Monocytes (%) (Auto) , Eosinophils (%) (Auto) , Basophils (%) (Auto) , Differential Total Cells Counted 100, Neutrophils % (Manual) 96H, Lymphocytes % (Manual) 3L, Monocytes % (Manual) 1, Eosinophils % (Manual) 0, Basophils % (Manual) 0, Band Neutrophils 0, Platelet Estimate DecreasedL, Platelet Morphology Normal, Anisocytosis 1+, Sodium Level 148H, Potassium Level 4.4, Chloride Level 113H, Carbon Dioxide Level 23, Anion Gap 12, Blood Urea Nitrogen 30H, Creatinine 1.1, Estimat Glomerular Filtration Rate > 60, Glucose Level 122H , Calcium Level 8.0L, Total Bilirubin 0.6, Direct Bilirubin 0.2, Aspartate Amino Transf (AST/SGOT) 61H, Alanine Aminotransferase (ALT/SGPT) 45, Alkaline Phosphatase 61, Total Protein 5.4L, Albumin 1.5L, Globulin 3.9, Albumin/Globulin Ratio 0.4L 03/27/20 08:20: Arterial Blood pH 7.558*H, Arterial Blood Partial Pressure CO2 26.8L, Arterial Blood Partial Pressure O2 58.3L, Arterial Blood HCO3 23.3, Arterial Blood Oxygen Saturation 92.7L, Arterial Blood Base Excess 2.4H, Ronni Test Positive Height (Feet): 6 Height (Inches): 0.00 Weight (Pounds): 158 General Appearance: mild distress EENT: other - On BiPAP Cardiovascular: tachycardia Respiratory/Chest: decreased breath sounds Abdomen: distended Objective No change Matias Albert MD Mar 27, 2020 15:55
[2020-03-27 16:00] VITALS: BP 91/62
--- NOTE | 2020-03-27 17:27 | NUR ---
NURSE NOTES: Added Dr. Vallecillo as building stonecutter consult per Dr. Austin. Patient was junctional tachycardia this morning and back to SR at noon and 1600 rhythm strip check. Took 10 lead EKG (attached on the chart).
--- NOTE | 2020-03-27 19:34 | NUR ---
NURSE NOTES: Report received from ELINOR Meyers. Patient is asleep, alert and oriented x 0, obtunded. groundwater monitoring technician is in place, shows sinus rhythm. On BIPAP, Fi02 @ 100%, 27/03. On fall and aspiration precaution. With NGT in right nares level 75, on Glucerna 1.2 @ 20 cc/hour. With Argueta catheter f-16 drained via gravity. IV site on right wrist g-20 running D5W 1L @ 100cc/hour. Safety measures are in place, bed in lowest and locked position, side rails up x 2, call light button and bedside table within reach, instructed to call for any assistance needed. Will continue plan of care.
--- NOTE | 2020-03-27 19:34 | NUR ---
NURSE HAND-OFF REPORT: Important Events on Shift: junctional tachycardia. Doctor Ruth Ann is aware. Patient Status: Diet: Pending Orders: Pending Results/Labs: Pending MD notification: Latest Vital Signs: Temperature 97.3 , Pulse 88 , B/P 91 /62 , Respiratory Rate 24 , O2 SAT 92 , Bi-pap, O2 Flow Rate 100.0 . Vital Sign Comment: EKG Rhythm: Sinus Rhythm Rhythm change?: N MD Notified?: N - MD Response: Latest Wilkerson Fall Score: 70 Fall Risk: High Risk Safety Measures: Call light Within Reach, Bed Alarm Zone 1, Side Rails Side Rails x3, Bed position Low and Locked. Fall Precautions: Yellow Socks Yellow Gown Report given to ELINOR Alexander .
[2020-03-27 20:00] VITALS: BP 102/67
--- NOTE | 2020-03-27 20:11 | General Progress Note ---
Subjective ROS Limited/Unobtainable: Yes Allergies: Coded Allergies: No Known Allergies (Unverified , 03/19/20) Objective Last 24 Hour Vital Signs Date Time Temp Pulse Resp B/P (MAP) Pulse Ox O2 Delivery O2 Flow Rate FiO2 03/27/20 19:29 88 24 92 100 03/27/20 16:00 Bi-pap 100.0 03/27/20 16:00 97.3 92 21 91/62 (72) 95 03/27/20 16:00 100 03/27/20 15:30 89 03/27/20 15:04 8 43 91 100 03/27/20 12:10 88 03/27/20 12:00 Bi-pap 100.0 03/27/20 12:00 97.3 90 25 114/70 (85) 97 03/27/20 12:00 100 03/27/20 11:09 90 38 96 100 03/27/20 08:00 96.5 97 44 118/73 (88) 94 03/27/20 08:00 Bi-pap 100.0 03/27/20 08:00 100 03/27/20 08:00 105 03/27/20 07:14 105 46 96 100 03/27/20 04:00 108 03/27/20 04:00 100 03/27/20 04:00 Bi-pap 100.0 03/27/20 04:00 111 23 115/77 (90) 94 03/27/20 03:23 107 48 96 100 03/27/20 00:00 115 03/27/20 00:00 Bi-pap 100.0 03/27/20 00:00 117 25 121/80 (94) 92 03/26/20 22:31 111 35 93 100 Intake and Output 03/26/20 03/27/20 19:00 07:00 Intake Total 1590 ml 900 ml Output Total 1740 ml Balance -150 ml 900 ml Intake Free Water 250 ml IV Total 1100 ml 900 ml Tube Feeding 240 ml Output Urine Total 1740 ml # Bowel Movements 1 Laboratory Tests 03/27/20 03:57: White Blood Count 27.3#*H, Red Blood Count 5.29, Hemoglobin 15.0, Hematocrit 45.1, Mean Corpuscular Volume 85, Mean Corpuscular Hemoglobin 28.4, Mean Corpuscular Hemoglobin Concent 33.4, Red Cell Distribution Width 15.2H, Platelet Count 142L, Mean Platelet Volume 8.7, Neutrophils (%) (Auto) , Lymphocytes (%) (Auto) , Monocytes (%) (Auto) , Eosinophils (%) (Auto) , Basophils (%) (Auto) , Differential Total Cells Counted 100, Neutrophils % (Manual) 96H, Lymphocytes % (Manual) 3L, Monocytes % (Manual) 1, Eosinophils % (Manual) 0, Basophils % (Manual) 0, Band Neutrophils 0, Platelet Estimate DecreasedL, Platelet Morphology Normal, Anisocytosis 1+, Sodium Level 148H, Potassium Level 4.4, Chloride Level 113H, Carbon Dioxide Level 23, Anion Gap 12, Blood Urea Nitrogen 30H, Creatinine 1.1, Estimat Glomerular Filtration Rate > 60, Glucose Level 122H , Calcium Level 8.0L, Total Bilirubin 0.6, Direct Bilirubin 0.2, Aspartate Amino Transf (AST/SGOT) 61H, Alanine Aminotransferase (ALT/SGPT) 45, Alkaline Phosphatase 61, Total Protein 5.4L, Albumin 1.5L, Globulin 3.9, Albumin/Globulin Ratio 0.4L 03/27/20 08:20: Arterial Blood pH 7.558*H, Arterial Blood Partial Pressure CO2 26.8L, Arterial Blood Partial Pressure O2 58.3L, Arterial Blood HCO3 23.3, Arterial Blood Oxygen Saturation 92.7L, Arterial Blood Base Excess 2.4H, Ronni Test Positive Height (Feet): 6 Height (Inches): 0.00 Weight (Pounds): 158 Assessment/Plan Problem List: (1) HTN (hypertension) ICD Codes: I10 - Essential (primary) hypertension SNOMED: 33420779 (2) Diabetes ICD Codes: E11.9 - Type 2 diabetes mellitus without complications SNOMED: 94301369 (3) CVA (cerebral vascular accident) ICD Codes: I63.9 - Cerebral infarction, unspecified SNOMED: 271274663 (4) Urinary tract infection ICD Codes: N39.0 - Urinary tract infection, site not specified SNOMED: 37043553 (5) Hydronephrosis ICD Codes: N13.30 - Unspecified hydronephrosis SNOMED: 98952402 (6) Sepsis ICD Codes: A41.9 - Sepsis, unspecified organism SNOMED: 75282892 (7) BPH (benign prostatic hyperplasia) ICD Codes: N40.0 - Benign prostatic hyperplasia without lower urinary tract symptoms SNOMED: 478937933 (8) Alzheimer's dementia ICD Codes: G30.9 - Alzheimer's disease, unspecified; F02.80 - Dementia in other diseases classified elsewhere without behavioral disturbance SNOMED: 77506565 (9) Seizure disorder ICD Codes: G40.909 - Epilepsy, unspecified, not intractable, without status epilepticus SNOMED: 145979161 Status: progressing, unchanged Assessment/Plan: azotemia improving uti abx per id cva dm check sugar\ s/p junctional rhythem consulted Gino Cordero MD Mar 27, 2020 20:11
[2020-03-28] VITALS: BP 119/71
[2020-03-28 04:00] VITALS: BP 112/79
[2020-03-28] MEDS: Meropenem 1 GM in NS 55 ML IVPB SCH ×3 (05:29→22:20)
[2020-03-28 05:50] LABS: HEMATOCRIT 42.7 % (42.0-52.0); HEMOGLOBIN 14.2 G/DL (14.2-18.0); MEAN CORPUSCULAR VOLUME 83 FL (80-99); PLATELET COUNT 110 K/UL (150-450); RED BLOOD COUNT 5.12 M/UL (4.70-6.10); RED CELL DISTRIBUTION WIDTH 14.4 % (11.6-14.8)
[2020-03-28 06:07] LABS: WHITE BLOOD COUNT 33.5 K/UL (4.8-10.8)
[2020-03-28 06:27] LABS: ALANINE AMINOTRANSFERASE 41 U/L (12-78); ALBUMIN 1.2 G/DL (3.4-5.0); ALBUMIN/GLOBULIN RATIO 0.3 (1.0-2.7); ALKALINE PHOSPHATASE 80 U/L (46-116); ANION GAP 9 mmol/L (5-15); ASPARTATE AMINO TRANSFERASE 49 U/L (15-37); BILIRUBIN,DIRECT 0.2 MG/DL (0.0-0.3); BILIRUBIN,TOTAL 0.5 MG/DL (0.2-1.0); BLOOD UREA NITROGEN 40 mg/dL (7-18); CALCIUM 8.1 MG/DL (8.5-10.1); CARBON DIOXIDE 26 MMOL/L (21-32); CHLORIDE 110 MMOL/L (98-107); CREATININE 1.2 MG/DL (0.55-1.30); POTASSIUM 3.5 MMOL/L (3.5-5.1); SODIUM 145 MMOL/L (136-145)
[2020-03-28 06:57] LABS: PHOSPHORUS 2.9 MG/DL (2.5-4.9)
--- NOTE | 2020-03-28 07:17 | NUR ---
NURSE NOTES: Patient's WBC increase from 27.3 to 33.5. Patient is on Meropenem 1 gram every [address] Heredia/Dr. Romero, awaiting for call back. Will endorse to morning R.N.
--- NOTE | 2020-03-28 07:18 | NUR ---
NURSE HAND-OFF REPORT: Important Events on Shift: Patient has been resting well the whole shift, no desaturation noted. Still with episode of AJR, Dr. Vallecillo has been aware. Patient Status: Patien is asleep, plan of care endorsed. Diet: glucerna 1.2 @ 20 cc/hour Pending Orders: Chest xray Pending Results/Labs:none Pending MD notification:none Latest Vital Signs: Temperature 98.5 , Pulse 89 , B/P 112 /79 , Respiratory Rate 18 , O2 SAT 95 , Bi-pap, O2 Flow Rate 100.0 . Vital Sign Comment: stable EKG Rhythm: Sinus Rhythm Rhythm change?: N MD Notified?: N - MD Response: Latest Wilkerson Fall Score: 70 Fall Risk: High Risk Safety Measures: Call light Within Reach, Bed Alarm Zone 1, Side Rails Side Rails x3, Bed position Low and Locked. Fall Precautions: Yellow Socks Yellow Gown Report given to ELINOR Salazar.
--- NOTE | 2020-03-28 07:18 | NUR ---
NURSE NOTES: Received report from ELINOR Alexander. Patient is resting in bed, in stable condition. No s/sx of SOB, breathing is even and unlabored, patient is on Bipap continuous per report with settings of 20/12 FiO2 100%. Patient is obtunded, observed no presence of pain or discomfort at this time. Bed is in lowest position, brakes engaged. Call light is kept within easy reach. Will continue to monitor patient.
[2020-03-28 08:00] VITALS: BP 104/78
[2020-03-28] MEDS: Docusate 100mg/10ml Liq NG SCH ×2 (09:23→18:14)
[2020-03-28] MEDS: Memantine 10mg tab NG SCH ×2 (09:23→18:14)
[2020-03-28] MEDS: Tamsulosin 0.4mg cap ORAL SCH (09:23)
[2020-03-28] MEDS: Lactulose 20gm/30ml UDC NG SCH ×2 (09:23→18:14)
[2020-03-28] MEDS: dexAMETHasone 10mg/ml Inj IV SCH (09:23)
[2020-03-28] MEDS: levETIRAcetam 500mg/NS100ml 100 ML IVPB SCH ×2 (09:26→21:12)
--- NOTE | 2020-03-28 10:36 | General Progress Note ---
Subjective ROS Limited/Unobtainable: No Allergies: Coded Allergies: No Known Allergies (Unverified , 03/19/20) Objective Last 24 Hour Vital Signs Date Time Temp Pulse Resp B/P (MAP) Pulse Ox O2 Delivery O2 Flow Rate FiO2 03/28/20 09:30 62 22 96 100 03/28/20 08:00 100 03/28/20 08:00 96 03/28/20 08:00 97.6 98 18 104/78 (87) 97 03/28/20 08:00 Bi-pap 100.0 03/28/20 04:00 98.5 89 18 112/79 (90) 95 03/28/20 04:00 Bi-pap 100.0 03/28/20 04:00 100 03/28/20 03:42 88 03/28/20 03:29 88 22 94 100 03/28/20 00:00 98.1 95 21 119/71 (87) 95 03/28/20 00:00 Bi-pap 100.0 03/28/20 00:00 92 03/27/20 22:45 91 21 94 100 03/27/20 20:00 Bi-pap 100.0 03/27/20 20:00 92 03/27/20 20:00 97.9 90 20 102/67 (79) 95 03/27/20 20:00 100 03/27/20 19:29 88 24 92 100 03/27/20 16:00 Bi-pap 100.0 03/27/20 16:00 97.3 92 21 91/62 (72) 95 03/27/20 16:00 100 03/27/20 15:30 89 03/27/20 15:04 8 43 91 100 03/27/20 12:10 88 03/27/20 12:00 Bi-pap 100.0 03/27/20 12:00 97.3 90 25 114/70 (85) 97 03/27/20 12:00 100 03/27/20 11:09 90 38 96 100 Intake and Output 03/27/20 03/28/20 19:00 07:00 Intake Total 1070 ml 1923 ml Output Total 750 ml Balance 1070 ml 1173 ml Intake Free Water 100 ml IV Total 850 ml 1703 ml Tube Feeding 120 ml 220 ml Output Urine Total 750 ml Laboratory Tests 03/28/20 03:11: White Blood Count 33.5*H, Red Blood Count 5.12, Hemoglobin 14.2, Hematocrit 42.7, Mean Corpuscular Volume 83, Mean Corpuscular Hemoglobin 27.7, Mean Corpuscular Hemoglobin Concent 33.2, Red Cell Distribution Width 14.4, Platelet Count 110L, Mean Platelet Volume 11.5H, Neutrophils (%) (Auto) , Lymphocytes (%) (Auto) , Monocytes (%) (Auto) , Eosinophils (%) (Auto) , Basophils (%) (Auto) , Differential Total Cells Counted 100, Neutrophils % (Manual) 98H, Lymphocytes % (Manual) 1L, Monocytes % (Manual) 1, Eosinophils % (Manual) 0, Basophils % (Ma nual) 0, Band Neutrophils 0, Platelet Estimate Adequate, Platelet Morphology Normal, Red Blood Cell Morphology Normal, Sodium Level 145, Potassium Level 3.5, Chloride Level 110H, Carbon Dioxide Level 26, Anion Gap 9, Blood Urea Nitrogen 40H, Creatinine 1.2, Estimat Glomerular Filtration Rate > 60, Glucose Level 118H , Calcium Level 8.1L, Phosphorus Level 2.9, Magnesium Level 2.1, Total Bilirubin 0.5, Direct Bilirubin 0.2, Aspartate Amino Transf (AST/SGOT) 49H, Alanine Aminotransferase (ALT/SGPT) 41, Alkaline Phosphatase 80, C-Reactive Protein, Quantitative 41.8H, Total Protein 5.5L, Albumin 1.2L, Globulin 4.3, Albumin/Globulin Ratio 0.3L 03/28/20 10:22: Arterial Blood pH 7.540H, Arterial Blood Partial Pressure CO2 23.5*L, Arterial Blood Partial Pressure O2 54.4L, Arterial Blood HCO3 19.6L, Arterial Blood Oxygen Saturation 88.9*L, Arterial Blood Base Excess -0.8, Ronni Test Positive Height (Feet): 6 Height (Inches): 0.00 Weight (Pounds): 158 General Appearance: lethargic EENT: normal ENT inspection Neck: supple Cardiovascular: normal rate Respiratory/Chest: decreased breath sounds Abdomen: normal bowel sounds, non tender, soft Extremities: non-tender Assessment/Plan Status: progressing, unchanged Assessment/Plan: 1. History of CVA with left hemiparesis. 2. Malnutrition. 3. Hypertension. 4. Diabetes. 5. stool impaction on bowel regimen fu labs abx per ID on BIPAP NGTF will fu Vosoghi,Rd MD Mar 28, 2020 10:36
[2020-03-28] MEDS: Maintenance Dose:Remdesivir 100mg/NS 230ml x 4 Doses IV SCH ×2 (10:57)
--- NOTE | 2020-03-28 11:46 | General Progress Note ---
Subjective ROS Limited/Unobtainable: Yes Allergies: Coded Allergies: No Known Allergies (Unverified , 03/19/20) Objective Last 24 Hour Vital Signs Date Time Temp Pulse Resp B/P (MAP) Pulse Ox O2 Delivery O2 Flow Rate FiO2 03/28/20 09:30 62 22 96 100 03/28/20 08:00 100 03/28/20 08:00 96 03/28/20 08:00 97.6 98 18 104/78 (87) 97 03/28/20 08:00 Bi-pap 100.0 03/28/20 04:00 98.5 89 18 112/79 (90) 95 03/28/20 04:00 Bi-pap 100.0 03/28/20 04:00 100 03/28/20 03:42 88 03/28/20 03:29 88 22 94 100 03/28/20 00:00 98.1 95 21 119/71 (87) 95 03/28/20 00:00 Bi-pap 100.0 03/28/20 00:00 92 03/27/20 22:45 91 21 94 100 03/27/20 20:00 Bi-pap 100.0 03/27/20 20:00 92 03/27/20 20:00 97.9 90 20 102/67 (79) 95 03/27/20 20:00 100 03/27/20 19:29 88 24 92 100 03/27/20 16:00 Bi-pap 100.0 03/27/20 16:00 97.3 92 21 91/62 (72) 95 03/27/20 16:00 100 03/27/20 15:30 89 03/27/20 15:04 8 43 91 100 03/27/20 12:10 88 03/27/20 12:00 Bi-pap 100.0 03/27/20 12:00 97.3 90 25 114/70 (85) 97 03/27/20 12:00 100 Intake and Output 03/27/20 03/28/20 19:00 07:00 Intake Total 1070 ml 1923 ml Output Total 750 ml Balance 1070 ml 1173 ml Intake Free Water 100 ml IV Total 850 ml 1703 ml Tube Feeding 120 ml 220 ml Output Urine Total 750 ml Laboratory Tests 03/28/20 03:11: White Blood Count 33.5*H, Red Blood Count 5.12, Hemoglobin 14.2, Hematocrit 42.7, Mean Corpuscular Volume 83, Mean Corpuscular Hemoglobin 27.7, Mean Eun uscular Hemoglobin Concent 33.2, Red Cell Distribution Width 14.4, Platelet Count 110L, Mean Platelet Volume 11.5H, Neutrophils (%) (Auto) , Lymphocytes (%) (Auto) , Monocytes (%) (Auto) , Eosinophils (%) (Auto) , Basophils (%) (Auto) , Differential Total Cells Counted 100, Neutrophils % (Manual) 98H, Lymphocytes % (Manual) 1L, Monocytes % (Manual) 1, Eosinophils % (Manual) 0, Basophils % (Manual) 0, Band Neutrophils 0, Platelet Estimate Adequate, Platelet Morphology Normal, Red Blood Cell Morphology Normal, Sodium Level 145, Potassium Level 3.5, Chloride Level 110H, Carbon Dioxide Level 26, Anion Gap 9, Blood Urea Nitrogen 40H, Creatinine 1.2, Estimat Glomerular Filtration Rate > 60, Glucose Level 118H , Calcium Level 8.1L, Phosphorus Level 2.9, Magnesium Level 2.1, Total Bilirubin 0.5, Direct Bilirubin 0.2, Aspartate Amino Transf (AST/SGOT) 49H, Alanine Aminotransferase (ALT/SGPT) 41, Alkaline Phosphatase 80, C-Reactive Protein, Quantitative 41.8H, Total Protein 5.5L, Albumin 1.2L, Globulin 4.3, Album in/Globulin Ratio 0.3L 03/28/20 10:22: Arterial Blood pH 7.540H, Arterial Blood Partial Pressure CO2 23.5*L, Arterial Blood Partial Pressure O2 54.4L, Arterial Blood HCO3 19.6L, Arterial Blood Oxygen Saturation 88.9*L, Arterial Blood Base Excess -0.8, Ronni Test Positive Height (Feet): 6 Height (Inches): 0.00 Weight (Pounds): 158 Assessment/Plan Problem List: (1) HTN (hypertension) ICD Codes: I10 - Essential (primary) hypertension SNOMED: 47367035 (2) Diabetes ICD Codes: E11.9 - Type 2 diabetes mellitus without complications SNOMED: 99560491 (3) CVA (cerebral vascular accident) ICD Codes: I63.9 - Cerebral infarction, unspecified SNOMED: 881116779 (4) Urinary tract infection ICD Codes: N39.0 - Urinary tract infection, site not specified SNOMED: 15358924 (5) Hydronephrosis ICD Codes: N13.30 - Unspecified hydronephrosis SNOMED: 07068771 (6) Sepsis ICD Codes: A41.9 - Sepsis, unspecified organism SNOMED: 07316691 (7) BPH (benign prostatic hyperplasia) ICD Codes: N40.0 - Benign prostatic hyperplasia without lower urinary tract symptoms SNOMED: 925136317 (8) Alzheimer's dementia ICD Codes: G30.9 - Alzheimer's disease, unspecified; F02.80 - Dementia in other diseases classified elsewhere without behavioral disturbance SNOMED: 23910524 (9) Seizure disorder ICD Codes: G40.909 - Epilepsy, unspecified, not intractable, without status epilepticus SNOMED: 164911205 Status: progressing, unchanged Assessment/Plan: lethargy s/p lethargy hydronephrosis afebrile uti abx per id cva dm check sugar\ s/p junctional rhythem consulted Gino Cordero MD Mar 28, 2020 11:46
--- NOTE | 2020-03-28 11:48 | Cardiac Electrophysiology PN ---
Subjective Subjective [id number] Objective Last 24 Hour Vital Signs Date Time Temp Pulse Resp B/P (MAP) Pulse Ox O2 Delivery O2 Flow Rate FiO2 03/28/20 09:30 62 22 96 100 03/28/20 08:00 100 03/28/20 08:00 96 03/28/20 08:00 97.6 98 18 104/78 (87) 97 03/28/20 08:00 Bi-pap 100.0 03/28/20 04:00 98.5 89 18 112/79 (90) 95 03/28/20 04:00 Bi-pap 100.0 03/28/20 04:00 100 03/28/20 03:42 88 03/28/20 03:29 88 22 94 100 03/28/20 00:00 98.1 95 21 119/71 (87) 95 03/28/20 00:00 Bi-pap 100.0 03/28/20 00:00 92 03/27/20 22:45 91 21 94 100 03/27/20 20:00 Bi-pap 100.0 03/27/20 20:00 92 03/27/20 20:00 97.9 90 20 102/67 (79) 95 03/27/20 20:00 100 03/27/20 19:29 88 24 92 100 03/27/20 16:00 Bi-pap 100.0 03/27/20 16:00 97.3 92 21 91/62 (72) 95 03/27/20 16:00 100 03/27/20 15:30 89 03/27/20 15:04 8 43 91 100 03/27/20 12:10 88 03/27/20 12:00 Bi-pap 100.0 03/27/20 12:00 97.3 90 25 114/70 (85) 97 03/27/20 12:00 100 Intake and Output 03/27/20 03/28/20 19:00 07:00 Intake Total 1070 ml 1923 ml Output Total 750 ml Balance 1070 ml 1173 ml Intake Free Water 100 ml IV Total 850 ml 1703 ml Tube Feeding 120 ml 220 ml Output Urine Total 750 ml Laboratory Tests Test 03/28/20 03:11 03/28/20 10:22 White Blood Count 33.5 K/UL (4.8-10.8) *H Red Blood Count 5.12 M/UL (4.70-6.10) Hemoglobin 14.2 G/DL (14.2-18.0) Hematocrit 42.7 % (42.0-52.0) Mean Corpuscular Volume 83 FL (80-99) Mean Corpuscular Hemoglobin 27.7 PG (27.0-31.0) Mean Corpuscular Hemoglobin Concent 33.2 G/DL (32.0-36.0) Red Cell Distribution Width 14.4 % (11.6-14.8) Platelet Count 110 K/UL (150-450) L Mean Platelet Volume 11.5 FL (6.5-10.1) H Neutrophils (%) (Auto) % (45.0-75.0) Lymphocytes (%) (Auto) % (20.0-45.0) Monocytes (%) (Auto) % (1.0-10.0) Eosinophils (%) (Auto) % (0.0-3.0) Basophils (%) (Auto) % (0.0-2.0) Differential Total Cells Counted 100 Neutrophils % (Manual) 98 % (45-75) H Lymphocytes % (Manual) 1 % (20-45) L Monocytes % (Manual) 1 % (1-10) Eosinophils % (Manual) 0 % (0-3) Basophils % (Manual) 0 % (0-2) Band Neutrophils 0 % (0-8) Platelet Estimate Adequate Platelet Morphology Normal Red Blood Cell Morphology Normal Sodium Level 145 MMOL/L (136-145) Potassium Level 3.5 MMOL/L (3.5-5.1) Chloride Level 110 MMOL/L (98-107) H Carbon Dioxide Level 26 MMOL/L (21-32) Anion Gap 9 mmol/L (5-15) Blood Urea Nitrogen 40 mg/dL (7-18) H Creatinine 1.2 MG/DL (0.55-1.30) Estimat Glomerular Filtration Rate > 60 mL/min (>60) Glucose Level 118 MG/DL (74-106) H Calcium Level 8.1 MG/DL (8.5-10.1) L Phosphorus Level 2.9 MG/DL (2.5-4.9) Magnesium Level 2.1 MG/DL (1.8-2.4) Total Bilirubin 0.5 MG/DL (0.2-1.0) Direct Bilirubin 0.2 MG/DL (0.0-0.3) Aspartate Amino Transf (AST/SGOT) 49 U/L (15-37) H Alanine Aminotransferase (ALT/SGPT) 41 U/L (12-78) Alkaline Phosphatase 80 U/L (46-116) C-Reactive Protein, Quantitative 41.8 mg/dL (0.00-0.90) H Total Protein 5.5 G/DL (6.4-8.2) L Albumin 1.2 G/DL (3.4-5.0) L Globulin 4.3 g/dL Albumin/Globulin Ratio 0.3 (1.0-2.7) L Arterial Blood pH 7.540 (7.350-7.450) Arterial Blood Partial Pressure CO2 23.5 mmHg (35.0-45.0) *L Arterial Blood Partial Pressure O2 54.4 mmHg (75.0-100.0) L Arterial Blood HCO3 19.6 mmol/L (22.0-26.0) L Arterial Blood Oxygen Saturation 88.9 % (95-100) *L Arterial Blood Base Excess -0.8 (-2-2) Ronni Test Positive Isreal Vallecillo MD Mar 28, 2020 11:48
[2020-03-28 12:00] VITALS: BP 109/81
--- NOTE | 2020-03-28 13:09 | Nephrology Progress Note ---
Assessment/Plan Problem List: (1) URIEL (acute kidney injury) (2) Hydronephrosis (3) Sepsis (4) Alzheimer's dementia (5) Seizure disorder Assessment Sepsis Rhabdo UTI Hydronephrosis/Argueta catheter problem Suspected Covid 19 infection Plan March 28: Lab reviewed. White blood cells over 30,000. Renal parameters are stable. Continue per consultants. March 27: Labs reviewed. White blood cells over 27,000. Renal parameters st able. On BiPAP. Continue per consultants. March 26: Labs reviewed. Abnormal electrolytes and chemistries addressed. Patient continues on BiPAP. Continue per consultants. March 25: Lab reviewed. Renal parameters and electrolytes stable and gradu ally improving. Remains on BiPAP. Continue per consultants. March:: Labs reviewed. Sodium 150. Potassium low. Serum creatinine 1.4. Abnormal electrolytes addressed. Continue to monitor renal parameters and electrolytes. Continue per pulmonary for pulmonary support. March 23: Lab checked. Abnormal electrolytes noted and addressed. D5W 1000 cc IV ordered. Continue to monitor renal parameters. Continue per pulmonary and other consultants. March 22: Labs checked. Serum creatinine 1.4. Serum sodium 157. Continues to be on D5W. Continue to monitor renal parameters and electrolytes. Previously: Recheck labs in a.m. Argueta catheter already ordered Hydrate Antibiotics Monitor CPK Avoid nephrotoxic's Per orders Subjective ROS Limited/Unobtainable: Yes Objective Objective Last 24 Hour Vital Signs Date Time Temp Pulse Resp B/P (MAP) Pulse Ox O2 Delivery O2 Flow Rate FiO2 03/28/20 11:50 100 03/28/20 11:49 Bi-pap 100.0 03/28/20 09:30 62 22 96 100 03/28/20 08:00 100 03/28/20 08:00 96 03/28/20 08:00 97.6 98 18 104/78 (87) 97 03/28/20 08:00 Bi-pap 100.0 03/28/20 04:00 98.5 89 18 112/79 (90) 95 03/28/20 04:00 Bi-pap 100.0 03/28/20 04:00 100 03/28/20 03:42 88 03/28/20 03:29 88 22 94 100 03/28/20 00:00 98.1 95 21 119/71 (87) 95 03/28/20 00:00 Bi-pap 100.0 03/28/20 00:00 92 03/27/20 22:45 91 21 94 100 03/27/20 20:00 Bi-pap 100.0 03/27/20 20:00 92 03/27/20 20:00 97.9 90 20 102/67 (79) 95 03/27/20 20:00 100 03/27/20 19:29 88 24 92 100 03/27/20 16:00 Bi-pap 100.0 03/27/20 16:00 97.3 92 21 91/62 (72) 95 03/27/20 16:00 100 03/27/20 15:30 89 03/27/20 15:04 8 43 91 100 Intake and Output0 03/27/20 03/28/20 19:00 07:00 Intake Total 1070 ml 1923 ml Output Total 750 ml Balance 1070 ml 1173 ml Intake Free Water 100 ml IV Total 850 ml 1703 ml Tube Feeding 120 ml 220 ml Output Urine Total 750 ml Current Medications Medications (Trade) Dose Ordered Sig/Martine Route PRN Reason Start Time Stop Time Status Last Admin Dose Admin Acetaminophen (Tylenol) 650 mg Q4H PRN NG Temp >100.5 03/24/20 08:30 04/18/20 19:44 03/25/20 03:25 Acetaminophen (Tylenol) 650 mg Q6H PRN NG Mild Pain (Pain Scale 1-3) 03/25/20 21:15 04/24/20 21:14 Dexamethasone Sodium Phosphate (Decadron 10mg/ ml Inj) 6 mg DAILY IV 03/26/20 09:00 04/04/20 09:01 03/28/20 09:23 Dextrose 1,000 ml @ 100 mls/hr Q10H IV 03/21/20 11:45 04/20/20 11:44 03/28/20 09:23 Docusate Sodium (Colace) 100 mg TWICE A DAY NG 03/23/20 18:00 04/22/20 17:59 03/28/20 09:23 Finasteride (Proscar) 5 mg DAILY ORAL 03/20/20 09:00 06/18/20 08:59 03/28/20 09:23 Lactulose (Cephulac) 20 gm BID NG 03/25/20 18:00 04/19/20 12:59 03/28/20 09:23 Lansoprazole (Prevacid) 30 mg DAILY NG 03/24/20 09:00 04/23/20 08:59 03/28/20 09:23 Levetiracetam 100 ml @ 400 mls/hr Q12HR IVPB 03/24/20 10:00 06/22/20 09:59 03/28/20 09:26 Lorazepam (Ativan) 1 mg Q6H PRN NG For Anxiety 03/24/20 08:30 03/28/20 22:59 Memantine (Namenda) 5 mg TWICE A DAY NG 03/24/20 09:00 04/19/20 08:59 03/28/20 09:23 Meropenem 1 gm/ Sodium Chloride 55 ml @ 110 mls/hr Q8HR IVPB 03/23/20 14:00 04/04/20 23:59 03/28/20 05:29 Ondansetron HCl (Zofran) 4 mg Q6H PRN IVP Nausea & Vomiting 03/19/20 19:45 04/18/20 19:44 Polyethylene Glycol (Miralax) 17 gm DAILYPRN PRN NG Constipation 03/24/20 08:30 04/18/20 19:44 Remdesivir 100 mg/ Sodium Chloride 250 ml @ 250 mls/hr Q24H IV 03/27/20 11:00 03/30/20 11:59 03/28/20 10:57 Tamsulosin HCl (Flomax) 0.4 mg DAILY ORAL 03/20/20 09:00 04/19/20 08:59 03/28/20 09:23 Laboratory Tests 03/28/20 03:11: White Blood Count 33.5*H, Red Blood Count 5.12, Hemoglobin 14.2, Hematocrit 42.7, Mean Corpuscular Volume 83, Mean Corpuscular Hemoglobin 27.7, Mean Corpuscular Hemoglobin Concent 33.2, Red Cell Distribution Width 14.4, Platelet Count 110L, Mean Platelet Volume 11.5H, Neutrophils (%) (Auto) , Lymphocytes (%) (Auto) , Monocytes (%) (Auto) , Eosinophils (%) (Auto) , Basophils (%) (Auto) , Differential Total Cells Counted 100, Neutrophils % (Manual) 98H, Lymphocytes % (Manual) 1L, Monocytes % (Manual) 1, Eosinophils % (Manual) 0, Basophils % (Manual) 0, Band Neutrophils 0, Platelet Estimate Adequate, Platelet Morphology Normal, Red Blood Cell Morphology Normal, Sodium Level 145, Potassium Level 3.5, Chloride Level 110H, Carbon Dioxide Level 26, Anion Gap 9, Blood Urea Nitrogen 40H, Creatinine 1.2, Estimat Glomerular Filtration Rate > 60, Glucose Level 118H , Calcium Level 8.1L, Phosphorus Level 2.9, Magnesium Level 2.1, Total Bilirubin 0.5, Direct Bilirubin 0.2, Aspartate Amino Transf (AST/SGOT) 49H, Alanine Aminotransferase (ALT/SGPT) 41, Alkaline Phosphatase 80, C-Reactive Protein, Quantitative 41.8H, Total Protein 5.5L, Albumin 1.2L, Globulin 4.3, Albumin/Globulin Ratio 0.3L 03/28/20 10:22: Arterial Blood pH 7.540H, Arterial Blood Partial Pressure CO2 23.5*L, Arterial Blood Partial Pressure O2 54.4L, Arterial Blood HCO3 19.6L, Arterial Blood Oxygen Saturation 88.9*L, Arterial Blood Base Excess -0.8, Ronni Test Positive Height (Feet): 6 Height (Inches): 0.00 Weight (Pounds): 158 General Appearance: no apparent distress EENT: other - Remains on BiPAP Cardiovascular: arrhythmia, other - Variable rates Respiratory/Chest: decreased breath sounds Abdomen: distended Objective No change Matias Albert MD Mar 28, 2020 13:09
--- NOTE | 2020-03-28 13:19 | Diagnostic Imaging Report ---
Indication: Shortness of breath Technique: One view of the chest Comparison: 03/26/2020 Findings: Interim worsening of bilateral pulmonary edema versus infiltrates. There is suggestion of Kirley B lines on the right. The heart size is normal. The pleural spaces are clear. Nasogastric tube is again demonstrated. Impression: Worsening bilateral pulmonary edema versus infiltrates, over 2 days
--- NOTE | 2020-03-28 13:37 | Psychiatry Consultation ---
Psychiatry Consultation Psychiatry Consultation Chief Complaint: Vomiting History of Present Illness: 69-year-old male patient with sepsis dehydration and tachycardia patient is confused and disorganized is got altered mental status and that is due to the decline cognition due to the progression of his medical illness so his cognition has declined below his baseline as far daily psychiatric consultation has been requested by his attending physician Mental status examination: 72-year-old male appearance disheveled attitude irritable agitated affect guarded restricted intellect poor mood depressed anxious motor activity psychomotor agitation attention span is poor orientation x2 speech nonsensical thought process disorganized and illogical Insight and judgment is poor Allergies: Coded Allergies: No Known Allergies (Unverified , 03/19/20) Medication History Scheduled Docusate Sodium* (Colace*), 100 MG ORAL DAILY, (Reported) Finasteride* (Proscar*), 5 MG ORAL DAILY, (Reported) Insulin Regular, Human* (Novolin R*), Unknown Dose SUBQ .SLIDING SCALE, (Rep orted) Levetiracetam (Levetiracetam), 500 MG ORAL DAILY, (Reported) Lorazepam* (Ativan*), 1 MG ORAL EVERY 6 HOURS, (Reported) Memantine Hcl* (Namenda*), 5 MG ORAL TWICE A DAY, (Reported) Multivitamins* (Multivitamins*), 1 TAB ORAL DAILY, (Reported) Polyethylene Glycol 3350* (Miralax*), 17 GM ORAL DAILY, (Reported) Tamsulosin HCl (Flomax), 0.4 MG ORAL DAILY, (Reported) Scheduled PRN Acetaminophen* (Acetaminophen 325MG Tablet*), 650 MG ORAL Q4H PRN for Mild Pain (Pain Scale 1-3), (Reported) Miscellaneous Medications Megestrol Acetate (Megestrol Acetate), 400 MG PO, (Reported) Objective Data Height (Feet): 6 Height (Inches): 0.00 Weight (Pounds): 158 Assessment/Plan Assessment/Plan: Treat this patient with Namenda 5 mg twice a day and Ativan 1 every 6 hours as needed anxiety agitation 20 minutes of insight oriented psychotherapy will work with this patient to help him understand his physical and psychiatric condition so that he has less anxiety depression better impulse control Diagnosis Callender I: 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
--- NOTE | 2020-03-28 14:02 | NUR ---
CASE MANAGEMENT:REVIEW 03/28/20 SI: COVID (+) SEPSIS. BACTEREMIA. UTI 96.6 120 23 109/81 96% ON BIPAP W/100% FIO2 WBC+33.5 PLT-110 BUN+40 IS: IV REMDESIVIR Q24 IV DECADRON QD IV KEPPRA Q12 LACTULOSE NG BID : TELEMETRY STATUS DCP: RETURN TO [facility]
--- NOTE | 2020-03-28 14:45 | NUR ---
NURSE NOTES: Dr. Dotson at nurse station made Dr. Dotson aware of ABG results today: pH 7.540, pCO2 23.5, pO2 54.4, HCO3 19.6, O2 Saturation 88.9 while patient is on BiPAP 20/12 FiO2 100% SpO2 94%. Dr. Dotson acknowledged and gave no new orders at this time. Will continue to monitor patient.
--- NOTE | 2020-03-28 14:46 | NUR ---
NURSE NOTES: Informed Dr. Dotson that patient's SpO2 ranges from 88 to 95%. Dr. Dotson acknowledged and states it's okay. Noted. Will continue to monitor patient.
--- NOTE | 2020-03-28 14:51 | NUR ---
RADIOLOGY DEPT., CHEST X-RAY DONE.-P.DYE
--- NOTE | 2020-03-28 15:51 | Pulmonolgy Critical Care Note ---
Critical Care - Asmt/Plan Problems: (1) Acute encephalopathy (2) Acute respiratory failure (3) Seizure disorder (4) Alzheimer's dementia (5) BPH (benign prostatic hyperplasia) (6) URIEL (acute kidney injury) (7) CVA (cerebral vascular accident) (8) Diabetes Assessment/Plan: Respiratory: adjust tidal volume, adjust FIO2, CXR Cardiac: continue to monitor HR/BP Renal: F/U I&O, check electrolytes Infectious Disease: check cultures, continue antibiotics Gastrointestinal: continue feedings/current rate Endocrine: monitor blood sugar Hematologic: monitor H/H Neurologic: PRN Morphine, keep patient comfortable Affect: PRN ativan Prophylaxis: Heparin Time Spent (Minutes): 40 Notes Reviewed: alarm mechanic, cardio, renal, GI Critical Care - Objective Last 24 Hour Vital Signs Date Time Temp Pulse Resp B/P (MAP) Pulse Ox O2 Delivery O2 Flow Rate FiO2 03/28/20 13:15 108 19 96 Bi-Pap 100 03/28/20 12:00 96.6 120 23 109/81 (90) 95 03/28/20 12:00 116 03/28/20 11:50 100 03/28/20 11:49 Bi-pap 100.0 03/28/20 11:05 108 19 96 100 03/28/20 09:30 62 22 96 100 03/28/20 08:00 100 03/28/20 08:00 96 03/28/20 08:00 97.6 98 18 104/78 (87) 97 03/28/20 08:00 Bi-pap 100.0 03/28/20 04:00 98.5 89 18 112/79 (90) 95 03/28/20 04:00 Bi-pap 100.0 03/28/20 04:00 100 03/28/20 03:42 88 03/28/20 03:29 88 22 94 100 03/28/20 00:00 98.1 95 21 119/71 (87) 95 03/28/20 00:00 Bi-pap 100.0 03/28/20 00:00 92 03/27/20 22:45 91 21 94 100 03/27/20 20:00 Bi-pap 100.0 03/27/20 20:00 92 03/27/20 20:00 97.9 90 20 102/67 (79) 95 03/27/20 20:00 100 03/27/20 19:29 88 24 92 100 03/27/20 16:00 Bi-pap 100.0 03/27/20 16:00 97.3 92 21 91/62 (72) 95 03/27/20 16:00 100 Status: sedated Condition: critical Lungs: rales, rhonchi Heart: HR/BP stable Abdomen: soft, active bowel sounds Extremities: no C/C/E, edema Accucheck: 144 Critical Care - Subjective ROS Limited/Unobtainable: Yes Condition: critical EKG Rhythm: Sinus Rhythm FI02: 100 Vent Support Mode: BiLevel Sputum Amount: None Tube Feeding Amount: 20 I&O: Intake and Output 03/27/20 03/28/20 19:00 07:00 Intake Total 1070 ml 1923 ml Output Total 750 ml Balance 1070 ml 1173 ml Intake Free Water 100 ml IV Total 850 ml 1703 ml Tube Feeding 120 ml 220 ml Output Urine Total 750 ml CXR: Impression: Worsening bilateral pulmonary edema versus infiltrates, over 2 days Labs: Laboratory Tests Test 03/28/20 03:11 03/28/20 10:22 White Blood Count 33.5 K/UL (4.8-10.8) *H Red Blood Count 5.12 M/UL (4.70-6.10) Hemoglobin 14.2 G/DL (14.2-18.0) Hematocrit 42.7 % (42.0-52.0) Mean Corpuscular Volume 83 FL (80-99) Mean Corpuscular Hemoglobin 27.7 PG (27.0-31.0) Mean Corpuscular Hemoglobin Concent 33.2 G/DL (32.0-36.0) Red Cell Distribution Width 14.4 % (11.6-14.8) Platelet Count 110 K/UL (150-450) L Mean Platelet Volume 11.5 FL (6.5-10.1) H Neutrophils (%) (Auto) % (45.0-75.0) Lymphocytes (%) (Auto) % (20.0-45.0) Monocytes (%) (Auto) % (1.0-10.0) Eosinophils (%) (Auto) % (0.0-3.0) Basophils (%) (Auto) % (0.0-2.0) Differential Total Cells Counted 100 Neutrophils % (Manual) 98 % (45-75) H Lymphocytes % (Manual) 1 % (20-45) L Monocytes % (Manual) 1 % (1-10) Eosinophils % (Manual) 0 % (0-3) Basophils % (Manual) 0 % (0-2) Band Neutrophils 0 % (0-8) Platelet Estimate Adequate Platelet Morphology Normal Red Blood Cell Morphology Normal Sodium Level 145 MMOL/L (136-145) Potassium Level 3.5 MMOL/L (3.5-5.1) Chloride Level 110 MMOL/L (98-107) H Carbon Dioxide Level 26 MMOL/L (21-32) Anion Gap 9 mmol/L (5-15) Blood Urea Nitrogen 40 mg/dL (7-18) H Creatinine 1.2 MG/DL (0.55-1.30) Estimat Glomerular Filtration Rate > 60 mL/min (>60) Glucose Level 118 MG/DL (74-106) H Calcium Level 8.1 MG/DL (8.5-10.1) L Phosphorus Level 2.9 MG/DL (2.5-4.9) Magnesium Level 2.1 MG/DL (1.8-2.4) Total Bilirubin 0.5 MG/DL (0.2-1.0) Direct Bilirubin 0.2 MG/DL (0.0-0.3) Aspartate Amino Transf (AST/SGOT) 49 U/L (15-37) H Alanine Aminotransferase (ALT/SGPT) 41 U/L (12-78) Alkaline Phosphatase 80 U/L (46-116) C-Reactive Protein, Quantitative 41.8 mg/dL (0.00-0.90) H Total Protein 5.5 G/DL (6.4-8.2) L Albumin 1.2 G/DL (3.4-5.0) L Globulin 4.3 g/dL Albumin/Globulin Ratio 0.3 (1.0-2.7) L Arterial Blood pH 7.540 (7.350-7.450) Arterial Blood Partial Pressure CO2 23.5 mmHg (35.0-45.0) *L Arterial Blood Partial Pressure O2 54.4 mmHg (75.0-100.0) L Arterial Blood HCO3 19.6 mmol/L (22.0-26.0) L Arterial Blood Oxygen Saturation 88.9 % (95-100) *L Arterial Blood Base Excess -0.8 (-2-2) Ronni Test Positive Courtney Dotson MD Mar 28, 2020 15:51
[2020-03-28 16:00] VITALS: BP 121/71
--- NOTE | 2020-03-28 16:18 | Infectious Diseases Prog Note ---
Assessment/Plan 69yo M with: COVID positive Afebrile Sepsis Leukocytosis GNR bacteremia 2/2 P.mirabilis UTI/pyelo in setting of obstruction - CT w/ BL hydronephrosis >> improved on repeat US Acute resp failure, s/p transfer to ICU for BiPAP 03/23 COVID pna, severe 03/19 BCx +P.mirabilis (domingo-S) UCx +P.mirabilis (S-CTX) CT A/P: 1. Severe bilateral hydronephrosis and moderate hydroureters. No obstructing stone identified. Possible infection. Nonspecific, left greater than right perinephric fat stranding. 2. Distended bladder with prominent bladder wall thickening, concerning for cystitis. Trace surrounding fluid. Please correlate with urinalysis. 3. Argueta catheter balloon is noted within the prostate. 4. Moderate to large amount of stool in the rectum with mild prominence of the rectal wall. This may represent fecal impaction, and stercoral inflammation. 5. Moderate to large amount of stool in the colon may represent constipation. No bowel obstruction. 6. Ground-glass opacity in the dependent right lower lobe may represent atelectasis, but infectious/infl ammatory process is not excluded. 7. Lobulated gallbladder with mildly calcified paredes versus cholelithiasis. Gallbladder is underdistended. 8. Right hydrocele partially visualized. 03/22 Renal US: Bilateral mild hydronephrosis, much less severe than demonstrated on prior CT scan of 03/19/202003/23 BCx NTD UCx NTD Resp cx NTD CXR: Interim development of bilateral infiltrates, likely pneumonia and quite likely viral, since prior study 03/19/202003/24 CXR: Slightly increased bilateral infiltrates Cr 1.2 --> 1.7 --> 1.4 COVID rapid test neg 03/19, PCR neg 03/19 --> PCR positive 03/24 MRSA nares neg Plan: Cont dexamethasone 6mg daily given COVID positive, #3/10 Cont remdesivir #3/5 given COVID positive Cont meropenem #6 given resp decompensation Appreciate Urology input on BL hydro Trend WBC, Cr 03/23 SP CTX #1 03/22 SP cefepime #2 Monitor CBC/CMP Monitor temp curve, hemodynamics Monitor resp status D/w RN Thank you for this consult. [facility] will continue to follow. Subjective Allergies: Coded Allergies: No Known Allergies (Unverified , 03/19/20) AF Extubated on BiPAP on floor WBC up to 33 Objective Last 24 Hour Vital Signs Date Time Temp Pulse Resp B/P (MAP) Pulse Ox O2 Delivery O2 Flow Rate FiO2 03/28/20 13:15 108 19 96 Bi-Pap 100 03/28/20 12:00 96.6 120 23 109/81 (90) 95 03/28/20 12:00 116 03/28/20 11:50 100 03/28/20 11:49 Bi-pap 100.0 03/28/20 11:05 108 19 96 100 03/28/20 09:30 62 22 96 100 03/28/20 08:00 100 03/28/20 08:00 96 03/28/20 08:00 97.6 98 18 104/78 (87) 97 03/28/20 08:00 Bi-pap 100.0 03/28/20 04:00 98.5 89 18 112/79 (90) 95 03/28/20 04:00 Bi-pap 100.0 03/28/20 04:00 100 03/28/20 03:42 88 03/28/20 03:29 88 22 94 100 03/28/20 00:00 98.1 95 21 119/71 (87) 95 03/28/20 00:00 Bi-pap 100.0 03/28/20 00:00 92 03/27/20 22:45 91 21 94 100 03/27/20 20:00 Bi-pap 100.0 03/27/20 20:00 92 03/27/20 20:00 97.9 90 20 102/67 (79) 95 03/27/20 20:00 100 03/27/20 19:29 88 24 92 100 Height (Feet): 6 Height (Inches): 0.00 Weight (Pounds): 158 Gen: NAD in bed, BiPAP mask HEENT: NCAT CV: RRR Pulm: BL chest rise on BiPAP Abd: Non-distended Ext: No c/c/e Neuro: Awake but not interactive Laboratory Tests Test 03/28/20 03:11 03/28/20 10:22 White Blood Count 33.5 K/UL (4.8-10.8) *H Red Blood Count 5.12 M/UL (4.70-6.10) Hemoglobin 14.2 G/DL (14.2-18.0) Hematocrit 42.7 % (42.0-52.0) Mean Corpuscular Volume 83 FL (80-99) Mean Corpuscular Hemoglobin 27.7 PG (27.0-31.0) Mean Corpuscular Hemoglobin Concent 33.2 G/DL (32.0-36.0) Red Cell Distribution Width 14.4 % (11.6-14.8) Platelet Count 110 K/UL (150-450) L Mean Platelet Volume 11.5 FL (6.5-10.1) H Neutrophils (%) (Auto) % (45.0-75.0) Lymphocytes (%) (Auto) % (20.0-45.0) Monocytes (%) (Auto) % (1.0-10.0) Eosinophils (%) (Auto) % (0.0-3.0) Basophils (%) (Auto) % (0.0-2.0) Differential Total Cells Counted 100 Neutrophils % (Manual) 98 % (45-75) H Lymphocytes % (Manual) 1 % (20-45) L Monocytes % (Manual) 1 % (1-10) Eosinophils % (Manual) 0 % (0-3) Basophils % (Manual) 0 % (0-2) Band Neutrophils 0 % (0-8) Platelet Estimate Adequate Platelet Morphology Normal Red Blood Cell Morphology Normal Sodium Level 145 MMOL/L (136-145) Potassium Level 3.5 MMOL/L (3.5-5.1) Chloride Level 110 MMOL/L (98-107) H Carbon Dioxide Level 26 MMOL/L (21-32) Anion Gap 9 mmol/L (5-15) Blood Urea Nitrogen 40 mg/dL (7-18) H Creatinine 1.2 MG/DL (0.55-1.30) Estimat Glomerular Filtration Rate > 60 mL/min (>60) Glucose Level 118 MG/DL (74-106) H Calcium Level 8.1 MG/DL (8.5-10.1) L Phosphorus Level 2.9 MG/DL (2.5-4.9) Magnesium Level 2.1 MG/DL (1.8-2.4) Total Bilirubin 0.5 MG/DL (0.2-1.0) Direct Bilirubin 0.2 MG/DL (0.0-0.3) Aspartate Amino Transf (AST/SGOT) 49 U/L (15-37) H Alanine Aminotransferase (ALT/SGPT) 41 U/L (12-78) Alkaline Phosphatase 80 U/L (46-116) C-Reactive Protein, Quantitative 41.8 mg/dL (0.00-0.90) H Total Protein 5.5 G/DL (6.4-8.2) L Albumin 1.2 G/DL (3.4-5.0) L Globulin 4.3 g/dL Albumin/Globulin Ratio 0.3 (1.0-2.7) L Arterial Blood pH 7.540 (7.350-7.450) Arterial Blood Partial Pressure CO2 23.5 mmHg (35.0-45.0) *L Arterial Blood Partial Pressure O2 54.4 mmHg (75.0-100.0) L Arterial Blood HCO3 19.6 mmol/L (22.0-26.0) L Arterial Blood Oxygen Saturation 88.9 % (95-100) *L Arterial Blood Base Excess -0.8 (-2-2) Ronni Test Positive Current Medications Medications (Trade) Dose Ordered Sig/Martine Route PRN Reason Start Time Stop Time Status Last Admin Dose Admin Acetaminophen (Tylenol) 650 mg Q4H PRN NG Temp >100.5 03/24/20 08:30 04/18/20 19:44 03/25/20 03:25 Acetaminophen (Tylenol) 650 mg Q6H PRN NG Mild Pain (Pain Scale 1-3) 03/25/20 21:15 04/24/20 21:14 03/28/20 13:33 Dexamethasone Sodium Phosphate (Decadron 10mg/ ml Inj) 6 mg DAILY IV 03/26/20 09:00 04/04/20 09:01 03/28/20 09:23 Dextrose 1,000 ml @ 100 mls/hr Q10H IV 03/21/20 11:45 04/20/20 11:44 03/28/20 09:23 Docusate Sodium (Colace) 100 mg TWICE A DAY NG 03/23/20 18:00 04/22/20 17:59 03/28/20 09:23 Finasteride (Proscar) 5 mg DAILY ORAL 03/20/20 09:00 06/18/20 08:59 03/28/20 09:23 Lactulose (Cephulac) 20 gm BID NG 03/25/20 18:00 04/19/20 12:59 03/28/20 09:23 Lansoprazole (Prevacid) 30 mg DAILY NG 03/24/20 09:00 04/23/20 08:59 03/28/20 09:23 Levetiracetam 100 ml @ 400 mls/hr Q12HR IVPB 03/24/20 10:00 06/22/20 09:59 03/28/20 09:26 Lorazepam (Ativan) 1 mg Q6H PRN NG For Anxiety 03/24/20 08:30 03/28/20 22:59 Memantine (Namenda) 5 mg TWICE A DAY NG 03/24/20 09:00 04/19/20 08:59 03/28/20 09:23 Meropenem 1 gm/ Sodium Chloride 55 ml @ 110 mls/hr Q8HR IVPB 03/23/20 14:00 04/04/20 23:59 03/28/20 13:32 Ondansetron HCl (Zofran) 4 mg Q6H PRN IVP Nausea & Vomiting 03/19/20 19:45 04/18/20 19:44 Polyethylene Glycol (Miralax) 17 gm DAILYPRN PRN NG Constipation 03/24/20 08:30 04/18/20 19:44 Remdesivir 100 mg/ Sodium Chloride 250 ml @ 250 mls/hr Q24H IV 03/27/20 11:00 03/30/20 11:59 03/28/20 10:57 Tamsulosin HCl (Flomax) 0.4 mg DAILY ORAL 03/20/20 09:00 04/19/20 08:59 03/28/20 09:23 Edwina Romero M.D. Mar 28, 2020 16:17
--- NOTE | 2020-03-28 16:45 | NUR ---
NURSE NOTES: Patient noted with HR 120 bpm junctional tachycardia 121/72. Contacted and informed Dr. Vallecillo of assessments, Dr. Vallecillo acknowledged and ordered to start patient on Lopressor 25 mg NGT BID give one dose now. Order entered, noted, and carried out. Will continue to monitor patient.
--- NOTE | 2020-03-28 19:25 | NUR ---
NURSE HAND-OFF REPORT: Important Events on Shift: Patient Status: Stable Diet: Glucerna 1.2 20 ml/hr Pending Orders: None Pending Results/Labs:None Pending MD notification:None Latest Vital Signs: Temperature 98.1 , Pulse 118 , B/P 121 /71 , Respiratory Rate 23 , O2 SAT 95 , Bi-pap, O2 Flow Rate 100.0 . Vital Sign Comment: Stable EKG Rhythm: Sinus Tachycardia Rhythm change?: N MD Notified?: N - MD Response: Latest Wilkerson Fall Score: 70 Fall Risk: High Risk Safety Measures: Call light Within Reach, Bed Alarm Zone 1, Side Rails Side Rails x3, Bed position Low and Locked. Fall Precautions: Yellow Socks Yellow Gown Report given to ELINOR Dumont.
--- NOTE | 2020-03-28 19:29 | NUR ---
NURSE NOTES: Received report from ELINOR Salazar, pt. in bed awake, opens- eyes- non-verbal, no signs or symptoms of acute cardiac or respiratory distress noted, bed alarm on, side rails up x's3 and safety brakes engaged, call light within easy reach, pt. sating at 92%- per endorsement- okay per dr. Dotson to sat between 88-90%, pt. on BIPAP settings 20/12 fio2 at 100%, NGT right nare running Glucerna 1.2 at 60cc/hr- no residual noted, Argueta intact and draining to gravity, left hand 22G IV intact and patent running D5W at 100cc/hr, pt. remains clean and dry, safety measures continued, will continue with plan of care. Addendum: 03/28/20 at 2205 by TAWNY SIMONS RN RN correction to message above feeding is running at 20cc/hr- not 60cc/hr.
[2020-03-28 20:00] VITALS: BP 107/75
--- NOTE | 2020-03-28 23:00 | NUR ---
NURSE NOTES: bed bath given and linens changed- repositioned and turned pt., will continue to monitor pt. and with plan of care.
[2020-03-29] VITALS: BP 102/59
--- NOTE | 2020-03-29 00:30 | NUR ---
NURSE NOTES: upon rounding noted- patients work of breathing increased- and using accessory muscles- Rt called to bedside ABG's done- Vital signs taken b/p 107/56, resp 33, heart rate 133- pulse ox 89%- will make MD Dotson.aware.
--- NOTE | 2020-03-29 00:55 | NUR ---
NURSE NOTES: charge nurse Rhonda- nabil Dotson aware- orders given to change BIPAP settings to 25/12 and Fio2 at 100%- and transfer patient to ICU STAT- awaiting for room in ICU. Will continue to monitor pt. and with plan of care.
--- NOTE | 2020-03-29 01:45 | NUR ---
NURSE NOTES: pt. transferred to ICU- report given to Raymundo Eason.
--- NOTE | 2020-03-29 01:47 | NUR ---
NURSE HAND-OFF REPORT: Important Events on Shift:Abnormal ABG's Patient Status: fair Diet: Glucerna 1.2 Pending Orders: Pending Results/Labs: Pending MD notification: Latest Vital Signs: Temperature 97.5 , Pulse 128 , B/P 102 /59 , Respiratory Rate 28 , O2 SAT 92 , Bi-pap, O2 Flow Rate 100.0 . Vital Sign Comment: EKG Rhythm: Sinus Tachycardia/ accelerated junctional rhythm Rhythm change?: Y MD Notified?: N - MD Response: Latest Wilkerson Fall Score: 70 Fall Risk: High Risk Safety Measures: Call light Within Reach, Bed Alarm Zone 1, Side Rails Side Rails x3, Bed position Low and Locked. Fall Precautions: Yellow Socks Yellow Gown Report given to Raymundo Eason- aware orders given by Dr. Dotson- to transfer pt. to ICU higher level of care.
[2020-03-29] MEDS ORDERED: NS 275ml ONE (01:59)
[2020-03-29] MEDS ORDERED: D5W 550ml IV ONE (01:59)
[2020-03-29] MEDS ORDERED: Tubing IV Secondary IV ONE (01:59)
--- NOTE | 2020-03-29 02:10 | NUR ---
NURSE NOTES: Patient was transferred here from stepdown unit and placed into bed C per Dr. Dotson's request for intubation. Patient admitted with BiPAP, non-responsive and with agonal breathing. ERMD was here to intubate around 0130 and patient became systolic on the monitor. No pulse and CPR/ACLS initiated. ERMD called time of @ 0200. See code sheet. Post mortem care done.
--- NOTE | 2020-03-29 02:32 | NUR ---
NURSE NOTES: Called [facility] spoke to Justin with Ref no [id number]
--- NOTE | 2020-03-29 02:35 | Emergency Room Report ---
History of Present Illness General Chief Complaint: Vomiting Source: Medical Record, EMS Present Illness HPI 69-year-old male from custodial. He was admitted here for sepsis from pneumonia secondary to Covid. He was on BiPAP and was getting worse. Patient was transferred to ICU and I was asked to intubate the patient. On my arrival patient was in respiratory distress. He was hypoxic and respiratory therapist was assisted his breathing. I proceeded to intubate the patient. There was very thick copious amount of mucus in his mouth. I suctioned that out and proceeded to intubate the patient. Right after I intubated the patient, he lost his pulse and CODE BLUE was called. CPR was done. 3 rounds of epinephrine was given without any success. Patient was in asystole and the code was called and patient was pronounced at 0 1:52 AM. Allergies: Coded Allergies: No Known Allergies (Unverified , 03/19/20) COVID-19 Screening Contact w/high risk pt: No Experienced COVID-19 symptoms?: Yes COVID-19 Testing performed PROTECTION CONSULTANT: Yes COVID-19 Screening: Positive COVID-19 COVID-19 Testing Source: 03/03/20 Patient History Past Medical History: see triage record, old chart reviewed Past Surgical History: other Pertinent Family History: none Social History: Denies: smoking Immunizations: other Reviewed Nursing Documentation: PMH: Agreed; PSxH: Agreed Nursing Documentation-PMH Past Medical History: No History, Except For Hx Hypertension: Yes Hx Diabetes: Yes - with CKD Hx Dementia: Yes Hx Epilepsy: Yes Physical Exam Vital Signs Date Time Temp Pulse Resp B/P (MAP) Pulse Ox O2 Delivery O2 Flow Rate FiO2 03/25/20 07:00 105 24 90/70 (77) 99 03/25/20 07:52 100 03/25/20 08:00 Bi-pap 03/25/20 08:00 98.7 03/26/20 12:00 15.0 Procedures CPR/Code Blue CPR/Code Blue Narrative Please see code sheet for full list of medication and time given. Patient was pronounced at 1:52 AM after 3 rounds of epinephrine. Intubation Intubation : Consent: Emergent Intubation Method: orotracheal Tube Size (cm): 7.5 Medications: Etomidate, Succinylcholine Breath Sounds after Intubation: equal Intubation Complications: no complications Post Intubation Xray: No Attempts: One Patient Tolerated: Well Complications: None Medical Decision Making Diagnostic Impression: Primary Impression: Sepsis Additional Impressions: Urinary tract infection Hydronephrosis Suspected 2019-nCoV infection Argueta catheter problem Respiratory failure requiring intubation Cardiac arrest Acute respiratory distress syndrome (ARDS) due to COVID-19 virus ER Course Presents with respiratory failure required intubation. He also had ARDS secondary to Covid and subsequently had cardiac arrest. Code was unsuccessful. Patient pronounced at 1:52 AM. Last Vital Signs Date Time Temp Pulse Resp B/P (MAP) Pulse Ox O2 Delivery O2 Flow Rate FiO2 03/29/20 01:00 100 03/29/20 00:00 Bi-pap 100.0 03/29/20 00:00 97.5 128 28 102/59 (73) 92 Status: worsened Disposition: ADMITTED INPATIENT Condition: Referrals: Gibson Berry DO (PCP) Mal Martínez MD Mar 29, 2020 02:35
--- NOTE | 2020-03-29 02:52 | NUR ---
NURSE NOTES: called to Dr Gibson Berry and left message to china Carter that pt .03/29/20 at 0200.
--- NOTE | 2020-03-29 08:00 | Consultation ---
DATE OF CONSULTATION: 03/28/2020 CARDIOLOGY CONSULTATION CONSULTING PHYSICIAN: Isreal Vallecillo MD REFERRING PHYSICIAN: Gino Austin MD ADDITIONAL REFERRING PHYSICIAN: Gibson Berry DO REASON FOR CONSULTATION: Accelerated junctional rhythm and respiratory failure. HISTORY OF PRESENT ILLNESS: The patient is a 69-year-old gentleman who was admitted on 03/19/2020 from [facility] with increased lethargy and tachycardia. The patient was also found to have urinary tract infection, sepsis, bilateral hydronephrosis, and fecal impaction. The patient also had right lung opacity and pneumonia. Subsequently, the patient was found to have COVID. Overnight, the patient was Coded and was transferred. The patient currently in respiratory failure, is on BiPAP at 20/12. The patient developed episodes of tachycardia suggestive of accelerated junctional rhythm and Cardiology consultation was obtained for further evaluation. At the time of my evaluation, the patient is in COVID isolation. REVIEW OF SYSTEMS: Negative other than what was mentioned in the history of present illness. PAST MEDICAL HISTORY: As mentioned above. FAMILY HISTORY: Noncontributory. SOCIAL HISTORY: custodial resident. He has no history of drug use. PHYSICAL EXAMINATION: VITAL SIGNS: Showed blood pressure of 104/78, pulse is 98, respirations 18, temperature 97.6. HEAD AND NECK: Showed no JVD. LUNGS: Coarse rhonchi. CARDIOVASCULAR: Shows regular S1 and S2. Slightly tachycardic. ABDOMEN: Soft. EXTREMITIES: No pitting edema. LABORATORY DATA: Labs show white count of 33.5, hemoglobin 14, hematocrit 42.7, and platelet count of 110,000. Sodium 144, potassium 3.5, BUN of 14, creatinine 1.2. EKG showed accelerated junctional rhythm, rate of 90s. ASSESSMENT AND PLAN: 1. Accelerated junctional rhythm. This could be due to the patient's COVID. This is not clear AVNRT. I will check thyroid function test and get an echocardiogram for further evaluation and management. 2. COVID pneumonia. The patient is on BiPAP. 3. Proteus bacteremia secondary to UTI. 4. Pyelonephritis, obstructive uropathy with bilateral hydronephrosis. 5. Acute renal failure, which is resolved. 6. Encephalopathy. 7. History of seizure disorder. 8. History of CVA. 9. Alzheimer's dementia. Thank you very much, Dr. Austin, for allowing me to participate in the care of this patient. Please do not hesitate to contact me for any questions regarding my evaluation. The case was discussed with the nurse at the bedside. Isreal Vallecillo M.D. DR: YVONNE JOB#: [id number] CC:
--- NOTE | 2020-03-30 14:55 | Discharge Summary ---
Discharge Summary Discharge Summary _ SUMMARY DATE OF ADMISSION: 03/19/2020 DATE OF EXPIRATION: 03/29/2020 DISCHARGED BY: Dr. Berry REASON FOR ADMISSION: 69 years old male with past medical history of hypertension, diabetes mellitus, chronic kidney disease, BPH, Alzheimer dementia, history of CVA, resident of intermediate facility, was sent for evaluation due to vomiting and generalized weakness. Patient had multiple episodes of nonbloody emesis , but no diarrhea. Patient had chronic indwelling Argueta catheter. Upon evaluation patient was tachycardic and tachypneic . Chest x-ray revealed right-sided basilar opacity. CT of the abdomen and pelvis showed bilateral hydronephrosis with bladder wall thickening , consistent with probable urinary tract infection. No evidence of stones or obstruction . Severely distended bladder. Argueta catheter was exchanged in emergency department. EKG revealed sinus tachycardia . no acute ischemic changes. Troponin negative Rapid COVID-19 was negative. Patient was also tested for COVID 19 by PCR. Urinalysis was grossly consistent with UTI. Patient had significant leukocytosis with WBC 31.2 ,hemoglobin 18.9, hematocrit 56.1. Lactic acid 4.6 , repeated 5.1 Stable electrolytes and renal parameters Glucose 85. CK 1252. Stable LFT and lipase Patient admitted with sepsis , UTI, Argueta catheter problem ,hydronephrosis ,suspected COVID-19 infection. CONSULTANTS: trial court judge Dr. Solomon pulmonary Dr. Dotson ID specialist Dr. Romero GI specialist Dr. Ernst retail sales professional Dr. Albert psychiatrist Dr. Truong urologist [facility] COURSE: Patient admitted to [facility] isolation room. Patient provided with IV fluids and empiric antibiotic. Urine culture and blood culture revealed growth of Proteus mirabilis. COVID-19 by PCR came back negative. Antibiotic provided as per ID specialist recommendation. Repeated blood and urine culture were negative. Sputum culture was negative. COVID-19 by PCR on was positive Patient started on steroids and remdesivir. Inflammatory markers were trended . Venous duplex bilateral lower extremity revealed no evidence of acute DVT. Supplemental oxygen provided and titrated to keep pulse oximetry above 92% Patient required BiPAP. Settings titrated based on ABG. Aspiration precaution maintained. Patient was follow-up with a chest x-ray. Last chest x-ray showed worsening bilateral pulmonary edema versus infiltrates. Renal parameters and electrolytes were closely monitored, electrolytes corrected as needed , nephrotoxic's were avoided . Acute kidney injury resolved. Proscar and Flomax continued. GI prophylaxis provided. Urologist seen the patient and closely reviewed all imaging. Per urologist patient most likely had chronic retention with obstructive uropathy and bilateral hydronephrosis. He recommended to keep Argueta catheter and consider cystoscopy in the near future. Patient noted to have accelerated junctional rhythm Cardiology consult requested. Per trial court judge accelerated junctional rhythm was possibly due to Covid infection, since this was not a clear AVNRT. Echocardiogram revealed preserved ejection fraction to the extent visualized. No evidence of wall motion abnormality. Free T4 within normal limits . CEA within normal limits. Protein supplements provided as per registered phlebotomist part time recommendation. Psychiatric medication regimen optimized as per psychiatrist recommendations. Insight oriented psychotherapy provided. On 03/29 patient was transferred to ICU due to worsening respiratory status. ED physician emergently intubated the patient. Noted very thick copious amount of mucus . After patient was intubated, he lost his pulses and CODE BLUE was called. ACLS protocol initiated. Unfortunately all resuscitative efforts appeared to be futile . Patient remained in asystole. Patient was pronounced at 1:52 AM on 03/29. Cause of : cardiopulmonary arrest FINAL DIAGNOSES: Acute respiratory failure ( requiring BiPAP and then oral intubation )due to Covid pneumonia Status post cardiopulmonary arrest COVID-19 pneumonia Sepsis with Proteus bacteremia secondary to UTI UTI/pyelonephritis -due to obstructive uropathy with bilateral hydronephrosis Acute renal failure - resolved Accelerated junctional rhythm, possibly due to COVID infection Encephalopathy History of CVA Seizure disorder BPH Alzheimer dementia Major depressive disorder, severe, recurrent with psychotic features I have been assigned to dictate discharge summary for this account. Gillian Miller NP Mar 30, 2020 14:55
== END 2020-03-29 02:00 | disposition expired | DRG 871 ==
LOC: EDBD 14:52 → EMR 15:05 → EDBEDREQ 15:24 → 2E 15:35 → EDBEDREQ 17:24 → ICU 03-23 09:56 → 2W 03-26 19:38 → ICU 03-29 01:42
PROC: 5A09557 Assistance with Respiratory Ventilation, Greater than 96 Consecutive Hours, Continuous Positive Airway Pressure (ICD-10-PCS; 2020-03-23)
PROC: 0BH17EZ Insertion of Endotracheal Airway into Trachea, Via Natural or Artificial Opening (ICD-10-PCS; principal; 2020-03-29)
DX: A41.9 Sepsis, unspecified organism (principal); U07.1 COVID-19; J12.89 Other viral pneumonia; N39.0 Urinary tract infection, site not specified; I69.354 Hemiplegia and hemiparesis following cerebral infarction affecting left non-dominant side; N13.30 Unspecified hydronephrosis; N12 Tubulo-interstitial nephritis, not specified as acute or chronic; G93.40 Encephalopathy, unspecified; N13.8 Other obstructive and reflux uropathy; N17.9 Acute kidney failure, unspecified; M62.82 Rhabdomyolysis; F33.3 Major depressive disorder, recurrent, severe with psychotic symptoms; E86.0 Dehydration; K56.41 Fecal impaction; G30.9 Alzheimer's disease, unspecified; F02.80 Dementia in other diseases classified elsewhere, unspecified severity, without behavioral disturbance, psychotic disturbance, mood disturbance, and anxiety; I12.9 Hypertensive chronic kidney disease with stage 1 through stage 4 chronic kidney disease, or unspecified chronic kidney disease; E11.22 Type 2 diabetes mellitus with diabetic chronic kidney disease; N18.9 Chronic kidney disease, unspecified; B96.4 Proteus (mirabilis) (morganii) as the cause of diseases classified elsewhere; I49.8 Other specified cardiac arrhythmias; N40.1 Benign prostatic hyperplasia with lower urinary tract symptoms; G40.909 Epilepsy, unspecified, not intractable, without status epilepticus; Z79.4 Long term (current) use of insulin
CPT/HCPCS: 36415; 71045; 74018; 74176; 76770; 80053; 81001; 81003; 82140; 82248; 82378; 82550; 82803; 82977; 83036; 83605; 83690; 83735; 83880; 84100; 84439; 84484; 84550; 85007; 85025; 85610; 85651; 85730; 86140; 86850; 86900; 86901; 87040; 87070; 87081; 87086; 87181; 87205; 92950; 93005; 93306; 93970; 94660; 96361; 96365; 96367; 96375; 99285; J0171; J2405; J3490; J7030; U0002